=== PATIENT | male | born 1975 | race Caucasian/White ===

== ENCOUNTER 2016-08-25 11:49 | Outpatient (CLI) | payer MEDICAID ==
[~2016-08-25] VITALS: Ht 182.9 cm; Wt 108.9 kg
[~2016-08-25 11:49] MED LIST: ALBU17AE23 IH; BUTA1TAB46 PO; DOXY100C2 PO; HYDR-3583 PO; HYDR-3730 PO; IBUP800T26 PO; NAPR-243 PO; NF-ESOM40C PO; OMEP40CA36 PO; ORPH100T PO; PNT40TEC PO; PRD20T PO; SCR1T1 PO; TRM50T PO; [UNRECOGNIZED DRUG - OTHER] INH
[2016-08-25] MEDS ORDERED: BUPIVACAINE 0.25% 30 ML (SENSORCAINE) VIAL ONE (11:53)
[2016-08-25] MEDS ORDERED: LIDOCAINE 1% INJ 20 ML (XYLOCAINE) VIAL ONE (11:53)
[2016-08-25] MEDS ORDERED: TRIAMCINOLONE ACET (KENALOG-40) 40 MG/ML 1 ML VIAL ONE (11:53)
[2016-08-25 12:41] VITALS: BP 125/95
[2016-08-25 13:10] VITALS: BP 136/94
--- NOTE | 2016-08-25 14:01 | Pain Medicine-Procedure ---
Procedure Pre-Op/Post-Op Diagnosis Diagnosis: spondylosis without myelopathy, lumbar Indications for Operation Low back pain Attending Surgeon Charo Procedure Date of Service: Aug 25, 2016 PROCEDURE: Bilateral lumbar medial branch block at L3,L4, L5 and sacral ala under fluoroscopic guidance. PROCEDURE DETAILS: After obtaining an informed consent from the patient, the patient's chart was reviewed. The patient was brought to the procedure room and placed in a prone position. The back was prepped with antiseptic solution, and under fluoroscopic guidance the sacral ala was identified bilaterally. 0.5 cc of 1% Lidocaine to anesthetize the skin. Two 22 gauge 3.5 inch spinal needles were inserted under fluoroscopic guidance until it got in touch with the bone at the sacral ala bilaterally. Then under right oblique fluoroscopy, the junction of the superior articular process and transverse process on the right at L3, L4, and L5 was identified. 0.5 cc of 1% Lidocaine was used to anesthetize the skin. A 22 gauge 3.5 inch spinal needle was inserted through the skin under fluoroscopic guidance until it came in touch with the bone at the junction between the superior articular process and transverse process at each level. The exact steps were repeated for the left side. After needle aspiration,80 mg of kenalog total was injected in equal alliquots followed by 0.5 cc of 0.5% bupivacaine at each. The patient tolerated the procedure well. The needles were flushed and removed, and a Band-Aide was applied. Complications None ELVIS CRAFT MD Aug 25, 2016 2:01 pm
== END 2016-08-25 13:11 | disposition home or self-care (01) ==
LOC: CARD 11:49
PROVIDERS: ATTEND Pain Medicine Pain Medicine
DX: M47.816 Spondylosis without myelopathy or radiculopathy, lumbar region (principal)
CPT/HCPCS: 64493; 64494; 64495

== ENCOUNTER 2016-10-20 10:29 | Outpatient (CLI) | payer MEDICAID ==
[~2016-10-20] VITALS: Ht 180.3 cm; Wt 104.3 kg
[2016-10-20] MEDS ORDERED: LIDOCAINE 1% INJ 20 ML (XYLOCAINE) VIAL ONE (10:38)
[2016-10-20] MEDS ORDERED: TRIAMCINOLONE ACET (KENALOG-40) 40 MG/ML 1 ML VIAL ONE (10:38)
[2016-10-20] MEDS ORDERED: BUPIVACAINE 0.5% 30 ML (SENSORCAINE) VIAL ONE (10:38)
--- OUTSIDE RECORDS SUMMARY | 2016-10-20 10:38 | XMS REPORT | Continuity of Care Document ---
Author Author [facility] Organization [facility] Address Unknown Phone Unavailable Care Team Providers Care Professor Of Business Name Role Phone MASOOD CARABALLO MD PCP Insurance Providers Payer Name Policy Number Subscriber Name Relationship [facility]ly [facility] [id number] Jono Gil 18 Self / Same As Patient Advance Directives Directive Response Recorded Date/Time Advance Directives No 08/25/16 12:34pm Health Care Power of Vp Marketing No 08/25/16 12:34pm Organ Donor No 08/25/16 12:34pm Resuscitation Status Full Code 08/25/16 12:34pm Problems Active Problems Medical Problem Onset Date Status Abdominal wall strain Unknown Acute Abdominal wall strain Unknown Acute Anxiety Unknown Acute Anxiety Unknown Acute Atypical chest pain Unknown Acute Back pain Unknown Acute Headache Unknown Acute Heat exhaustion Unknown Acute Lumbar radiculopathy Unknown Acute Medications Current Home Medications Medication Dose Units Route Directions Days/Qty Instructions Start Date Hydrocodone/Acetaminophen 1 Each 1-2 Each Oral Every 6 Hours 35 LAST PAIN MEDICATION, ONE TABLET, GIVEN AT 3:35 PM ON 06/21/15. 06/21/15 Prednisone 20 Mg 20 Mg Oral As Directed 18 Take 3 daily for 3 days, then 2 daily for 3 days, then 1 daily for 3 days 07/12/16 Past Home Medications Medication Directions Ordered Status Esomeprazole Magnesium 40 Mg Capsule.dr, 1 Cap Oral Daily 03/27/12 Discontinued Albuterol 17 Gm Aerosol, 1 Gm Inhalation As Needed 03/27/12 Discontinued [Qzar] , Mcg Inhalation Twice A Day 03/27/12 Discontinued Acetaminophen/Hydrocodone Bitart 1 Tab Tab, 1 - 2 Ea Oral Q 4 - 6 Hr Prn 01/08 Discontinued Naproxen 500 Mg Tablet, 1 Each Oral Three Times A Day as needed for Pain 02/16 Discontinued Orphenadrine Citrate 100 Mg Tablet.sa, 100 Mg Oral Twice A Day 02/09/14 Discontinued Tramadol Hcl 50 Mg Tab, 50 Mg Oral Q4-6HR as needed for Pain 02/09/14 Discontinued Omeprazole 40 Mg Capsule.dr, 40 Mg Oral Twice A Day 05/08/14 Discontinued Pantoprazole Sodium 40 Mg Tablet.dr, 1 Tab Oral Daily 05/08/14 Discontinued Sucralfate 1 Gm Tab, 1 Gm Oral Four Times Daily 05/08/14 Discontinued Doxycycline Hyclate (Vibramycin) 100 Mg Capsule, 100 Mg Oral Twice A Day 09/20 Discontinued Ibuprofen (Motrin) 800 Mg Tablet, 800 Mg Oral Every 8 Hours as needed for Pain 02/04/15 Discontinued Acetaminophen/Butalbital/Caffeine 1 Each Tablet, 1-2 Each Oral Every 4HRS as needed for Headache 02/16/15 Discontinued Doxycycline Hyclate (Vibramycin) 100 Mg Capsule, 1 Each Oral Twice A Day Discontinued Hydrocodone/Acetaminophen 1 Each Tablet, 1-2 Each Oral Every 6 Hours Discontinued Social History Social History Problem Response Recorded Date/Time Alcohol Use Occasionally Uses 06/21/2015 11:04am Recreational Drug Use Y THC 06/21/2015 11:04am Recent Foreign Travel No 08/25/2016 12:34pm Recent Infectious Disease Exposure No 08/25/2016 12:34pm Do you dip or chew tobacco? No 06/21/2015 12:09pm Recent Hopitalizations No 07/12/2016 1:02pm Hospital Discharge Instructions No hospital discharge instructions. Plan of Care Discharge Date 08/25/16 1:11pm Instructions/Education Provided DR. CRAFT-POST EPIDURAL INST Prescriptions See Medication Section Functional Status No functional status results. Allergies, Adverse Reactions, Alerts Allergen Type Severity Reaction Status Last Updated Shellfish Allergy Unknown Active 03/28/12 Immunizations No immunization records. Vital Signs Acute Vital Signs Vital Response Date/Time Pulse Rate (adult) 80 bpm (60 - 90) 08/25/2016 12:41pm Respiratory Rate 17 bpm (12 - 24) 08/25/2016 12:41pm O2 Sat by Pulse Oximetry 99 % (88 - 100) 08/25/2016 12:41pm Blood Pressure 136/94 mm Hg 08/25/2016 1:10pm Blood Pressure Mean 108 mm Hg 08/25/2016 1:10pm Pain Numeric Pain Scale 4 08/25/2016 1:10pm Height (Feet) 6 feet 08/25/2016 12:41pm Height (Inches) 0.00 inches 08/25/2016 12:41pm Height (Calculated Centimeters) 182.480715 cm 08/25/2016 12:41pm Weight (Pounds) 240 pounds 08/25/2016 12:41pm Weight (Ounces) 0.0 oz 08/25/2016 12:41pm Weight (Calculated Grams) 707405.17 gm 08/25/2016 12:41pm Weight (Calculated Kilograms) 108.006930 kilograms 08/25/2016 12:41pm Calculated BMI 32.6 08/25/2016 12:41pm Results No known relevant diagnostic tests, laboratory data and/or discharge summary. Procedures No known history of procedures. Encounters Encounter Location Arrival/Admit Date Discharge/Depart Date Attending Provider Departed Clinic [facility] 08/25/16 11:49am 08/25/16 1: 11pm LEVIS CRAFT MD
[2016-10-20 10:49] VITALS: BP 130/104
[2016-10-20 11:36] VITALS: BP 138/97
--- NOTE | 2016-10-20 11:52 | Pain Medicine-Procedure ---
Procedure Pre-Op/Post-Op Diagnosis Diagnosis: spondylosis without myelopathy, lumbar Indications for Operation Low back pain Attending Surgeon Charo Procedure Date of Service: Oct 20, 2016 PROCEDURE: Bilateral lumbar medial branch block at L3,L4, L5 and sacral ala under fluoroscopic guidance. PROCEDURE DETAILS: After obtaining an informed consent from the patient, the patient's chart was reviewed. The patient was brought to the procedure room and placed in a prone position. The back was prepped with antiseptic solution, and under fluoroscopic guidance the sacral ala was identified bilaterally. 0.5 cc of 1% Lidocaine to anesthetize the skin. Two 22 gauge 3.5 inch spinal needles were inserted under fluoroscopic guidance until it got in touch with the bone at the sacral ala bilaterally. Then under right oblique fluoroscopy, the junction of the superior articular process and transverse process on the right at L3, L4, and L5 was identified. 0.5 cc of 1% Lidocaine was used to anesthetize the skin. A 22 gauge 3.5 inch spinal needle was inserted through the skin under fluoroscopic guidance until it came in touch with the bone at the junction between the superior articular process and transverse process at each level. The exact steps were repeated for the left side. After needle aspiration,80 mg of kenalog total was injected in equal alliquots followed by 0.5 cc of 0.5% bupivacaine at each. The patient tolerated the procedure well. The needles were flushed and removed, and a Band-Aide was applied. Complications None ELVIS CRAFT MD Oct 20, 2016 11:52 am
== END 2016-10-20 11:40 ==
LOC: CARD 10:29
PROVIDERS: ATTEND Pain Medicine Pain Medicine
DX: M47.816 Spondylosis without myelopathy or radiculopathy, lumbar region (principal)
CPT/HCPCS: 64493; 64494; 64495

== ENCOUNTER 2016-11-24 09:11 | Outpatient (CLI) | payer MEDICAID ==
[~2016-11-24] VITALS: Ht 182.9 cm; Wt 104.3 kg
[2016-11-24] MEDS ORDERED: LIDOCAINE 2% 20 ML (XYLOCAINE) VIAL ONE (09:18)
[2016-11-24 09:27] VITALS: BP 130/89
[2016-11-24 10:05] VITALS: BP 138/104
--- NOTE | 2016-11-24 15:00 | Pain Medicine-Procedure ---
Procedure Pre-Op/Post-Op Diagnosis Diagnosis: spondylosis without myelopathy, lumbar Indications for Operation Low back pain Attending Surgeon Charo Procedure Date of Service: Nov 24, 2016 PROCEDURE: Radiofrequency Ablation (RFA) of right L3, L4, L5 and sacral ala (S1 ) Medial Branches NOTE: After obtaining written informed consent patient was taken to the procedure room. Pre-procedure blood pressure and pulse were stable and recorded in patients clinic chart. Patient was placed in a prone position and right lumbar area was prepped with chloraprep and draped in the usual sterile fashion. The skin over the sacral ala on the right was injected with 2% Lidocaine for local anesthesia. A 20-gauge RFA 100 mm needle with 10 mm active was inserted and advanced until it was touching the sacral ala in the area of the medial branch from S1. Next, in the oblique view, the right L3,L4 and L5 levels were identified. The skin over L3, L4 and L5 was then injected with 1% Lidocaine for local anesthesia. Next a 20-gauge RFA 100 mm needle with 10 mm active tip was inserted and advanced until it was touching the L3, L4 and L5 levels in the distrubution of the medial branches at each level making sure to not enter the neuroforamina. Following the placement of the needles sensory stimulation at 50 Hz and motor stimulation at 2 Hz was carried out. After confirming reproduction of the pain/sensation in the area of symptoms and the patient denying any motor movement, 0.5 mL's of 2% preservative free Lidocaine was injected at each level after negative aspiration. The RFA was then carried out in lesion mode. The settings were 80 C, and 90 seconds for lesion mode at each level. During the procedure no pain was reported in the extremities by the patient. After the procedure the needles were removed. Skin was cleaned and a sterile dressing was applied. Following the procedure the patient's vital signs were stable. The patient was discharged. RFA DATA: In chart. Complications None ELVIS CRAFT MD Nov 24, 2016 3:00 pm
== END 2016-11-24 10:22 ==
LOC: CARD 09:11
PROVIDERS: ATTEND Pain Medicine Pain Medicine
DX: M47.816 Spondylosis without myelopathy or radiculopathy, lumbar region (principal); Z79.899 Other long term (current) drug therapy
CPT/HCPCS: 64635; 64636

== ENCOUNTER 2016-12-01 08:59 | Outpatient (CLI) | payer MEDICAID ==
[~2016-12-01] VITALS: Ht 182.9 cm; Wt 104.3 kg
[2016-12-01 09:13] VITALS: BP 140/100
[2016-12-01] MEDS ORDERED: LIDOCAINE 2% 20 ML (XYLOCAINE) VIAL ONE (09:13)
[2016-12-01 10:09] VITALS: BP 137/98
--- NOTE | 2016-12-01 12:37 | Pain Medicine-Procedure ---
Procedure Pre-Op/Post-Op Diagnosis Diagnosis: spondylosis without myelopathy, lumbar Indications for Operation Low back pain Attending Surgeon Charo Procedure Date of Service: Dec 01, 2016 PROCEDURE: Radiofrequency Ablation (RFA) of left L3, L4, L5 and sacral ala (S1 ) Medial Branches NOTE: After obtaining written informed consent patient was taken to the procedure room. Pre-procedure blood pressure and pulse were stable and recorded in patients clinic chart. Patient was placed in a prone position and left lumbar area was prepped with chloraprep and draped in the usual sterile fashion. The skin over the sacral ala on the left was injected with 2% Lidocaine for local anesthesia. A 20-gauge RFA 100 mm needle with 10 mm active was inserted and advanced until it was touching the sacral ala in the area of the medial branch from S1. Next, in the oblique view, the left L3,L4 and L5 levels were identified. The skin over L3, L4 and L5 was then injected with 1% Lidocaine for local anesthesia. Next a 20-gauge RFA 100 mm needle with 10 mm active tip was inserted and advanced until it was touching the L3, L4 and L5 levels in the distrubution of the medial branches at each level making sure to not enter the neuroforamina. Following the placement of the needles sensory stimulation at 50 Hz and motor stimulation at 2 Hz was carried out. After confirming reproduction of the pain/sensation in the area of symptoms and the patient denying any motor movement, 0.5 mL's of 2% preservative free Lidocaine was injected at each level after negative aspiration. The RFA was then carried out in lesion mode. The settings were 80 C, and 90 seconds for lesion mode at each level. During the procedure no pain was reported in the extremities by the patient. After the procedure the needles were removed. Skin was cleaned and a sterile dressing was applied. Following the procedure the patient's vital signs were stable. The patient was discharged. RFA DATA: In chart Complications None ELVIS CRAFT MD Dec 01, 2016 12:37 pm
== END 2016-12-01 10:10 | disposition home or self-care (01) ==
LOC: CARD 08:59
PROVIDERS: ATTEND Pain Medicine Pain Medicine
DX: M47.816 Spondylosis without myelopathy or radiculopathy, lumbar region (principal); Z79.899 Other long term (current) drug therapy
CPT/HCPCS: 64635; 64636

== ENCOUNTER → 2016-12-09 | Outpatient (CLI) | payer MEDICAID ==
--- NOTE | 2016-12-09 11:11 | Diagnostic Imaging Report ---
PROCEDURE: MR imaging cervical spine without contrast. TECHNIQUE: Multiplanar, multisequence MR imaging of the cervical spine was performed without contrast. INDICATION: Neck pain. Bilateral elbow and shoulder pain. There is normal height and alignment of the cervical vertebral bodies. Disc spaces are well-maintained. There is mild bulging of the discs at C3-4 and C6-7 with no focal disc herniation or bony stenosis at these or any other levels. No nerve root impingement is seen. There is no mass or acute bony abnormality. There is no abnormality of the cervical cord seen. IMPRESSION: There are minimal degenerative changes present with no disc herniation or bony stenosis seen. The overall appearance is similar to a prior MRI from 07/12/16. Dictated by: Dictated on workstation # [id number]
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
== END ==
LOC: RAD 09:31
PROVIDERS: ATTEND Nurse Practitioner Family
DX: M50.30 Other cervical disc degeneration, unspecified cervical region (principal); M54.5 Low back pain
CPT/HCPCS: 72141; 72148

== ENCOUNTER 2017-11-24 23:57 | Observation (INO) | payer MEDICAID, OTHER ==
[~2017-11-24] VITALS: Ht 182.9 cm; Wt 109.3 kg
[2017-11-25] VITALS (15 sets, daily range): BP systolic 116–163; BP diastolic 76–109
[2017-11-25] MEDS ORDERED: FLUO20CA25 PO (00:10)
--- OUTSIDE RECORDS SUMMARY | 2017-11-25 00:30 | XMS REPORT ---
Author Author IRVING FARRAR [facility] Address [address] [place] [address] Care Team Providers Care Asbestos Removal Supervisor Name Role Phone IRVING FARRAR Unavailable PROBLEMS Type Condition ICD9-CM Code COC31-UO Code Onset Dates Condition Status SNOMED Code Problem Asthma, unspecified, unspecified status 493.90 Active 63110739 Problem Inguinal hernia without mention of obstruction or gangrene, unilateral or unspecified, (not specified as recurrent) 550.90 Active 806355050 Problem Allergic rhinitis, cause unspecified 477.9 Active 99618606 Problem Restless legs syndrome [RLS] 333.94 Active 13296046 Problem DDD (degenerative disc disease), cervical M50.30 Active 76067265 Problem DDD (degenerative disc disease), 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 Active 58721261 Problem Diverticulitis of colon (without mention of hemorrhage) 562.11 Active 533583012 Problem Esophageal reflux 530.81 Active 280331156 Problem DDD (degenerative disc disease), lumbar M51.36 Active 89563022 Problem Reactive depression F32.9 Active 81925855 ALLERGIES Unknown Allergies SOCIAL HISTORY No smoking Hx information available PLAN OF CARE VITAL SIGNS MEDICATIONS Medication Instructions Dosage Frequency Start Date End Date Duration Status ProAir HFA 90 mcg/actuation Inhalation 4 times a day inhale 2 puffs 6h Aug, Active RESULTS No Results PROCEDURES No Known procedures IMMUNIZATIONS No Known Immunizations
--- OUTSIDE RECORDS SUMMARY | 2017-11-25 00:30 | XMS REPORT ---
Author Author IRVING FARRAR [facility] Address [address] [place] [address] Care Team Providers Care Crusher And Blender Operator Name Role Phone IRVING FARRAR Unavailable PROBLEMS Type Condition ICD9-CM Code [id number] Code Onset Dates Condition Status SNOMED Code Problem Inguinal hernia without mention of obstruction or gangrene, unilateral or unspecified, (not specified as recurrent) 550.90 Active 968642932 Problem Asthma, unspecified, unspecified status 493.90 Active 64306819 Problem Esophageal reflux 530.81 Active 660842213 Problem Diverticulitis of colon (without mention of hemorrhage) 562.11 Active 311106372 Problem DDD (degenerative disc disease), cervical M50.30 Active 83735655 Problem DDD (degenerative disc disease), lumbar M51.36 Active 78378289 Problem Restless legs syndrome [RLS] 333.94 Active 24566612 Problem Allergic rhinitis, cause unspecified 477.9 Active 56941858 Problem Reactive depression F32.9 Active 06947340 Problem DDD (degenerative disc disease), 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 Active 95212475 ALLERGIES Substance Reaction Event Type Date Status Wellbutrin XL headache Drug Allergy Aug, Active Prozac incd anger Drug Allergy Aug, Active Iodine anaphylaxis Drug Allergy Aug, Active Gabapentin nausea Drug Allergy Aug, Active Fioricet hallucinations Drug Allergy Aug, Active SOCIAL HISTORY No smoking Hx information available PLAN OF CARE Activity Details Follow Up 4 Weeks Reason:depression VITAL SIGNS Height 70 in 2016-08-23 Weight 243.8 lbs 2016-08-23 Temperature 98 degrees Fahrenheit 2016-08-23 Heart Rate 80 bpm 2016-08-23 Respiratory Rate 18 2016-08-23 BMI 34.98 kg/m2 2016-08-23 Blood pressure systolic 142 mmHg 2016-08-23 Blood pressure diastolic 82 mmHg 2016-08-23 MEDICATIONS Medication Instructions Dosage Frequency Start Date End Date Duration Status Valium 5 mg Orally Twice a day as needed must last 1 m 1 tablet as needed Jul, Active Omeprazole 20 MG Orally 2 times a day take 1 capsule by Oral route before a meal 2 times per day 12h 04 Apr, 2014 Active Hydrocodone-Acetaminophen 5-325 MG Orally 3 times a day must lst 1 m 1 tablet as needed Jul, Active ProAir HFA 90 mcg/actuation Inhalation 4 times a day inhale 2 puffs 6h Aug, Active Sertraline HCl 25 MG Orally Once a day 1 tablet x 2 wk then 2 tab qd 24h Aug, Active RESULTS No Results PROCEDURES Procedure Date Ordered Related Diagnosis Body Site Office Visit, Est Pt., Level 3 Aug 23, 2016 IMMUNIZATIONS No Known Immunizations
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
--- OUTSIDE RECORDS SUMMARY | 2017-11-25 00:30 | XMS REPORT ---
Author Author IRVING FARRAR [facility] e[employer] Address Unknown Phone Unavailable Care Team Providers Care Cut Off Machine Unloader Name Role Phone IRVING FARRAR CP Unavailable Allergies, Adverse Reactions, Alerts Substance Reaction Event Type Wellbutrin XL headache Drug Allergy Prozac incd anger Drug Allergy Iodine anaphylaxis Drug Allergy Gabapentin nausea Drug Allergy Fioricet hallucinations Drug Allergy Problems Problem Type Condition Code Onset Dates Condition Status Problem Acute maxillary sinusitis 461.0 Active Assessment Diarrhea, unspecified R19.7 Active Problem Abdominal pain, unspecified site 789.00 Active Problem Restless legs syndrome [RLS] 333.94 Active Problem Unspecified episodic mood disorder 296.90 Active Problem Inguinal hernia without mention of obstruction or gangrene, unilateral or unspecified, (not specified as recurrent) 550.90 Active Problem Hernia of unspecified site of abdominal cavity without mention of obstruction or gangrene 553.9 Active Problem Diverticulitis of colon (without mention of hemorrhage) 562.11 Active Problem Esophageal reflux 530.81 Active Problem Asthma, unspecified, unspecified status 493.90 Active Problem Abdominal pain, right lower quadrant 789.03 Active Problem Unspecified neuralgia, neuritis, and radiculitis 729.2 Active Problem Dysuria 788.1 Active Problem Unspecified fasciitis 729.4 Active Problem Diarrhea 787.91 Active Problem Pain in joint, lower leg 719.46 Active Problem Thoracic or lumbosacral neuritis or radiculitis, unspecified 724.4 Active Problem Acute bronchitis 466.0 Active Problem Acute sinusitis, unspecified 461.9 Active Problem Lumbago 724.2 Active Problem Allergic rhinitis, cause unspecified 477.9 Active Problem Pneumonia, organism unspecified 486 Active Problem Incisional hernia without mention of obstruction or gangrene 553.21 Active Problem Pain in soft tissues of limb 729.5 Active Problem Pain in joint, ankle and foot 719.47 Active Medications Medication Code System Code Instructions Start Date End Date Status Dosage Sucralfate [facility] [address]-96 1 GM Orally 4 times a day Jun 10, 2015 1 tablet on an empty stomach Omeprazole [facility] [address]-55 20 MG Orally 2 times a day Apr 09, 2014 take 1 capsule by Oral route before a meal 2 times per day Procedures Procedure Coding System Code Date Office Visit, Est Pt., Level 3 CPT-4 54827 Jun 10, 2015 Vital Signs Date/Time: Jun 10, 2015 Temperature 97.8 F Weight 238 lbs Height 70 in BMI 34.15 Index Blood Pressure Diastolic 70 mmHg Blood Pressure Systolic 120 mmHg Cardiac Monitoring Heart Rate 78 bpm Results No Known Results Summary Purpose eClinicalWorks Submission
--- OUTSIDE RECORDS SUMMARY | 2017-11-25 00:30 | XMS REPORT ---
Author Author IRVING FARRAR Organization [employer] Address Unknown Phone Unavailable Care Team Providers Care Energy Conservation Engineer Name Role Phone IRVING FARRAR CP Unavailable Allergies No Known Allergies Problems Problem Type Condition Code Onset Dates Condition Status Problem Unspecified episodic mood disorder 296.90 Active Problem Inguinal hernia without mention of obstruction or gangrene, unilateral or unspecified, (not specified as recurrent) 550.90 Active Problem Hernia of unspecified site of abdominal cavity without mention of obstruction or gangrene 553.9 Active Problem Diverticulitis of colon (without mention of hemorrhage) 562.11 Active Problem Asthma, unspecified, unspecified status 493.90 Active Problem Esophageal reflux 530.81 Active Problem Abdominal pain, right lower quadrant 789.03 Active Problem Dysuria 788.1 Active Problem Unspecified neuralgia, neuritis, and radiculitis 729.2 Active Problem Unspecified fasciitis 729.4 Active Problem [...] soft tissues of limb 729.5 Active Problem Acute maxillary sinusitis 461.0 Active Problem Restless legs syndrome [RLS] 333.94 Active Problem Pain in joint, ankle and foot 719.47 Active Problem Abdominal pain, unspecified site 789.00 Active Medications Medication Code System Code Instructions Start Date End Date Status Dosage ProAir HFA [facility] [place] [id number] 90 mcg/actuation Inhalation 4 times a day Aug 27, 2014 inhale 2 puffs Results No Known Results Summary Purpose [employer] Submission
--- OUTSIDE RECORDS SUMMARY | 2017-11-25 00:31 | XMS REPORT ---
Author Author IRVING FARRAR Organization [employer] Address Unknown Phone Unavailable Care Team Providers Care Impregnator Name Role Phone IRVING FARRAR CP Unavailable [...] Date End Date Status Dosage ProAir HFA [facility] [place] [id number] 90 mcg/actuation Inhalation 4 times a day Aug 27, 2014 inhale 2 puffs Results No Known Results Summary Purpose [employer] Submission
--- OUTSIDE RECORDS SUMMARY | 2017-11-25 00:31 | XMS REPORT ---
Author Author IRVING FARRAR [facility] Address [address] [place] [address] Care Team Providers Care Emissions Inspector Name Role Phone IRVING FARRAR Unavailable PROBLEMS Type Condition ICD9-CM Code [id number] Code Onset Dates Condition Status SNOMED Code Problem Inguinal hernia without mention of obstruction or gangrene, unilateral or unspecified, (not specified as recurrent) 550.90 Active 964279752 Problem Asthma, unspecified, unspecified status 493.90 Active 56615212 Problem Esophageal reflux 530.81 Active 489836113 Problem Diverticulitis of colon (without mention of hemorrhage) 562.11 Active 023938141 Problem DDD (degenerative disc disease), cervical M50.30 Active 53099854 Problem DDD (degenerative disc disease), lumbar M51.36 Active 77465275 Problem Restless legs syndrome [RLS] 333.94 Active 48716540 Problem Allergic rhinitis, cause unspecified 477.9 Active 79508281 Problem Reactive depression F32.9 Active 67931810 Problem DDD (degenerative disc disease), 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 Active 38056846 ALLERGIES Substance Reaction Event Type Date Status Wellbutrin XL headache Drug Allergy Jul, Active Prozac incd anger Drug Allergy Jul, Active Iodine anaphylaxis Drug Allergy Jul, Active Gabapentin nausea Drug Allergy Jul, Active Fioricet hallucinations Drug Allergy Jul, Active SOCIAL HISTORY No smoking Hx information available PLAN OF CARE Activity Details Follow Up 4 Weeks Reason:back pain VITAL SIGNS Height 70 in 2016-07-24 Weight 246.4 lbs 2016-07-24 Temperature 98.3 degrees Fahrenheit 2016-07-24 Heart Rate 86 bpm 2016-07-24 Respiratory Rate 18 2016-07-24 BMI 35.35 kg/m2 2016-07-24 Blood pressure systolic 136 mmHg 2016-07-24 Blood pressure diastolic 78 mmHg 2016-07-24 MEDICATIONS Medication Instructions Dosage Frequency Start Date End Date Duration Status Omeprazole 20 MG Orally 2 times a day take 1 capsule by Oral route before a meal 2 times per day 12h 04 Apr, 2014 Active Fluoxetine 20 mg Orally Once a day 1 capsule in the morning 24h Jul, Active Valium 5 mg Orally Twice a day as needed must last 1 m 1 tablet as needed Jul, Active Hydrocodone-Acetaminophen 5-325 MG Orally 3 times a day must lst 1 m 1 tablet as needed Jul, Active RESULTS No Results PROCEDURES Procedure Date Ordered Related Diagnosis Body Site Office Visit, Est Pt., Level 3 Jul 24, 2016 IMMUNIZATIONS No Known Immunizations
--- OUTSIDE RECORDS SUMMARY | 2017-11-25 00:31 | XMS REPORT ---
Author Author MG FERNANDEZ Organization [employer] Address Unknown Phone Unavailable Care Team Providers Care Teacher Visually Impaired Name Role Phone MG FERNANDEZ CP Unavailable Allergies No Known Allergies Problems Problem Type Condition Code Onset Dates Condition Status Problem Acute maxillary sinusitis 461.0 Active Assessment Encounter for immunization Z23 Active Problem Abdominal pain, unspecified site 789.00 [...] joint, ankle and foot 719.47 Active Medications No Known Medications Procedures Procedure Coding System Code Date SINGLE IMMUNIZATION ADMIN CPT-4 29655 Jun 30, 2016 FLUARIX QUAD P-FREE 3 AND UP .50 2015 CPT-4 57501 Jun 30, 2016 Results No Known Results Immunizations Vaccine Administration Date FLUARIX QUAD P-FREE 3 AND UP .50 2015Jun 30, 2016 Summary Purpose [employer] Submission
--- OUTSIDE RECORDS SUMMARY | 2017-11-25 00:32 | XMS REPORT | Continuity of Care Document ---
Author Author [facility] Address Unknown Phone Unavailable Allergies Active Description Code Type Severity Reaction Onset Reported/Identified Relationship to Patient Clinical Status Yes Iodine Drug Allergy N/A N/A 09/27/2011 Yes Iodine Drug Allergy 09/27/2011 Yes Shellfish [id number] Drug Allergy Unknown N/A 03/28/2012 Yes Wellbutrin SR 150 mg tablet extended release Drug Allergy N/A N/A 2012 Yes gabapentin 300 mg capsule Drug Allergy N/A N/A 04/22/2013 Yes Prozac Drug Allergy N/A N/A 09/30/2013 Yes iodine [id number] Drug Allergy Severe ANAPHYLAXIS 02/09/2014 Medications There is no data. Problems Date Dx Coded Attending Type Code Diagnosis Diagnosed By 09/27/2011 477.9 RHINITIS 09/27/2011 493.90 ASTHMA UNSPECIFIED 09/27/2011 724.2 BACK PAIN, LOWER 09/27/2011 477.9 RHINITIS 09/27/2011 493.90 ASTHMA UNSPECIFIED 09/27/2011 724.2 BACK PAIN, LOWER 09/27/2011 477.9 RHINITIS 09/27/2011 493.90 ASTHMA UNSPECIFIED 09/27/2011 724.2 BACK PAIN, LOWER 09/27/2011 477.9 RHINITIS 09/27/2011 493.90 ASTHMA UNSPECIFIED 09/27/2011 724.2 BACK PAIN, LOWER 09/27/2011 477.9 RHINITIS 09/27/2011 493.90 ASTHMA UNSPECIFIED 09/27/2011 724.2 BACK PAIN, LOWER 09/27/2011 SHIRA SALINAS DO 477.9 RHINITIS 09/27/2011 SHIRA SALINAS DO 493.90 ASTHMA UNSPECIFIED 09/27/2011 SHIRA SALINAS DO 724.2 BACK PAIN, LOWER 09/27/2011 SHIRA SALINAS DO 477.9 RHINITIS 09/27/2011 SHIRA SALINAS DO 493.90 ASTHMA UNSPECIFIED 09/27/2011 SALINAS DO, SHIRA K 724.2 BACK PAIN, LOWER 09/27/2011 SALINAS DO, SHIRA K 477.9 RHINITIS 09/27/2011 SALINAS DO, SHIRA K 493.90 ASTHMA UNSPECIFIED 09/27/2011 SALINAS DO, SHIRA K 724.2 BACK PAIN, LOWER 09/27/2011 SALINAS DO, SHIRA K 477.9 RHINITIS 09/27/2011 SALINAS DO, SHIRA K 493.90 ASTHMA UNSPECIFIED 09/27/2011 SALINAS DO, SHIRA K 724.2 BACK PAIN, LOWER 09/27/2011 FARRAR BUSINESS OPERATIONS COORDINATORIRVING Bates 477.9 RHINITIS 09/27/2011 FARRAR BUSINESS OPERATIONS COORDINATOR, IRVING R 493.90 ASTHMA UNSPECIFIED 09/27/2011 FARRAR IRVING BILL R 724.2 BACK PAIN, LOWER 09/27/2011 FARRAR IRVING BILL 477.9 RHINITIS 09/27/2011 FARRAR BUSINESS OPERATIONS COORDINATOR, IRVING R 493.90 ASTHMA UNSPECIFIED 09/27/2011 IRVING FARRAR APRN R 724.2 BACK PAIN, LOWER 09/27/2011 SALINAS DO, SHIRA K 477.9 RHINITIS 09/27/2011 SALINAS DO, SHIRA K 493.90 ASTHMA UNSPECIFIED 09/27/2011 SALINAS DO, SHIRA K 724.2 BACK PAIN, LOWER 09/27/2011 GIORGI BUSINESS OPERATIONS COORDINATOR, KAMINI R 477.9 RHINITIS 09/27/2011 GIORGI BUSINESS OPERATIONS COORDINATOR KAMINI R 493.90 ASTHMA UNSPECIFIED 09/27/2011 GIORGI BUSINESS OPERATIONS COORDINATOR KAMINI R 724.2 BACK PAIN, LOWER 09/27/2011 GIORGI BUSINESS OPERATIONS COORDINATOR KAMINI R 477.9 RHINITIS 09/27/2011 RAND BUSINESS OPERATIONS COORDINATOR, KAMINI R 493.90 ASTHMA UNSPECIFIED 09/27/2011 RAND BUSINESS OPERATIONS COORDINATOR, KAMINI R 724.2 BACK PAIN, LOWER 09/27/2011 SALINAS DO, SHIRA K 477.9 RHINITIS 09/27/2011 SALINAS DO, SHIRA K 493.90 ASTHMA UNSPECIFIED 09/27/2011 SALINAS DO, SHIRA K 724.2 BACK PAIN, LOWER 09/27/2011 SALINAS DO, SHIRA K 477.9 RHINITIS 09/27/2011 SALINAS DO, SHIRA K 493.90 ASTHMA UNSPECIFIED 09/27/2011 SALINAS DO, SHIRA K 724.2 BACK PAIN, LOWER 02/26/2012 789.03 ABDOMINAL PAIN RIGHT LOWER QUADRANT 02/26/2012 789.03 ABDOMINAL PAIN RIGHT LOWER QUADRANT 02/26/2012 789.03 ABDOMINAL PAIN RIGHT LOWER QUADRANT 02/26/2012 789.03 ABDOMINAL PAIN RIGHT LOWER QUADRANT 02/26/2012 789.03 ABDOMINAL PAIN RIGHT LOWER QUADRANT 02/26/2012 SALINAS DOSHIRA K 789.03 ABDOMINAL PAIN RIGHT LOWER QUADRANT 02/26/2012 SALINAS DOLORENAA K 789.03 ABDOMINAL PAIN RIGHT LOWER QUADRANT 02/26/2012 SALINAS DO, SHIRA K 789.03 ABDOMINAL PAIN RIGHT LOWER QUADRANT 02/26/2012 SALINAS LORENA HERNANDEZA K 789.03 ABDOMINAL PAIN RIGHT LOWER QUADRANT 02/26/2012 IRVING FARRAR APRN 789.03 ABDOMINAL PAIN RIGHT LOWER QUADRANT 02/26/2012 IRVING FARRAR APRN 789.03 ABDOMINAL PAIN RIGHT LOWER QUADRANT 02/26/2012 SALINAS DOLORENAA K 789.03 ABDOMINAL PAIN RIGHT LOWER QUADRANT 02/26/2012 KAMINI RAND APRN R 789.03 ABDOMINAL PAIN RIGHT LOWER QUADRANT 02/26/2012 KAMINI RAND APRN R 789.03 ABDOMINAL PAIN RIGHT LOWER QUADRANT 02/26/2012 SALINAS LORENA HERNANDEZA K 789.03 ABDOMINAL PAIN RIGHT LOWER QUADRANT 02/26/2012 SALINAS LORNEA HERNANDEZA K 789.03 ABDOMINAL PAIN RIGHT LOWER QUADRANT 03/08/2012 530.81 ESOPHAGEAL REFLUX 03/08/2012 562.11 DIVERTICULITIS OF COLON (WITHOUT HEMORRHAGE) 03/08/2012 530.81 ESOPHAGEAL REFLUX 03/08/2012 562.11 DIVERTICULITIS OF COLON (WITHOUT HEMORRHAGE) 03/08/2012 530.81 ESOPHAGEAL REFLUX 03/08/2012 562.11 DIVERTICULITIS OF COLON (WITHOUT HEMORRHAGE) 03/08/2012 530.81 ESOPHAGEAL REFLUX 03/08/2012 562.11 DIVERTICULITIS OF COLON (WITHOUT HEMORRHAGE) 03/08/2012 530.81 ESOPHAGEAL REFLUX 03/08/2012 562.11 DIVERTICULITIS OF COLON (WITHOUT HEMORRHAGE) 03/08/2012 SHIRA SALINAS DO K 530.81 ESOPHAGEAL REFLUX 03/08/2012 SHIRA SALINAS DO K 562.11 DIVERTICULITIS OF COLON (WITHOUT HEMORRHAGE) 03/08/2012 SALINAS DO, SHIRA K 530.81 ESOPHAGEAL REFLUX 03/08/2012 BRAD HERNANDEZ SHIRA K 562.11 DIVERTICULITIS OF COLON (WITHOUT HEMORRHAGE) 03/08/2012 SALINAS DO SHIRA K 530.81 ESOPHAGEAL REFLUX 03/08/2012 SALINAS DO SHIRA K 562.11 DIVERTICULITIS OF COLON (WITHOUT HEMORRHAGE) 03/08/2012 SALINAS DO SHIRA K 530.81 ESOPHAGEAL REFLUX 03/08/2012 SALINAS DO SHIRA K 562.11 DIVERTICULITIS OF COLON (WITHOUT HEMORRHAGE) 03/08/2012 IRVING FARRAR APRN R 530.81 ESOPHAGEAL REFLUX 03/08/2012 FARRAR BUSINESS OPERATIONS COORDINATORIRVING Bates R 562.11 DIVERTICULITIS OF COLON (WITHOUT HEMORRHAGE) 03/08/2012 IRVING FARRAR APRN R 530.81 ESOPHAGEAL REFLUX 03/08/2012 FARRAR IRVING BILL R 562.11 DIVERTICULITIS OF COLON (WITHOUT HEMORRHAGE) 03/08/2012 LORENA SALINAS DOA K 530.81 ESOPHAGEAL REFLUX 03/08/2012 LORENA SALINAS DOA K 562.11 DIVERTICULITIS OF COLON (WITHOUT HEMORRHAGE) 03/08/2012 GIORGI BUSINESS OPERATIONS COORDINATOR KAMINI R 530.81 ESOPHAGEAL REFLUX 03/08/2012 GIORGI BUSINESS OPERATIONS COORDINATOR KAMINI R 562.11 DIVERTICULITIS OF COLON (WITHOUT HEMORRHAGE) 03/08/2012 GIORGI BUSINESS OPERATIONS COORDINATOR KAMINI R 530.81 ESOPHAGEAL REFLUX 03/08/2012 GIORGI BUSINESS OPERATIONS COORDINATOR, KAMINI R 562.11 DIVERTICULITIS OF COLON (WITHOUT HEMORRHAGE) 03/08/2012 BRAD HERNANDEZ SHIRA K 530.81 ESOPHAGEAL REFLUX 03/08/2012 BRAD HERNANDEZ SHIRA K 562.11 DIVERTICULITIS OF COLON (WITHOUT HEMORRHAGE) 03/08/2012 SALINAS DO SHIRA K 530.81 ESOPHAGEAL REFLUX 03/08/2012 SALINAS DO SHIRA K 562.11 DIVERTICULITIS OF COLON (WITHOUT HEMORRHAGE) 03/28/2012 Ot 211.3 BENIGN NEOPLASM LG BOWEL 03/28/2012 Ot 787.99 OTHER GI SYSTEM SYMPTOMS 04/12/2012 553.9 HERNIA UNSPECIFIED SITE 04/12/2012 553.9 HERNIA UNSPECIFIED SITE 04/12/2012 553.9 HERNIA UNSPECIFIED SITE 04/12/2012 553.9 HERNIA UNSPECIFIED SITE 04/12/2012 553.9 HERNIA UNSPECIFIED SITE 04/12/2012 SALINAS DO, SHIRA K 553.9 HERNIA UNSPECIFIED SITE 04/12/2012 SALINAS DO, SHIRA K 553.9 HERNIA UNSPECIFIED SITE 04/12/2012 SALINAS DO, SHIRA K 553.9 HERNIA UNSPECIFIED SITE 04/12/2012 SALINAS DO, SHIRA K 553.9 HERNIA UNSPECIFIED SITE 04/12/2012 IRVING FARRAR APRN 553.9 HERNIA UNSPECIFIED SITE 04/12/2012 FARRARIRVING RILEY APRN 553.9 HERNIA UNSPECIFIED SITE 04/12/2012 SALINAS DO, SHIRA K 553.9 HERNIA UNSPECIFIED SITE 04/12/2012 KAMINI RAND APRN 553.9 HERNIA UNSPECIFIED SITE 04/12/2012 KAMINI RAND APRN 553.9 HERNIA UNSPECIFIED SITE 04/12/2012 SALINAS DO, SHIRA K 553.9 HERNIA UNSPECIFIED SITE 04/12/2012 SALINAS DO, SHIRA K 553.9 HERNIA UNSPECIFIED SITE 04/15/2012 789.00 ABDOMINAL PAIN UNSPECIFIED SITE 04/15/2012 789.00 ABDOMINAL PAIN UNSPECIFIED SITE 04/15/2012 789.00 ABDOMINAL PAIN UNSPECIFIED SITE 04/15/2012 789.00 ABDOMINAL PAIN UNSPECIFIED SITE 04/15/2012 789.00 ABDOMINAL PAIN UNSPECIFIED SITE 04/15/2012 SALINAS DO, SHIRA K 789.00 ABDOMINAL PAIN UNSPECIFIED SITE 04/15/2012 SALINAS DO, SHIRA K 789.00 ABDOMINAL PAIN UNSPECIFIED SITE 04/15/2012 SALINAS DO, SHIRA K 789.00 ABDOMINAL PAIN UNSPECIFIED SITE 04/15/2012 SALINAS DO, SHIRA K 789.00 ABDOMINAL PAIN UNSPECIFIED SITE 04/15/2012 IRVING FARRAR APRN 789.00 ABDOMINAL PAIN UNSPECIFIED SITE 04/15/2012 IRVING FARRAR APRN 789.00 ABDOMINAL PAIN UNSPECIFIED SITE 04/15/2012 SALINAS DO, SHIRA K 789.00 ABDOMINAL PAIN UNSPECIFIED SITE 04/15/2012 KAMINI RAND APRN 789.00 ABDOMINAL PAIN UNSPECIFIED SITE 04/15/2012 KAMINI RAND APRN 789.00 ABDOMINAL PAIN UNSPECIFIED SITE 04/15/2012 SALINAS DO, SHIRA K 789.00 ABDOMINAL PAIN UNSPECIFIED SITE 04/15/2012 SALINAS DO, SHIRA K 789.00 ABDOMINAL PAIN UNSPECIFIED SITE 05/02/2012 Ot 550.92 BILAT INGUINAL HERNIA 05/02/2012 Ot 575.11 CHRONIC CHOLECYSTITIS 06/17/2012 553.21 INCISIONAL HERNIA POSTOPERATIVE 06/17/2012 553.21 INCISIONAL HERNIA POSTOPERATIVE 06/17/2012 553.21 INCISIONAL HERNIA POSTOPERATIVE 06/17/2012 553.21 INCISIONAL HERNIA POSTOPERATIVE 06/17/2012 553.21 INCISIONAL HERNIA POSTOPERATIVE 06/17/2012 SALINAS LORENA HERNANDEZA K 553.21 INCISIONAL HERNIA POSTOPERATIVE 06/17/2012 BRAD HERNANDEZ SHIRA K 553.21 INCISIONAL HERNIA POSTOPERATIVE 06/17/2012 SALINAS DO SHIRA K 553.21 INCISIONAL HERNIA POSTOPERATIVE 06/17/2012 SALINAS DO SHIRA K 553.21 INCISIONAL HERNIA POSTOPERATIVE 06/17/2012 IRVING FARRAR APRN 553.21 INCISIONAL HERNIA POSTOPERATIVE 06/17/2012 IRVING FARRAR APRN 553.21 INCISIONAL HERNIA POSTOPERATIVE 06/17/2012 LORENA SALINAS DOA K 553.21 INCISIONAL HERNIA POSTOPERATIVE 06/17/2012 KAMINI RAND APRN 553.21 INCISIONAL HERNIA POSTOPERATIVE 06/17/2012 KAMINI RAND APRN 553.21 INCISIONAL HERNIA POSTOPERATIVE 06/17/2012 LORENA SALINAS DOA K 553.21 INCISIONAL HERNIA POSTOPERATIVE 06/17/2012 LORENA SALINAS DOA K 553.21 INCISIONAL HERNIA POSTOPERATIVE 08/12/2012 550.90 HERNIA INGUINAL 08/12/2012 550.90 HERNIA INGUINAL 08/12/2012 550.90 HERNIA INGUINAL 08/12/2012 550.90 HERNIA INGUINAL 08/12/2012 BRAD HERNANDEZ SHIRA K 550.90 HERNIA INGUINAL 08/12/2012 SALINAS DO SHIRA K 550.90 HERNIA INGUINAL 08/12/2012 SALINAS DO SHIRA K 550.90 HERNIA INGUINAL 08/12/2012 SALINAS DO SHIRA K 550.90 HERNIA INGUINAL 08/12/2012 IRVING FARRAR APRN 550.90 HERNIA INGUINAL 08/12/2012 IRVING FARRAR APRN 550.90 HERNIA INGUINAL 08/12/2012 SHIRA SALINAS DO K 550.90 HERNIA INGUINAL 08/12/2012 KAMINI RAND APRN 550.90 HERNIA INGUINAL 08/12/2012 RAND BUSINESS OPERATIONS COORDINATOR, KAMINI R 550.90 HERNIA INGUINAL 08/12/2012 SALINAS DO, SHIRA K 550.90 HERNIA INGUINAL 08/12/2012 SALINAS DO, SHIRA K 550.90 HERNIA INGUINAL 10/22/2012 461.9 SINUSITIS ACUTE 10/22/2012 466.0 ACUTE BRONCHITIS 10/22/2012 461.9 SINUSITIS ACUTE 10/22/2012 466.0 ACUTE BRONCHITIS 10/22/2012 461.9 SINUSITIS ACUTE 10/22/2012 466.0 ACUTE BRONCHITIS 10/22/2012 SALINAS DO, SHIRA K 461.9 SINUSITIS ACUTE 10/22/2012 SALINAS DO, SHIRA K 466.0 ACUTE BRONCHITIS 10/22/2012 SALINAS DO, SHIRA K 461.9 SINUSITIS ACUTE 10/22/2012 SALINAS DO, SHIRA K 466.0 ACUTE BRONCHITIS 10/22/2012 SALINAS DO, SHIRA K 461.9 SINUSITIS ACUTE 10/22/2012 SALINAS DO, SHIRA K 466.0 ACUTE BRONCHITIS 10/22/2012 SALINAS DO, SHIRA K 461.9 SINUSITIS ACUTE 10/22/2012 SALINAS DO, SHIRA K 466.0 ACUTE BRONCHITIS 10/22/2012 FARRAR BUSINESS OPERATIONS COORDINATOR, IRVING R 461.9 SINUSITIS ACUTE 10/22/2012 FARRAR BUSINESS OPERATIONS COORDINATOR, IRVING R 466.0 ACUTE BRONCHITIS 10/22/2012 FARRAR BUSINESS OPERATIONS COORDINATOR, IRVING R 461.9 SINUSITIS ACUTE 10/22/2012 FARRAR BUSINESS OPERATIONS COORDINATOR, IRVING R 466.0 ACUTE BRONCHITIS 10/22/2012 SALINAS DO, SHIRA K 461.9 SINUSITIS ACUTE 10/22/2012 SALINAS DO, SHIRA K 466.0 ACUTE BRONCHITIS 10/22/2012 GIORGI NUNESNDAVIDKAMINI R 461.9 SINUSITIS ACUTE 10/22/2012 GIORGI BUSINESS OPERATIONS COORDINATOR, KAMINI R 466.0 ACUTE BRONCHITIS 10/22/2012 GIORGI BUSINESS OPERATIONS COORDINATOR, KAMINI R 461.9 SINUSITIS ACUTE 10/22/2012 GIORGI BUSINESS OPERATIONS COORDINATOR, KAMINI R 466.0 ACUTE BRONCHITIS 10/22/2012 SALINAS DO, SHIRA K 461.9 SINUSITIS ACUTE 10/22/2012 SALINAS DO, SHIRA K 466.0 ACUTE BRONCHITIS 10/22/2012 SALINAS DO, SHIRA K 461.9 SINUSITIS ACUTE 10/22/2012 SALINAS DO, SHIRA K 466.0 ACUTE BRONCHITIS 12/12/2012 296.90 MOOD DISORDER 12/12/2012 296.90 MOOD DISORDER 12/12/2012 SALINAS DO, SHIRA K 296.90 MOOD DISORDER 12/12/2012 SALINAS DO, SHIRA K 296.90 MOOD DISORDER 12/12/2012 SALINAS DO, SHIRA K 296.90 MOOD DISORDER 12/12/2012 SALINAS DO, SHIRA K 296.90 MOOD DISORDER 12/12/2012 FARRAR BUSINESS OPERATIONS COORDINATORIRVING R 296.90 MOOD DISORDER 12/12/2012 FARRAR BUSINESS OPERATIONS COORDINATOR, IRVING R 296.90 MOOD DISORDER 12/12/2012 SALINAS DO, SHIRA K 296.90 MOOD DISORDER 12/12/2012 RAND BUSINESS OPERATIONS COORDINATOR, KAMINI R 296.90 MOOD DISORDER 12/12/2012 RAND BUSINESS OPERATIONS COORDINATOR, KAMINI R 296.90 MOOD DISORDER 12/12/2012 SALINAS DO, SHIRA K 296.90 MOOD DISORDER 12/12/2012 SALINAS DO, SHIRA K 296.90 MOOD DISORDER 03/12/2013 724.4 BACK PAIN WITH RADIATION 03/12/2013 729.4 PLANTAR FASCIITIS 03/12/2013 787.91 DIARRHEA 03/12/2013 SALINAS DO, SHIRA K 724.4 BACK PAIN WITH RADIATION 03/12/2013 SALINAS DO, SHIRA K 729.4 PLANTAR FASCIITIS 03/12/2013 SALINAS DO, SHIRA K 787.91 DIARRHEA 03/12/2013 SALINAS DO, SHIRA K 724.4 BACK PAIN WITH RADIATION 03/12/2013 SALINAS DO, SHIRA K 729.4 PLANTAR FASCIITIS 03/12/2013 SALINAS DO, SHIRA K 787.91 DIARRHEA 03/12/2013 SALINAS DO, SHIRA K 724.4 BACK PAIN WITH RADIATION 03/12/2013 SALINAS DO, SHIRA K 729.4 PLANTAR FASCIITIS 03/12/2013 SALINAS DO, SHIRA K 787.91 DIARRHEA 03/12/2013 SALINAS DO, SHIRA K 724.4 BACK PAIN WITH RADIATION 03/12/2013 SALINAS DO, SHIRA K 729.4 PLANTAR FASCIITIS 03/12/2013 SALINAS DO, SHIRA K 787.91 DIARRHEA 03/12/2013 FARRAR BUSINESS OPERATIONS COORDINATORIRVING R 724.4 BACK PAIN WITH RADIATION 03/12/2013 IRVING FARRAR APRN 729.4 PLANTAR FASCIITIS 03/12/2013 FARRAR BUSINESS OPERATIONS COORDINATOR, IRVING R 787.91 DIARRHEA 03/12/2013 FARRAR BUSINESS OPERATIONS COORDINATORIRVING R 724.4 BACK PAIN WITH RADIATION 03/12/2013 FARRAR BUSINESS OPERATIONS COORDINATORIRVING R 729.4 PLANTAR FASCIITIS 03/12/2013 FARRAR BUSINESS OPERATIONS COORDINATOR, IRVING R 787.91 DIARRHEA 03/12/2013 SALINAS DO, SHIRA K 724.4 BACK PAIN WITH RADIATION 03/12/2013 SALINAS DO, SHIRA K 729.4 PLANTAR FASCIITIS 03/12/2013 SALINAS DO, SHIRA K 787.91 DIARRHEA 03/12/2013 RAND BUSINESS OPERATIONS COORDINATOR KAMINI R 724.4 BACK PAIN WITH RADIATION 03/12/2013 RAND BUSINESS OPERATIONS COORDINATOR, KAMINI R 729.4 PLANTAR FASCIITIS 03/12/2013 RAND BUSINESS OPERATIONS COORDINATOR, KAMINI R 787.91 DIARRHEA 03/12/2013 RAND BUSINESS OPERATIONS COORDINATOR, KAMINI R 724.4 BACK PAIN WITH RADIATION 03/12/2013 RAND BUSINESS OPERATIONS COORDINATORDAVIDKAMINI R 729.4 PLANTAR FASCIITIS 03/12/2013 RAND BUSINESS OPERATIONS COORDINATOR KAMINI R 787.91 DIARRHEA 03/12/2013 SALINAS DO, SHIRA K 724.4 BACK PAIN WITH RADIATION 03/12/2013 SALINAS DO, SHIRA K 729.4 PLANTAR FASCIITIS 03/12/2013 SALINAS DO, SHIRA K 787.91 DIARRHEA 03/12/2013 SALINAS DO, SHIRA K 724.4 BACK PAIN WITH RADIATION 03/12/2013 SALINAS DO, SHIRA K 729.4 PLANTAR FASCIITIS 03/12/2013 SALINAS DO, SHIRA K 787.91 DIARRHEA 04/22/2013 SALINAS DO, SHIRA K 719.47 PAIN- FOOT 04/22/2013 SALINAS DO, SHIRA K 729.5 PAIN- ARM 04/22/2013 SALINAS DO, SHIRA K 719.47 PAIN- FOOT 04/22/2013 SALINAS DO, SHIRA K 729.5 PAIN- ARM 04/22/2013 SALINAS DO, SHIRA K 719.47 PAIN- FOOT 04/22/2013 SALINAS DO, SHIRA K 729.5 PAIN- ARM 04/22/2013 SALINAS DO, SHIRA K 719.47 PAIN- FOOT 04/22/2013 SALINAS DO, SHIRA K 729.5 PAIN- ARM 04/22/2013 IRVING FARRAR APRN R 719.47 PAIN- FOOT 04/22/2013 FARRARIRVIGN RILEY APRN R 729.5 PAIN- ARM 04/22/2013 FARRAR IRVING BILL R 719.47 PAIN- FOOT 04/22/2013 FARRAR BUSINESS OPERATIONS COORDINATORIRVING Bates R 729.5 PAIN- ARM 04/22/2013 SALINAS DO, SHIRA K 719.47 PAIN- FOOT 04/22/2013 SALINAS DO, SHIRA K 729.5 PAIN- ARM 04/22/2013 KAMINI RAND APRN R 719.47 PAIN- FOOT 04/22/2013 KAMINI RAND APRN R 729.5 PAIN- ARM 04/22/2013 KAMINI RAND APRN R 719.47 PAIN- FOOT 04/22/2013 KAMINI RAND APRN R 729.5 PAIN- ARM 04/22/2013 SALINAS DO, SHIRA K 719.47 PAIN- FOOT 04/22/2013 SALINAS DO, SHIRA K 729.5 PAIN- ARM 04/22/2013 SALINAS DO, SHIRA K 719.47 PAIN- FOOT 04/22/2013 SALINAS DO, SHIRA K 729.5 PAIN- ARM 06/06/2013 SALINAS DO, SHIRA K 729.2 NEURITIS 06/06/2013 SALINAS DO, SHIRA K 729.2 NEURITIS 06/06/2013 FARRARIRVING RILEY APRN R 729.2 NEURITIS 06/06/2013 FARRAR IRVING BILL R 729.2 NEURITIS 06/06/2013 SALINAS DO, SHIRA K 729.2 NEURITIS 06/06/2013 BULL RAND APRNIA R 729.2 NEURITIS 06/06/2013 BULL RAND APRNIA R 729.2 NEURITIS 06/06/2013 SALINAS DO, SHIRA K 729.2 NEURITIS 06/06/2013 SALINAS DO, SHIRA K 729.2 NEURITIS 07/21/2013 SALINAS DO, SHIRA K 486 PNEUMONIA UNSPECIFIED 07/21/2013 IRVING FARRAR APRN R 486 PNEUMONIA UNSPECIFIED 07/21/2013 IRVING FARRAR APRN 486 PNEUMONIA UNSPECIFIED 07/21/2013 SALINAS DO, SHIRA K 486 PNEUMONIA UNSPECIFIED 07/21/2013 KAMINI RAND APRN R 486 PNEUMONIA UNSPECIFIED 07/21/2013 KAMINI RAND APRN R 486 PNEUMONIA UNSPECIFIED 07/21/2013 BRAD HERNANDEZ, SHIRA K 486 PNEUMONIA UNSPECIFIED 07/21/2013 BRAD HERNANDEZ SHIRA K 486 PNEUMONIA UNSPECIFIED 09/30/2013 IRVING FARRAR APRN 333.94 RESTLESS LEGS SYNDROME (RLS) 09/30/2013 IRVING FARRAR APRN 333.94 RESTLESS LEGS SYNDROME (RLS) 09/30/2013 SHIRA SALINAS DO K 333.94 RESTLESS LEGS SYNDROME (RLS) 09/30/2013 KAMINI RAND APRN R 333.94 RESTLESS LEGS SYNDROME (RLS) 09/30/2013 KAMINI RAND APRN R 333.94 RESTLESS LEGS SYNDROME (RLS) 09/30/2013 LORENA SALIANS DOA K 333.94 RESTLESS LEGS SYNDROME (RLS) 09/30/2013 LORENA SALINAS DOA K 333.94 RESTLESS LEGS SYNDROME (RLS) 02/09/2014 BRITANY UMANZOR DO Ot 848.8 SPRAIN NEC 02/09/2014 BRITANY UMANZOR DO Ot E928.9 ACCIDENT NOS 02/26/2014 LORENA SALINAS DOA K 788.1 DYSURIA 02/26/2014 BULL RAND APRNIA R 788.1 DYSURIA 02/26/2014 BULL RAND APRNIA R 788.1 DYSURIA 02/26/2014 LORENA SALINAS DOA K 788.1 DYSURIA 02/26/2014 SALINAS DO SHIRA K 788.1 DYSURIA 04/09/2014 KAMINI RAND APRN R 719.46 PAIN IN JOINT INVOLVING LOWER LEG 04/09/2014 KAMINI RAND APRN R 719.46 PAIN IN JOINT INVOLVING LOWER LEG 04/09/2014 LORENA SALINAS DOA K 719.46 PAIN IN JOINT INVOLVING LOWER LEG 04/09/2014 LORENA SALINAS DOA K 719.46 PAIN IN JOINT INVOLVING LOWER LEG 05/08/2014 ROMEL FRASER MD Ot 455.0 INT HEMORRHOID W/O COMPL 05/08/2014 ROMEL FRASER MD Ot 530.11 REFLUX ESOPHAGITIS 05/08/2014 ROMEL FRASER MD Ot 535.50 UNSP GASTRITIS GASTRODUODENITIS W/O ME 05/08/2014 ROMEL FRASER MD Ot 553.3 DIAPHRAGMATIC HERNIA 05/08/2014 ROMEL FRASER MD Ot V12.72 PERSONAL HISTORY OF COLONIC POLYPS 07/17/2014 SHIRA SALINAS DO 461.0 ACUTE MAXILLARY SINUSITIS 08/04/2014 Ot 789.01 02/04/2015 Ot 789.03 02/04/2015 Ot 789.03 02/04/2015 Ot V72.84 02/04/2015 Ot 571.8 02/04/2015 Ot 789.01 02/04/2015 Ot 789.01 02/04/2015 Ot 550.92 02/04/2015 Ot 575.8 02/04/2015 Ot V72.63 02/04/2015 Ot V74.8 02/04/2015 ROMEL FRASER MD Ot V72.84 02/08/2015 JACE TERRY, LEONIDES Willis Ot 082.40 UNSPEC EHRLICHIOSIS 02/08/2015 JACE TERRY, LEONIDES Willis Ot 287.5 THROMBOCYTOPENIA NOS 02/08/2015 JACE TERRY, LEONIDES Willis Ot 305.1 TOBACCO USE DISORDER 02/08/2015 JACE TERRY, LEONIDES Willis Ot 530.81 ESOPHAGEAL REFLUX 02/16/2015 BRITANY UMANZOR DO Ot 300.00 ANXIETY STATE NOS 02/16/2015 BRITANY UMANZOR DO Ot 784.0 HEADACHE 02/16/2015 BRITANY UMANZOR DO Ot 992.5 HEAT EXHAUSTION NOS 02/16/2015 BRITANY UMANZOR DO Ot E000.8 OTHER EXTERNAL CAUSE STATUS 02/16/2015 BRITANY UMANZOR DO Ot E900.0 EXCESSIVE HEAT: WEATHER 02/16/2015 BRITANY UMANZOR DO Ot V01.79 CONTACT OR EXPOSURE TO OTHER VIRAL DISEA 06/21/2015 ROMEL FRASER MD Ot K60.3 ANAL FISTULA 07/12/2016 Ot 789.03 ABDOMINAL PAIN, RIGHT LOWER QUADRANT 07/12/2016 Ot 789.03 ABDOMINAL PAIN, RIGHT LOWER QUADRANT 07/12/2016 Ot V72.84 EXAM PRE- OPERATIVE NOS 07/12/2016 Ot 571.8 CHRONIC LIVER DIS NEC 07/12/2016 Ot 789.01 ABDOMINAL PAIN, RIGHT UPPER QUADRANT 07/12/2016 Ot 789.01 ABDOMINAL PAIN, RIGHT UPPER QUADRANT 07/12/2016 Ot 550.92 BILAT INGUINAL HERNIA 07/12/2016 Ot 575.8 DIS OF GALLBLADDER NEC 07/12/2016 Ot V72.63 PRE- PROCEDURAL LABORATORY EXAMINATION 07/12/2016 Ot V74.8 SCREEN- BACTERIAL DIS NEC 07/12/2016 ROMEL FRASER MD, Ot V72.84 EXAM PRE-OPERATIVE NOS 07/12/2016 ROMEL FRASER MD Ot K60.3 ANAL FISTULA 07/12/2016 ROMEL FRASER MD Ot Z01.818 ENCOUNTER FOR OTHER PREPROCEDURAL EXAMIN 07/12/2016 SHAUN TERRY, NIYAH T Ot M54.16 RADICULOPATHY, LUMBAR REGION 07/12/2016 NIYAH DUNN MD Ot M54.5 LOW BACK PAIN 07/12/2016 SHAUN TERRY, NIYAH T Ot R07.89 OTHER CHEST PAIN 07/12/2016 NIYAH DUNN MD T Ot Z79.899 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 07/12/2016 NIYAH DUNN MD T Ot Z91.14 PATIENT'S OTHER NONCOMPLIANCE WITH MEDIC 07/13/2016 NIYAH DUNN MD T Ot M54.16 RADICULOPATHY, LUMBAR REGION 07/13/2016 NIYAH DUNN MD T Ot M54.5 LOW BACK PAIN 07/13/2016 SHAUN TERRY, NIYAH T Ot R07.89 OTHER CHEST PAIN 07/13/2016 NIYAH DUNN MD T Ot Z79.899 OTHER USP (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 07/13/2016 SHAUN TERRY, NIYAH T Ot Z91.14 PATIENT'S OTHER NONCOMPLIANCE WITH MEDIC 08/25/2016 Ot 789.03 ABDOMINAL PAIN, RIGHT LOWER QUADRANT 08/25/2016 Ot 789.03 ABDOMINAL PAIN, RIGHT LOWER QUADRANT 08/25/2016 Ot V72.84 EXAM PRE- OPERATIVE NOS 08/25/2016 Ot 571.8 CHRONIC LIVER DIS NEC 08/25/2016 Ot 789.01 ABDOMINAL PAIN, RIGHT UPPER QUADRANT 08/25/2016 Ot 789.01 ABDOMINAL PAIN, RIGHT UPPER QUADRANT 08/25/2016 Ot 550.92 BILAT INGUINAL HERNIA 08/25/2016 Ot 575.8 DIS OF GALLBLADDER NEC 08/25/2016 Ot V72.63 PRE- PROCEDURAL LABORATORY EXAMINATION 08/25/2016 Ot V74.8 SCREEN- BACTERIAL DIS NEC 08/25/2016 ROMEL FRASER MD, Ot V72.84 EXAM PRE-OPERATIVE NOS 08/25/2016 ROMEL FRASER MD Ot K60.3 ANAL FISTULA 08/25/2016 ROMEL FRASER MD, Ot Z01.818 ENCOUNTER FOR OTHER PREPROCEDURAL EXAMIN 08/25/2016 ELVIS CRAFT MD, Ot M47.816 SPONDYLOSIS W/O MYELOPATHY OR RADICULOPA 09/12/2016 ELVIS CRAFT MD, Ot M47.816 SPONDYLOSIS W/O MYELOPATHY OR RADICULOPA 10/20/2016 Ot 789.03 ABDOMINAL PAIN, RIGHT LOWER QUADRANT 10/20/2016 Ot 789.03 ABDOMINAL PAIN, RIGHT LOWER QUADRANT 10/20/2016 Ot V72.84 EXAM PRE- OPERATIVE NOS 10/20/2016 Ot 571.8 CHRONIC LIVER DIS NEC 10/20/2016 Ot 789.01 ABDOMINAL PAIN, RIGHT UPPER QUADRANT 10/20/2016 Ot 789.01 ABDOMINAL PAIN, RIGHT UPPER QUADRANT 10/20/2016 Ot 550.92 BILAT INGUINAL HERNIA 10/20/2016 Ot 575.8 DIS OF GALLBLADDER NEC 10/20/2016 Ot V72.63 PRE- PROCEDURAL LABORATORY EXAMINATION 10/20/2016 Ot V74.8 SCREEN- BACTERIAL DIS NEC 10/20/2016 ROMEL FRASER MD Ot V72.84 EXAM PRE-OPERATIVE NOS 10/20/2016 ROMEL FRASER MD, Ot K60.3 ANAL FISTULA 10/20/2016 ROMEL FRASER MD, Ot Z01.818 ENCOUNTER FOR OTHER PREPROCEDURAL EXAMIN 10/20/2016 ELVIS CRAFT MD Ot M47.816 SPONDYLOSIS W/O MYELOPATHY OR RADICULOPA 10/25/2016 ELVIS CRAFT MD Ot M47.816 SPONDYLOSIS W/O MYELOPATHY OR RADICULOPA 11/24/2016 ELVIS CRAFT MD Ot M47.816 SPONDYLOSIS W/O MYELOPATHY OR RADICULOPA 11/24/2016 ELVIS CRAFT MD Ot Z79.899 OTHER USP (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 12/01/2016 ELVIS CRAFT MD, Ot M47.816 SPONDYLOSIS W/O MYELOPATHY OR RADICULOPA 12/01/2016 ELVIS CRAFT MD Ot Z79.899 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 LEAD JAVA DEVELOPER 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 12/07/2016 ELVIS CRAFT MD Ot M47.816 SPONDYLOSIS W/O MYELOPATHY OR RADICULOPA 12/07/2016 ELVIS CRAFT MD Ot Z79.899 OTHER LEAD JAVA DEVELOPER 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 12/11/2016 FARRAR, IRVING R CFNP Ot M50.30 OTHER CERVICAL DISC DEGENERATION, UNSP C 12/11/2016 FARRAR, IRVING R CFNP Ot M54.5 LOW BACK PAIN 12/12/2016 FARRAR, IRVING R CFNP Ot M50.30 OTHER CERVICAL DISC DEGENERATION, UNSP C 12/12/2016 FARRAR, IRVING R CFNP Ot M54.5 LOW BACK PAIN 12/26/2016 FARRAR, IRVING R CFNP Ot M50.30 OTHER CERVICAL DISC DEGENERATION, UNSP C 12/26/2016 FARRAR, IRVING R CFNP Ot M54.5 LOW BACK PAIN Procedures Code Description Performed By Performed On [facility]ila 06/17/2012 [id number] H PYLORI (IN-HOUSE) 06/17/2012 11892 UA LONG DIP 06/17/2012 30971 MRI SPINE (THORACIC) W/O CONTRAST 03/12/2013 88157 MRI SPINE (LUMBAR) W/O CONTRAST 03/12/2013 46088 XRAY LUMBAR SPINE 2 OR 3 VIEWS 04/22/2013 22289 XRAY SI JOINTS LESS THAN 3 VIEWS 04/22/2013 25394 XRAY FEET, TERENCE 04/22/2013 Physical Physical Therapy 04/30/2013 Podiatry Anneliese Lombardo 04/30/2013 Orthopedi Trever Greene 06/10/2013 93752 THERAPUTIC INJ SQ/IM 07/21/2013 J0696 ROCEPHIN INJ 1 g 07/21/2013 [id number] SOLUMEDROL INJ 07/21/2013 00042 XRAY CHEST 2 VIEW 07/22/2013 [id number] UA LONG DIP 02/26/2014 12544 XRAY KNEE LEFT 3 VIEWS 04/09/2014 Results Test Result Range Complete blood count (CBC) with automated white blood cell (WBC) differential - 07/12/16 15:07 Blood leukocytes automated count (number/volume) 12.2 10*3/uL 4.3-11.0 Blood erythrocytes automated count (number/volume) 5.18 10*6/uL 4.35-5.85 Venous blood hemoglobin measurement (mass/volume) 14.8 g/dL 13.3-17.7 Blood hematocrit (volume fraction) 44 % 40-54 Automated erythrocyte mean corpuscular volume 85 [foz_us] 80-99 Automated erythrocyte mean corpuscular hemoglobin (mass per erythrocyte) 29 pg 25-34 Automated erythrocyte mean corpuscular hemoglobin concentration measurement ( mass/volume) 34 g/dL 32-36 Automated erythrocyte distribution width ratio 13.0 % 10.0-14.5 Automated blood platelet count (count/volume) 261 10*3/uL 130-400 Automated blood platelet mean volume measurement 9.4 [foz_us] 7.4-10.4 Automated blood neutrophils/100 leukocytes 62 % 42-75 Automated blood lymphocytes/100 leukocytes 27 % 12-44 Blood monocytes/100 leukocytes 8 % 0-12 Automated blood eosinophils/100 leukocytes 2 % 0-10 Automated blood basophils/100 leukocytes 1 % 0-10 Blood neutrophils automated count (number/volume) 7.6 10*3 1.8-7.8 Blood lymphocytes automated count (number/volume) 3.3 10*3 1.0-4.0 Blood monocytes automated count (number/volume) 1.0 10*3 0.0-1.0 Automated eosinophil count 0.3 10*3/uL 0.0-0.3 Automated blood basophil count (count/volume) 0.1 10*3/uL 0.0-0.1 Whole blood basic metabolic panel - 07/12/16 15:07 Serum or plasma sodium measurement (moles/volume) 137 mmol/L 135-145 Serum or plasma potassium measurement (moles/volume) 4.5 mmol/L 3.6-5.0 Serum or plasma chloride measurement (moles/volume) 107 mmol/L 98-107 Carbon dioxide 21 mmol/L 21-32 Serum or plasma anion gap determination (moles/volume) 9 mmol/L 5-14 Serum or plasma urea nitrogen measurement (mass/volume) 24 mg/dL 7-18 Serum or plasma creatinine measurement (mass/volume) 0.86 mg/dL 0.60-1.30 Serum or plasma urea nitrogen/creatinine mass ratio 28 NRG Serum or plasma creatinine measurement with calculation of estimated glomerular filtration rate > NRG Serum or plasma glucose measurement (mass/volume) 119 mg/dL 70-105 Serum or plasma calcium measurement (mass/volume) 9.2 mg/dL 8.5-10.1 Fibrin D-dimer FEU measurement in platelet poor plasma (mass/volume) - 15:07 Fibrin D-dimer FEU measurement in platelet poor plasma (mass/volume) < ug/mL 0.00-0.49 Serum or plasma troponin i.cardiac measurement (mass/volume) - 07/12/16 15:07 Serum or plasma troponin i.cardiac measurement (mass/volume) < ng/ mL <0.30 Encounters ACCT No. Visit Date/Time Discharge Status Pt. Type Provider Facility Loc./Unit Complaint [id number] 07/17/2014 11:16:00 07/17/2014 23:59:59 [facility] Outpatient SHIRA SALINAS DO [id number] 04/23/2014 09:50:00 04/23/2014 23:59:59 [facility] Outpatient SHIRA SALINAS DO [id number] 04/09/2014 12:55:00 04/09/2014 23:59:59 [facility] Outpatient KAMINI RAND APRN [id number] 04/09/2014 12:55:00 04/09/2014 23:59:59 [facility] Outpatient KAMINI RAND APRN [id number] 02/26/2014 11:14:00 02/26/2014 23:59:59 [facility] Outpatient SHIRA SALINAS DO [id number] 02/12/2014 14:43:00 02/12/2014 23:59:59 [facility] Outpatient IRVING FARRAR APRN [id number] 09/30/2013 09:38:00 09/30/2013 23:59:59 [facility] Outpatient IRVING FARRAR APRN [id number] 07/21/2013 08:27:00 07/21/2013 23:59:59 [facility] Outpatient SHIRA SALINAS DO [id number] 06/06/2013 09:17:00 06/06/2013 23:59:59 [facility] Outpatient SHIRA SALINAS DO [id number] 04/30/2013 09:54:00 04/30/2013 23:59:59 [facility] Outpatient SHIRA SALINAS DO [id number] 04/22/2013 09:23:00 04/22/2013 23:59:59 [facility] Outpatient SHIRA SALINAS DO [id number] 10/22/2012 10:33:00 10/22/2012 23:59:59 [facility] Outpatient [id number] 08/12/2012 13:35:00 08/12/2012 23:59:59 [facility] Outpatient [id number] 06/17/2012 12:48:00 06/17/2012 23:59:59 [facility] Outpatient [id number] 03/12/2013 13:38:00 Document Registration [id number] 12/12/2012 13:42:00 Document Registration [id number] 02/16/2015 18:52:24 ACT Document Registration [id number] 12/09/2016 09:31:00 12/09/2016 23:59:59 [facility] Outpatient IRVING FARRAR [facility] RAD DDD M50.30 [id number] 12/06/2016 11:54:00 12/06/2016 23:59:59 CLS Preadmit IRVING FARRAR [facility] RAD M50.30 [id number] 12/01/2016 08:59:00 12/01/2016 10:10:00 DIS Outpatient ELVIS CRAFT MD [facility] CARD SPONDYLOSIS [id number] 11/24/2016 09:11:00 11/24/2016 10:22:00 DIS Outpatient ELVIS CRAFT MD [facility] CARD SPONDYLOSIS [id number] 10/20/2016 10:29:00 10/20/2016 11:40:00 DIS Outpatient ELVIS CRAFT MD [facility] CARD SPONDYLOSIS [id number] 08/25/2016 11:49:00 08/25/2016 13:11:00 DIS Outpatient ELVIS CRAFT MD [facility] CARD SPONDYLOSIS [id number] 07/12/2016 12:52:00 07/12/2016 17:57:00 DIS Emergency NIYAH DUNN MD [facility] ER BACK/LEG PAIN [id number] 07/05/2016 14:11:00 07/05/2016 23:59:59 [facility] Outpatient CHICA APARICIO [facility] QUICK [id number] 06/21/2015 11:02:00 06/21/2015 16:25:00 DIS Outpatient ROMEL FRASER MD [facility] SDC FISTULA [id number] 06/17/2015 15:30:00 06/17/2015 23:59:59 [facility] Outpatient ROMEL FRASER MD [facility] PREOP FISTULA [id number] 02/16/2015 18:51:00 02/16/2015 20:52:00 DIS Emergency BRITANY UMANZOR DO [facility] ER HEADACHE,LETHARGY,BLURRED VISION [id number] 02/05/2015 11:00:00 02/08/2015 11:20:00 DIS Inpatient LEONIDES MCCORMICK MD [facility] 4TH FEVER [id number] 05/08/2014 07:43:00 05/08/2014 12:10:00 DIS Outpatient ROMEL FRASER MD [facility] SDC POSITIVE BLOOD IN STOOLS ; ABD PAIN [id number] 05/07/2014 07:21:00 05/07/2014 23:59:59 [facility]LS Outpatient ROMEL FRASER MD [facility] PREOP POSITIVE BLOOD IN STOOLS; ABD PAIN [id number] 02/09/2014 20:28:00 02/09/2014 22:42:00 DIS Emergency BRITANY UMANZOR DO [facility] ER HERNIA [id number] 02/04/2015 12:38:00 Document Registration [id number] 02/04/2015 12:38:00 Document Registration [id number] 05/02/2012 05:39:00 Document Registration [id number] 04/29/2012 11:38:00 Document Registration [id number] 04/11/2012 07:46:00 Document Registration [id number] 04/05/2012 07:09:00 Document Registration [id number] 03/28/2012 12:41:00 Document Registration [id number] 03/27/2012 07:18:00 Document Registration [id number] 03/04/2012 09:16:00 Document Registration
[2017-11-25] MEDS ORDERED: ASPIRIN 325 MG (5 GR) TABLET PO ONE (00:45)
[2017-11-25] MEDS ORDERED: NITROGLYCERIN 0.4 MG SL TABS BTL 25'S SL PRN ×2 (00:45→06:00)
[2017-11-25 01:08] LABS: AMPHETAMINE SCREEN, URINE NEGATIVE (NEGATIVE); BARBITURATE SCREEN URINE NEGATIVE (NEGATIVE); BENZODIAZEPINES SCREEN URINE NEGATIVE (NEGATIVE); CANNABINOID SCREEN, URINE POSITIVE (NEGATIVE); COCAINE SCREEN URINE NEGATIVE (NEGATIVE); METHADONE STAT NEGATIVE (NEGATIVE); METHAMPHETAMINE SCREEN URINE S NEGATIVE (NEGATIVE); OPIATE SCREEN URINE NEGATIVE (NEGATIVE); OXYCODONE STAT NEGATIVE (NEGATIVE); PROPOXYPHENE STAT NEGATIVE (NEGATIVE); TRICYCLIC ANTIDEPRESSANTS SCRE NEGATIVE (NEGATIVE)
[2017-11-25 01:38] LABS: BASOPHILS % (AUTO) 0 % (0-10); EOSINOPHILS # (AUTO) 0.2 10^3/uL (0.0-0.3); EOSINOPHILS % (AUTO) 2 % (0-10); HEMATOCRIT 41 % (40-54); HEMOGLOBIN 14.1 G/DL (13.3-17.7); LYMPHOCYTES % (AUTO) 30 % (12-44); MEAN CORPUSCULAR HEMOGLOBIN 29 PG (25-34); MEAN CORPUSCULAR HGB CONC 34 G/DL (32-36); MEAN CORPUSCULAR VOLUME 85 FL (80-99); MEAN PLATELET VOLUME 9.2 FL (7.4-10.4); MONOCYTES # (AUTO) 0.8 X 10^3 (0.0-1.0); MONOCYTES % (AUTO) 8 % (0-12); NEUTROPHILS # (AUTO) 5.9 X 10^3 (1.8-7.8); NEUTROPHILS % (AUTO) 59 % (42-75); PLATELET COUNT 249 10^3/uL (130-400); RED BLOOD COUNT 4.82 10^6/uL (4.35-5.85); RED CELL DISTRIBUTION WIDTH 13.5 % (10.0-14.5); WHITE BLOOD COUNT 9.9 10^3/uL (4.3-11.0)
[2017-11-25 01:49] LABS: PROTHROMBIN TIME PATIENT 13.6 SEC (12.2-14.7)
[2017-11-25 01:59] LABS: ALANINE AMINOTRANSFERASE 28 U/L (0-55); ALBUMIN 4.1 GM/DL (3.2-4.5); ALKALINE PHOSPHATASE 44 U/L (40-136); BILIRUBIN,TOTAL 0.4 MG/DL (0.1-1.0); BUN/CREATININE RATIO 21; CALCIUM 9.1 MG/DL (8.5-10.1); CARBON DIOXIDE 21 MMOL/L (21-32); CHLORIDE 106 MMOL/L (98-107); CREATININE SERUM 0.87 MG/DL (0.60-1.30); GFR ESTIMATED > 60; GLUCOSE 98 MG/DL (70-105); MAGNESIUM 2.5 MG/DL (1.8-2.4); POTASSIUM 4.1 MMOL/L (3.6-5.0); SODIUM 138 MMOL/L (135-145); TOTAL PROTEIN 6.2 GM/DL (6.4-8.2)
[2017-11-25 02:07] LABS: MYOGLOBIN SERUM 41.9 NG/ML (10.0-92.0)
[2017-11-25] MEDS ORDERED: KETOROLAC 30 MG/ML VIAL IVP ONE (02:15)
[2017-11-25 02:19] LABS: TSH (THYROID ANALYZER) 2.31 UIU/ML (0.35-4.94)
--- NOTE | 2017-11-25 04:33 | ED Chest Pain ---
General Chief Complaint: Chest Pain Stated Complaint: CHEST PRESSURE Nursing Triage Note: pt presents to er with complaint of chest pressure that goes straight to back. also complaining of headache. reports everything tingles Nursing Sepsis Screen: No Definite Risk Source: patient Exam Limitations: no limitations History of Present Illness Date Seen by Provider: Nov 25, 2017 Time Seen by Provider: 00:30 Initial Comments This patient presents to the emergency room with multiple complaints including chest pain described as a pressure that started tonight. He also may have had syncopal episodes. He describes waking up in the yard yesterday staring up at the tabitha and also waking up on the floor of his living room this evening. He does not know how he got to the floor in either of those situations and has no recollection of events surrounding that time. He also reports having disturbing thoughts such as thinking of jumping out of his truck. He denies suicidal ideation. He has had hallucinations as well. He reports having a devil on one shoulder and an Dawson on the other shoulder speaking to him. He can audibly hear their voices but recognizes they are hallucinations. He also reports hearing his children talk to him from across town. That hallucination is real enough that it prompted him to walk across town. He has been having headaches recently and his headache has intensified tonight. He has had some associated nausea. He also reports having paresthesias of his extremities and some facial numbness intermittently. A couple of weeks ago he checked himself into the [facility] unit at [facility]. He stayed for 5 days and was started on fluoxetine. His stay was relatively uneventful. He admits to long- term use of THC but denies any other drug or alcohol use. Allergies and Home Medications Allergies Coded Allergies: Shellfish (Unverified Allergy, Unknown, 03/28/12) Home Medications Hydrocodone/Acetaminophen 1 Each Tablet, 1-2 EACH PO Q6H LAST PAIN MEDICATION, ONE TABLET, GIVEN AT 3:35 PM ON 06/21/15. Prescribed by: VARGAS MART on 06/21/15 [id number] Prednisone 20 Mg Tab, 20 MG PO UD Take 3 daily for 3 days, then 2 daily for 3 days, then 1 daily for 3 days Prescribed by: NIYAH LORD on 07/12/16 7061 Patient Home Medication List Home Medication List Reviewed: Yes Review of Systems Constitutional: no symptoms reported EENTM: No Symptoms Reported Respiratory: No Symptoms Reported Cardiovascular: See HPI Gastrointestinal: No Symptoms Reported Genitourinary: No Symptoms Reported Musculoskeletal: no symptoms reported Skin: no symptoms reported Psychiatric/Neurological: See HPI Endocrine: No Symptoms Reported Hematologic/Lymphatic: No Symptoms Reported Past [id number]-Xudwbi Hx Patient Social History Alcohol Use: Denies Use Recreational Drug Use: Yes Drug of Choice: marijuana Smoking Status: Current Someday Smoker Recent Foreign Travel: No Contact w/Someone Who Travel: No Recent Infectious Disease Expo: No Recent Hopitalizations: No Immunizations Up To Date PED Vaccines UTD: No Date of Pneumonia Vaccine: Aug 06, 2007 Date of Influenza Vaccine: May 05, 2015 Seasonal Allergies Seasonal Allergies: No Past Medical History Surgeries: Yes (HERNIA X 2 , R HAND, RT KNEE, EGD/COLONOSCOPY, fistula repair) Abdominal, Gallbladder, Orthopedic Respiratory: Yes (SEASONAL ASTHMA) Asthma Cardiac: No Neurological: No Reproductive Disorders: No Gastrointestinal: Yes (recent diarrhea after onset of back pain) Gastroesophageal Reflux, Irritable Bowel Musculoskeletal: Yes Arthritis, Chronic Back Pain, Fractures Endocrine: No Cancer: No Psychosocial: Yes Integumentary: No Blood Disorders: No Physical Exam Vital Signs Vital Signs - First Documented 11/25/17 00:02 Temp 97.0 Pulse 82 Resp 20 B/P (MAP) 166/112 (130) Pulse Ox 97 O2 Delivery Room Air Capillary Refill : Less Than 3 Seconds General Appearance: No Apparent Distress HEENT: PERRL/EOMI, Normal ENT Inspection Neck: Normal Inspection Respiratory: Lungs Clear, Normal Breath Sounds, No Accessory Muscle Use, No Respiratory Distress Cardiovascular: Regular Rate, Rhythm, No Edema, No Murmur Gastrointestinal: Normal Bowel Sounds, Non Tender, Soft Extremity: Normal Inspection, No Pedal Edema Neurologic/Psychiatric: Alert, Oriented x3, No Motor/Sensory Deficits, Normal 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 Patient reports hallucinations) Skin: Normal Color, Warm/Dry Progress/Results/Core Measures Lab Results Laboratory Tests Test 11/25/17 00:10 11/25/17 01:29 Range/Units Urine Opiates Screen NEGATIVE NEGATIVE Urine Oxycodone Screen NEGATIVE NEGATIVE Urine Methadone Screen NEGATIVE NEGATIVE Urine Propoxyphene Screen NEGATIVE NEGATIVE Urine Barbiturates Screen NEGATIVE NEGATIVE Ur Tricyclic Antidepressants Screen NEGATIVE NEGATIVE Urine Phencyclidine Screen NEGATIVE NEGATIVE Urine Amphetamines Screen NEGATIVE NEGATIVE Urine Methamphetamines Screen NEGATIVE NEGATIVE Urine Benzodiazepines Screen NEGATIVE NEGATIVE Urine Cocaine Screen NEGATIVE NEGATIVE Urine Cannabinoids Screen POSITIVE H NEGATIVE White Blood Count 9.9 4.3-11.0 10^3/uL Red Blood Count 4.82 4.35-5.85 10^6/uL Hemoglobin 14.1 13.3-17.7 G/DL Hematocrit 41 40-54 % Mean Corpuscular Volume 85 80-99 FL Mean Corpuscular Hemoglobin 29 25-34 PG Mean Corpuscular Hemoglobin Concent 34 32-36 G/DL Red Cell Distribution Width 13.5 10.0-14.5 % Platelet Count 249 130-400 10^3/uL Mean Platelet Volume 9.2 7.4-10.4 FL Neutrophils (%) (Auto) 59 42-75 % Lymphocytes (%) (Auto) 30 12-44 % Monocytes (%) (Auto) 8 0-12 % Eosinophils (%) (Auto) 2 0-10 % Basophils (%) (Auto) 0 0-10 % Neutrophils # (Auto) 5.9 1.8-7.8 X 10^3 Lymphocytes # (Auto) 3.0 1.0-4.0 X 10^3 Monocytes # (Auto) 0.8 0.0-1.0 X 10^3 Eosinophils # (Auto) 0.2 0.0-0.3 10^3/uL Basophils # (Auto) 0.0 0.0-0.1 10^3/uL Prothrombin Time 13.6 12.2-14.7 SEC INR Comment 1.0 0.8-1.4 Activated Partial Thromboplast Time 27 24-35 SEC Sodium Level 138 135-145 MMOL/L Potassium Level 4.1 3.6-5.0 MMOL/L Chloride Level 106 98-107 MMOL/L Carbon Dioxide Level 21 21-32 MMOL/L Anion Gap 11 5-14 MMOL/L Blood Urea Nitrogen 18 7-18 MG/DL Creatinine 0.87 0.60-1.30 MG/DL Estimat Glomerular Filtration Rate > 60 BUN/Creatinine Ratio 21 Glucose Level 98 70-105 MG/DL Calcium Level 9.1 8.5-10.1 MG/DL Magnesium Level 2.5 H 1.8-2.4 MG/DL Total Bilirubin 0.4 0.1-1.0 MG/DL Aspartate Amino Transf (AST/SGOT) 18 5-34 U/L Alanine Aminotransferase (ALT/SGPT) 28 0-55 U/L Alkaline Phosphatase 44 40-136 U/L Myoglobin 41.9 10.0-92.0 NG/ML Troponin I < 0.30 <0.30 NG/ML Total Protein 6.2 L 6.4-8.2 GM/DL Albumin 4.1 3.2-4.5 GM/DL TSH [place] Testing 2.31 0.35-4.94 UIU/ML Serum Alcohol < 10 <10 MG/DL My Orders Orders - NIYAH DUNN MD Cbc With Automated Diff (11/25/17 00:41) Magnesium (11/25/17 00:41) Chest 1 View, Ap/Pa Only (11/25/17 00:41) Ekg Tracing (11/25/17 00:41) Cardiac Profile 1 (11/25/17 00:41) Comprehensive Metabolic Panel (11/25/17 00:41) Myoglobin Serum (11/25/17 00:41) Protime With Inr (11/25/17 00:41) Partial Thromboplastin Time (11/25/17 00:41) O2 (11/25/17 00:41) Monitor-Rhythm Ecg Trace Only (11/25/17 00:41) Lipid Panel (11/26/17 06:00) Aspirin Tablet (Aspirin Tablet) (11/25/17 00:45) Nitroglycerin 0.4 Mg Btl 25's (Nitrostat (11/25/17 00:45) Saline Lock/Iv-Start (11/25/17 00:41) Alcohol (11/25/17 00:41) Drug Screen Stat (Urine) (11/25/17 00:41) Thyroid Analyzer (11/25/17 00:41) Ketorolac Injection (Toradol Injection) (11/25/17 02:15) Ct Head Wo (11/25/17 02:34) Medications Given in ED Current Medications Medications Dose Ordered Sig/Mayr Route Start Time Stop Time Status Last Admin Dose Admin Aspirin 325 mg ONCE ONCE PO 11/25/17 00:45 11/25/17 00:46 DC 11/25/17 01:23 325 MG Ketorolac Tromethamine 15 mg ONCE ONCE IVP 11/25/17 02:15 11/25/17 02:16 DC 11/25/17 02:21 15 MG Nitroglycerin 0.4 mg UD PRN SL 11/25/17 00:45 11/25/17 01:23 0.4 MG Vital Signs/I&O 11/25/17 00:02 Temp 97.0 Pulse 82 Resp 20 B/P (MAP) 166/112 (130) Pulse Ox 97 O2 Delivery Room Air Blood Pressure Mean: 130 Progress Note : Progress Note Workup was relatively unremarkable. Patient had a CT scan performed at [facility] but it was repeated today because his headache has intensified so much. Toradol was given for headache but did not satisfactorily relieve his pain. Fentanyl was added. Nitroglycerin did help his chest pain. Initial ECG Impression Date: Nov 25, 2017 Initial ECG Impression Time: 01:06 Initial ECG Rate: 65 Initial ECG Rhythm: Normal Sinus Initial ECG Intervals: Normal Initial ECG Impression: Normal Comment Normal sinus rhythm with no ST elevation or depression. No abnormal intervals or axis deviation. Diagonstic Imaging: CT Plain Films/CT/US/NM/MRI: head Comments CT head viewed by me and [facility] report reviewed. No acute abnormalities appreciated. Diagonstic Imaging: Xray Plain Films/CT/US/NM/MRI: chest Comments Chest x-ray viewed by me. Report not available. No acute abnormalities appreciated. Departure Communication (Admissions) Time/Spoke to Admitting Phy: 02:23 Dr. Durham Time/Spoke to Consulting Phy: 04:25 Dr. Carranza Impression Primary Impression: Chest pain Qualified Codes: R07.9 - Chest pain, unspecified Additional Impressions: Syncope Qualified Codes: R55 - Syncope and collapse Headache Qualified Codes: R51 - Headache Hallucination Disposition: ADMITTED INPATIENT Condition: Improved Admissions Decision to Admit Reason: Admit from ER (General) Decision to Admit/Date: Nov 25, 2017 Time/Decision to Admit Time: 02:23 Departure-Patient Inst. Referrals: SHIRA SALINAS DO (PCP) Primary Care Physician IRVING FARRAR (Family) Primary Care Physician NIYAH DUNN MD Nov 25, 2017 04:33
[2017-11-25] MEDS ORDERED: fentaNYL INJECTION 100 MCG/2 ML AMP IVP ONE (04:45)
--- OUTSIDE RECORDS SUMMARY | 2017-11-25 04:45 | XMS REPORT | Continuity of Care Document ---
Author Author [facility] of [facility] Address Unknown Phone Unavailable Allergies Active Description Code Type Severity Reaction Onset Reported/Identified Relationship to Patient Clinical Status Yes Iodine Drug Allergy N/A N/A 09/27/2011 Yes Iodine Drug Allergy 09/27/2011 Yes Shellfish [id number] Drug Allergy Unknown N/A 03/28/2012 Yes Wellbutrin SR 150 mg tablet extended release Drug Allergy N/A N/A 2012 Yes gabapentin 300 mg capsule Drug Allergy N/A N/A 04/22/2013 Yes Prozac Drug Allergy N/A N/A 09/30/2013 Yes iodine [id number] Drug Allergy Severe ANAPHYLAXIS 02/09/2014 Medications There [...] K 724.2 BACK PAIN, LOWER 09/27/2011 FARRAR REAL ESTATE ECONOMISTIRVING Bates 477.9 RHINITIS 09/27/2011 FARRAR REAL ESTATE ECONOMIST, IRVING R 493.90 ASTHMA UNSPECIFIED 09/27/2011 FARRAR IRVING BILL R 724.2 BACK PAIN, LOWER 09/27/2011 FARRAR IRVING BILL 477.9 RHINITIS 09/27/2011 FARRAR REAL ESTATE ECONOMIST, IRVING R 493.90 ASTHMA UNSPECIFIED 09/27/2011 IRVING FARRAR APRN R 724.2 BACK PAIN, LOWER 09/27/2011 SALINAS DO, SHIRA K 477.9 RHINITIS 09/27/2011 SALINAS DO, SHIRA K 493.90 ASTHMA UNSPECIFIED 09/27/2011 SALINAS DO, SHIRA K 724.2 BACK PAIN, LOWER 09/27/2011 GIORGI REAL ESTATE ECONOMIST, KAMINI R 477.9 RHINITIS 09/27/2011 GIORGI REAL ESTATE ECONOMIST KAMINI R 493.90 ASTHMA UNSPECIFIED 09/27/2011 GIORGI REAL ESTATE ECONOMIST KAMINI R 724.2 BACK PAIN, LOWER 09/27/2011 GIORGI REAL ESTATE ECONOMIST KAMINI R 477.9 RHINITIS 09/27/2011 RAND REAL ESTATE ECONOMIST, KAMINI R 493.90 ASTHMA UNSPECIFIED 09/27/2011 RAND REAL ESTATE ECONOMIST, KAMINI R 724.2 BACK PAIN, LOWER 09/27/2011 [...] APRN R 530.81 ESOPHAGEAL REFLUX 03/08/2012 FARRAR REAL ESTATE ECONOMISTIRVING Bates R 562.11 DIVERTICULITIS OF COLON (WITHOUT HEMORRHAGE) 03/08/2012 IRVING FARRAR APRN R 530.81 ESOPHAGEAL REFLUX 03/08/2012 FARRAR IRVING BILL R 562.11 DIVERTICULITIS OF COLON (WITHOUT HEMORRHAGE) 03/08/2012 LORENA SALINAS DOA K 530.81 ESOPHAGEAL REFLUX 03/08/2012 LORENA SALINAS DOA K 562.11 DIVERTICULITIS OF COLON (WITHOUT HEMORRHAGE) 03/08/2012 GIORGI REAL ESTATE ECONOMIST KAMINI R 530.81 ESOPHAGEAL REFLUX 03/08/2012 GIORGI REAL ESTATE ECONOMIST KAMINI R 562.11 DIVERTICULITIS OF COLON (WITHOUT HEMORRHAGE) 03/08/2012 GIORGI REAL ESTATE ECONOMIST KAMINI R 530.81 ESOPHAGEAL REFLUX 03/08/2012 GIORGI REAL ESTATE ECONOMIST, KAMINI R 562.11 DIVERTICULITIS OF COLON (WITHOUT [...] RAND APRN 550.90 HERNIA INGUINAL 08/12/2012 RAND REAL ESTATE ECONOMIST, KAMINI R 550.90 HERNIA INGUINAL 08/12/2012 SALINAS [...] SHIRA K 466.0 ACUTE BRONCHITIS 10/22/2012 FARRAR REAL ESTATE ECONOMIST, IRVING R 461.9 SINUSITIS ACUTE 10/22/2012 FARRAR REAL ESTATE ECONOMIST, IRVING R 466.0 ACUTE BRONCHITIS 10/22/2012 FARRAR REAL ESTATE ECONOMIST, IRVING R 461.9 SINUSITIS ACUTE 10/22/2012 FARRAR REAL ESTATE ECONOMIST, IRVING R 466.0 ACUTE BRONCHITIS 10/22/2012 SALINAS DO, SHIRA K 461.9 SINUSITIS ACUTE 10/22/2012 SALINAS DO, SHIRA K 466.0 ACUTE BRONCHITIS 10/22/2012 GIORGI NUNESNDAVIDKAMINI R 461.9 SINUSITIS ACUTE 10/22/2012 GIORGI REAL ESTATE ECONOMIST, KAMINI R 466.0 ACUTE BRONCHITIS 10/22/2012 GIORGI REAL ESTATE ECONOMIST, KAMINI R 461.9 SINUSITIS ACUTE 10/22/2012 GIORGI REAL ESTATE ECONOMIST, KAMINI R 466.0 ACUTE BRONCHITIS 10/22/2012 SALINAS [...] SHIRA K 296.90 MOOD DISORDER 12/12/2012 FARRAR REAL ESTATE ECONOMISTIRVING R 296.90 MOOD DISORDER 12/12/2012 FARRAR REAL ESTATE ECONOMIST, IRVING R 296.90 MOOD DISORDER 12/12/2012 SALINAS DO, SHIRA K 296.90 MOOD DISORDER 12/12/2012 RAND REAL ESTATE ECONOMIST, KAMINI R 296.90 MOOD DISORDER 12/12/2012 RAND REAL ESTATE ECONOMIST, KAMINI R 296.90 MOOD DISORDER 12/12/2012 SALINAS [...] DO, SHIRA K 787.91 DIARRHEA 03/12/2013 FARRAR REAL ESTATE ECONOMISTIRVING R 724.4 BACK PAIN WITH RADIATION 03/12/2013 IRVING FARRAR APRN 729.4 PLANTAR FASCIITIS 03/12/2013 FARRAR REAL ESTATE ECONOMIST, IRVING R 787.91 DIARRHEA 03/12/2013 FARRAR REAL ESTATE ECONOMISTIRVING R 724.4 BACK PAIN WITH RADIATION 03/12/2013 FARRAR REAL ESTATE ECONOMISTIRVING R 729.4 PLANTAR FASCIITIS 03/12/2013 FARRAR REAL ESTATE ECONOMIST, IRVING R 787.91 DIARRHEA 03/12/2013 SALINAS DO, SHIRA K 724.4 BACK PAIN WITH RADIATION 03/12/2013 SALINAS DO, SHIRA K 729.4 PLANTAR FASCIITIS 03/12/2013 SALINAS DO, SHIRA K 787.91 DIARRHEA 03/12/2013 RAND REAL ESTATE ECONOMIST KAMINI R 724.4 BACK PAIN WITH RADIATION 03/12/2013 RAND REAL ESTATE ECONOMIST, KAMINI R 729.4 PLANTAR FASCIITIS 03/12/2013 RAND REAL ESTATE ECONOMIST, KAMINI R 787.91 DIARRHEA 03/12/2013 RAND REAL ESTATE ECONOMIST, KAMINI R 724.4 BACK PAIN WITH RADIATION 03/12/2013 RAND REAL ESTATE ECONOMISTDAVIDKAMINI R 729.4 PLANTAR FASCIITIS 03/12/2013 RAND REAL ESTATE ECONOMIST KAMINI R 787.91 DIARRHEA 03/12/2013 SALINAS DO, [...] FARRAR APRN R 719.47 PAIN- FOOT 04/22/2013 FARRARIRVING RILEY APRN R 729.5 PAIN- ARM 04/22/2013 FARRAR IRVING BILL R 719.47 PAIN- FOOT 04/22/2013 FARRAR REAL ESTATE ECONOMISTIRVING Bates R 729.5 PAIN- ARM 04/22/2013 SALINAS [...] RAND APRNIA R 729.2 NEURITIS 06/06/2013 BULL RNAD APRNIA R 729.2 NEURITIS 06/06/2013 SALINAS DO, [...] M54.5 LOW BACK PAIN 07/12/2016 SHAUN TERRY, NIAYH T Ot R07.89 OTHER CHEST PAIN 07/12/2016 NIYAH DUNN MD T Ot Z79.899 OTHER MANAGEMENT ANALYST (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 07/12/2016 NIYAH DUNN MD T Ot Z91.14 PATIENT'S OTHER NONCOMPLIANCE WITH MEDIC 07/13/2016 NIYAH DUNN MD T Ot M54.16 RADICULOPATHY, LUMBAR REGION 07/13/2016 NIYAH DUNN MD T Ot M54.5 LOW BACK PAIN 07/13/2016 SHAUN TERRY, NIYAH T Ot R07.89 OTHER CHEST PAIN 07/13/2016 NIYAH DUNN MD T Ot Z79.899 OTHER RETIREMENT (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 07/13/2016 SHAUN TERRY, NIYAH [...] SPONDYLOSIS W/O MYELOPATHY OR RADICULOPA 10/25/2016 ELVIS CRFAT MD Ot M47.816 SPONDYLOSIS W/O MYELOPATHY OR RADICULOPA 11/24/2016 ELVIS CRAFT MD Ot M47.816 SPONDYLOSIS W/O MYELOPATHY OR RADICULOPA 11/24/2016 ELVIS CRAFT MD Ot Z79.899 OTHER RETIREMENT (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 12/01/2016 ELVIS CRAFT MD, Ot M47.816 SPONDYLOSIS W/O MYELOPATHY OR RADICULOPA 12/01/2016 ELVIS CRAFT MD Ot Z79.899 OTHER MANAGEMENT ANALYST (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 12/07/2016 ELVIS CRAFT MD Ot M47.816 SPONDYLOSIS W/O MYELOPATHY OR RADICULOPA 12/07/2016 ELVIS CRAFT MD Ot Z79.899 OTHER MANAGEMENT ANALYST (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 12/11/2016 FARRAR, IRVING R [...] Procedures Code Description Performed By Performed On [facility] 06/17/2012 17859 H PYLORI (IN-HOUSE) 06/17/2012 05157 UA LONG DIP 06/17/2012 71085 MRI SPINE (THORACIC) W/O CONTRAST 03/12/2013 90625 MRI SPINE (LUMBAR) W/O CONTRAST 03/12/2013 92516 XRAY LUMBAR SPINE 2 OR 3 VIEWS 04/22/2013 96044 XRAY SI JOINTS LESS THAN 3 VIEWS 04/22/2013 45444 XRAY FEET, TERENCE 04/22/2013 Physical Physical Therapy 04/30/2013 Podiatry Anneliese Lombardo 04/30/2013 Orthopedi Trever Greene 06/10/2013 04770 THERAPUTIC INJ SQ/IM 07/21/2013 J0696 ROCEPHIN INJ 1 g 07/21/2013 J2930 SOLUMEDROL INJ 07/21/2013 39281 XRAY CHEST 2 VIEW 07/22/2013 04210 UA LONG DIP 02/26/2014 45415 XRAY KNEE LEFT 3 VIEWS 04/09/2014 Results [...] i.cardiac measurement (mass/volume) < ng/ mL <0.30 Urine drug screening test - 11/25/17 00:10 Urine phencyclidine detection by screening method NEGATIVE NEGATIVE Urine benzodiazepines detection by screening method NEGATIVE NEGATIVE Urine cocaine detection NEGATIVE NEGATIVE Urine amphetamines detection by screening method NEGATIVE NEGATIVE Urine methamphetamine detection by screening method NEGATIVE NEGATIVE Urine cannabinoids detection by screening method POSITIVE NEGATIVE Urine opiates detection by screening method NEGATIVE NEGATIVE Urine barbiturates detection NEGATIVE NEGATIVE Screening urine tricyclic antidepressants detection NEGATIVE NEGATIVE Urine methadone detection by screening method NEGATIVE NEGATIVE Urine oxycodone detection NEGATIVE NEGATIVE Urine propoxyphene detection NEGATIVE NEGATIVE Complete blood count (CBC) with automated white blood cell (WBC) differential - 11/25/17 01:29 Blood leukocytes automated count (number/volume) 9.9 10*3/uL 4.3-11.0 Blood erythrocytes automated count (number/volume) 4.82 10*6/uL 4.35-5.85 Venous blood hemoglobin measurement (mass/volume) 14.1 g/dL 13.3-17.7 Blood hematocrit (volume fraction) 41 % 40-54 Automated erythrocyte mean corpuscular volume 85 [foz_us] 80-99 Automated erythrocyte mean corpuscular hemoglobin (mass per erythrocyte) 29 pg 25-34 Automated erythrocyte mean corpuscular hemoglobin concentration measurement ( mass/volume) 34 g/dL 32-36 Automated erythrocyte distribution width ratio 13.5 % 10.0-14.5 Automated blood platelet count (count/volume) 249 10*3/uL 130-400 Automated blood platelet mean volume measurement 9.2 [foz_us] 7.4-10.4 Automated blood neutrophils/100 leukocytes 59 % 42-75 Automated blood lymphocytes/100 leukocytes 30 % 12-44 Blood monocytes/100 leukocytes 8 % 0-12 Automated blood eosinophils/100 leukocytes 2 % 0-10 Automated blood basophils/100 leukocytes 0 % 0-10 Blood neutrophils automated count (number/volume) 5.9 10*3 1.8-7.8 Blood lymphocytes automated count (number/volume) 3.0 10*3 1.0-4.0 Blood monocytes automated count (number/volume) 0.8 10*3 0.0-1.0 Automated eosinophil count 0.2 10*3/uL 0.0-0.3 Automated blood basophil count (count/volume) 0.0 10*3/uL 0.0-0.1 PT panel in platelet poor plasma by coagulation assay - 11/25/17 01:29 Prothrombin time (PT) in platelet poor plasma by coagulation assay 13.6 s 12.2-14.7 INR in platelet poor plasma or blood by coagulation assay 1.0 0.8-1.4 Activated partial thromboplastin time (aPTT) in platelet poor plasma bycoagulation assay - 11/25/17 01:29 Activated partial thromboplastin time (aPTT) in platelet poor plasma bycoagulation assay 27 s 24-35 Comprehensive metabolic panel - 11/25/17 01:29 Serum or plasma sodium measurement (moles/volume) 138 mmol/L 135-145 Serum or plasma potassium measurement (moles/volume) 4.1 mmol/L 3.6-5.0 Serum or plasma chloride measurement (moles/volume) 106 mmol/L 98-107 Carbon dioxide 21 mmol/L 21-32 Serum or plasma anion gap determination (moles/volume) 11 mmol/L 5-14 Serum or plasma urea nitrogen measurement (mass/volume) 18 mg/dL 7-18 Serum or plasma creatinine measurement (mass/volume) 0.87 mg/dL 0.60-1.30 Serum or plasma urea nitrogen/creatinine mass ratio 21 NRG Serum or plasma creatinine measurement with calculation of estimated glomerular filtration rate > NRG Serum or plasma glucose measurement (mass/volume) 98 mg/dL 70-105 Serum or plasma calcium measurement (mass/volume) 9.1 mg/dL 8.5-10.1 Serum or plasma total bilirubin measurement (mass/volume) 0.4 mg/dL 0.1-1.0 Serum or plasma alkaline phosphatase measurement (enzymatic activity/volume) 44 U/L 40-136 Serum or plasma aspartate aminotransferase measurement (enzymatic activity/ volume) 18 U/L 5-34 Serum or plasma alanine aminotransferase measurement (enzymatic activity/volume ) 28 U/L 0-55 Serum or plasma protein measurement (mass/volume) 6.2 g/dL 6.4-8.2 Serum or plasma albumin measurement (mass/volume) 4.1 g/dL 3.2-4.5 Magnesium - 11/25/17 01:29 Magnesium 2.5 mg/dL 1.8-2.4 Serum or plasma thyrotropin measurement by detection limit <=0.05 miu/l (units/ volume) - 11/25/17 01:29 Serum or plasma thyrotropin measurement by detection limit <=0.05 miu/l (units/ volume) 2.31 u[iU]/mL 0.35-4.94 Serum or plasma troponin i.cardiac measurement (mass/volume) - 11/25/17 01:29 Serum or plasma troponin i.cardiac measurement (mass/volume) < ng/ mL <0.30 Myoglobin, serum - 11/25/17 01:29 Myoglobin, serum 41.9 ng/mL 10.0-92.0 Serum or plasma ethanol measurement (mass/volume) - 11/25/17 01:29 Serum or plasma ethanol measurement (mass/volume) < mg/dL <10 Encounters ACCT No. Visit Date/Time Discharge Status Pt. Type Provider Facility Loc./Unit Complaint [id number] 07/17/2014 11:16:00 07/17/2014 23:59:59 [facility] Outpatient SHIRA SALINAS DO [id number] 04/23/2014 09:50:00 04/23/2014 23:59:59 [facility] Outpatient SHIRA SALINAS DO [id number] 04/09/2014 12:55:00 04/09/2014 23:59:59 [facility] Outpatient KAMINI RAND APRN [id number] 04/09/2014 12:55:00 04/09/2014 23:59:59 [facility] Outpatient KAMINI RAND APRN [id number] 02/26/2014 11:14:00 02/26/2014 23:59:59 [facility] Outpatient SHIRA SALINAS DO [id number] 02/12/2014 14:43:00 02/12/2014 23:59:59 [facility] Outpatient IRVING FARRAR APRN [id number] 09/30/2013 09:38:00 09/30/2013 23:59:59 CLS Outpatient FARRARIRVING RILEY APRN [id number] 07/21/2013 08:27:00 07/21/2013 23:59:59 CLS Outpatient SHIRA SALINAS DO [id number] 06/06/2013 09:17:00 06/06/2013 23:59:59 CLS Outpatient SHIRA SALINAS DO [id number] 04/30/2013 09:54:00 04/30/2013 23:59:59 CLS Outpatient SHIRA SALINAS DO [id number] 04/22/2013 09:23:00 04/22/2013 23:59:59 CLS Outpatient SHIRA SALINAS DO [id number] 10/22/2012 10:33:00 10/22/2012 23:59:59 CLS Outpatient [id number] 08/12/2012 13:35:00 08/12/2012 23:59:59 CLS Outpatient [id number] 06/17/2012 12:48:00 06/17/2012 23:59:59 CLS Outpatient [id number] 03/12/2013 13:38:00 Document Registration [id number] 12/12/2012 13:42:00 Document Registration [id number] 02/16/2015 18:52:24 ACT Document Registration [id number] 12/09/2016 09:31:00 12/09/2016 23:59:59 CLS Outpatient IRVING FARRAR [facility] RAD DDD M50.30 [id number] 12/06/2016 11:54:00 12/06/2016 23:59:59 CLS Preadmit IRVING FARRAR [facility] RAD M50.30 [id number] 12/01/2016 08:59:00 12/01/2016 10:10:00 DIS Outpatient ELVIS CRAFT MD [facility] CARD SPONDYLOSIS [id number] 11/24/2016 09:11:00 11/24/2016 10:22:00 DIS Outpatient ELVIS CRAFT MD [facility] CARD SPONDYLOSIS [id number] 10/20/2016 10:29:00 10/20/2016 11:40:00 DIS Outpatient ELVIS CRAFT MD [facility] CARD SPONDYLOSIS [id number] 08/25/2016 11:49:00 08/25/2016 13:11:00 DIS Outpatient ELVIS CRAFT MD [facility] CARD SPONDYLOSIS [id number] 07/12/2016 12:52:00 07/12/2016 17:57:00 DIS Emergency NIYAH DUNN MD [facility] ER BACK/LEG PAIN [id number] 07/05/2016 14:11:00 07/05/2016 23:59:59 CLS Outpatient CIHCA APARICIO LIME SUPERVISOR [facility] QUICK [id number] 06/21/2015 11:02:00 06/21/2015 16:25:00 DIS Outpatient ROMEL FRASER MD [facility] SDC FISTULA [id number] 06/17/2015 15:30:00 06/17/2015 23:59:59 CLS Outpatient ROMEL FRASER MD [facility] PREOP FISTULA [id number] 02/16/2015 18:51:00 02/16/2015 20:52:00 DIS Emergency BRITANY UMANZOR DO [facility] ER HEADACHE,LETHARGY,BLURRED VISION [id number] 02/05/2015 11:00:00 02/08/2015 11:20:00 DIS Inpatient LEONIDES MCCORMICK MD [facility] 4TH FEVER [id number] 05/08/2014 07:43:00 05/08/2014 12:10:00 DIS Outpatient ROMEL FRASER MD [facility] SDC POSITIVE BLOOD IN STOOLS ; ABD PAIN [id number] 05/07/2014 07:21:00 05/07/2014 23:59:59 CLS Outpatient ROMEL FRASER MD [facility] PREOP POSITIVE BLOOD IN STOOLS; ABD PAIN [id number] 02/09/2014 20:28:00 02/09/2014 22:42:00 DIS Emergency BRITANY UMANZOR DO [facility] ER HERNIA [id number] 11/25/2017 01:08:00 Document Registration [id number] 02/04/2015 12:38:00 Document Registration [id number] 02/04/2015 12:38:00 Document Registration [id number] 05/02/2012 05:39:00 Document Registration [id number] 04/29/2012 11:38:00 Document Registration [id number] 04/11/2012 07:46:00 Document Registration [id number] 04/05/2012 07:09:00 Document Registration [id number] 03/28/2012 12:41:00 Document Registration [id number] 03/27/2012 07:18:00 Document Registration [id number] 03/04/2012 09:16:00 Document Registration
[2017-11-25] MEDS ORDERED: morphine INJ 4 MG/ML 1 ML (VIAL/SYRINGE) IV PRN (06:00)
--- NOTE | 2017-11-25 07:13 | Diagnostic Imaging Report ---
EXAM: CHEST 1 VIEW, AP/PA ONLY INDICATION: Chest pain. COMPARISON: Chest radiograph 07/12/2016. FINDINGS: Normal heart size and pulmonary vascularity. No focal pulmonary opacity, pleural effusion or pneumothorax. No acute osseous findings. IMPRESSION: No acute cardiopulmonary findings. Dictated by: Dictated on workstation # [id number]
--- NOTE | 2017-11-25 07:42 | Diagnostic Imaging Report ---
PROCEDURE: CT head without contrast. TECHNIQUE: Multiple contiguous axial images were obtained through the brain without the use of intravenous contrast. INDICATION: Headache. COMPARISON: CT head without contrast 02/16/2015. FINDINGS: No intracranial hemorrhage, mass effect, hydrocephalus or extra-axial fluid collection. No CT evidence of acute infarction. Osseous structures are intact. The paranasal sinuses and mastoids are clear. IMPRESSION: No acute intracranial CT findings. Dictated by: Dictated on workstation # [id number]
[2017-11-25] MEDS: ASPIRIN E.C. 325 MG (ECOTRIN) TABLET PO SCH (09:11)
[2017-11-25] MEDS: IBUPROFEN 600 MG (MOTRIN) TAB PO PRN ×2 (14:34→20:35)
--- NOTE | 2017-11-25 14:37 | History & Physicial (CHS) ---
HPI History of Present Illness: 42 yo male presented to ER with a few concerns. First he has had two episodes of loss of consciousness in the last week. On Sunday he woke up in his yard with his dog licking his face. He was not observed by anyone and he does not remember what happened prior to passing out or having any symptoms of chest pain , palpitations, dizziness etc just before passing out. Yesterday he was at a friend's house and went home, thinks he remembers getting undressed and getting into bed, but then woke up in the hallway on the floor, again with no observers. His and daughters have moved out some time ago due to his mental health concerns. He has been intermittently hearing voices and having visual hallucinations for about a year. He reports thoughts popping into his head which he does feel is audible that say things like he should jump out of the car while he is driving although he has no suicidal ideation. He wants to get help for this and was admitted to the inpatient psychiatry unit at [facility] not long ago where he reports one of the physicians is a good friend and states he was started on fluoxetine and another medication which he did not get because it was too expensive. He does not recall the name of the medication. He did get Seroquel while inpatient and that made him too zombie like, he does not want to try that again. He reports diagnosis of PTSD and bipolar disorder. He does smoke marijuana nearly daily and is adamant it is from a respectable source that would not be contaminated with any other substances. He has a history of methamphetamine use and reports the last use was several months ago and denies injection drug use. Last night, he came to the ER with chest pressure coming up from his abdomen and through back as well as a severe headache. He does note he had a CT of his head at [facility] that was normal. He also does say he has had dizziness over the last few months, feels like he is floating on water and off balance. He also has a history of back pain and reports that was resolved after treatments with Anesthesia Pain. Clinic chart review notes he called them to request they review an MRI that he stated was done at [facility] where he stated he was close friends with the Neurosurgeon, but when clinic called for records, they reported he had been seen but did not have an MRI. Date seen by provider: Nov 25, 2017 Time Seen by Provider: 10:42 Attending Physician Masood Durham MD PCP Brenna Weinstein DO Consult Date of Admission Nov 25, 2017 at 4:29 am Home Medications Home Medications Reviewed patient Home Medication Reconciliation performed by pharmacy medication reconciliations electrostatic powder coating technician and/or nursing. Patients Allergies have been reviewed. Allergies Coded Allergies: Shellfish (Unverified Allergy, Unknown, 03/28/12) [id number] Hx Patient Social History Alcohol Use: Denies Use Recreational Drug Use: Yes Drug of Choice: marijuana Smoking Status: Current Someday Smoker Type Used: Cigarettes Recent Foreign Travel: No Contact w/other who traveled: No Recent Hopitalizations: Yes ([facility] [place]) Recent Infectious Disease Expo: No Physical Abuse Screen: No Sexual Abuse: No Immunizations Up To Date Date of Pneumonia Vaccine: Aug 06, 2007 Date of Influenza Vaccine: May 05, 2015 Past Medical History Past medical history 1. Chronic back pain 2. Gastroesophageal reflux disease 3. Hiatal hernia 4. Internal hemorrhoids 5. Asthma 6. History of gastritis Past surgical history 1. Laparoscopic cholecystectomy 2. Sigmoid polypectomy 3. Tonsillectomy 4. Bilateral inguinal hernia repair 5. EGD and colonoscopies 6. Right knee surgery 7. Right hand surgery Family Medical History Family History: Patient reports no known family medical history. Review of Systems (CHC) Constitutional: other (difficult to obtain- patient frequently changing subject and difficult to keep on topic) Reviewed Test Results Reviewed Test Results Lab Laboratory Tests Test 11/25/17 00:10 11/25/17 01:29 11/25/17 06:51 Range/Units Urine Opiates Screen NEGATIVE NEGATIVE Urine Oxycodone Screen NEGATIVE NEGATIVE Urine Methadone Screen NEGATIVE NEGATIVE Urine Propoxyphene Screen NEGATIVE NEGATIVE Urine Barbiturates Screen NEGATIVE NEGATIVE Ur Tricyclic Antidepressants Screen NEGATIVE NEGATIVE Urine Phencyclidine Screen NEGATIVE NEGATIVE Urine Amphetamines Screen NEGATIVE NEGATIVE Urine Methamphetamines Screen NEGATIVE NEGATIVE Urine Benzodiazepines Screen NEGATIVE NEGATIVE Urine Cocaine Screen NEGATIVE NEGATIVE Urine Cannabinoids Screen POSITIVE H NEGATIVE White Blood Count 9.9 4.3-11.0 10^3/uL Red Blood Count 4.82 4.35-5.85 10^6/uL Hemoglobin 14.1 13.3-17.7 G/DL Hematocrit 41 40-54 % Mean Corpuscular Volume 85 80-99 FL Mean Corpuscular Hemoglobin 29 25-34 PG Mean Corpuscular Hemoglobin Concent 34 32-36 G/DL Red Cell Distribution Width 13.5 10.0-14.5 % Platelet Count 249 130-400 10^3/uL Mean Platelet Volume 9.2 7.4-10.4 FL Neutrophils (%) (Auto) 59 42-75 % Lymphocytes (%) (Auto) 30 12-44 % Monocytes (%) (Auto) 8 0-12 % Eosinophils (%) (Auto) 2 0-10 % Basophils (%) (Auto) 0 0-10 % Neutrophils # (Auto) 5.9 1.8-7.8 X 10^3 Lymphocytes # (Auto) 3.0 1.0-4.0 X 10^3 Monocytes # (Auto) 0.8 0.0-1.0 X 10^3 Eosinophils # (Auto) 0.2 0.0-0.3 10^3/uL Basophils # (Auto) 0.0 0.0-0.1 10^3/uL Prothrombin Time 13.6 12.2-14.7 SEC INR Comment 1.0 0.8-1.4 Activated Partial Thromboplast Time 27 24-35 SEC Sodium Level 138 135-145 MMOL/L Potassium Level 4.1 3.6-5.0 MMOL/L Chloride Level 106 98-107 MMOL/L Carbon Dioxide Level 21 21-32 MMOL/L Anion Gap 11 5-14 MMOL/L Blood Urea Nitrogen 18 7-18 MG/DL Creatinine 0.87 0.60-1.30 MG/DL Estimat Glomerular Filtration Rate > 60 BUN/Creatinine Ratio 21 Glucose Level 98 70-105 MG/DL Calcium Level 9.1 8.5-10.1 MG/DL Magnesium Level 2.5 H 1.8-2.4 MG/DL Total Bilirubin 0.4 0.1-1.0 MG/DL Aspartate Amino Transf (AST/SGOT) 18 5-34 U/L Alanine Aminotransferase (ALT/SGPT) 28 0-55 U/L Alkaline Phosphatase 44 40-136 U/L Myoglobin 41.9 10.0-92.0 NG/ML Troponin I < 0.30 < 0.09 <0.30 NG/ML Total Protein 6.2 L 6.4-8.2 GM/DL Albumin 4.1 3.2-4.5 GM/DL TSH [place] Testing 2.31 0.35-4.94 UIU/ML Serum Alcohol < 10 <10 MG/DL Radiology 11/[address] without acute abnormalities Physical Exam-([facility]C) Physical Exam Vital Signs VS - Last 72 Hours, by Label 11/25/17 11/25/17 11/25/17 11/25/17 00:02 04:53 04:55 05:16 Temp 97.0 98.2 Pulse 82 69 73 Resp 20 15 24 B/P (MAP) 166/112 (130) 142/87 138/99 (112) Pulse Ox 97 100 96 98 O2 Delivery Room Air Room Air Room Air 11/25/17 11/25/17 11/25/17 11/25/17 05:20 05:30 05:45 06:00 Pulse 63 67 65 70 Resp 19 21 21 B/P (MAP) 147/101 (116) 131/104 (113) 126/78 (94) Pulse Ox 98 97 98 O2 Delivery Room Air Room Air Room Air 11/25/17 11/25/17 11/25/17 11/25/17 06:15 06:30 06:45 07:00 Pulse 60 79 61 82 Resp 17 22 19 B/P (MAP) 116/85 (95) 127/92 (104) 131/79 (96) Pulse Ox 95 96 95 O2 Delivery Room Air Room Air Room Air 11/25/17 11/25/17 11/25/17 11/25/17 07:00 08:00 09:00 09:12 Pulse 82 69 62 Resp 18 16 17 B/P (MAP) 139/90 (106) 144/109 (121) 163/105 (124) Pulse Ox 96 96 97 97 O2 Delivery Room Air Room Air Room Air Room Air 11/25/17 11/25/17 11/25/17 11/25/17 09:22 09:41 10:00 11:13 Pulse 66 Resp 20 B/P (MAP) 133/92 (106) 133/94 (107) Pulse Ox 97 96 O2 Delivery Room Air Room Air Room Air 11/25/17 11/25/17 12:11 13:00 Temp 96.9 Pulse 86 Capillary Refill : Less Than 3 Seconds General Appearance: WD/WN, no apparent distress HEENT: PERRL/EOMI Respiratory: lungs clear, normal breath sounds Cardiovascular: regular rate, rhythm, no murmur Gastrointestinal: normal bowel sounds, non tender, soft Extremities: no pedal edema Neurologic/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: 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 treatment technician II-XII nml as tested (reports slight decrease sensation right face and decreased hearing right compared to left, otherwise normal), normal mood/affect Skin: normal color, warm/dry Assessment/Plan Assessment/Plan Admission Status: Observation (1) Chest pain Status: Acute Assessment & Plan: EKG and troponin unremarkable, Cardiology consulted, appreciate recommendations (2) Headache Status: Acute Assessment & Plan: CT unremarkable, given hallucinations and balance difficulty , will obtain MRI tomorrow am to rule out subtle lesion/white matter disease (3) Syncope Status: Acute Assessment & Plan: Unclear etiology, monitor on telemetry, appreciate Cardiology recommendations. (4) Hallucination Status: Acute Assessment & Plan: Suspect may be depression or PTSD with psychosis, continue fluoxetine, will try to find out other medication that was recommended, consider other anti-psychotic if unable to determine. Will need outpatient Psychiatry and counseling set up, he is wanting to do so. (5) DVT prophylaxis Status: Acute Assessment & Plan: Enoxaparin Clinical Quality Measures AMI/AHF: ASA po Prior to arrival: No DVT/VTE Risk/Contraindication: Risk Factor Score Per Nursin RFS Level Per Nursing on Admit: 2=Moderate MASOOD DURHAM MD Nov 25, 2017 2:37 pm
--- NOTE | 2017-11-25 15:02 | Consultation-Cardiology ---
HPI-Cardiology Cardiology Consultation: Date of Consultation 11/25/17 Date of Admission Attending Physician Tatyana Durham MD Admitting Physician Brenna Weinstein DO Consulting Physician Jefferson CARRANZA MD HPI: Time Seen by Provider: 14:00 Chief Complaint: Chest pain and syncope This is a 42-year-old gentleman who presents with chest pain and syncope. Patient has not been to medicine physician's for a while therefore chronic medical history is unclear, however, he denies diabetes, hypertension, hyperlipidemia. He does have history of active smoking and has family history of premature CAD. He presents with chest pain which started in his abdomen and in his chest. He described it as pressure. He also complained of headache. He had previously had a CT of his head which was normal. He denies having any shortness of breath or palpitations. He also complains of 2 episodes of loss of consciousness in the last one week. During both episodes he woke up on the floor and does not remember how he got there. Also both the events were not witnessed. Also to note that the patient does have mental health issues. There is history of auditory and visual hallucinations. He was recently in a psychiatry Hospital in [place] and was started on an SSRI and recently discharged. Review of Systems-Cardiology Review of Systems Constitutional: No As described under HPI, No no symptoms reported, No chills, No fever, No lightheadedness, No malaise, No tiredness, No weight loss, No weight gain, No other Eyes: No As described under HPI, No no symptoms reported, No blindness, No blurred vision, No contact lenses, No drainage, No decreased acuity, No foreign body sensation, No glasses, No inflammation, No pain, No photophobia, No previous injury, No shadows, No tunnel vision, No other, No vision change Ears/Nose/Throat: No As described under HPI, No no symptoms reported, No chronic hearing loss, No epistaxis, No ear discharge, No ear pain, No loose teeth, No mouth pain, No mouth swelling, No nasal drainage, No nose pain, No recent hearing loss, No throat pain, No throat swelling, No ulcerations, No other Respiratory: No no symptoms reported, No As described under HPI, No cough, No orthopnea, No shortness of breath, No SOB with excertion, No SOB at rest, No stridor, No wheezing, No other Cardiovascular: chest pain, syncope Gastrointestinal: No no symptoms reported, No As described under HPI, No abdomen distended, No abdominal pain, No blood streaked bowels, No constipation , No diarrhea, No difficulty swallowing, No nausea, No poor appetite, No poor fluid intake, No rectal bleeding, No vomiting, No other, No nausea/vomiting/ diarrhea, No stool coloration changes Genitourinary: No no symptoms reported, No As described under HPI, No burning, No dysuria, No discharge, No frequency, No flank pain, No hematuria, No incontinence, No pain, No urgency, No other, No urine frequency changes, No urine coloration changes Musculoskeletal: No no symptoms reported, No As describe under HPI, No back pain, No gout, No joint pain, No joint swelling, No muscle pain, No muscle stiffness, No neck pain, No other Skin: No no symptoms reported, No As described under HPI, No change in color, No change in hair/nails, No dryness, No lesions, No lumps, No rash, No other, No skin related problems, No ulcerations, No rash on exposed areas, No ulcerations on exposed areas Psychiatric/Neurological: As described under HPI, emotional problems, headache , syncope Hematologic: No no symptoms reported, No As described under HPI, No anemia, No blood clots, No easy bleeding, No easy bruising, No swollen glands, No other, No bleeding abnormalities [id number] Hx Patient Social History Alcohol Use: Denies Use Recreational Drug Use: Yes Drug of Choice: marijuana Smoking Status: Current Someday Smoker Type Used: Cigarettes Recent Foreign Travel: No Recent Infectious Disease Expo: No Hospitalization with Isolation: Denies Physical Abuse Screen: No Sexual Abuse: No Immunizations Up To Date Date of Pneumonia Vaccine: Aug 06, 2007 Date of Influenza Vaccine: May 05, 2015 Past Medical History PMH As described under Assessment. Family Medical History Family History: Patient reports no known family medical history. Allergies and Home Medications Allergies Coded Allergies: Shellfish (Unverified Allergy, Unknown, 03/28/12) Home Medications Fluoxetine HCl 20 Mg Capsule, 20 MG PO DAILY, (Reported) Patient Home Medication List Home Medication List Reviewed: Yes Physical Exam-Cardiology Physical Exam Vital Signs/I&O 11/25/17 11/25/17 11/25/17 11/25/17 04:53 04:55 05:16 05:20 Temp 98.2 Pulse 69 73 63 Resp 15 24 B/P (MAP) 142/87 138/99 (112) Pulse Ox 100 96 98 O2 Delivery Room Air Room Air 11/25/17 11/25/17 11/25/17 11/25/17 05:30 05:45 06:00 06:15 Pulse 67 65 70 60 Resp 19 21 21 17 B/P (MAP) 147/101 (116) 131/104 (113) 126/78 (94) 116/85 (95) Pulse Ox 98 97 98 95 O2 Delivery Room Air Room Air Room Air Room Air 11/25/17 11/25/17 11/25/17 11/25/17 06:30 06:45 07:00 07:00 Pulse 79 61 82 82 Resp 18 B/P (MAP) 127/92 (104) 131/79 (96) 139/90 (106) Pulse Ox 96 95 96 O2 Delivery Room Air Room Air Room Air 11/25/17 11/25/17 11/25/17 11/25/17 08:00 09:00 09:12 09:22 Pulse 69 62 Resp 16 17 B/P (MAP) 144/109 (121) 163/105 (124) Pulse Ox 96 97 97 97 O2 Delivery Room Air Room Air Room Air Room Air 11/25/17 11/25/17 11/25/17 11/25/17 09:41 10:00 11:13 12:11 Temp 96.9 Pulse 66 Resp 20 B/P (MAP) 133/92 (106) 133/94 (107) Pulse Ox 96 O2 Delivery Room Air Room Air 11/25/17 13:00 Pulse 86 Capillary Refill : Less Than 3 Seconds Constitutional: appears stated age, AAO x 3; No apparent distress; well- developed, well-nourished HEENT: PERRL; No normal ENT inspection, No TMs normal, No pharynx normal, No scleral icterus (R), No scleral icterus (L), No pale conjunctivae (R), No pale conjunctivae (L), No photophobia, No TM abnormal (R), No TM abnormal (L), No pharyngeal erythema, No tonsillar exudate, No other, No discharge, No EOMI; hearing is well preserved; No hard of hearing; oral hygience is good; No ulceration, No xanthelasmas are seen Neck: No non-tender, No full range of motion, No supple, No normal inspection, No carotid bruit, No limited range of motion, No lymphadenopathy (R), No lymphadenopathy (L), No tender lateral, No tender midline, No thyromegaly, No other; carotid pulses are 2 + bilaterally; No with good upstrokes Respiratory: No accessory muscle use, No respiratory distress, No chest tender , No chest expansion is symmetric; chest is bilaterally symmetric; No lungs clear to percussion; lungs clear to auscultation; No crackles, No rhonchi, No rales, No stridor, No wheezing, No pleural rub, No other Cardiovascular: regular rate-rhythm; No irregularly irregular, No extra beats, No parasternal heave is noted, No JVD, No edema, No bradycardia, No tachycardia , No point of maximal impulse, No cardiac thrills are palpable; S1 and S2; No gallop/S3, No gallop/S4, No diastolic murmur, No systolic murmur, No friction rub, No click, No other Gastrointestinal: No tender, No soft, No round, No distended, No pulsatile mass , No organomegaly, No guarding, No rebound, No tenderness, No hernia, No mass, No audible bowel sounds, No abnormal bowel sounds, No abdominal bruits, No spleenomegaly, No other Rectal: deferred Extremities: No normal range of motion, No non-tender, No normal inspection, No pedal edema, No calf tenderness, No normal capillary refill, No pelvis stable , No calf tenderness, No inflammation, No pedal edema, No slow capillary refill , No swelling, No other, No abrasion, No clubbing, No cyanosis, No ecchymosis, No laceration, No no lower extremity edema bilateral, No significant edema, No tenderness, No wound Neurologic/Psychiatric: no motor/sensory deficits, alert, normal mood/affect, oriented x 3, power is 5/5 both on sides Skin: No normal color, No warm/dry, No cyanosis, No cool, No diaphoresis, No damp, No ecchymosis, No jaundice, No mottled, No pallor, No rash, No tattoos/ piercings, No ulcerations, No rash on exposed areas, No ulcerations on exposed areas, No other Data Review Labs Laboratory Tests 11/25/17 00:10: Urine Opiates Screen NEGATIVE, Urine Oxycodone Screen NEGATIVE, Urine Methadone Screen NEGATIVE, Urine Propoxyphene Screen NEGATIVE, Urine Barbiturates Screen NEGATIVE, Ur Tricyclic Antidepressants Screen NEGATIVE, Urine Phencyclidine Screen NEGATIVE, Urine Amphetamines Screen NEGATIVE, Urine Methamphetamines Screen NEGATIVE, Urine Benzodiazepines Screen NEGATIVE, Urine Cocaine Screen NEGATIVE, Urine Cannabinoids Screen POSITIVEH 11/25/17 01:29: White Blood Count 9.9, Red Blood Count 4.82, Hemoglobin 14.1, Hematocrit 41, Mean Corpuscular Volume 85, Mean Corpuscular Hemoglobin 29, Mean Corpuscular Hemoglobin Concent 34, Red Cell Distribution Width 13.5, Platelet Count 249, Mean Platelet Volume 9.2, Neutrophils (%) (Auto) 59, Lymphocytes (%) (Auto) 30, Monocytes (%) (Auto) 8, Eosinophils (%) (Auto) 2, Basophils (%) (Auto) 0, Neutrophils # (Auto) 5.9, Lymphocytes # (Auto) 3.0, Monocytes # (Auto) 0.8, Eosinophils # (Auto) 0.2, Basophils # (Auto) 0.0, Prothrombin Time 13.6, INR Comment 1.0, Activated Partial Thromboplast Time 27, Sodium Level 138, Potassium Level 4.1, Chloride Level 106, Carbon Dioxide Level 21, Anion Gap 11, Blood Urea Nitrogen 18, Creatinine 0.87, Estimat Glomerular Filtration Rate > 60 , BUN/Creatinine Ratio 21, Glucose Level 98, Calcium Level 9.1, Magnesium Level 2.5H, Total Bilirubin 0.4, Aspartate Amino Transf (AST/SGOT) 18, Alanine Aminotransferase (ALT/SGPT) 28, Alkaline Phosphatase 44, Myoglobin 41.9, Troponin I < 0.30, Total Protein 6.2L, Albumin 4.1, TSH [place] Testing 2.31, Serum Alcohol < 10 11/25/17 06:51: Troponin I < 0.09 ECG Impression ECG Initial ECG Rhythm: Normal Sinus Initial ECG Impression: Normal A/P-Cardiology Assessment/Admission Diagnosis Chest pain, Syncope, Psych issues, Drug abuse, Active smoking Plan Chest pain, acute coronary syndrome ruled out with serial negative troponin. EKG is negative. Pharmacological nuclear stress test tomorrow. Echocardiogram tomorrow. Syncope, normal telemetry till now. EKG is normal with normal intervals. Will require an event monitor on discharge. Echocardiogram tomorrow. Psych issues, auditory and visual hallucinations. On fluoxetine. Will require long-term psychiatric care. Drug abuse, marijuana use. Active smoking, smoking cessation recommended. Thank you for your consultation. Please call me if you have any questions. Fransico Carranza MD, FACP, FACC, FSCAI, FHRS, CCDS Interventional Cardiology Cardiac Electrophysiology Vascular Medicine and Endovascular Interventions Clinical Quality Measures AMI/AHF: ASA po Prior to arrival: No DVT/VTE Risk/Contraindication: Risk Factor Score Per Nursin RFS Level Per Nursing on Admit: 2=Moderate Jefferson CARRANZA MD Nov 25, 2017 3:02 pm
[2017-11-25] MEDS: ENOXAPARIN 40 MG/0.4 ML (LOVENOX) SYR SC SCH (15:24)
[2017-11-26 03:56] VITALS: BP 129/80
[2017-11-26 04:26] LABS: CHOLESTEROL 235 MG/DL (< 200); HDL CHOLESTEROL 39 MG/DL (40-60); TRIGLYCERIDES 143 MG/DL (<150); VLDL CHOLESTEROL 29 MG/DL (5-40)
[2017-11-26] MEDS ORDERED: GADOBUTROL 10 MMOL/10 ML (GADAVIST) VIAL IV ONE (07:45)
[2017-11-26 08:00] VITALS: BP 128/74
[2017-11-26] MEDS ORDERED: FLUoxetine HCL 20 MG (PROzac) CAP PO SCH (09:00)
[2017-11-26] MEDS: ASPIRIN E.C. 325 MG (ECOTRIN) TABLET PO SCH (09:11)
--- NOTE | 2017-11-26 09:32 | Diagnostic Imaging Report ---
PROCEDURE: MR imaging of the brain with and without contrast. TECHNIQUE: Multiplanar, multisequence MR imaging of the brain was performed with and without contrast. INDICATION: Headaches and hallucinations. No prior MRI brain study is available for comparison. Ventricles and sulci are within normal limits. No sulcal effacement is seen. No acute intra-axial or extra-axial hemorrhage is identified. There is no diffusion restriction identified. There are normal expected flow-voids within the carotid siphons are seen. Corpus callosum is unremarkable. The sella and parasellar structures are unremarkable. No abnormal enhancement following contrast administration is seen. IMPRESSION: Unremarkable pre-and post intravenous contrast MRI of the brain. Dictated by: Dictated on workstation # [id number]
[2017-11-26] MEDS ORDERED: CATHETER FLUSH 10 ML SYR IV PRN (11:00)
--- NOTE | 2017-11-26 11:38 | Cardiology Progress Note ---
Cardiology SOAP Progress Note Subjective: No further chest pain. Objective: I&O/Vital Signs 11/25/17 11/26/17 11/26/17 11/26/17 23:58 00:00 01:00 03:56 Temp 97.6 96.9 Pulse 66 68 61 Resp 18 18 B/P (MAP) 131/83 (99) 129/80 (96) Pulse Ox 96 96 98 O2 Delivery Room Air Room Air Room Air 11/26/17 11/26/17 11/26/17 11/26/17 03:58 07:00 08:00 08:00 Temp 97.8 Pulse 72 68 Resp 18 B/P (MAP) 128/74 (92) Pulse Ox 98 96 96 O2 Delivery Room Air Room Air Room Air 11/26/17 08:01 Pulse Ox 97 O2 Delivery Room Air 11/26/17 00:00 Intake Total 1440 ml Balance 1440 ml Weight (Pounds): 241 Weight (Ounces): 6.0 Weight (Calculated Kilograms): 109.715132 Constitutional: appears stated age, AAO x 3; No apparent distress; well- developed, well-nourished Respiratory: No accessory muscle use, No respiratory distress, No chest tender , No chest expansion is symmetric; chest is bilaterally symmetric; No lungs clear to percussion; lungs clear to auscultation; No crackles, No rhonchi, No rales, No stridor, No wheezing, No pleural rub, No other Cardiovascular: regular rate-rhythm; No irregularly irregular, No extra beats, No parasternal heave is noted, No JVD, No edema, No bradycardia, No tachycardia , No point of maximal impulse, No cardiac thrills are palpable; S1 and S2; No gallop/S3, No gallop/S4, No diastolic murmur, No systolic murmur, No friction rub, No click, No other Gastrointestional: No tender, No soft, No round, No distended, No pulsatile mass, No organomegaly, No guarding, No rebound, No tenderness, No hernia, No mass, No audible bowel sounds, No abnormal bowel sounds, No abdominal bruits, No spleenomegaly, No other Extremities: No normal range of motion, No non-tender, No normal inspection, No pedal edema, No calf tenderness, No normal capillary refill, No pelvis stable , No calf tenderness, No inflammation, No pedal edema, No slow capillary refill , No swelling, No other, No abrasion, No clubbing, No cyanosis, No ecchymosis, No laceration, No no lower extremity edema bilateral, No significant edema, No tenderness, No wound Neurologic/Psychiatric: no motor/sensory deficits, alert, normal mood/affect, oriented x 3, power is 5/5 both on sides Skin: No normal color, No warm/dry, No cyanosis, No cool, No diaphoresis, No damp, No ecchymosis, No jaundice, No mottled, No pallor, No rash, No tattoos/ piercings, No ulcerations, No rash on exposed areas, No ulcerations on exposed areas, No other Results/Procedures: Labs Laboratory Tests 11/26/17 03:25: Triglycerides Level 143, Cholesterol Level 235H, LDL Cholesterol Direct 173H, VLDL Cholesterol 29, HDL Cholesterol 39L A/P: Assessment/Dx: Chest pain, Syncope, Psych issues, Drug abuse, Active smoking Plan: Chest pain, acute coronary syndrome ruled out with serial negative troponin. EKG is negative. Pharmacological nuclear stress test today. Echocardiogram pending. Syncope, normal telemetry till now. EKG is normal with normal intervals. Will require an event monitor on discharge. Echocardiogram pending. Psych issues, auditory and visual hallucinations. On fluoxetine. Will require long-term psychiatric care. Drug abuse, marijuana use. Active smoking, smoking cessation recommended. Thank you for your consultation. Please call me if you have any questions. Fransico Carranza MD, FACP, FACC, FSCAI, FHRS, CCDS Interventional Cardiology Cardiac Electrophysiology Vascular Medicine and Endovascular Interventions Clinical Quality Measures AMI/AHF: ASA po Prior to arrival: Jefferson Buitrago MD Nov 26, 2017 11:38 am
[2017-11-26] MEDS ORDERED: REGADENOSON 0.4 MG/5 ML SYR (LEXISCAN) IV ONE ×2 (11:57→12:15)
[2017-11-26 12:04] VITALS: BP 141/89
[2017-11-26 12:09] VITALS: BP 128/88
--- NOTE | 2017-11-26 14:55 | Cardiology Stress Test Report ---
Stress Test Report Type of NM Stress Test: Test Type: LEXISCAN 0.4MG/5ML Date of Procedure/Referring: Date of Procedure: Nov 26, 2017 PCP Tatyana Durham MD Admitting Physician Brenna Weinstein DO Indications: Chest pain Baseline Blood Pressure: Blood Pressure Systolic: 128 Blood Pressure Diastolic: 88 Baseline EKG: Baseline EKG: sinus rhythm Summary: This is a 42 year old gentleman who was brought to the stress lab after informed consent was taken. Lexiscan stress test was performed according to the protocol. 0.4 mg of IV Lexiscan was given. Low-grade exercise was performed. Baseline EKG showed sinus rhythm. Patient did not have any chest pain, EKG changes or arrhythmias during the stress test. 10.51 mCi of Myoview were given for rest imaging and 32.0 mCi of Myoview was given for stress imaging. Transient ischemic dilatation score is 1.0. EF 69 percent with no wall motion abnormalities. Normal perfusion during rest and stress. SSS 0, SRS 0, SDS 0. Conclusion: Pharmacological stress test was negative for ischemia. Normal LV function with no wall motion abnormalities. Normal myocardial perfusion during rest and stress. Jefferson JACKSON MD Nov 26, 2017 2:55 pm
--- NOTE | 2017-11-26 14:58 | Discharge Summary ---
Diagnosis/Chief Complaint Date of Admission Nov 25, 2017 at 04:29 Date of Discharge 11/26/17 Admission Diagnosis Admission Diagnosis (1) Chest pain Status: Acute Assessment & Plan: EKG and troponin unremarkable, Cardiology consulted, appreciate recommendations (2) Headache Status: Acute Assessment & Plan: CT unremarkable, given hallucinations and balance difficulty , will obtain MRI tomorrow am to rule out subtle lesion/white matter disease (3) Syncope Status: Acute Assessment & Plan: Unclear etiology, monitor on telemetry, appreciate Cardiology recommendations. (4) Hallucination Status: Acute Assessment & Plan: Suspect may be depression or PTSD with psychosis, continue fluoxetine, will try to find out other medication that was recommended, consider other anti-psychotic if unable to determine. Will need outpatient Psychiatry and counseling set up, he is wanting to do so. (5) DVT prophylaxis Status: Acute Assessment & Plan: Enoxaparin Discharge Diagnosis (1) Chest pain Status: Acute Assessment & Plan: EKG and troponin unremarkable, Cardiology consulted, appreciate recommendations; 11/26 - chest pain resolved, EKG normal, troponin negative, normal echo, stress test negative (2) Headache Status: Acute Assessment & Plan: CT unremarkable, given hallucinations and balance difficulty , will obtain MRI tomorrow am to rule out subtle lesion/white matter disease; - headache resolved, MRI WNL (3) Syncope Status: Acute Assessment & Plan: Unclear etiology, monitor on telemetry, appreciate Cardiology recommendations. 11/26 no clear cause, suspect possibly psychogenic in nature (4) Hallucination Status: Acute Assessment & Plan: Suspect may be depression or PTSD with psychosis, continue fluoxetine, will try to find out other medication that was recommended, consider other anti-psychotic if unable to determine. Will need outpatient Psychiatry and counseling set up, he is wanting to do so. 11/26 - pt reports this all started after an issue with his daughter and he does think that he has PTSD. He is very agreeable to outpatient treatment and to continuing medical therapy with his PCP, Jefferson SIMONS at the [facility] Chief Complaint/HPI Chief Complaint/HPI 42 yo male presented to ER with a few concerns. First he has had two episodes of loss of consciousness in the last week. On Sunday he woke up in his yard with his dog licking his face. He was not observed by anyone and he does not remember what happened prior to passing out or having any symptoms of chest pain , palpitations, dizziness etc just before passing out. Yesterday he was at a friend's house and went home, thinks he remembers getting undressed and getting into bed, but then woke up in the hallway on the floor, again with no observers. His and daughters have moved out some time ago due to his mental health concerns. He has been intermittently hearing voices and having visual hallucinations for about a year. He reports thoughts popping into his head which he does feel is audible that say things like he should jump out of the car while he is driving although he has no suicidal ideation. He wants to get help for this and was admitted to the inpatient psychiatry unit at [facility] not long ago where he reports one of the physicians is a good friend and states he was started on fluoxetine and another medication which he did not get because it was too expensive. He does not recall the name of the medication. He did get Seroquel while inpatient and that made him too zombie like, he does not want to try that again. He reports diagnosis of PTSD and bipolar disorder. He does smoke marijuana nearly daily and is adamant it is from a respectable source that would not be contaminated with any other substances. He has a history of methamphetamine use and reports the last use was several months ago and denies injection drug use. Last night, he came to the ER with chest pressure coming up from his abdomen and through back as well as a severe headache. He does note he had a CT of his head at [facility] that was normal. He also does say he has had dizziness over the last few months, feels like he is floating on water and off balance. He also has a history of back pain and reports that was resolved after treatments with Anesthesia Pain. Clinic chart review notes he called them to request they review an MRI that he stated was done at [facility] where he stated he was close friends with the Neurosurgeon, but when clinic called for records, they reported he had been seen but did not have an MRI. Discharge Summary-OBS Procedures None. Consultations Cardiology Discharge Physical Examination Allergies: Coded Allergies: Shellfish (Unverified Allergy, Unknown, 03/28/12) Vitals & I&Os Intake and Output 11/26/17 00:00 Intake Total 1440 ml Balance 1440 ml Vital Sign - Last 12Hours Date Time Temp Pulse Resp B/P (MAP) Pulse Ox O2 Delivery O2 Flow Rate FiO2 11/26/17 12:09 84 128/88 (101) 98 11/26/17 12:00 Room Air 11/26/17 08:00 97.8 18 General Appearance: Alert, Oriented X3, Cooperative, No Acute Distress HEENT: Atraumatic, PERRLA, EOMI, Mucous Memb Moist/[place] Respiratory: Clear to Auscultation, Normal Air Movement Cardiovascular: Regular Rate, Normal S1, Normal S2, No Murmurs Abdominal: Normal Bowel Sounds, Soft, No Tenderness Extremities: No Clubbing, No Cyanosis, No Edema Skin: No Rashes, No Breakdown, No Significant Lesion Neuro: Normal Gait, Normal Speech, Normal Tone, Sensation Intact, Cranial Nerves 3-12 NL Psych/Mental Status: Mental Status NL, Mood NL Hospital Course Pt presented with physical symptoms and had negative workup. Pt just recently released from inpatient psych; he is very open to the idea that his physical symptoms are psychological in nature. We will have him follow up with PCP and Behavioral Health at discharge. Labs Laboratory Tests 11/26/17 03:25: Triglycerides Level 143, Cholesterol Level 235H, LDL Cholesterol Direct 173H, VLDL Cholesterol 29, HDL Cholesterol 39L Radiology Reviewed 11/[address] without acute abnormalities 11/26 MRI without abnormalities, echo without abnormalities, stress test without abnormalities Discharge Condition at discharge Stable Instructions to patient/family Please see electronic discharge instructions given to patient. Discharge Medications Reviewed and agree with Discharge Medication list on patient's Discharge Instruction sheet Clinical Quality Measures AMI/AHF: ASA po Prior to arrival: No DVT/VTE Risk/Contraindication: Risk Factor Score Per Nursin RFS Level Per Nursing on Admit: 2=Moderate Copy Copies To 1: [facility]/ZELALEM SAHU DO Nov 26, 2017 14:58
[2017-11-26] MEDS ORDERED: ATOR40TA70 PO (15:08)
[2017-11-26] MEDS: ENOXAPARIN 40 MG/0.4 ML (LOVENOX) SYR SC SCH (15:11)
--- NOTE | 2017-11-26 15:12 | Discharge Instructions ---
Discharge [facility] Discharge Medications New, Converted or Re-Newed RX: Transmitted to Pharmacy New Medications: Atorvastatin Calcium (Atorvastatin Calcium) 40 Mg Tablet 40 MG PO HS for 30 Days, #30 TAB 0 Refills Continued Medications: Fluoxetine HCl (Fluoxetine HCl) 20 Mg Capsule 20 MG PO DAILY, CAP Patient Instructions Patient Instructions -keep follow up appointment as scheduled -take medication as directed Goal/Follow Up Appt: Jefferson SIMONS 12/03/17 at 2:20 PM Behavioral Health - Dr. Gabriel 12/17/17 at 2:00 PM Return to The Hospital For: chest pain or pressure unrelieved by rest, shortness of breath unrelieved by rest and out of normal for patient, fever >101 unrelieved by tylenol after 1 hour, nausea or vomiting that lasts longer than 12 hours and makes you unable to keep down clear liquids or medications, thoughts of harming self or others, or any other emergent complaints or concerns Activity & Diet Discharge Diet: Cardiac Diet Activity as Tolerated: Yes Copy Copies To 1: [facility]/ZELALEM SAHU DO Nov 26, 2017 15:12
== END 2017-11-26 15:35 | disposition home or self-care (01) ==
LOC: EDUNIT# 23:57 → ER 23:59 → ICU 11-25 04:29
PROVIDERS: ADMIT Family Medicine; ATTEND Family Medicine
DX: R07.9 Chest pain, unspecified (principal); R51 Headache; R55 Syncope and collapse; F12.10 Cannabis abuse, uncomplicated; F17.210 Nicotine dependence, cigarettes, uncomplicated
CPT/HCPCS: 36415; 70450; 70553; 71045; 78452; 80053; 80061; 80306; 80320; 83735; 83874; 84443; 84484; 85025; 85610; 85730; 93005; 93017; 93041; 93306; 96374; 96375

== ENCOUNTER 2017-12-21 08:30 | Outpatient (RCR) | payer SELFPAY ==
[~2017-12-21 08:30] MED LIST changes: +ATOR40TA70 PO; +FLUO20CA25 PO
== END 2018-02-25 | disposition home or self-care (01) ==
LOC: CARD 08:30
PROVIDERS: ATTEND Internal Medicine Interventional Cardiology
DX: R07.9 Chest pain, unspecified (principal)
CPT/HCPCS: 93270

== ENCOUNTER 2018-01-11 23:12 | Emergency (ER) | payer SELFPAY ==
[~2018-01-11] VITALS: Ht 180.3 cm; Wt 109.5 kg
[2018-01-11 23:50] LABS: BASOPHILS % (AUTO) 0 % (0-10); EOSINOPHILS # (AUTO) 0.2 10^3/uL (0.0-0.3); EOSINOPHILS % (AUTO) 2 % (0-10); HEMATOCRIT 41 % (40-54); HEMOGLOBIN 14.2 G/DL (13.3-17.7); LYMPHOCYTES % (AUTO) 32 % (12-44); MEAN CORPUSCULAR HEMOGLOBIN 31 PG (25-34); MEAN CORPUSCULAR HGB CONC 35 G/DL (32-36); MEAN CORPUSCULAR VOLUME 89 FL (80-99); MEAN PLATELET VOLUME 9.4 FL (7.4-10.4); MONOCYTES # (AUTO) 0.9 X 10^3 (0.0-1.0); MONOCYTES % (AUTO) 10 % (0-12); NEUTROPHILS # (AUTO) 5.2 X 10^3 (1.8-7.8); NEUTROPHILS % (AUTO) 56 % (42-75); PLATELET COUNT 261 10^3/uL (130-400); RED BLOOD COUNT 4.63 10^6/uL (4.35-5.85); RED CELL DISTRIBUTION WIDTH 13.4 % (10.0-14.5); WHITE BLOOD COUNT 9.4 10^3/uL (4.3-11.0)
[2018-01-12 00:04] LABS: INR 1.1 (0.8-1.4); PROTHROMBIN TIME PATIENT 14.2 SEC (12.2-14.7)
[2018-01-12 00:30] LABS: ALANINE AMINOTRANSFERASE 25 U/L (0-55); ALBUMIN 4.2 GM/DL (3.2-4.5); ALKALINE PHOSPHATASE 49 U/L (40-136); AMYLASE 26 U/L (25-125); BILIRUBIN,TOTAL 0.4 MG/DL (0.1-1.0); BUN/CREATININE RATIO 20; CALCIUM 9.3 MG/DL (8.5-10.1); CARBON DIOXIDE 20 MMOL/L (21-32); CHLORIDE 107 MMOL/L (98-107); CREATINE KINASE 243 U/L (30-200); CREATININE SERUM 1.18 MG/DL (0.60-1.30); GFR ESTIMATED > 60; GLUCOSE 100 MG/DL (70-105); LIPASE 5 U/L (8-78); MAGNESIUM 2.3 MG/DL (1.8-2.4); SODIUM 139 MMOL/L (135-145); TOTAL PROTEIN 6.5 GM/DL (6.4-8.2)
[2018-01-12] MEDS ORDERED: ACETAMINOPHEN 500 MG TAB (TYLENOL) PO ONE (00:30)
[2018-01-12] MEDS ORDERED: LACTATED RINGERS 1,000 ML IV ONE ×2 (00:32→00:50)
[2018-01-12] MEDS ORDERED: ACETAMINOPHEN 500 MG TAB (TYLENOL) ONE (00:50)
[2018-01-12 00:52] LABS: CREATINE KINASE MB 2.2 NG/ML (<6.6); TSH (THYROID ANALYZER) 1.43 UIU/ML (0.35-4.94)
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
[2018-01-12 01:58] LABS: BILIRUBIN,URINE NEGATIVE (NEGATIVE); CLARITY,URINE CLEAR; COLOR,URINE YELLOW; GLUCOSE, URINE (UA) NEGATIVE (NEGATIVE); KETONES,URINE NEGATIVE (NEGATIVE); LEUKOCYTE ESTERASE ,URINE NEGATIVE (NEGATIVE); NITRITE,URINE NEGATIVE (NEGATIVE); PH,URINE 5 (5-9); PROTEIN,URINE NEGATIVE (NEGATIVE); UROBILINOGEN,URINE NORMAL (NORMAL)
[2018-01-12 02:00] LABS: BACTERIA,URINE TRACE /HPF; HYALINE CASTS, URINE 0-2 /LPF; SQUAMOUS EPITHELIAL CELL,UR RARE /HPF
[2018-01-12 02:01] LABS: AMPHETAMINE SCREEN, URINE POSITIVE (NEGATIVE); BARBITURATE SCREEN URINE NEGATIVE (NEGATIVE); BENZODIAZEPINES SCREEN URINE NEGATIVE (NEGATIVE); CANNABINOID SCREEN, URINE POSITIVE (NEGATIVE); COCAINE SCREEN URINE NEGATIVE (NEGATIVE); METHADONE STAT NEGATIVE (NEGATIVE); METHAMPHETAMINE SCREEN URINE S POSITIVE (NEGATIVE); OPIATE SCREEN URINE NEGATIVE (NEGATIVE); OXYCODONE STAT NEGATIVE (NEGATIVE); PROPOXYPHENE STAT NEGATIVE (NEGATIVE); TRICYCLIC ANTIDEPRESSANTS SCRE NEGATIVE (NEGATIVE)
[2018-01-12 02:20] VITALS: BP 108/69
--- NOTE | 2018-01-12 06:57 | Diagnostic Imaging Report ---
EXAM: CHEST 1 VIEW, AP/PA ONLY INDICATION: Chest pain. COMPARISON: Chest radiograph 11/25/2017. FINDINGS: Normal heart size and pulmonary vascularity. No focal pulmonary opacity, pleural effusion or pneumothorax. Osseous structures are unremarkable. IMPRESSION: Negative chest. Dictated by: Dictated on workstation # [id number]
== END 2018-01-12 02:20 | disposition home or self-care (01) ==
LOC: EDUNIT# 23:12 → ER 23:15
DX: F41.9 Anxiety disorder, unspecified (principal); R07.9 Chest pain, unspecified; J45.909 Unspecified asthma, uncomplicated; K21.9 Gastro-esophageal reflux disease without esophagitis; F31.9 Bipolar disorder, unspecified; G47.9 Sleep disorder, unspecified; F12.90 Cannabis use, unspecified, uncomplicated; F17.210 Nicotine dependence, cigarettes, uncomplicated; Z87.81 Personal history of (healed) traumatic fracture
CPT/HCPCS: 36415; 71045; 80053; 80306; 80320; 81000; 82150; 82550; 82553; 83690; 83735; 83880; 84443; 84484; 85025; 85610; 85730; 93005; 93041; 96360

== ENCOUNTER 2018-01-31 23:00 | Emergency (ER) | payer SELFPAY ==
[~2018-01-31] VITALS: Ht 180.3 cm; Wt 109.5 kg
--- NOTE | 2018-01-31 23:45 | ED Lower Extremity ---
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 He is not having some pain in the bottom of his foot when he pushes just anterior to the calcaneal heel. He 's having minimal swelling no bruising and has not taken anything for the pain yet. Does not want anything for the pain. Only hurts when he walks on it. No fevers chills nausea vomiting. No prior surgeries to his foot. He thinks when he was a high school or he might of fracture bone in his foot but he never got it checked out. Patient states he could use a work note. Allergies and Home Medications Allergies Coded Allergies: Shellfish (Unverified Allergy, Unknown, 03/28/12) Home Medications Atorvastatin Calcium 40 Mg Tablet, 40 MG PO HS Prescribed by: ZELALEM BLAS on 11/26/17 1508 Fluoxetine HCl 20 Mg Capsule, 20 MG PO DAILY, (Reported) Patient Home Medication List Home Medication List Reviewed: Yes Constitutional: No chills, No diaphoresis EENTM: No ear discharge, No hearing loss, No ear pain Respiratory: No cough, No short of breath Cardiovascular: No Hx of Intervention, No palpitations Gastrointestinal: No abdominal pain, No constipation, No diarrhea Genitourinary: No discharge, No dysuria Musculoskeletal: see HPI; No back pain; other (right foot pain) Past Seskrdh-Rqpubg-Rciexi Hx Patient Social History Alcohol Use: Occasionally Uses Number of Drinks Today: AA Alcohol Beverage of Choice: Beer Recreational Drug Use: Yes Drug of Choice: marijuana Smoking Status: Current Everyday Smoker Type Used: Cigarettes Recent Foreign Travel: No Contact w/Someone Who Travel: No Recent Infectious Disease Expo: No Recent Hopitalizations: No Immunizations Up To Date Tetanus Booster (TDap): Unknown PED Vaccines UTD: No Date of Pneumonia Vaccine: Aug 06, 2007 Date of Influenza Vaccine: May 05, 2015 Seasonal Allergies Seasonal Allergies: No Past Medical History Surgeries: Yes Abdominal, Gallbladder, Orthopedic Respiratory: Yes (SEASONAL ASTHMA) Asthma Cardiac: No Neurological: No Reproductive Disorders: No Genitourinary: No Gastrointestinal: Yes Gastroesophageal Reflux, Irritable Bowel Musculoskeletal: Yes Arthritis, Chronic Back Pain, Fractures Endocrine: No HEENT: No Cancer: No Psychosocial: Yes (ANTISOCIAL) Sleep Difficulties, Anxiety, PTSD, Bipolar, Personality Disorder, Schizophrenia , Depression Integumentary: No Blood Disorders: No Family Medical History Patient reports no known family medical history. Physical Exam Vital Signs Vital Signs - First Documented 01/31/18 23:00 Temp 98.3 Pulse 74 Resp 18 B/P (MAP) 141/98 (112) Pulse Ox 97 O2 Delivery Room Air Capillary Refill : Less Than 3 Seconds General Appearance: WD/WN, no apparent distress HEENT: PERRL/EOMI, normal ENT inspection Neck: non-tender, normal inspection Cardiovascular: normal peripheral pulses, regular rate, rhythm Respiratory: no respiratory distress, no accessory muscle use Ankles: bilateral ankle non-tender, bilateral ankle normal inspection, bilateral ankle normal range of motion, bilateral ankle no evidence of injury Feet: left foot non-tender; bilateral foot normal inspection, bilateral foot normal range of motion; left foot no evidence of injury; right foot pain ( plantar fascia point tenderness anterior to the calcaneus on the volar side of the right foot), right foot soft tissue tenderness Neurologic/Tendon: normal sensation, normal motor functions, normal tendon functions, responds to pain, no evidence tendon injury Neurologic/Psychiatric: alert, normal mood/affect, oriented x 3 Skin: normal color, warm/dry Progress/Results/Core Measures Results/Orders My Orders Orders - EAMON ABRAMS Foot, Right, 3 View (01/31/18 23:20) Vital Signs/I&O 01/31/18 23:00 Temp 98.3 Pulse 74 Resp 18 B/P (MAP) 141/98 (112) Pulse Ox 97 O2 Delivery Room Air Blood Pressure Mean: 112 Diagnostic Imaging Diagonstic Imaging: Xray Plain Films/CT/US/NM/MRI: other (right foot) Comments No fracture seen in 3 views Reviewed: Reviewed by Me Departure Impression Primary Impression: Right foot pain Disposition: 01 HOME, SELF-CARE Condition: Stable Departure-Patient Inst. Decision time for Depature: 23:43 Referrals: SHIRA SALINAS DO (PCP) Primary Care Physician IRVING FARRAR (Family) Primary Care Physician Patient Instructions: Plantar Fasciitis Exercises Add. Discharge Instructions: Use Tylenol 1000 mg every 8 hours in addition to ibuprofen 800 mg every 8 hours. Perform the plantar fasciitis exercises in the handout. If you're still having pain after 2 weeks then you should follow-up with either a perforator operator or your primary care doctor for further evaluation and possible referral to physical therapy. All discharge instructions reviewed with patient and/or family. Voiced understanding. Work/School Note: Work Release Form Date Seen in the Emergency Department: Jan 31, 2018 Return to Work: Feb 01, 2018 Restrictions: No Restrictions Copy Copies To 1: SHIRA SALINAS TITUS J Jan 31, 2018 23:45
[2018-01-31 23:48] VITALS: BP 141/98
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
== END 2018-01-31 23:47 | disposition home or self-care (01) ==
LOC: EDUNIT# 23:00 → ER 23:02
DX: M79.671 Pain in right foot (principal); J45.909 Unspecified asthma, uncomplicated; K21.9 Gastro-esophageal reflux disease without esophagitis; G47.9 Sleep disorder, unspecified; F41.9 Anxiety disorder, unspecified; F31.9 Bipolar disorder, unspecified; F20.9 Schizophrenia, unspecified; F43.10 Post-traumatic stress disorder, unspecified; F12.90 Cannabis use, unspecified, uncomplicated; F17.210 Nicotine dependence, cigarettes, uncomplicated; Z87.81 Personal history of (healed) traumatic fracture; Z98.890 Other specified postprocedural states
CPT/HCPCS: 73630

== ENCOUNTER 2019-03-06 13:21 | Emergency (ER) | payer SELFPAY ==
[~2019-03-06] VITALS: Ht 182.9 cm; Wt 113.4 kg
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
--- OUTSIDE RECORDS SUMMARY | 2019-03-06 13:27 | XMS REPORT ---
Author Author Migration, Doctor Organization [facility] Address Unknown Phone Unavailable Care Team Providers Care Digital Sales Executive Name Role Phone Migration, Doctor Unavailable Unavailable PROBLEMS Type Condition ICD9-CM Code TCN29-ZP Code Onset Dates Condition Status SNOMED Code Problem Inguinal hernia without mention of obstruction or gangrene, unilateral or unspecified, (not specified as recurrent) 550.90 Active 654202223 Problem Diverticulitis of colon (without mention of hemorrhage) 562.11 Active 156621119 Problem Asthma, unspecified, unspecified status 493.90 Active 13103848 Problem Esophageal reflux 530.81 Active 003903000 Problem Restless legs syndrome [RLS] 333.94 Active 72033115 Problem Allergic rhinitis, cause unspecified 477.9 Active 93638752 Problem DDD (degenerative disc disease), lumbar M51.36 Active 52189506 Problem DDD (degenerative disc disease), cervical M50.30 Active 24644154 Problem Bipolar 2 disorder F31.81 Active 51433674 Problem Cannabis use disorder, moderate, dependence F12.20 Active 31505953 Problem Reactive depression F32.9 Active 57786408 Problem Psychosis, unspecified psychosis type F29 Active 13494671 Problem DDD (degenerative disc disease), 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 Active 83523309 Problem Bipolar 1 disorder F31.9 Active 948763117 Problem Schizophrenia, unspecified type F20.9 Active 65066922 Problem Schizoaffective disorder, unspecified condition F25.9 Active 27705107 Problem Methamphetamine use disorder, 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 Active 652596808 ALLERGIES No Information ENCOUNTERS Encounter Location Date Diagnosis [facility] [address] [facility] [id number] [place] [address] Oct, [facility] [address] [id number] [id number] Sep, [facility] [address] [facility] [id number][place] [id number] Aug, [facility] [id number] [place] [id number] Aug, Psychosis, unspecified psychosis type F29 ; Methamphetamine use disorder, 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 and Cannabis use disorder, moderate, dependence F12.20 [facility] [id number] [place] [address] Aug, [facility] [id number] [place] [phone] Jul, [facility] [id number] [place] [address] Jul, [facility] [id number] [place] [address] Jul, Psychosis, unspecified psychosis type F29 [facility] [id number] [place] [address] Jul, [facility] [id number] [place] [phone] Jun, [facility] [id number] [place] [id number] Jun, [facility] [id number] [place] [phone] Jun, [facility] [id number] [place] [address] Jun, Psychosis, unspecified psychosis type F29 ; Methamphetamine use disorder, 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 and Cannabis use disorder, moderate, dependence F12.20 [facility] [id number] [place] [address] May, Encounter for immunization Z23 [facility] [id number] [place] [address] May, [facility] [id number] [place] [address] May, [facility] [id number] [place] [phone] Feb, [facility] [address], [place] [address] Jan, [facility] [id number] [place] [address] Jan, Psychosis, unspecified psychosis type F29 [facility] [id number] [place] [phone] Jan, Psychosis, unspecified psychosis type F29 ; Methamphetamine use disorder, 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 and Cannabis use disorder, moderate, dependence F12.20 [facility] [id number] [place] [phone] Jan, Schizoaffective disorder, unspecified condition F25.[id number] [place] [address] [id number] December, [facility] [id number] [place] [phone] December, Psychosis, unspecified psychosis type F29 ; Methamphetamine use disorder, 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 and Cannabis use disorder, moderate, dependence F12.20 [id number] [place] [id number] December, Schizoaffective disorder, unspecified condition F25.9 [facility] [id number] [place] [address] [id number] December, [facility] [id number] [place] [address] [id number] Nov, Bipolar 2 disorder F31.81 and Schizophrenia, unspecified type F20.9 [facility] [id number] [place] [address] Nov, [facility] [id number] [place] [address] [id number] December, [facility] [id number] [place] [address] [id number] December, DDD (degenerative disc disease), lumbar M51.36 and Reactive depression F32.9 [facility] [id number] [place] [address] [id number] December, DDD (degenerative disc disease), cervical M50.30 and DDD (degenerative disc disease), lumbar M51.36 [facility] [id number] [place] [address] [id number] Nov, [facility] [id number] [place] [address] [id number] Nov, DDD (degenerative disc disease), lumbar M51.36 [facility] [id number] [place] [address] [id number] Nov, DDD (degenerative disc disease), lumbar M51.36 [facility] [id number] [place] [address] [id number] Oct, DDD (degenerative disc disease), lumbar M51.36 ; Reactive depression F32.9 and DDD (degenerative disc disease), cervical M50.30 [facility] [id number] [place] [address] [id number] Aug, DDD (degenerative disc disease), lumbar M51.36 and Reactive depression F32.9 [facility] [id number] [place] [address] [id number] Jul, [id number] [place] [address] [id number] Jul, DDD (degenerative disc disease), cervical M50.30 ; DDD (degenerative disc disease), 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 ; DDD (degenerative disc disease), lumbar M51.36 and Reactive depression F32.9 [id number] [place] [address] [id number] Jun, Encounter for immunization Z23 [facility] [id number] [place] [address] [id number] Mar, [facility] [id number] [place] [address] [id number] Oct, [facility] [id number] [place] [address] [id number] Sep, [facility] [id number] [place] [address] [id number] 23 Feb, 2016 Physical exam Z00.00 and Allergic rhinitis J30.9 [facility] [id number][place] [id number] Jul, [facility] [id number] [place] [address] [id number] Jun, Diarrhea, unspecified R19.7 [facility] [id number] [place] [address] [id number] Feb, [facility] [id number] [place] [address] [id number] Feb, Frequent headaches 784.0 and 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 [facility] [id number] [place] [address] [id number] Feb, Positive serology for Erlichiosis 082.40 [facility] [id number] [place] [address] [id number] Feb, Positive serology for Erlichiosis 082.40 [facility] [id number] [place] [address] [id number] Feb, [facility] [id number] [place] [phone] Nov, [facility] [id number] [place] [phone] Nov, [facility] [id number] [place] [phone] Aug, [facility] [id number] [place] [address] [id number] Aug, [facility] [id number] [place] [address] [id number] Jul, [facility] [id number] [place] [phone] Jul, [facility] [id number] [place] [address] Apr, [facility] [id number] [place] [address] [id number] Apr, [facility] [id number] [place] [phone] Apr, [facility] [place] [facility] [address] [facility] [id number] [place] [address] Apr, [facility] [place] [facility] [address] [facility] [id number] [place] [address] Apr, [facility] [address] [id number] [place] [id number] Feb, [facility] [address] [facility] [id number] [place] [id number] Feb, [facility] [place] [facility] [address] [facility] [id number] [place] [address] Feb, [facility] [place] [facility] [address] [facility] [id number] [place] [address] Feb, [facility] [address] [facility] [id number] [place] [id number] Feb, [facility] [place] [facility] [address] [facility] [id number], [place] [address] Feb, [facility] [address] [facility] [id number] [place] [id number] Oct, [facility] [place] [facility] [address] [facility] [id number] [place] [address] Oct, [facility] [address] [facility] [id number] [place] [id number] Oct, [facility] [place] [facility] [address] [facility] [id number], [place] [address] Oct, [facility] [address] [facility] [id number][place] [id number] Sep, [facility] [place] [facility] [address] [facility] [id number] [place] [address] Sep, [facility] [address] [facility] [id number] [place] [id number] Sep, [facility] [place] [facility] [address] [facility] [id number] [place] [address] Sep, [facility] [place] [facility] [address] [facility] [id number], [place] [address] Jul, [facility] [address] [id number], [place] [id number] Jul, [facility] [address] [facility] [id number], [place] [id number] Jul, [facility] [place] [facility] [address] [facility] [id number], [place] [address] Jul, [facility] [place] [facility] [address] [facility] [id number], [place] [address] Jun, [facility] [place] [facility] [address] [facility] [id number], [place] [address] Jun, [facility] [address] [facility] [id number], [place] [id number] Jun, [facility] [place] [facility] [address]65[address], [place] [address] Jun, [facility] [place] [facility] [address] [facility] [id number], [place] [address] Jun, [facility] [place] [facility] [address] [facility] [id number], [place] [address] Jun, [facility] [place] [facility] [address] [facility] [id number], [place] [address] Jun, [facility] [address] [facility] [id number], [place] [id number] May, [facility] [place] [facility] [address] [facility] [id number], [place] [address] May, [facility] [place] [facility] [address] [facility] [id number], [place] [address] May, [facility] [place] [facility] [address] [facility] [id number], [place] [address] May, [facility] [address] [id number], [place] [id number] Apr, [facility] [address] [facility] [id number], [place] [id number] Apr, [facility] [address] [id number] [place] [id number] Apr, [facility] [address] [facility] [id number], [place] [address] Apr, [facility] [place] [facility] [address] [facility] [id number], [place] [address] Mar, [facility] [address] [id number] [place] [id number] Mar, [facility] [address] [id number] [place] [id number] Mar, [facility] [address] [id number] [place] [id number] Mar, [facility] [address] [id number] [place] [id number] Mar, [facility] [address]65[address], [place] [address] Jan, [facility] [address] [facility] [id number], [place] [id number] December, [facility] [address] [facility] [id number], [place] [address] Oct, [facility] [place] [facility] [address] [facility] [id number], [place] [address] Aug, [facility] [address] [facility] [id number], [place] [id number] Jun, [facility] [place] [facility] [address] [facility] [id number], [place] [address] Jun, [facility] [address] [facility] [id number], [place] [id number] May, [facility] [place] [facility] [address] [facility] [id number], [place] [address] May, [facility] [address] [facility] [id number], [place] [id number] May, [facility] [place] [facility] [address]65[address], [place] [address] Apr, [facility] [address] [facility] [id number], [place] [id number] Apr, [facility] [address] [facility] [id number], [place] [id number] Mar, [facility] [address] [id number], [place] [id number] Mar, [facility] [address] [facility] [id number], [place] [id number] Mar, [facility] [address] [facility] [id number] [place] [id number] Feb, [facility] [address] [id number], [place] [address] Feb, [facility] [address] [id number], [place] [id number] Feb, [facility] [address] [id number], [place] [id number] Feb, [facility] [address] [id number], [place] [id number] Oct, [facility] [address] [facility] [id number], [place] [id number] Sep, IMMUNIZATIONS No Known Immunizations SOCIAL HISTORY Never Assessed REASON FOR VISIT E[place] [place] CARE VITAL SIGNS MEDICATIONS Unknown [...] repair x 2--inguinal 2013 Hospitalization History Via [facility] x 4 days due to Tick fever 02/2015 Hospitalization History chest pain, headache, syncope, hallucination-[facility] 11/25/17 Hospitalization History [facility], depression, ptsd 11/2017 Hospitalization History via [facility] for chest pain 11/2017
--- OUTSIDE RECORDS SUMMARY | 2019-03-06 13:27 | XMS REPORT ---
Author Author Migration, Doctor Organization [facility] Address Unknown Phone Unavailable Care Team Providers Care Wastewater Manager Name Role Phone Migration, Doctor Unavailable Unavailable PROBLEMS Type Condition ICD9-CM Code QUJ46-GI Code Onset Dates Condition Status SNOMED Code Problem Inguinal hernia without mention of obstruction or gangrene, unilateral or unspecified, (not specified as recurrent) 550.90 Active 280471643 Problem Diverticulitis of colon (without mention of hemorrhage) 562.11 Active 883304477 Problem Asthma, unspecified, unspecified status 493.90 Active 28401228 Problem Esophageal reflux 530.81 Active 088410111 Problem Restless legs syndrome [RLS] 333.94 Active 39678555 Problem Allergic rhinitis, cause unspecified 477.9 Active 17401176 Problem DDD (degenerative disc disease), lumbar M51.36 Active 85450543 Problem DDD (degenerative disc disease), cervical M50.30 Active 46488183 Problem Bipolar 2 disorder F31.81 Active 77279622 Problem Cannabis use disorder, moderate, dependence F12.20 Active 47413772 Problem Reactive depression F32.9 Active 34008679 Problem Psychosis, unspecified psychosis type F29 Active 42288113 Problem DDD (degenerative disc disease), 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 Active 26076620 Problem Bipolar 1 disorder F31.9 Active 402918315 Problem Schizophrenia, unspecified type F20.9 Active 31614376 Problem Schizoaffective disorder, unspecified condition F25.9 Active 95101490 Problem Methamphetamine use disorder, 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 Active 231543288 ALLERGIES Substance Reaction Event Type Date Status Iodine Unknown Drug Allergy Nov, Active Gabapentin 300 Mg Capsule Unknown Non Drug Allergy Nov, Active Wellbutrin Sr 150 Mg Tablet Extended Release Unknown Non Drug Allergy Nov, Active Prozac incd anger Drug Allergy Nov, Active ENCOUNTERS Encounter Location Date Diagnosis [facility] [address] [facility] [id number] [place] [address] Jan, [facility] [address], [place] [address] Oct, [facility] [address] [id number] [id number] Sep, [facility] [id number] [id number] Aug, [facility] [id number] [place] [address] Aug, Psychosis, unspecified psychosis type F29 ; Methamphetamine use disorder, 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 and Cannabis use disorder, moderate, dependence F12.20 [facility] [id number] [place] [address] Aug, [facility] [id number] [place] [address] Jul, [facility] [id number] [place] [address] Jul, [facility] [id number] [place] [address] Jul, Psychosis, unspecified psychosis type F29 [facility] [id number] [place] [address] Jul, [facility] [id number] [place] [address] Jun, [facility] [id number] [place] [address] Jun, [facility] [id number] [place] [address] Jun, [facility] [id number] [place] [address] Jun, Psychosis, unspecified psychosis type F29 ; Methamphetamine use disorder, 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 and Cannabis use disorder, moderate, dependence F12.20 [facility] [id number] [place] [address] May, Encounter for immunization Z23 [facility] [id number] [place] [address] May, [facility] [address] [id number] May, [facility] [id number] [place] [address] Feb, [place] [address] [address] Jan, [facility] [id number] [place] [address] Jan, Psychosis, unspecified psychosis type F29 [facility] [id number] [place] [address] Jan, Psychosis, unspecified psychosis type F29 ; Methamphetamine use disorder, 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 and Cannabis use disorder, moderate, dependence F12.20 [facility] [id number] [place] [address] Jan, Schizoaffective disorder, unspecified condition F25.9 [id number] [place] [address] [id number] December, [facility] [id number] [place] [address] December, Psychosis, unspecified psychosis type F29 ; Methamphetamine use disorder, 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 and Cannabis use disorder, moderate, dependence F12.20 [facility] [id number] [place] [address] December, Schizoaffective disorder, unspecified condition F25.[id number] [place] [address] [id number] December, [facility] [id number] [place] [address] [id number] Nov, Bipolar 2 disorder F31.81 and Schizophrenia, unspecified type F20.9 [place] [facility] [address] [address] Nov, [facility] [id number] [place] [address] [id number] December, [facility] [address] [id number] December, DDD (degenerative disc disease), lumbar M51.36 and Reactive depression F32.9 [facility] [id number] [place] [address] [id number] December, DDD (degenerative disc disease), cervical M50.30 and DDD (degenerative disc disease), lumbar M51.36 [facility] [id number] [place] [address] [id number] Nov, [facility] [address] [id number] Nov, DDD (degenerative disc disease), lumbar M51.36 [facility] [id number] [place] [address] [id number] Nov, DDD (degenerative disc disease), lumbar M51.36 [facility] [id number] [place] [address] [id number] Oct, DDD (degenerative disc disease), lumbar M51.36 ; Reactive depression F32.9 and DDD (degenerative disc disease), cervical M50.30 [facility] [id number] [place] [address] [id number] Aug, DDD (degenerative disc disease), lumbar M51.36 and Reactive depression F32.9 [facility] [id number] [place] [address] [id number] Jul, [facility] [id number] [place] [address] [id number] Jul, DDD (degenerative disc disease), cervical M50.30 ; DDD (degenerative disc disease), 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 ; DDD (degenerative disc disease), lumbar M51.36 and Reactive depression F32.9 [facility] [id number] [place] [address] [id number] Jun, Encounter for immunization Z23 [facility] [id number] [place] [address] [id number] Mar, [facility] [address] [id number] [id number] Oct, [facility] [id number] [place] [address] [id number] Sep, [facility] [id number] [place] [address] [id number] Sep, Physical exam Z00.00 and Allergic rhinitis J30.9 [facility] [id number] [place] [address] [id number] Jul, [facility] [id number] [place] [address] [id number] Jun, Diarrhea, unspecified R19.7 [facility] [id number] [place] [address] [id number] Feb, [facility] [id number] [place] [address] [id number] Feb, Frequent headaches 784.0 and 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 [facility] [id number] [place] [address] [id number] Feb, Positive serology for Erlichiosis 082.40 [facility] [id number] [place] [address] [id number] Feb, Positive serology for Erlichiosis 082.40 [facility] [id number] [place] [address] [id number] Feb, [facility] [id number] [place] [address] Nov, [facility] [id number] [place] [address] Nov, [facility] [id number] [place] [address] Aug, [facility] [id number] [place] [address] [id number] Aug, [facility] [id number] [place] [address] [id number] Jul, [facility] [id number] [place] [address] Jul, [facility] [place] [facility] [address] [id number] [place] [address] Apr, [facility] [address] [id number] [place] [id number] Apr, [facility] [place] [facility] [address] [facility] [id number] [place] [address] Apr, [facility] [place] [facility] [address] [facility] [id number] [place] [address] Apr, [facility] [place] [facility] [address] [facility] [id number] [place] [address] Apr, [facility] [address] [id number] [place] [id number] Feb, [facility] [address] [id number] [place] [id number] Feb, [facility] [place] [facility] [address] [facility] [id number], [place] [address] Feb, [facility] [place] [facility] [address] [facility] [id number], [place] [address] Feb, [facility] [address] [facility] [id number] [place] [id number] Feb, [facility] [place] [facility] [address] [facility] [id number], [place] [address] Feb, [facility] [address] [facility] [id number] [place] [id number] Oct, [facility] [place] [facility] [address] [id number], [place] [address] Oct, [facility] [address] [id number] [place] [id number] Oct, [facility] [place] [facility] [address] [facility] [id number], [place] [address] Oct, [facility] [address] [id number] [place] [id number] Sep, [facility] [place] [facility] [address] [facility] [id number], [place] [address] Sep, [facility] [address] [facility] [id number] [place] [id number] Sep, [facility] [place] [facility] [address] [id number], [place] [address] Sep, [facility] [place] [facility] [address] [facility] [id number], [place] [address] Jul, [facility] [address] [facility] [id number], [place] [id number] Jul, [facility] [address] [facility] [id number] [place] [id number] Jul, [facility] [place] [facility] [address] [id number], [place] [address] Jul, [facility] [place] [facility] [address], [place] [address] Jun, [facility] [place] [facility] [id number], [place] [address] Jun, [facility] [address] [id number] [id number] Jun, [facility] [place] [facility] [address], [place] [address] Jun, [facility] [place] [facility] [address], [place] [address] Jun, [facility] [place] [facility] [id number], [place] [address] Jun, [facility] [place] [facility] [address] [facility] [id number], [place] [address] Jun, [facility] [address] [facility] [id number], [place] [id number] May, [facility] [place] [facility] [address] [facility] [id number], [place] [address] May, [facility] [place] [facility] [address], [place] [address] May, [facility] [place] [facility] [address] [facility] [id number], [place] [address] May, [facility] [address] [id number] [place] [id number] Apr, [facility] [address] [id number] [place] [id number] Apr, [facility] [address] [id number] [place] [id number] Apr, [facility] [place] [facility] [address] [facility] [id number], [place] [address] Apr, [facility] [place] [facility] [address] [facility] [id number], [place] [address] Mar, [facility] [address] [id number] [place] [id number] Mar, [facility] [address] [id number] [place] [id number] Mar, [facility] [address] [id number] [place] [id number] Mar, [facility] [address] [id number] [place] [id number] Mar, [facility] [place] [facility] [address] [facility] [id number], [place] [address] Jan, [facility] [address] [id number], [place] [id number] December, [facility] [place] [facility] [address] [facility] [id number], [place] [address] Oct, [facility] [place] [facility] [address] [facility] [id number], [place] [address] Aug, [facility] [address] [id number], [place] [id number] Jun, [facility] [place] [facility] [address] [facility] [id number], [place] [address] Jun, [facility] [address] [facility] [id number], [place] [id number] May, [facility] [address], [place] [address] May, [facility] [id number] [place] [address] [id number] May, [facility] [id number] [place] [address] Apr, [facility] [id number] [place] [address] [id number] Apr, [facility] [id number] [place] [address] [id number] Mar, [facility] [id number] [place] [address] [id number] Mar, [facility] [id number] [place] [address] [id number] Mar, [facility] [id number] [place] [address] [id number] Feb, [facility] [id number] [place] [address] Feb, [facility] [id number] [place] [address] [id number] Feb, [facility] [id number] [place] [address] [id number] Feb, [facility] [id number] [place] [address] [id number] Oct, [facility] [id number] [place] [address] [id number] Sep, IMMUNIZATIONS No Known Immunizations SOCIAL HISTORY Never Assessed [place]ASON [place] [place] VITAL SIGNS MEDICATIONS Medication Instructions Dosage Frequency Start Date End Date Duration Status ProAir HFA 90 mcg/actuation inhale 2 puffs by Inhalation route as needed every 4-6 hours PRN cough/wheezing/SOB Aug, Active Voltaren 1 % 1 Application by Transdermal route 3 daily PRN Apply 4 gm to affected area QID Apr, Active Omeprazole 20 mg take 1 capsule by Oral route before a meal 2 times per day Apr, Active Flagyl 500 mg 1 tablet by Oral route 2 times per day for 7 days 30 Ivan, 2012 Active Cipro 500 mg 1 tablet by Oral route every 12 hours for 10 day(s) Feb, Active Augmentin 875-125 mg 1 tablet by Oral route 2 times per day for 7 day(s) Feb, Active Zithromax Z-Bogdan 250 mg 2 tablet by Oral route 1 time per day for 1 days then take 1 tab daily on days 2-5 Jul, Active MethylPREDNISolone 4 mg by Oral route every day for 6 days as directed per dose pack Jul, Active PredniSONE 20 mg 2 tablet by Oral route 1 time per day for 5 day(s) Oct, Active Ibuprofen 800 mg take 1 tablet (800 mg) by oral route 3 times per day with food Apr, Active RESULTS No Results PROCEDURES No Known [...] repair x 2--inguinal 2012 Hospitalization History [facility] x 4 days due to Tick fever 02/2015 Hospitalization History chest pain, headache, syncope, hallucination-[facility] 11/25/17 Hospitalization [facility], depression, ptsd 11/2017 Hospitalization History via [facility] for chest pain 11/2017
--- OUTSIDE RECORDS SUMMARY | 2019-03-06 13:28 | XMS REPORT ---
Author Author Migration, Doctor Organization [facility] Address Unknown Phone Unavailable Care Team Providers [employer] Architect Name Role Phone Migration, Doctor Unavailable Unavailable PROBLEMS Type Condition ICD9-CM Code QPD90-OA Code Onset Dates Condition Status SNOMED Code Problem Inguinal hernia without mention of obstruction or gangrene, unilateral or unspecified, (not specified as recurrent) 550.90 Active 790299099 Problem Diverticulitis of colon (without mention of hemorrhage) 562.11 Active 120905286 Problem Asthma, unspecified, unspecified status 493.90 Active 58958540 Problem Esophageal reflux 530.81 Active 129191687 Problem Restless legs syndrome [RLS] 333.94 Active 78936109 Problem Allergic rhinitis, cause unspecified 477.9 Active 46593940 Problem DDD (degenerative disc disease), lumbar M51.36 Active 64374746 Problem DDD (degenerative disc disease), cervical M50.30 Active 07105194 Problem Bipolar 2 disorder F31.81 Active 18595657 Problem Cannabis use disorder, moderate, dependence F12.20 Active 46112587 Problem Reactive depression F32.9 Active 29262906 Problem Psychosis, unspecified psychosis type F29 Active 38300806 Problem DDD (degenerative disc disease), 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 Active 98166174 Problem Bipolar 1 disorder F31.9 Active 229032035 Problem Schizophrenia, unspecified type F20.9 Active 69794978 Problem Schizoaffective disorder, unspecified condition F25.9 Active 04950076 Problem Methamphetamine use disorder, 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 and Cannabis use disorder, moderate, dependence F12.20 [facility] [id number] [place] [address] Aug, [facility] [id number] [place] [address] Jul, [facility] [id number] [place] [address] Jul, [facility] [id number] [place] [address] Jul, Psychosis, unspecified psychosis type F29 [facility] [id number] [place] [address] Jul, [facility] [id number] [place] [address] Jun, [facility] [id number] [place] [address] Jun, [facility] [id number] [place] [address] Jun, [facility] [id number] [place] [address] Jun, Psychosis, unspecified psychosis type F29 ; Methamphetamine use disorder, 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 and Cannabis use disorder, moderate, dependence F12.20 [facility] [id number] [place] [address] May, Encounter for immunization Z23 [facility] [id number] [place] [address] May, [facility] [id number] [place] [address] May, [facility] [id number] [place] [address] Feb, [facility] [address] [address] Jan, [facility] [id number] [place] [address] Jan, Psychosis, unspecified psychosis type F29 [facility] [id number] [place] [address] Jan, Psychosis, unspecified psychosis type F29 ; Methamphetamine use disorder, 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 and Cannabis use disorder, moderate, dependence F12.20 [facility] [id number] [place] [address] Jan, Schizoaffective disorder, unspecified condition F25.9 [id number] [place] [address] [id number] December, [facility] [id number] [place] [address] December, Psychosis, unspecified psychosis type F29 ; Methamphetamine use disorder, 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 and Cannabis use disorder, moderate, dependence F12.20 [place] [id number] [place] [address] December, Schizoaffective disorder, unspecified condition F25.9 [facility] [id number] [place] [address] [id number] December, [facility] [id number] [place] [address] [id number] Nov, Bipolar 2 disorder F31.81 and Schizophrenia, unspecified type F20.9 [facility] [id number] [place] [address] Nov, [facility] [id number] [place] [address] [id number] December, [facility] [id number] [place] [address] [id number] December, DDD (degenerative disc disease), lumbar M51.36 and Reactive depression F32.9 [facility] [id number] [place] [address] [id number] December, DDD (degenerative disc disease), cervical M50.30 and DDD (degenerative disc disease), lumbar M51.36 [facility] [id number] [place] [address] [id number] Nov, [facility] [id number] [place] [address] [id number] Nov, DDD (degenerative disc disease), lumbar M51.36 [facility] [id number] [place] [address] [id number] Nov, DDD (degenerative disc disease), lumbar M51.36 [facility] [id number] [place] [address] [id number] Oct, DDD (degenerative disc disease), lumbar M51.36 ; Reactive depression F32.9 and DDD (degenerative disc disease), cervical M50.30 [facility] [id number] [place] [address] [id number] Aug, DDD (degenerative disc disease), lumbar M51.36 and Reactive depression F32.9 [facility] [id number] [place] [address] [id number] Jul, [place] [id number] [place] [address] [id number] Jul, DDD (degenerative disc disease), cervical M50.30 ; DDD (degenerative disc disease), 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 ; DDD (degenerative disc disease), lumbar M51.36 and Reactive depression F32.9 [place] [id number] [place] [address] [id number] Jun, Encounter for immunization Z23 [facility] [id number] [place] [address] [id number] Mar, [facility] [id number] [place] [address] [id number] Oct, [facility] [id number] [place] [address] [id number] Sep, [facility] [id number] [place] [address] [id number] 23 Feb, 2016 Physical exam Z00.00 and Allergic rhinitis J30.9 [facility] [id number] [id number] Jul, [facility] [id number] [place] [address] [id number] Jun, Diarrhea, unspecified R19.7 [facility] [id number] [place] [address] [id number] Feb, [facility] [id number] [place] [address] [id number] Feb, Frequent headaches 784.0 and 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 [facility] [id number] [place] [address] [id number] Feb, Positive serology for Erlichiosis 082.40 [facility] [id number] [place] [address] [id number] Feb, Positive serology for Erlichiosis 082.40 [facility] [id number] [place] [address] [id number] Feb, [facility] [id number] [place] [address] Nov, [facility] [id number] [place] [address] Nov, [facility] [id number] [place] [address] Aug, [facility] [id number] [place] [address] [id number] Aug, [facility] [id number] [place] [address] [id number] Jul, [facility] [id number] [place] [address] Jul, [facility] [id number] [place] [address] Apr, [facility] [id number] [place] [address] [id number] Apr, [facility] [id number] [place] [address] Apr, [facility] [place] [facility] [address] [facility] [id number] [place] [address] Apr, [facility] [place] [facility] [address] [facility] [id number] [place] [address] Apr, [facility] [address] [id number] [place] [phone] Feb, [facility] [address] [facility] [id number] [place] [id number] Feb, [facility] [place] [facility] [address] [facility] [id number] [place] [address] Feb, [facility] [place] [facility] [address] [facility] [id number] [place] [address] Feb, [facility] [address] [facility] [id number] [place] [id number] Feb, [facility] [place] [facility] [address] [facility] [id number], [place] [address] Feb, [facility] [address] [facility] [id number] [place] [id number] Oct, [facility] [place] [facility] [address] [facility] [id number] [place] [address] Oct, [facility] [address] [facility] [id number] [place] [id number] Oct, [facility] [place] [facility] [address] [facility] [id number], [place] [address] Oct, [facility] [address] [facility] [id number][place] [id number] Sep, [facility] [place] [facility] [address] [facility] [id number] [place] [address] Sep, [facility] [address] [facility] [id number] [place] [id number] Sep, [facility] [place] [facility] [address] [facility] [id number] [place] [address] Sep, [facility] [place] [facility] [address] [facility] [id number], [place] [address] Jul, [facility] [address] [id number][place] [id number] Jul, [facility] [address] [facility] [id number][place] [id number] Jul, [facility] [place] [facility] [address] [facility] [id number], [place] [address] Jul, [facility] [place] [facility] [address] [facility] [id number], [place] [address] Jun, [facility] [place] [facility] [address] [facility] [id number], [place] [address] Jun, [facility] [address] [facility] [id number], [place] [id number] Jun, [facility] [place] [facility] [address]65[address], [place] [address] Jun, [facility] [place] [facility] [address] [facility] [id number], [place] [address] Jun, [facility] [place] [facility] [address] [facility] [id number], [place] [address] Jun, [facility] [place] [facility] [address] [facility] [id number], [place] [address] Jun, [facility] [address] [facility] [id number][place] [id number] May, [facility] [place] [facility] [address] [facility] [id number], [place] [address] May, [facility] [place] [facility] [address] [facility] [id number], [place] [address] May, [facility] [place] [facility] [address] [facility] [id number], [place] [address] May, [facility] [address] [id number][place] [id number] Apr, [facility] [address] [facility] [id number], [place] [id number] Apr, [facility] [address] [id number] [place] [id number] Apr, [facility] [address] [facility] [id number], [place] [address] Apr, [facility] [place] [facility] [address] [facility] [id number], [place] [address] Mar, [facility] [address] [id number] [place] [id number] Mar, [facility] [address] [id number] [place] [id number] Mar, [facility] [address] [id number] [place] [id number] Mar, [facility] [address] [id number] [place] [id number] Mar, [facility] [address]65[address], [place] [address] Jan, [facility] [address] [facility] [id number], [place] [id number] December, [facility] [address] [facility] [id number], [place] [address] Oct, [facility] [place] [facility] [address] [facility] [id number], [place] [address] Aug, [facility] [address] [facility] [id number][place] [id number] Jun, [facility] [place] [facility] [address] [facility] [id number], [place] [address] Jun, [facility] [address] [facility] [id number][place] [id number] May, [facility] [place] [facility] [address] [facility] [id number], [place] [address] May, [facility] [address] [facility] [id number], [place] [id number] May, [facility] [place] [facility] [address]65[address], [place] [address] Apr, [facility] [address] [facility] [id number][place] [id number] Apr, [facility] [address] [facility] [id number][place] [id number] Mar, [facility] [address] [id number] [id number] Mar, [facility] [address] [facility] [id number], [place] [id number] Mar, [facility] [address] [facility] [id number] [place] [id number] Feb, [facility] [address] [id number], [place] [address] Feb, [facility] [address] [id number], [place] [id number] Feb, [facility] [address] [id number], [place] [id number] Feb, [facility] [address] [id number], [place] [id number] Oct, [facility] [address] [facility] [id number], [place] [id number] Sep, IMMUNIZATIONS No Known Immunizations SOCIAL HISTORY Never Assessed REASON FOR VISIT EMR-[facility] PLAN OF CARE VITAL SIGNS MEDICATIONS Unknown [...] repair x 2--inguinal 2013 Hospitalization History Via [facility] x 4 days due to Tick fever 02/2015 Hospitalization History chest pain, headache, syncope, hallucination-[facility] 11/25/17 Hospitalization History [facility] was suicid[facility], depression, ptsd 11/2017 Hospitalization History via [facility] for chest pain 11/2017
--- OUTSIDE RECORDS SUMMARY | 2019-03-06 13:28 | XMS REPORT ---
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 Name Role Phone Migration, Doctor Unavailable Unavailable PROBLEMS Type Condition ICD9-CM Code HDN48-RG Code Onset Dates Condition Status SNOMED Code Problem Inguinal hernia without mention of obstruction or gangrene, unilateral or unspecified, (not specified as recurrent) 550.90 Active 394448825 Problem Diverticulitis of colon (without mention of hemorrhage) 562.11 Active 047728889 Problem Asthma, unspecified, unspecified status 493.90 Active 86928285 Problem Esophageal reflux 530.81 Active 590886613 Problem Restless legs syndrome [RLS] 333.94 Active 95854349 Problem Allergic rhinitis, cause unspecified 477.9 Active 09533269 Problem DDD (degenerative disc disease), lumbar M51.36 Active 57799970 Problem DDD (degenerative disc disease), cervical M50.30 Active 14148988 Problem Bipolar 2 disorder F31.81 Active 90400399 Problem Cannabis use disorder, moderate, dependence F12.20 Active 16263884 Problem Reactive depression F32.9 Active 48526460 Problem Psychosis, unspecified psychosis type F29 Active 62445095 Problem DDD (degenerative disc disease), 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 Active 60922429 Problem Bipolar 1 disorder F31.9 Active 121273827 Problem Schizophrenia, unspecified type F20.9 Active 03444628 Problem Schizoaffective disorder, unspecified condition F25.9 Active 72122649 Problem Methamphetamine use disorder, 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 [address] [id number] [id number] Sep, 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 and Cannabis use disorder, moderate, dependence F12.20 [facility] [id number] [place] [address] Aug, [facility] [id number] [place] [address] Jul, [facility] [id number] [place] [address] Jul, [facility] [id number] [place] [address] Jul, Psychosis, unspecified psychosis type F29 [facility] [id number] [place] [address] Jul, [facility] [id number] [place] [address] Jun, [facility] [id number] [place] [address] Jun, [facility] [id number] [place] [address] Jun, [facility] [id number] [place] [address] Jun, Psychosis, unspecified psychosis type F29 ; Methamphetamine use disorder, 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 and Cannabis use disorder, moderate, dependence F12.20 [facility] [id number] [place] [address] May, Encounter for immunization Z23 [facility] [id number] [place] [address] May, [facility] [id number] [place] [address] May, [facility] [id number] [place] [address] Feb, [facility] [id number] [address] Jan, [facility] [id number] [place] [address] Jan, Psychosis, unspecified psychosis type F29 [facility] [id number] [place] [address] Jan, Psychosis, unspecified psychosis type F29 ; Methamphetamine use disorder, 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 and Cannabis use disorder, moderate, dependence F12.20 [facility] [id number] [place] [address] Jan, Schizoaffective disorder, unspecified condition F25.[id number] [place] [address] [id number] December, [facility] [id number] [place] [address] December, Psychosis, unspecified psychosis type F29 ; Methamphetamine use disorder, 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 [id number] [place] [address] [id number] December, [facility] [id number] [place] [address] [id number] Nov, Bipolar 2 disorder F31.81 and Schizophrenia, unspecified type F20.9 [facility] [id number] [place] [address] Nov, [facility] [id number] [place] [address] [id number] December, [facility] [id number] [place] [address] [id number] December, DDD (degenerative disc disease), lumbar M51.36 and Reactive depression F32.9 [facility] [id number] [place] [address] [id number] December, DDD (degenerative disc disease), cervical M50.30 and DDD (degenerative disc disease), lumbar M51.36 [facility] [id number] [place] [address] [id number] Nov, [facility] [id number] [place] [address] [id number] Nov, DDD (degenerative disc disease), lumbar M51.36 [facility] [id number] [place] [address] [id number] Nov, DDD (degenerative disc disease), lumbar M51.36 [facility] [id number] [place] [address] [id number] Oct, DDD (degenerative disc disease), lumbar M51.36 ; Reactive depression F32.9 and DDD (degenerative disc disease), cervical M50.30 [facility] [id number] [place] [address] [id number] Aug, DDD (degenerative disc disease), lumbar M51.36 and Reactive depression F32.9 [facility] [id number] [place] [address] [id number] Jul, [id number] [place] [address] [id number] Jul, DDD (degenerative disc disease), cervical M50.30 ; DDD (degenerative disc disease), 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 ; DDD (degenerative disc disease), lumbar M51.36 and Reactive depression F32.9 [id number] [place] [address] [id number] Jun, Encounter for immunization Z23 [facility] [id number] [place] [address] [id number] Mar, [facility] [id number] [place] [address] [id number] Oct, [facility] [id number] [place] [address] [id number] Sep, [facility] [id number] [place] [address] [id number] 23 Feb, 2016 Physical exam Z00.00 and Allergic rhinitis J30.9 [facility] [id number] [id number] Jul, [facility] [id number] [place] [address] [id number] Jun, Diarrhea, unspecified R19.7 [facility] [id number] [place] [address] [id number] Feb, [facility] [id number] [place] [address] [id number] Feb, Frequent headaches 784.0 and 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 [facility] [id number] [place] [address] [id number] Feb, Positive serology for Erlichiosis 082.40 [facility] [id number] [place] [address] [phone] Feb, Positive serology for Erlichiosis 082.40 [facility] [id number] [place] [address] [id number] Feb, [facility] [id number] [place] [address] Nov, [facility] [id number] [place] [address] Nov, [facility] [id number] [place] [address] Aug, [facility] [id number] [place] [address] [id number] Aug, [facility] [id number] [place] [address] [id number] Jul, [facility] [id number] [place] [address] Jul, [facility] [id number] [place] [address] Apr, [facility] [id number] [place] [address] [id number] Apr, [facility] [id number] [place] [address] Apr, [facility] [place] [facility] [address] [facility] [id number] [place] [address] Apr, [facility] [place] [facility] [address] [facility] [id number] [place] [address] Apr, [facility] [address] [id number] [place] [id number] Feb, [facility] [address] [facility] [id number] [place] [id number] Feb, [facility] [place] [facility] [address] [facility] [id number] [place] [address] Feb, [facility] [place] [facility] [address] [facility] [id number] [place] [address] Feb, [facility] [address] [facility] [id number] [place] [id number] Feb, [facility] [place] [facility] [address] [facility] [id number][place] [address] Feb, [facility] [address] [facility] [id number] [place] [id number] Oct, [facility] [place] [facility] [address] [facility] [id number] [place] [address] Oct, [facility] [address] [facility] [id number] [place] [id number] Oct, [facility] [place] [facility] [address] [facility] [id number], [place] [address] Oct, [facility] [address] [facility] [id number][place] [id number] Sep, [facility] [place] [facility] [address] [facility] [id number] [place] [address] Sep, [facility] [address] [facility] [id number] [place] [id number] Sep, [facility] [place] [facility] [address] [facility] [id number] [place] [address] Sep, [facility] [place] [facility] [address] [facility] [id number], [place] [address] Jul, [facility] [address] [id number][place] [id number] Jul, [facility] [address] [facility] [id number][place] [id number] Jul, [facility] [place] [facility] [address] [facility] [id number], [place] [address] Jul, [facility] [place] [facility] [address] [facility] [id number], [place] [address] Jun, [facility] [place] [facility] [address] [facility] [id number][place] [address] Jun, [facility] [address] [facility] [id number][place] [id number] Jun, [facility] [place] [facility] [id number] [address] Jun, [facility] [place] [facility] [address] [facility] [id number] [address] Jun, [facility] [place] [facility] [address] [facility] [id number][place] [address] Jun, [facility] [place] [facility] [address] [facility] [id number][place] [address] Jun, [facility] [address] [facility] [id number], [place] [id number] May, [facility] [place] [facility] [address] [facility] [id number], [place] [address] May, [facility] [place] [facility] [address] [facility] [id number], [place] [address] May, [facility] [place] [facility] [address] [facility] [id number][place] [address] May, [facility] [address] [id number][place] [id number] Apr, [facility] [address] [facility] [id number][place] [id number] Apr, [facility] [address] [id number] [place] [id number] Apr, [facility] [address] [facility] [id number], [place] [address] Apr, [facility] [place] [facility] [address] [facility] [id number][place] [address] Mar, [facility] [address] [id number] [place] [id number] Mar, [facility] [address] [id number] [place] [id number] Mar, [facility] [address] [id number] [place] [id number] Mar, [facility] [address] [id number] [place] [id number] Mar, [facility] [address]00565[address] [address] Jan, [facility] [address] [facility] [id number][place] [id number] December, [facility] [address] [facility] [id number][place] [address] Oct, [facility] [place] [facility] [address] [facility] [id number], [place] [address] Aug, [facility] [address] [facility] [id number][place] [id number] Jun, [facility] [place] [facility] [address] [facility] [id number], [place] [address] Jun, [facility] [address] [facility] [id number][place] [id number] May, [facility] [place] [facility] [address] [facility] [id number][place] [address] May, [facility] [address] [facility] [id number][place] [id number] May, [facility] [place] [facility] [address], [place] [address] Apr, [facility] [address] [facility] [id number][place] [id number] Apr, [facility] [address] [facility] [id number], [place] [id number] Mar, [facility] [address] [id number] [id number] Mar, [facility] [address] [facility] [id number][place] [id number] Mar, [facility] [address] [facility] [id number] [place] [id number] Feb, [facility] [address] [id number], [place] [address] Feb, [facility] [address] [id number], [place] [id number] Feb, [facility] [address] [id number], [place] [id number] Feb, [facility] [address] [id number], [place] [id number] Oct, [facility] [address] [facility] [id number], [place] [id number] Sep, IMMUNIZATIONS No Known Immunizations SOCIAL HISTORY Never Assessed REASON FOR [place] [place] VITAL SIGNS MEDICATIONS Unknown [...] repair x 2--inguinal 2013 Hospitalization History [facility] x 4 days due to Tick fever 02/2015 Hospitalization History chest pain, headache, syncope, hallucination-[facility] 11/25/17 Hospitalization [facility], depression, ptsd 11/2017 Hospitalization History via [facility] for chest pain 11/2017
--- OUTSIDE RECORDS SUMMARY | 2019-03-06 13:28 | XMS REPORT ---
Author Author Migration, Doctor Organization [facility] Address Unknown Phone Unavailable Care Team Providers Care Allergy Nurse Name Role Phone Migration, Doctor Unavailable Unavailable PROBLEMS Type Condition ICD9-CM Code [id number] Code Onset Dates Condition Status SNOMED Code Problem Inguinal hernia without mention of obstruction or gangrene, unilateral or unspecified, (not specified as recurrent) 550.90 Active 481670943 Problem Diverticulitis of colon (without mention of hemorrhage) 562.11 Active 773188611 Problem Asthma, unspecified, unspecified status 493.90 Active 56934722 Problem Esophageal reflux 530.81 Active 518339356 Problem Restless legs syndrome [RLS] 333.94 Active 83138544 Problem Allergic rhinitis, cause unspecified 477.9 Active 22154842 Problem DDD (degenerative disc disease), lumbar M51.36 Active 67952020 Problem DDD (degenerative disc disease), cervical M50.30 Active 89469726 Problem Bipolar 2 disorder F31.81 Active 26049971 Problem Cannabis use disorder, moderate, dependence F12.20 Active 07461047 Problem Reactive depression F32.9 Active 52449915 Problem Psychosis, unspecified psychosis type F29 Active 44275339 Problem DDD (degenerative disc disease), 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 Active 71824800 Problem Bipolar 1 disorder F31.9 Active 310805754 Problem Schizophrenia, unspecified type F20.9 Active 68078096 Problem Schizoaffective disorder, unspecified condition F25.9 Active 82944825 Problem Methamphetamine use disorder, 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 and Cannabis use disorder, moderate, dependence F12.20 [facility] [id number] [place] [address] Aug, [facility] [id number] [place] [address] Jul, [facility] [id number] [place] [address] Jul, [facility] [id number] [place] [address] Jul, Psychosis, unspecified psychosis type F29 [facility] [id number] [place] [address] Jul, [facility] [id number] [place] [address] Jun, [facility] [id number] [place] [address] Jun, [facility] [id number] [place] [address] Jun, [facility] [id number] [place] [address] Jun, Psychosis, unspecified psychosis type F29 ; Methamphetamine use disorder, 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 and Cannabis use disorder, moderate, dependence F12.20 [facility] [id number] [place] [address] May, Encounter for immunization Z23 [facility] [id number] [place] [address] May, [facility] [id number] [place] [address] May, [facility] [id number] [place] [address] Feb, [facility] [address], [place] [address] Jan, [facility] [id number] [place] [address] Jan, Psychosis, unspecified psychosis type F29 [facility] [id number] [place] [address] Jan, Psychosis, unspecified psychosis type F29 ; Methamphetamine use disorder, 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 and Cannabis use disorder, moderate, dependence F12.20 [facility] [id number] [place] [address] Jan, Schizoaffective disorder, unspecified condition F25.[id number] [place] [address] [id number] December, [facility] [id number] [place] [address] December, Psychosis, unspecified psychosis type F29 ; Methamphetamine use disorder, 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 and Cannabis use disorder, moderate, dependence F12.20 [address] [place] [id number] [place] [address] December, Schizoaffective disorder, unspecified condition F25.9 [facility] [id number] [place] [address] [id number] December, [facility] [id number] [place] [address] [id number] Nov, Bipolar 2 disorder F31.81 and Schizophrenia, unspecified type F20.9 [facility] [id number] [place] [address] Nov, [facility] [id number] [place] [address] [id number] December, [facility] [id number] [place] [address] [id number] December, DDD (degenerative disc disease), lumbar M51.36 and Reactive depression F32.9 [facility] [id number] [place] [address] [id number] December, DDD (degenerative disc disease), cervical M50.30 and DDD (degenerative disc disease), lumbar M51.36 [facility] [id number] [place] [address] [id number] Nov, [facility] [id number] [place] [address] [id number] Nov, DDD (degenerative disc disease), lumbar M51.36 [facility] [id number] [place] [address] [id number] Nov, DDD (degenerative disc disease), lumbar M51.36 [facility] [id number] [place] [address] [id number] Oct, DDD (degenerative disc disease), lumbar M51.36 ; Reactive depression F32.9 and DDD (degenerative disc disease), cervical M50.30 [facility] [id number] [place] [address] [id number] Aug, DDD (degenerative disc disease), lumbar M51.36 and Reactive depression F32.9 [facility] [id number] [place] [address] [id number] Jul, [address] [id number] [place] [address] [id number] Jul, DDD (degenerative disc disease), cervical M50.30 ; DDD (degenerative disc disease), 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 ; DDD (degenerative disc disease), lumbar M51.36 and Reactive depression F32.9 [address] [id number] [place] [address] [id number] Jun, Encounter for immunization Z23 [facility] [id number] [place] [address] [id number] Mar, [facility] [id number] [place] [address] [id number] Oct, [facility] [id number] [place] [address] [id number] Sep, [facility] [id number] [place] [address] [id number] 23 Feb, 2016 Physical exam Z00.00 and Allergic rhinitis J30.9 [facility] [id number] [id number] Jul, [facility] [id number] [place] [address] [id number] Jun, Diarrhea, unspecified R19.7 [facility] [id number] [place] [address] [id number] Feb, [facility] [id number] [place] [address] [id number] Feb, Frequent headaches 784.0 and 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 [facility] [id number] [place] [address] [id number] Feb, Positive serology for Erlichiosis 082.40 [facility] [id number] [place] [address] [id number] Feb, Positive serology for Erlichiosis 082.40 [facility] [id number] [place] [address] [id number] Feb, [facility] [id number] [place] [address] Nov, [facility] [id number] [place] [address] Nov, [facility] [id number] [place] [address] Aug, [facility] [id number] [place] [address] [id number] Aug, [facility] [id number] [place] [address] [id number] Jul, [facility] [id number] [place] [address] Jul, [facility] [id number] [place] [address] Apr, [facility] [id number] [place] [address] [id number] Apr, [facility] [id number] [place] [address] Apr, [facility] [place] [facility] [address] [facility] [id number] [place] [address] Apr, [facility] [place] [facility] [address] [facility] [id number] [place] [address] Apr, [facility] [address] [id number] [place] [id number] Feb, [facility] [address] [facility] [id number] [place] [id number] Feb, [facility] [place] [facility] [address] [facility] [id number] [place] [address] Feb, [facility] [place] [facility] [address] [facility] [id number] [place] [address] Feb, [facility] [address] [facility] [id number] [place] [id number] Feb, [facility] [place] [facility] [address] [facility] [id number], [place] [address] Feb, [facility] [address] [facility] [id number] [place] [id number] Oct, [facility] [place] [facility] [address] [facility] [id number] [place] [address] Oct, [facility] [address] [facility] [id number] [place] [id number] Oct, [facility] [place] [facility] [address] [facility] [id number], [place] [address] Oct, [facility] [address] [facility] [id number][place] [id number] Sep, [facility] [place] [facility] [address] [facility] [id number] [place] [address] Sep, [facility] [address] [facility] [id number] [place] [id number] Sep, [facility] [place] [facility] [address] [facility] [id number] [place] [address] Sep, [facility] [place] [facility] [address] [facility] [id number], [place] [address] Jul, [facility] [address] [id number][place] [id number] Jul, [facility] [address] [facility] [id number][place] [id number] Jul, [facility] [place] [facility] [address] [facility] [id number], [place] [address] Jul, [facility] [place] [facility] [address] [facility] [id number], [place] [address] Jun, [facility] [place] [facility] [address] [facility] [id number], [place] [address] Jun, [facility] [address] [facility] [id number][place] [id number] Jun, [facility] [place] [facility] [address]00565100[place], [place] [address] Jun, [facility] [place] [facility] [address] [facility] [id number], [place] [address] Jun, [facility] [place] [facility] [address] [facility] [id number], [place] [address] Jun, [facility] [place] [facility] [address] [facility] [id number], [place] [address] Jun, [facility] [address] [facility] [id number][place] [id number] May, [facility] [place] [facility] [address] [facility] [id number], [place] [address] May, [facility] [place] [facility] [address] [facility] [id number], [place] [address] May, [facility] [place] [facility] [address] [facility] [id number], [place] [address] May, [facility] [address] [id number][place] [id number] Apr, [facility] [address] [facility] [id number][place] [id number] Apr, [facility] [address] [id number] [place] [id number] Apr, [facility] [address] [facility] [id number], [place] [address] Apr, [facility] [place] [facility] [address] [facility] [id number], [place] [address] Mar, [facility] [address] [id number] [place] [id number] Mar, [facility] [address] [id number] [place] [id number] Mar, [facility] [address] [id number] [place] [id number] Mar, [facility] [address] [id number] [place] [id number] Mar, [facility] [address]00565100[place], [place] [address] Jan, [facility] [address] [facility] [id number][place] [id number] December, [facility] [address] [facility] [id number], [place] [address] Oct, [facility] [place] [facility] [address] [facility] [id number], [place] [address] Aug, [facility] [address] [facility] [id number], [place] [id number] Jun, [facility] [place] [facility] [address] [facility] [id number], [place] [address] Jun, [facility] [address] [facility] [id number][place] [id number] May, [facility] [place] [facility] [address] [facility] [id number], [place] [address] May, [facility] [address] [facility] [id number], [place] [id number] May, [facility] [place] [facility] [address]00565100[place], [place] [address] Apr, [facility] [address] [facility] [id number], [place] [id number] Apr, [facility] [address] [facility] [id number], [place] [id number] Mar, [facility] [address] [id number] [id number] Mar, [facility] [address] [facility] [id number], [place] [id number] Mar, [facility] [address] [facility] [id number] [place] [id number] Feb, [facility] [address] [id number], [place] [address] Feb, [facility] [address] [id number], [place] [address] Feb, [facility] [address] [id number], [place] [id number] Feb, [facility] [address] [id number], [place] [id number] Oct, [facility] [address] [facility] [id number], [place] [id number] Sep, IMMUNIZATIONS No Known Immunizations SOCIAL HISTORY Never Assessed REASON FOR VISIT EMR-[facility] PLAN OF CARE VITAL SIGNS MEDICATIONS Unknown [...] repair x 2--inguinal 2013 Hospitalization History Via [facility] x 4 days due to Tick fever 02/2015 Hospitalization History chest pain, headache, syncope, hallucination-[facility] 11/25/17 [facility]ization [facility], depression, ptsd 11/2017 Hospitalization History via [facility] for chest pain 11/2017
--- OUTSIDE RECORDS SUMMARY | 2019-03-06 13:29 | XMS REPORT ---
Author Author Migration, Doctor Organization [facility] Address Unknown Phone Unavailable Care Team Providers Care Geologist [employer] Name Role Phone Migration, Doctor Unavailable Unavailable PROBLEMS Type Condition ICD9-CM Code SCD85-XW Code Onset Dates Condition Status SNOMED Code Problem Inguinal hernia without mention of obstruction or gangrene, unilateral or unspecified, (not specified as recurrent) 550.90 Active 284676860 Problem Diverticulitis of colon (without mention of hemorrhage) 562.11 Active 672022471 Problem Asthma, unspecified, unspecified status 493.90 Active 46391194 Problem Esophageal reflux 530.81 Active 301740895 Problem Restless legs syndrome [RLS] 333.94 Active 73805772 Problem Allergic rhinitis, cause unspecified 477.9 Active 24035204 Problem DDD (degenerative disc disease), lumbar M51.36 Active 96246957 Problem DDD (degenerative disc disease), cervical M50.30 Active 78875679 Problem Bipolar 2 disorder F31.81 Active 08829822 Problem Cannabis use disorder, moderate, dependence F12.20 Active 25979770 Problem Reactive depression F32.9 Active 84874784 Problem Psychosis, unspecified psychosis type F29 Active 49295795 Problem DDD (degenerative disc disease), 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 Active 07200529 Problem Bipolar 1 disorder F31.9 Active 937591312 Problem Schizophrenia, unspecified type F20.9 Active 10365833 Problem Schizoaffective disorder, unspecified condition F25.9 Active 38594680 Problem Methamphetamine use disorder, 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 Active 166415306 ALLERGIES No Information ENCOUNTERS Encounter Location Date Diagnosis [facility] [address] [facility] [id number] [place] [address] Oct, [facility] [address] [id number] [phone] Sep, [facility] [address] [facility] [id number][place] [id number] Aug, [facility] [id number] [place] [address] Aug, Psychosis, unspecified psychosis type F29 ; Methamphetamine use disorder, 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 and Cannabis use disorder, moderate, dependence F12.20 [facility] [id number] [place] [address] Aug, [facility] [id number] [place] [address] Jul, [facility] [id number] [place] [address] Jul, [facility] [id number] [place] [address] Jul, Psychosis, unspecified psychosis type F29 [facility] [id number] [place] [address] Jul, [facility] [id number] [place] [address] Jun, [facility] [id number] [place] [address] Jun, [facility] [id number] [place] [address] Jun, [facility] [id number] [place] [address] Jun, Psychosis, unspecified psychosis type F29 ; Methamphetamine use disorder, 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 and Cannabis use disorder, moderate, dependence F12.20 [facility] [id number] [place] [address] May, Encounter for immunization Z23 [facility] [id number] [place] [address] May, [facility] [id number] [place] [address] May, [facility] [id number] [place] [address] Feb, [facility] [address], [place] [address] Jan, [facility] [id number] [place] [address] Jan, Psychosis, unspecified psychosis type F29 [facility] [id number] [place] [address] Jan, Psychosis, unspecified psychosis type F29 ; Methamphetamine use disorder, 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 and Cannabis use disorder, moderate, dependence F12.20 [facility] [id number] [place] [address] Jan, Schizoaffective disorder, unspecified condition F25.[id number] [place] [address] [id number] December, [facility] [id number] [place] [address] December, Psychosis, unspecified psychosis type F29 ; Methamphetamine use disorder, 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 and Cannabis use disorder, moderate, dependence F12.20 [id number] [place] [address] December, Schizoaffective disorder, unspecified condition F25.9 [facility] [id number] [place] [address] [id number] December, [facility] [id number] [place] [address] [id number] Nov, Bipolar 2 disorder F31.81 and Schizophrenia, unspecified type F20.9 [facility] [address] [place] [address] Nov, [facility] [id number] [place] [address] [id number] December, [facility] [id number] [place] [address] [id number] December, DDD (degenerative disc disease), lumbar M51.36 and Reactive depression F32.9 [facility] [id number] [place] [address] [id number] December, DDD (degenerative disc disease), cervical M50.30 and DDD (degenerative disc disease), lumbar M51.36 [facility] [id number] [place] [address] [id number] Nov, [facility] [id number] [place] [address] [id number] Nov, DDD (degenerative disc disease), lumbar M51.36 [facility] [id number] [place] [address] [id number] Nov, DDD (degenerative disc disease), lumbar M51.36 [facility] [id number] [place] [address] [id number] Oct, DDD (degenerative disc disease), lumbar M51.36 ; Reactive depression F32.9 and DDD (degenerative disc disease), cervical M50.30 [facility] [id number] [place] [address] [id number] Aug, DDD (degenerative disc disease), lumbar M51.36 and Reactive depression F32.9 [facility] [id number] [place] [address] [id number] Jul, [id number] [place] [address] [id number] Jul, DDD (degenerative disc disease), cervical M50.30 ; DDD (degenerative disc disease), 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 ; DDD (degenerative disc disease), lumbar M51.36 and Reactive depression F32.9 [id number] [place] [address] [id number] Jun, Encounter for immunization Z23 [facility] [id number] [place] [address] [id number] Mar, [facility] [id number] [place] [address] [id number] Oct, [facility] [id number] [place] [address] [id number] Sep, [facility] [id number] [place] [address] [id number] 23 Feb, 2016 Physical exam Z00.00 and Allergic rhinitis J30.9 [facility] [place] [id number][place] [id number] Jul, [facility] [id number] [place] [address] [id number] Jun, Diarrhea, unspecified R19.7 [facility] [place] [id number] [place] [address] [id number] Feb, [facility] [id number] [place] [address] [id number] Feb, Frequent headaches 784.0 and 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 [facility] [place] [id number] [place] [address] [id number] Feb, Positive serology for Erlichiosis 082.40 [facility] [id number] [place] [address] [id number] Feb, Positive serology for Erlichiosis 082.40 [facility] [id number] [place] [address] [id number] Feb, [facility] [id number] [place] [address] Nov, [facility] [id number] [place] [address] Nov, [facility] [id number] [place] [address] Aug, [facility] [id number] [place] [address] [id number] Aug, [facility] [id number] [place] [address] [id number] Jul, [facility] [id number] [place] [address] Jul, [facility] [id number] [place] [address] Apr, [facility] [id number] [place] [address] [id number] Apr, [facility] [id number] [place] [address] Apr, [facility] [place] [facility] [address] [facility] [id number] [place] [address] Apr, [facility] [place] [facility] [address] [facility] [id number] [place] [address] Apr, [facility] [address] [id number] [place] [id number] Feb, [facility] [address] [facility] [id number] [place] [phone] Feb, [facility] [place] [facility] [address] [facility] [id number] [place] [address] Feb, [facility] [place] [facility] [address] [facility] [id number] [place] [address] Feb, [facility] [address] [facility] [id number] [place] [id number] Feb, [facility] [place] [facility] [address] [facility] [id number], [place] [address] Feb, [facility] [address] [facility] [id number] [place] [phone] Oct, [facility] [place] [facility] [address] [facility] [id number] [place] [address] Oct, [facility] [address] [facility] [id number] [place] [id number] Oct, [facility] [place] [facility] [address] [facility] [id number], [place] [address] Oct, [facility] [address] [facility] [id number], [place] [id number] Sep, [facility] [place] [facility] [address] [facility] [id number] [place] [address] Sep, [facility] [address] [facility] [id number] [place] [id number] Sep, [facility] [place] [facility] [address] [facility] [id number] [place] [address] Sep, [facility] [place] [facility] [address] [facility] [id number], [place] [address] Jul, [facility] [address] [id number], [place] [id number] Jul, [facility] [address] [facility] [id number], [place] [id number] Jul, [facility] [place] [facility] [address] [facility] [id number], [place] [address] Jul, [facility] [place] [facility] [address] [facility] [id number], [place] [address] Jun, [facility] [place] [facility] [address] [facility] [id number], [place] [address] Jun, [facility] [address] [facility] [id number], [place] [id number] Jun, [facility] [place] [facility] [address], [place] [address] Jun, [facility] [place] [facility] [address] [facility] [id number], [place] [address] Jun, [facility] [place] [facility] [address] [facility] [id number], [place] [address] Jun, [facility] [place] [facility] [address] [facility] [id number], [place] [address] Jun, [facility] [address] [facility] [id number], [place] [id number] May, [facility] [place] [facility] [address] [facility] [id number], [place] [address] May, [facility] [place] [facility] [address] [facility] [id number], [place] [address] May, [facility] [place] [facility] [address] [facility] [id number], [place] [address] May, [facility] [address] [id number], [place] [id number] Apr, [facility] [address] [facility] [id number], [place] [id number] Apr, [facility] [address] [id number] [place] [id number] Apr, [facility] [address] [facility] [id number], [place] [address] Apr, [facility] [place] [facility] [address] [facility] [id number], [place] [address] Mar, [facility] [address] [id number] [place] [id number] Mar, [facility] [address] [id number] [place] [id number] Mar, [facility] [address] [id number] [place] [id number] Mar, [facility] [address] [id number] [place] [id number] Mar, [facility] [address], [place] [address] Jan, [facility] [address] [facility] [id number], [place] [id number] December, [facility] [address] [facility] [id number], [place] [address] Oct, [facility] [place] [facility] [address] [facility] [id number], [place] [address] Aug, [facility] [address] [facility] [id number], [place] [id number] Jun, [facility] [place] [facility] [address] [facility] [id number], [place] [address] Jun, [facility] [address] [facility] [id number], [place] [id number] May, [facility] [place] [facility] [address] [facility] [id number], [place] [address] May, [facility] [address] [facility] [id number], [place] [id number] May, [facility] [place] [facility] [address], [place] [address] Apr, [facility] [address] [facility] [id number], [place] [id number] Apr, [facility] [address] [facility] [id number], [place] [id number] Mar, [facility] [address] [id number], [place] [id number] Mar, [facility] [address] [facility] [id number], [place] [id number] Mar, [facility] [address] [facility] [id number] [place] [phone] Feb, [facility] [address] [id number], [place] [address] Feb, [facility] [address] [id number], [place] [id number] Feb, [facility] [address] [id number], [place] [id number] Feb, [facility] [address] [id number], [place] [id number] Oct, [facility] [address] [facility] [id number], [place] [phone] Sep, IMMUNIZATIONS No Known Immunizations SOCIAL HISTORY Never Assessed REASON FOR VISIT EMR-[facility] PLAN OF CARE VITAL SIGNS MEDICATIONS Unknown [...] repair x 2--inguinal 2013 Hospitalization History Via [facility] x 4 days due to Tick fever 02/2015 Hospitalization History chest pain, headache, syncope, hallucination-[facility] 11/25/17 Hospitalization History [facility], depression, ptsd 11/2017 Hospitalization History via [facility] for chest pain 11/2017
--- OUTSIDE RECORDS SUMMARY | 2019-03-06 13:29 | XMS REPORT ---
Author Author Migration, Doctor Organization [facility] Address Unknown Phone Unavailable Care Team Providers Care Personnel Specialist Name Role Phone Migration, Doctor Unavailable Unavailable PROBLEMS Type Condition ICD9-CM Code WQG74-CM Code Onset Dates Condition Status SNOMED Code Problem Inguinal hernia without mention of obstruction or gangrene, unilateral or unspecified, (not specified as recurrent) 550.90 Active 037646994 Problem Diverticulitis of colon (without mention of hemorrhage) 562.11 Active 488205759 Problem Asthma, unspecified, unspecified status 493.90 Active 88144309 Problem Esophageal reflux 530.81 Active 209848015 Problem Restless legs syndrome [RLS] 333.94 Active 03068141 Problem Allergic rhinitis, cause unspecified 477.9 Active 98698308 Problem DDD (degenerative disc disease), lumbar M51.36 Active 02765499 Problem DDD (degenerative disc disease), cervical M50.30 Active 13323705 Problem Bipolar 2 disorder F31.81 Active 29410463 Problem Cannabis use disorder, moderate, dependence F12.20 Active 02696698 Problem Reactive depression F32.9 Active 66713462 Problem Psychosis, unspecified psychosis type F29 Active 80582544 Problem DDD (degenerative disc disease), 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 Active 90952467 Problem Bipolar 1 disorder F31.9 Active 611404670 Problem Schizophrenia, unspecified type F20.9 Active 07419546 Problem Schizoaffective disorder, unspecified condition F25.9 Active 50904719 Problem Methamphetamine use disorder, 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 Active 308780582 ALLERGIES No Information ENCOUNTERS Encounter Location Date Diagnosis [facility] [address] [facility] [id number] [place] [address] Oct, [facility] [address] [id number] [id number] Sep, [facility] [address] [facility] [place] [id number] [id number] Aug, [facility] [id number] [place] [address] Aug, Psychosis, unspecified psychosis type F29 ; Methamphetamine use disorder, 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 and Cannabis use disorder, moderate, dependence F12.20 [facility] [id number] [place] [address] Aug, [facility] [id number] [place] [address] Jul, [facility] [id number] [place] [address] Jul, [facility] [id number] [place] [address] Jul, Psychosis, unspecified psychosis type F29 [facility] [id number] [place] [address] Jul, [facility] [id number] [place] [address] Jun, [facility] [id number] [place] [address] Jun, [facility] [id number] [place] [address] Jun, [facility] [id number] [place] [address] Jun, Psychosis, unspecified psychosis type F29 ; Methamphetamine use disorder, 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 and Cannabis use disorder, moderate, dependence F12.20 [facility] [id number] [place] [address] May, Encounter for immunization Z23 [facility] [id number] [place] [address] May, [facility] [id number] [place] [address] May, [facility] [id number] [place] [address] Feb, [facility] [address], [place] [address] Jan, [facility] [id number] [place] [address] Jan, Psychosis, unspecified psychosis type F29 [facility] [id number] [place] [address] Jan, Psychosis, unspecified psychosis type F29 ; Methamphetamine use disorder, 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 and Cannabis use disorder, moderate, dependence F12.20 [facility] [id number] [place] [address] Jan, Schizoaffective disorder, unspecified condition F25.[id number] [place] [address] [id number] December, [facility] [id number] [place] [address] December, Psychosis, unspecified psychosis type F29 ; Methamphetamine use disorder, 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 and Cannabis use disorder, moderate, dependence F12.20 [place] [id number] [place] [phone] December, Schizoaffective disorder, unspecified condition F25.9 [facility] [id number] [place] [address] [phone] December, [facility] [id number] [place] [address] [id number] Nov, Bipolar 2 disorder F31.81 and Schizophrenia, unspecified type F20.9 [facility] [id number] [place] [address] Nov, [facility] [id number] [place] [address] [id number] December, [facility] [id number] [place] [address] [id number] December, DDD (degenerative disc disease), lumbar M51.36 and Reactive depression F32.9 [facility] [id number] [place] [address] [id number] December, DDD (degenerative disc disease), cervical M50.30 and DDD (degenerative disc disease), lumbar M51.36 [facility] [id number] [place] [address] [id number] Nov, [facility] [id number] [place] [address] [id number] Nov, DDD (degenerative disc disease), lumbar M51.36 [facility] [id number] [place] [address] [id number] Nov, DDD (degenerative disc disease), lumbar M51.36 [facility] [id number] [place] [address] [id number] Oct, DDD (degenerative disc disease), lumbar M51.36 ; Reactive depression F32.9 and DDD (degenerative disc disease), cervical M50.30 [facility] [id number] [place] [address] [id number] Aug, DDD (degenerative disc disease), lumbar M51.36 and Reactive depression F32.9 [facility] [id number] [place] [address] [id number] Jul, [place] [id number] [place] [address] [id number] Jul, DDD (degenerative disc disease), cervical M50.30 ; DDD (degenerative disc disease), 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 ; DDD (degenerative disc disease), lumbar M51.36 and Reactive depression F32.9 [place] [id number] [place] [address] [id number] Jun, Encounter for immunization Z23 [facility] [id number] [place] [address] [id number] Mar, [facility] [id number] [place] [address] [id number] Oct, [facility] [id number] [place] [address] [id number] Sep, [facility] [id number] [place] [address] [id number] 23 Feb, 2016 Physical exam Z00.00 and Allergic rhinitis J30.9 [facility] [id number] [phone] Jul, [facility] [id number] [place] [address] [id number] Jun, Diarrhea, unspecified R19.7 [facility] [id number] [place] [address] [id number] Feb, [facility] [id number] [place] [address] [id number] Feb, Frequent headaches 784.0 and 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 [facility] [id number] [place] [address] [id number] Feb, Positive serology for Erlichiosis 082.40 [facility] [id number] [place] [address] [phone] Feb, Positive serology for Erlichiosis 082.40 [facility] [id number] [place] [address] [id number] Feb, [facility] [id number] [place] [phone] Nov, [facility] [id number] [place] [phone] Nov, [facility] [id number] [place] [phone] Aug, [facility] [id number] [place] [address] [id number] Aug, [facility] [id number] [place] [address] [id number] Jul, [facility] [id number] [place] [phone] Jul, [facility] [id number] [place] [phone] Apr, [facility] [id number] [place] [address] [id number] Apr, [facility] [id number] [place] [phone] Apr, [facility] [place] [facility] [address] [facility] [id number] [place] [address] Apr, [facility] [place] [facility] [address] [facility] [id number] [place] [address] Apr, [facility] [address] [id number] [place] [id number] Feb, [facility] [address] [facility] [id number] [place] [id number] Feb, [facility] [place] [facility] [address] [facility] [id number] [place] [address] Feb, [facility] [place] [facility] [address] [facility] [id number] [place] [address] Feb, [facility] [address] [facility] [id number] [place] [id number] Feb, [facility] [place] [facility] [address] [facility] [id number], [place] [address] Feb, [facility] [address] [facility] [id number] [place] [id number] Oct, [facility] [place] [facility] [address] [facility] [id number] [place] [address] Oct, [facility] [address] [facility] [id number] [place] [phone] Oct, [facility] [place] [facility] [address] [facility] [id number], [place] [address] Oct, [facility] [address] [facility] [id number], [place] [id number] Sep, [facility] [place] [facility] [address] [facility] [id number] [place] [address] Sep, [facility] [address] [facility] [id number] [place] [id number] Sep, [facility] [place] [facility] [address] [facility] [id number] [place] [address] Sep, [facility] [place] [facility] [address] [facility] [id number], [place] [address] Jul, [facility] [address] [id number][place] [id number] Jul, [facility] [address] [facility] [id number][place] [phone] Jul, [facility] [place] [facility] [address] [facility] [id number], [place] [address] Jul, [facility] [place] [facility] [address] [facility] [id number], [place] [address] Jun, [facility] [place] [facility] [address] [facility] [id number], [place] [address] Jun, [facility] [address] [facility] [id number], [place] [id number] Jun, [facility] [place] [facility] [address]00565100[place], [place] [address] Jun, [facility] [place] [facility] [address] [facility] [id number], [place] [address] Jun, [facility] [place] [facility] [address] [facility] [id number], [place] [address] Jun, [facility] [place] [facility] [address] [facility] [id number], [place] [address] Jun, [facility] [address] [facility] [id number], [place] [id number] May, [facility] [place] [facility] [address] [facility] [id number], [place] [address] May, [facility] [place] [facility] [address] [facility] [id number], [place] [address] May, [facility] [place] [facility] [address] [facility] [id number], [place] [address] May, [facility] [address] [id number], [place] [id number] Apr, [facility] [address] [facility] [id number][place] [id number] Apr, [facility] [address] [id number] [place] [id number] Apr, [facility] [address] [facility] [id number], [place] [address] Apr, [facility] [place] [facility] [address] [facility] [id number], [place] [address] Mar, [facility] [address] [id number] [place] [id number] Mar, [facility] [address] [id number] [place] [id number] Mar, [facility] [address] [id number] [place] [id number] Mar, [facility] [address] [id number] [place] [id number] Mar, [facility] [address]65100[place], [place] [address] Jan, [facility] [address] [facility] [id number], [place] [id number] December, [facility] [address] [facility] [id number], [place] [address] Oct, [facility] [place] [facility] [address] [facility] [id number], [place] [address] Aug, [facility] [address] [facility] [id number], [place] [phone] Jun, [facility] [place] [facility] [address] [facility] [id number], [place] [address] Jun, [facility] [address] [facility] [id number], [place] [id number] May, [facility] [place] [facility] [address] [facility] [id number], [place] [address] May, [facility] [address] [facility] [id number], [place] [id number] May, [facility] [place] [facility] [address]65100[place], [place] [address] Apr, [facility] [address] [facility] [id number], [place] [id number] Apr, [facility] [address] [facility] [id number], [place] [id number] Mar, [facility] [address] [id number], [place] [address] Mar, [facility] [address] [facility] [id number], [place] [id number] Mar, [facility] [address] [facility] [id number] [place] [id number] Feb, [facility] [address] [id number], [place] [address] Feb, [facility] [address] [id number], [place] [id number] Feb, [facility] [address] [id number], [place] [address]345589 Feb, [facility] [address] [id number], [place] [phone] Oct, [facility] [address] [facility] [id number][place] [id number] Sep, IMMUNIZATIONS No Known Immunizations SOCIAL HISTORY Never Assessed REASON FOR VISIT EMR-[facility] PLAN OF CARE VITAL [...] 02/2015 Hospitalization History chest pain, headache, syncope, hallucination-[facility] 11/25/17 Hospitalization History [facility], depression, ptsd 11/2017 Hospitalization History via [facility] for chest pain 11/2017
--- OUTSIDE RECORDS SUMMARY | 2019-03-06 13:29 | XMS REPORT ---
Author Author Migration, Doctor Organization [facility] Address Unknown Phone Unavailable Care Team Providers Care Color Technician Name Role Phone Migration, Doctor Unavailable Unavailable PROBLEMS Type Condition ICD9-CM Code NEE92-LK Code Onset Dates Condition Status SNOMED Code Problem Inguinal hernia without mention of obstruction or gangrene, unilateral or unspecified, (not specified as recurrent) 550.90 Active 822588632 Problem Diverticulitis of colon (without mention of hemorrhage) 562.11 Active 736729221 Problem Asthma, unspecified, unspecified status 493.90 Active 97320284 Problem Esophageal reflux 530.81 Active 130159191 Problem Restless legs syndrome [RLS] 333.94 Active 77660114 Problem Allergic rhinitis, cause unspecified 477.9 Active 02125947 Problem DDD (degenerative disc disease), lumbar M51.36 Active 37002286 Problem DDD (degenerative disc disease), cervical M50.30 Active 63738394 Problem Bipolar 2 disorder F31.81 Active 34256661 Problem Cannabis use disorder, moderate, dependence F12.20 Active 37791557 Problem Reactive depression F32.9 Active 97563427 Problem Psychosis, unspecified psychosis type F29 Active 73860961 Problem DDD (degenerative disc disease), 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 Active 51043065 Problem Bipolar 1 disorder F31.9 Active 259493903 Problem Schizophrenia, unspecified type F20.9 Active 53488698 Problem Schizoaffective disorder, unspecified condition F25.9 Active 41889820 Problem Methamphetamine use disorder, 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 Active 620391821 ALLERGIES No Information ENCOUNTERS Encounter Location Date Diagnosis [facility] [address] [facility] [id number] [place] [address] Oct, [facility] [address] [id number] [id number] Sep, [facility] [address] [facility] [id number] [id number] Aug, [facility] [id number] [place] [address] Aug, Psychosis, unspecified psychosis type F29 ; Methamphetamine use disorder, 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 and Cannabis use disorder, moderate, dependence F12.20 [facility] [id number] [place] [address] Aug, [facility] [id number] [place] [address] Jul, [facility] [id number] [place] [address] Jul, [facility] [id number] [place] [id number] Jul, Psychosis, unspecified psychosis type F29 [facility] [id number] [place] [address] Jul, [facility] [id number] [place] [address] Jun, [facility] [id number] [place] [address] Jun, [facility] [id number] [place] [id number] Jun, [facility] [id number] [place] [address] Jun, Psychosis, unspecified psychosis type F29 ; Methamphetamine use disorder, 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 and Cannabis use disorder, moderate, dependence F12.20 [facility] [id number] [place] [address] May, Encounter for immunization Z23 [facility] [id number] [place] [phone] May, [facility] [id number] [place] [address] May, [facility] [id number] [place] [phone] Feb, [facility] [address] [address] Jan, [facility] [id number] [place] [address] Jan, Psychosis, unspecified psychosis type F29 [facility] [id number] [place] [address] Jan, Psychosis, unspecified psychosis type F29 ; Methamphetamine use disorder, 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 and Cannabis use disorder, moderate, dependence F12.20 [facility] [id number] [place] [address] Jan, Schizoaffective disorder, unspecified condition F25.[id number] [place] [address] [id number] December, [facility] [id number] [place] [address] December, Psychosis, unspecified psychosis type F29 ; Methamphetamine use disorder, 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 and Cannabis use disorder, moderate, dependence F12.20 [id number] [place] [address] December, Schizoaffective disorder, unspecified condition F25.9 [facility] [id number] [place] [address] [id number] December, [facility] [id number] [place] [address] [id number] Nov, Bipolar 2 disorder F31.81 and Schizophrenia, unspecified type F20.9 [facility] [id number] [place] [address] Nov, [facility] [id number] [place] [address] [id number] December, [facility] [id number] [place] [address] [id number] December, DDD (degenerative disc disease), lumbar M51.36 and Reactive depression F32.9 [facility] [id number] [place] [address] [id number] December, DDD (degenerative disc disease), cervical M50.30 and DDD (degenerative disc disease), lumbar M51.36 [facility] [id number] [place] [address] [id number] Nov, [facility] [id number] [place] [address] [id number] Nov, DDD (degenerative disc disease), lumbar M51.36 [facility] [id number] [place] [address] [id number] Nov, DDD (degenerative disc disease), lumbar M51.36 [facility] [id number] [place] [address] [id number] Oct, DDD (degenerative disc disease), lumbar M51.36 ; Reactive depression F32.9 and DDD (degenerative disc disease), cervical M50.30 [facility] [id number] [place] [address] [id number] Aug, DDD (degenerative disc disease), lumbar M51.36 and Reactive depression F32.9 [facility] [id number] [place] [address] [id number] Jul, [id number] [place] [address] [id number] Jul, DDD (degenerative disc disease), cervical M50.30 ; DDD (degenerative disc disease), 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 ; DDD (degenerative disc disease), lumbar M51.36 and Reactive depression F32.9 [id number] [place] [address] [id number] Jun, Encounter for immunization Z23 [facility] [id number] [place] [address] [id number] Mar, [facility] [id number] [place] [address] [id number] Oct, [facility] [id number] [place] [address] [phone] Sep, [facility] [id number] [place] [address] [id number] 23 Feb, 2016 Physical exam Z00.00 and Allergic rhinitis J30.9 [facility] [id number] [id number] Jul, [facility] [id number] [place] [address] [id number] Jun, Diarrhea, unspecified R19.7 [facility] [id number] [place] [address] [id number] Feb, [facility] [id number] [place] [address] [id number] Feb, Frequent headaches 784.0 and 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 [facility] [id number] [place] [address] [phone] Feb, Positive serology for Erlichiosis 082.40 [facility] [id number] [place] [address] [id number] Feb, Positive serology for Erlichiosis 082.40 [facility] [id number] [place] [address] [id number] Feb, [facility] [id number] [place] [phone] Nov, [facility] [id number] [place] [address] Nov, [facility] [id number] [place] [address] Aug, [facility] [id number] [place] [address] [id number] Aug, [facility] [id number] [place] [address] [id number] Jul, [facility] [id number] [place] [address] Jul, [facility] [id number] [place] [phone] Apr, [facility] [id number] [place] [address] [id number] Apr, [facility] [id number] [place] [phone] Apr, [facility] [place] [facility] [address] [facility] [id number] [place] [address] Apr, [facility] [place] [facility] [address] [facility] [id number] [place] [address] Apr, [facility] [address] [id number] [place] [phone] Feb, [facility] [address] [facility] [id number] [place] [id number] Feb, [facility] [place] [facility] [address] [facility] [id number] [place] [address] Feb, [facility] [place] [facility] [address] [facility] [id number] [place] [address] Feb, [facility] [address] [facility] [id number] [place] [id number] Feb, [facility] [place] [facility] [address] [facility] [id number] [address] Feb, [facility] [address] [facility] [id number] [place] [phone] Oct, [facility] [place] [facility] [address] [facility] [id number] [place] [address] Oct, [facility] [address] [facility] [id number] [place] [id number] Oct, [facility] [place] [facility] [address] [facility] [id number] [address] Oct, [facility] [address] [facility] [id number][place] [id number] Sep, [facility] [place] [facility] [address] [facility] [id number] [place] [address] Sep, [facility] [address] [facility] [id number] [place] [id number] Sep, [facility] [place] [facility] [address] [facility] [id number] [place] [address] Sep, [facility] [place] [facility] [address] [facility] [id number] [address] Jul, [facility] [address] [id number][place] [id number] Jul, [facility] [address] [facility] [id number][place] [id number] Jul, [facility] [place] [facility] [address] [facility] [id number] [place] [address] Jul, [facility] [place] [facility] [address] [facility] [id number] [place] [address] Jun, [facility] [place] [facility] [address] [facility] [id number] [address] Jun, [facility] [address] [facility] [id number][place] [id number] Jun, [facility] [place] [facility] [address]00565100[place] [address] Jun, [facility] [place] [facility] [address] [facility] [id number] [place] [address] Jun, [facility] [place] [facility] [address] [facility] [id number] [address] Jun, [facility] [place] [facility] [address] [facility] [id number] [address] Jun, [facility] [address] [facility] [id number][place] [id number] May, [facility] [place] [facility] [address] [facility] [id number] [place] [address] May, [facility] [place] [facility] [address] [facility] [id number] [place] [address] May, [facility] [place] [facility] [address] [facility] [id number] [place] [address] May, [facility] [address] [id number], [place] [id number] Apr, [facility] [address] [facility] [id number][place] [id number] Apr, [facility] [address] [id number] [place] [id number] Apr, [facility] [address] [facility] [id number] [place] [address] Apr, [facility] [place] [facility] [address] [facility] [id number] [address] Mar, [facility] [address] [id number] [place] [id number] Mar, [facility] [address] [id number] [place] [id number] Mar, [facility] [address] [id number] [place] [id number] Mar, [facility] [address] [id number] [place] [id number] Mar, [facility] [address]00565100[place] [address] Jan, [facility] [address] [facility] [id number], [place] [id number] December, [facility] [address] [facility] [id number] [place] [address] Oct, [facility] [place] [facility] [address] [facility] [id number] [place] [address] Aug, [facility] [address] [facility] [id number], [place] [id number] Jun, [facility] [place] [facility] [address] [facility] [id number] [place] [address] Jun, [facility] [address] [facility] [id number], [place] [id number] May, [facility] [place] [facility] [address] [facility] [id number] [place] [address] May, [facility] [address] [facility] [id number], [place] [id number] May, [facility] [place] [facility] [address] [address] Apr, [facility] [address] [facility] [id number], [place] [id number] Apr, [facility] [address] [facility] [id number], [place] [id number] Mar, [facility] [address] [id number], [place] [id number] Mar, [facility] [address] [facility] [id number], [place] [id number] Mar, [facility] [address] [facility] [id number] [place] [id number] Feb, [facility] [address] [id number] [address] Feb, [facility] [address] [id number], [place] [id number] Feb, [facility] [address] [id number], [place] [id number] Feb, [facility] [address] [id number][place] [id number] Oct, [facility] [address] [facility] [id number], [place] [id number] Sep, IMMUNIZATIONS No Known Immunizations SOCIAL HISTORY Never Assessed REASON FOR VISIT EMR-[facility] PLAN OF CARE VITAL SIGNS MEDICATIONS Unknown [...] repair x 2--inguinal 2013 Hospitalization History Via [facility] x 4 days due to Tick fever 02/2015 Hospitalization History chest pain, headache, syncope, hallucination-[facility] 11/25/17 Hospitalization [facility], depression, ptsd 11/2017 Hospitalization History via [facility] [place] for chest pain 11/2017
--- OUTSIDE RECORDS SUMMARY | 2019-03-06 13:29 | XMS REPORT ---
Author Author Migration, Doctor Organization [facility] Address Unknown Phone Unavailable Care Team Providers Care Deburrer Strip Name Role Phone Migration, Doctor Unavailable Unavailable PROBLEMS Type Condition ICD9-CM Code XIL15-HX Code Onset Dates Condition Status SNOMED Code Problem Inguinal hernia without mention of obstruction or gangrene, unilateral or unspecified, (not specified as recurrent) 550.90 Active 104652820 Problem Diverticulitis of colon (without mention of hemorrhage) 562.11 Active 731275512 Problem Asthma, unspecified, unspecified status 493.90 Active 95702074 Problem Esophageal reflux 530.81 Active 220625069 Problem Restless legs syndrome [RLS] 333.94 Active 36921368 Problem Allergic rhinitis, cause unspecified 477.9 Active 56860607 Problem DDD (degenerative disc disease), lumbar M51.36 Active 31109202 Problem DDD (degenerative disc disease), cervical M50.30 Active 25795062 Problem Bipolar 2 disorder F31.81 Active 02404280 Problem Cannabis use disorder, moderate, dependence F12.20 Active 83813405 Problem Reactive depression F32.9 Active 11186993 Problem Psychosis, unspecified psychosis type F29 Active 47856873 Problem DDD (degenerative disc disease), 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 Active 87672476 Problem Bipolar 1 disorder F31.9 Active 685775021 Problem Schizophrenia, unspecified type F20.9 Active 90458513 Problem Schizoaffective disorder, unspecified condition F25.9 Active 72665719 Problem Methamphetamine use disorder, 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 Active 653385851 ALLERGIES No Information ENCOUNTERS Encounter Location Date Diagnosis [facility] [address] [facility] [id number] [place] [address] Oct, [facility] [address] [id number] [id number] Sep, [facility] [address] [facility] [id number] [id number] Aug, [facility] [id number] [place] [address] Aug, Psychosis, unspecified psychosis type F29 ; Methamphetamine use disorder, 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 and Cannabis use disorder, moderate, dependence F12.20 [facility] [id number] [place] [address] Aug, [facility] [id number] [place] [address] Jul, [facility] [id number] [place] [address] Jul, [facility] [id number] [place] [address] Jul, Psychosis, unspecified psychosis type F29 [facility] [id number] [place] [address] Jul, [facility] [id number] [place] [address] Jun, [facility] [id number] [place] [address] Jun, [facility] [id number] [place] [address] Jun, [facility] [id number] [place] [address] Jun, Psychosis, unspecified psychosis type F29 ; Methamphetamine use disorder, 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 and Cannabis use disorder, moderate, dependence F12.20 [facility] [id number] [place] [address] May, Encounter for immunization Z23 [facility] [id number] [place] [address] May, [facility] [id number] [place] [address] May, [facility] [id number] [place] [address] Feb, [facility] [address] [address] Jan, [facility] [id number] [place] [address] Jan, Psychosis, unspecified psychosis type F29 [facility] [id number] [place] [address] Jan, Psychosis, unspecified psychosis type F29 ; Methamphetamine use disorder, 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 and Cannabis use disorder, moderate, dependence F12.20 [facility] [id number] [place] [address] Jan, Schizoaffective disorder, unspecified condition F25.[id number] [place] [address] [id number] December, [facility] [id number] [place] [address] December, Psychosis, unspecified psychosis type F29 ; Methamphetamine use disorder, 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 and Cannabis use disorder, moderate, dependence F12.20 [place] [place] [id number] [place] [address] December, Schizoaffective disorder, unspecified condition F25.9 [facility] [id number] [place] [address] [id number] December, [facility] [id number] [place] [address] [id number] Nov, Bipolar 2 disorder F31.81 and Schizophrenia, unspecified type F20.9 [facility] [id number] [place] [address] Nov, [facility] [id number] [place] [address] [id number] December, [facility] [id number] [place] [address] [id number] December, DDD (degenerative disc disease), lumbar M51.36 and Reactive depression F32.9 [facility] [id number] [place] [address] [id number] December, DDD (degenerative disc disease), cervical M50.30 and DDD (degenerative disc disease), lumbar M51.36 [facility] [id number] [place] [address] [id number] Nov, [facility] [id number] [place] [address] [id number] Nov, DDD (degenerative disc disease), lumbar M51.36 [facility] [id number] [place] [address] [id number] Nov, DDD (degenerative disc disease), lumbar M51.36 [facility] [id number] [place] [address] [id number] Oct, DDD (degenerative disc disease), lumbar M51.36 ; Reactive depression F32.9 and DDD (degenerative disc disease), cervical M50.30 [facility] [id number] [place] [address] [id number] Aug, DDD (degenerative disc disease), lumbar M51.36 and Reactive depression F32.9 [facility] [id number] [place] [address] [id number] Jul, [place] [place] [id number] [place] [address] [id number] Jul, DDD (degenerative disc disease), cervical M50.30 ; DDD (degenerative disc disease), 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 ; DDD (degenerative disc disease), lumbar M51.36 and Reactive depression F32.9 [address] [place] [id number] [place] [address] [id number] Jun, Encounter for immunization Z23 [facility] [id number] [place] [address] [id number] Mar, [facility] [id number] [place] [address] [id number] Oct, [facility] [id number] [place] [address] [id number] Sep, [facility] [id number] [place] [address] [id number] 23 Feb, 2016 Physical exam Z00.[address] All[address]30.[address] [facility] [id number] [id number] Jul, [facility] [id number] [place] [address] [id number] Jun, Diarrhea, unspecified R19.7 [facility] [id number] [place] [address] [id number] Feb, [facility] [id number] [place] [address] [id number] Feb, Frequent headaches 784.0 and 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 [facility] [id number] [place] [address] [id number] Feb, Positive serology for Erlichiosis 082.40 [facility] [id number] [place] [address] [id number] Feb, Positive serology for Erlichiosis 082.40 [facility] [id number] [place] [address] [id number] Feb, [facility] [id number] [place] [address] Nov, [facility] [id number] [place] [address] Nov, [facility] [id number] [place] [address] Aug, [facility] [id number] [place] [address] [id number] Aug, [facility] [id number] [place] [address] [id number] Jul, [facility] [id number] [place] [address] Jul, [facility] [id number] [place] [address] Apr, [facility] [id number] [place] [address] [id number] Apr, [facility] [id number] [place] [address] Apr, [facility] [place] [facility] [address] [facility] [id number] [place] [address] Apr, [facility] [place] [facility] [address] [facility] [id number] [place] [address] Apr, [facility] [address] [id number] [place] [id number] Feb, [facility] [address] [facility] [id number] [place] [id number] Feb, [facility] [place] [facility] [address] [facility] [id number] [place] [address] Feb, [facility] [place] [facility] [address] [facility] [id number] [place] [address] Feb, [facility] [address] [facility] [id number] [place] [id number] Feb, [facility] [place] [facility] [address] [facility] [id number] [address] Feb, [facility] [address] [facility] [id number] [place] [id number] Oct, [facility] [place] [facility] [address] [facility] [id number] [place] [address] Oct, [facility] [address] [facility] [id number] [place] [id number] Oct, [facility] [place] [facility] [address] [facility] [id number], [place] [address] Oct, [facility] [address] [facility] [id number][place] [id number] Sep, [facility] [place] [facility] [address] [facility] [id number] [place] [address] Sep, [facility] [address] [facility] [id number] [place] [id number] Sep, [facility] [place] [facility] [address] [facility] [id number] [place] [address] Sep, [facility] [place] [facility] [address] [facility] [id number] [address] Jul, [facility] [address] [id number][place] [id number] Jul, [facility] [address] [facility] [id number][place] [id number] Jul, [facility] [place] [facility] [address] [facility] [id number], [place] [address] Jul, [facility] [place] [facility] [address] [facility] [id number], [place] [address] Jun, [facility] [place] [facility] [address] [facility] [id number] [address] Jun, [facility] [address] [facility] [id number], [place] [id number] Jun, [facility] [place] [facility] [address] [address] Jun, [facility] [place] [facility] [address] [facility] [id number], [place] [address] Jun, [facility] [place] [facility] [address] [facility] [id number], [place] [address] Jun, [facility] [place] [facility] [address] [facility] [id number], [place] [address] Jun, [facility] [address] [facility] [id number][place] [id number] May, [facility] [place] [facility] [address] [facility] [id number], [place] [address] May, [facility] [place] [facility] [address] [facility] [id number], [place] [address] May, [facility] [place] [facility] [address] [facility] [id number], [place] [address] May, [facility] [address] [id number], [place] [id number] Apr, [facility] [address] [facility] [id number][place] [id number] Apr, [facility] [address] [id number] [place] [id number] Apr, [facility] [address] [facility] [id number], [place] [address] Apr, [facility] [place] [facility] [address] [facility] [id number], [place] [address] Mar, [facility] [address] [id number] [place] [id number] Mar, [facility] [address] [id number] [place] [id number] Mar, [facility] [address] [id number] [place] [id number] Mar, [facility] [address] [id number] [place] [id number] Mar, [facility] [address]65[address] [address] Jan, [facility] [address] [facility] [id number], [place] [id number] December, [facility] [address] [facility] [id number], [place] [address] Oct, [facility] [place] [facility] [address] [facility] [id number] [address] Aug, [facility] [address] [facility] [id number][place] [id number] Jun, [facility] [place] [facility] [address] [facility] [id number], [place] [address] Jun, [facility] [address] [facility] [id number], [place] [id number] May, [facility] [place] [facility] [address] [facility] [id number], [place] [address] May, [facility] [address] [facility] [id number], [place] [id number] May, [facility] [place] [facility] [address]100[place] [address] Apr, [facility] [address] [facility] [id number], [place] [id number] Apr, [facility] [address] [facility] [id number], [place] [id number] Mar, [facility] [address] [id number], [place] [id number] Mar, [facility] [address] [facility] [id number], [place] [id number] Mar, [facility] [address] [facility] [id number] [place] [id number] Feb, [facility] [address] [id number] [address] Feb, [facility] [address] [id number], [place] [id number] Feb, [facility] [address] [id number], [place] [id number] Feb, [facility] [address] [id number], [place] [id number] Oct, [facility] [address] [facility] [id number], [place] [id number] Sep, IMMUNIZATIONS No Known Immunizations SOCIAL HISTORY Never Assessed REASON FOR VISIT EMR-[facility] PLAN OF CARE VITAL SIGNS MEDICATIONS Unknown [...] repair x 2--inguinal 2013 Hospitalization History Via [facility] x 4 days due to Tick fever 02/2015 Hospitalization History chest pain, headache, syncope, hallucination-[facility] 11/25/17 Hospitalization History [facility], depression, ptsd 11/2017 Hospitalization History via [facility] for chest pain 11/2017
[2019-03-06] MEDS ORDERED: ASPIRIN 81 MG CHEW (CHILDREN'S ASA) PO ONE (13:30)
[2019-03-06] MEDS ORDERED: ALPRAZolam 0.25 MG (XANAX) TAB PO ONE (13:30)
--- OUTSIDE RECORDS SUMMARY | 2019-03-06 13:30 | XMS REPORT ---
Author Author MAIRTO SAMUELS Organization [facility] Address [address] [place] [address] Care Team Providers Care Talent Manager Name Role Phone MARITO SAMUELS Unavailable PROBLEMS Type Condition ICD9-CM Code HLY50-XU Code Onset Dates Condition Status SNOMED Code Problem DDD (degenerative disc disease), lumbar M51.36 Active 20580441 Problem Bipolar 2 disorder F31.81 Active 00405667 Problem DDD (degenerative disc disease), cervical M50.30 Active 62744256 Problem Psychosis, unspecified psychosis type F29 Active 04063539 Problem Cannabis use disorder, moderate, dependence F12.20 Active 37359024 Problem Schizophrenia, unspecified type F20.9 Active 17114675 Problem Bipolar 1 disorder F31.9 Active 657740185 Problem Methamphetamine use disorder, 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 Active 741461580 Problem Schizoaffective disorder, unspecified condition F25.9 Active 49217908 Problem Diverticulitis of colon (without mention of hemorrhage) 562.11 Active 015106171 Problem Inguinal hernia without mention of obstruction or gangrene, unilateral or unspecified, (not specified as recurrent) 550.90 Active 652408578 Problem Allergic rhinitis, cause unspecified 477.9 Active 14022945 Problem Restless legs syndrome [RLS] 333.94 Active 10806374 Problem Esophageal reflux 530.81 Active 381219799 Problem DDD (degenerative disc disease), 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 Active 56496303 Problem Asthma, unspecified, unspecified status 493.90 Active 99906453 Problem Reactive depression F32.9 Active 45570204 ALLERGIES No Information ENCOUNTERS Encounter Location Date Diagnosis [facility] [address] [facility] [id number], [place] [address] Jul, [facility] [address] [facility] [place] [id number], [place] [address] Jul, Psychosis, unspecified psychosis type F29 [facility] [address] [address] Jul, [facility] [id number] [place] [address] Jun, [facility] [id number] [place] [address] Jun, [facility] [id number] [place] [address] Jun, [facility] [id number] [place] [address] Jun, Psychosis, unspecified psychosis type F29 ; Methamphetamine use disorder, 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 and Cannabis use disorder, moderate, dependence F12.20 [facility] [id number] [place] [address] May, Encounter for immunization Z23 [facility] [id number] [place] [address] May, [facility] [id number] [place] [address] May, [facility] [id number] [place] [address] Feb, [facility] [id number] [place] [address] Jan, [facility] [id number] [place] [address] Jan, Psychosis, unspecified psychosis type F29 [facility] [address] [place] [address] Jan, Psychosis, unspecified psychosis type F29 ; Methamphetamine use disorder, 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 and Cannabis use disorder, moderate, dependence F12.20 [facility] [address] [address] Jan, Schizoaffective disorder, unspecified condition F25.9 [facility] [id number] [place] [id number] December, [facility] [address] [address] December, Psychosis, unspecified psychosis type F29 ; Methamphetamine use disorder, 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 and Cannabis use disorder, moderate, dependence F12.20 [facility] [address] [address] December, Schizoaffective disorder, unspecified condition F25.9 [facility] [id number] [place] [address] [id number] December, [facility] [address] [id number] Nov, Bipolar 2 disorder F31.81 and Schizophrenia, unspecified type F20.9 [facility] [id number] [place] [address] Nov, [facility] [id number] [place] [address] [id number] December, [facility] [id number] [place] [address] [id number] December, DDD (degenerative disc disease), lumbar M51.36 and Reactive depression F32.9 [facility] [id number] [place] [address] [id number] December, DDD (degenerative disc disease), cervical M50.30 and DDD (degenerative disc disease), lumbar M51.36 [facility] [id number] [place] [address] [id number] Nov, [facility] [id number] [place] [address] [id number] Nov, DDD (degenerative disc disease), lumbar M51.36 [facility] [id number] [place] [address] [id number] Nov, DDD (degenerative disc disease), lumbar M51.36 [facility] [id number] [place] [id number] Oct, DDD (degenerative disc disease), lumbar M51.36 ; Reactive depression F32.9 and DDD (degenerative disc disease), cervical M50.30 [id number] [place] [address] [id number] Aug, DDD (degenerative disc disease), lumbar M51.36 and Reactive depression F32.9 [id number] [place] [address] [id number] Jul, [address] [id number] Jul, DDD (degenerative disc disease), cervical M50.30 ; DDD (degenerative disc disease), 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 ; DDD (degenerative disc disease), lumbar M51.36 and Reactive depression F32.9 [id number] [place] [address] [id number] Jun, Encounter for immunization Z23 [id number] [place] [id number] Mar, [address] [id number] Oct, [id number] [place] [address] [id number] Sep, [address] [id number] Sep, Physical exam Z00.00 and Allergic rhinitis J30.[address] [place] [id number] Jul, [address] [id number] Jun, Diarrhea, unspecified R19.7 [id number] [place] [id number] Feb, [address] [id number] Feb, Frequent headaches 784.0 and 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 [id number] [place] [address] [id number] Feb, Positive serology for Erlichiosis 082.40 [address] [id number] [id number] Feb, Positive serology for Erlichiosis 082.40 [facility] [address] [facility] [id number] [place] [id number] Feb, [facility] [address] [id number], [place] [address] Nov, [facility] [address], [place] [address] Nov, [facility] [address] [id number], [place] [address] Aug, [facility] [address] [facility] [id number] [place] [id number] Aug, [facility] [address] [id number] [place] [id number] Jul, [facility] [address], [place] [address] Jul, [facility] [address], [place] [address] Apr, [facility] [address] [facility] [id number] [place] [id number] Apr, [facility] [address], [place] [address] Apr, [facility] [address], [place] [address] Apr, [facility] [address], [place] [address] Apr, [facility] [address] [facility] [id number] [place] [id number] Feb, [facility] [address] [facility] [id number] [place] [id number] Feb, [facility] [address], [place] [address] Feb, [facility] [address], [place] [address] Feb, [facility] [address] [id number] [place] [id number] Feb, [facility] [address] [id number], [place] [address] Feb, [facility] [address] [id number] [place] [id number] Oct, [facility] [address] [facility] [place] [facility] [id number], [place] [address] Oct, [facility] [address] [id number] [place] [id number] Oct, [facility] [address] [facility] [place] [id number], [place] [address] Oct, [facility] [address] [id number] [place] [id number] Sep, [facility] [address] [id number], [place] [address] Sep, [facility] [address] [id number] [place] [id number] Sep, [facility] [address], [place] [address] Sep, [facility] [address] [facility] [place] [id number], [place] [address] Jul, [facility] [address] [id number] [place] [id number] Jul, [facility] [address] [id number] [place] [id number] Jul, [facility] [address] [facility] [place] [id number], [place] [address] Jul, [facility] [address] [facility] [place] [id number], [place] [address] Jun, [facility] [address] [facility] [place] [id number], [place] [address] Jun, [facility] [address] [id number] [place] [id number] Jun, [facility] [address] [facility] [place] [id number], [place] [address] Jun, [facility] [address] [facility] [place] [id number], [place] [address] Jun, [facility] [address] [facility] [place] [id number], [place] [address] Jun, [facility] [address] [facility] [place] [id number][place] [address] Jun, [facility] [address] [id number] [place] [id number] May, [facility] [address] [facility] [place] [id number], [place] [address] May, [facility] [address], [place] [address] May, [facility] [address] [facility] [place] [id number], [place] [address] May, [facility] [address] [id number] [place] [id number] Apr, [facility] [address] [id number] [place] [id number] Apr, [facility] [address] [id number] [place] [id number] Apr, [facility] [address] [facility] [place] [id number], [place] [address] Apr, [facility] [address] [facility] [place] [id number], [place] [address] Mar, [facility] [address] [id number] [place] [id number] Mar, [facility] [address] [id number] [place] [id number] Mar, [facility] [address] [id number] [place] [id number] Mar, [facility] [address] [id number] [place] [id number] Mar, [facility] [address] [facility] [place] [id number], [place] [address] Jan, [facility] [address] [id number] [place] [id number] December, [facility] [address] [facility] [place] [id number], [place] [address] Oct, [facility] [address] [facility] [place] [id number], [place] [address] Aug, [facility] [address] [id number] [place] [id number] Jun, [facility] [address] [id number], [place] [address] Jun, [facility] [address] [id number] [place] [id number] May, [facility] [address] [facility] [place] [id number], [place] [address] May, [facility] [address] [id number] [place] [id number] May, [facility] [address], [place] [address] Apr, [facility] [address] [id number] [place] [id number] Apr, [facility] [address] [id number] [place] [id number] Mar, [facility] [address] [id number] [place] [id number] Mar, [facility] [address] [id number] [place] [id number] Mar, [facility] [address] [id number] [place] [id number] Feb, [facility] [address] [facility] [place] [id number], [place] [address] Feb, [facility] [address] [id number] [place] [id number] Feb, [facility] [address] [facility] [id number] [place] [id number] Feb, [facility] [address] [facility] [id number] [place] [id number] Oct, [facility] [address] [facility] [id number] [place] [id number] Sep, IMMUNIZATIONS No Known Immunizations SOCIAL HISTORY Never Assessed REASON FOR VISIT [facility] PLAN OF CARE VITAL SIGNS MEDICATIONS Unknown [...] repair x 2--inguinal 2012 Hospitalization History [facility] x 4 days due to Tick fever 02/2015 Hospitalization History chest pain, headache, syncope, hallucination-[facility] 11/25/17 Hospitalization [facility], depression, ptsd 11/2017 Hospitalization History via [facility] for chest pain 11/2017
--- OUTSIDE RECORDS SUMMARY | 2019-03-06 13:30 | XMS REPORT ---
Author Author SHIRA SALINAS [facility] [address] Address [address] [place] [address] Care Team Providers Care Engineer Rf Deployment Name Role Phone SHIRA SALINAS Unavailable PROBLEMS Type Condition ICD9-CM Code XBP48-WC Code Onset Dates Condition Status SNOMED Code Problem DDD (degenerative disc disease), lumbar M51.36 Active 75566080 Problem Bipolar 2 disorder F31.81 Active 08091869 Problem DDD (degenerative disc disease), cervical M50.30 Active 35947324 Problem Psychosis, unspecified psychosis type F29 Active 94362675 Problem Cannabis use disorder, moderate, dependence F12.20 Active 15178887 Problem Schizophrenia, unspecified type F20.9 Active 17980792 Problem Bipolar 1 disorder F31.9 Active 147705681 Problem Methamphetamine use disorder, 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 Active 965046566 Problem Schizoaffective disorder, unspecified condition F25.9 Active 45755568 Problem Diverticulitis of colon (without mention of hemorrhage) 562.11 Active 819079361 Problem Inguinal hernia without mention of obstruction or gangrene, unilateral or unspecified, (not specified as recurrent) 550.90 Active 934816981 Problem Allergic rhinitis, cause unspecified 477.9 Active 13389817 Problem Restless legs syndrome [RLS] 333.94 Active 60044708 Problem Esophageal reflux 530.81 Active 693081693 Problem DDD (degenerative disc disease), 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 Active 52903398 Problem Asthma, unspecified, unspecified status 493.90 Active 35983240 Problem Reactive depression F32.9 Active 99810175 ALLERGIES No Information ENCOUNTERS Encounter Location Date Diagnosis [facility] [address] [facility] [id number] [place] [address] Jul, [facility] [address] [facility] [id number] [place] [address] Jul, Psychosis, unspecified psychosis type F29 [facility] [id number] [place] [address] Jul, [facility] [id number] [place] [address] Jun, [facility] [id number] [place] [address] Jun, [facility] [address] [address] Jun, [facility] [id number] [place] [address] Jun, Psychosis, unspecified psychosis type F29 ; Methamphetamine use disorder, 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 and Cannabis use disorder, moderate, dependence F12.20 [facility] [id number] [place] [address] May, Encounter for immunization Z23 [facility] [id number] [place] [address] May, [facility] [id number] [place] [address] May, [facility] [id number] [place] [address] Feb, [facility] [id number] [place] [address] Jan, [facility] [id number] [place] [address] Jan, Psychosis, unspecified psychosis type F29 [facility] [address] [place] [address] Jan, Psychosis, unspecified psychosis type F29 ; Methamphetamine use disorder, 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 and Cannabis use disorder, moderate, dependence F12.20 [facility] [address] [place] [address] Jan, Schizoaffective disorder, unspecified condition F25.[address] [place] [id number] [place] [phone] December, [facility] [address] [address] December, Psychosis, unspecified psychosis type F29 ; Methamphetamine use disorder, 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 and Cannabis use disorder, moderate, dependence F12.20 [facility] [address] [address] December, Schizoaffective disorder, unspecified condition F25.9 [facility] [id number] [place] [id number] December, [address] [id number] Nov, Bipolar 2 disorder F31.81 and Schizophrenia, unspecified type F20.9 [address] [id number] [place] [address] Nov, [facility] [id number] [place] [address] [id number] December, [facility] [id number] [place] [address] [id number] December, DDD (degenerative disc disease), lumbar M51.36 and Reactive depression F32.9 [facility] [id number] [place] [address] [id number] December, DDD (degenerative disc disease), cervical M50.30 and DDD (degenerative disc disease), lumbar M51.36 [facility] [id number] [place] [address] [id number] Nov, [facility] [id number] [place] [address] [id number] Nov, DDD (degenerative disc disease), lumbar M51.36 [facility] [id number] [place] [address] [id number] Nov, DDD (degenerative disc disease), lumbar M51.36 [facility] [id number] [place] [address] [id number] Oct, DDD (degenerative disc disease), lumbar M51.36 ; Reactive depression F32.9 and DDD (degenerative disc disease), cervical M50.30 [id number] [place] [id number] Aug, DDD (degenerative disc disease), lumbar M51.36 and Reactive depression F32.9 [address] [id number] [place] [address] [id number] Jul, [address] [id number] Jul, DDD (degenerative disc disease), cervical M50.30 ; DDD (degenerative disc disease), 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 ; DDD (degenerative disc disease), lumbar M51.36 and Reactive depression F32.[address] [id number] Jun, Encounter for immunization Z23 [address] [id number] Mar, [address] [id number] Oct, [address] [id number] Sep, [address] [id number] Sep, Physical exam Z00.00 and Allergic rhinitis J30.[address] [id number] Jul, [address] [id number] Jun, Diarrhea, unspecified R19.7 [address] [id number] [place] [id number] Feb, [address] [id number] Feb, Frequent headaches 784.0 and 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 [address] [id number] [place] [address] [id number] Feb, Positive serology for Erlichiosis 082.40 [address] [id number] Feb, Positive serology for Erlichiosis 082.40 [facility] [address] [facility] [id number][place] [id number] Feb, [facility] [place] [facility] [id number] [address] Nov, [facility] [place] [facility] [address] [address] Nov, [facility] [place] [facility] [address] [id number] [address] Aug, [facility] [address] [id number] [id number] Aug, [facility] [address] [id number] [id number] Jul, [facility] [place] [facility] [address] [address] Jul, [facility] [place] [facility] [address] [address] Apr, [facility] [address] [id number] [id number] Apr, [facility] [place] [facility] [address] [address] Apr, [facility] [place] [facility] [address] [address] Apr, [facility] [place] [facility] [address] [address] Apr, [facility] [address] [facility] [id number][place] [id number] Feb, [facility] [address] [facility] [id number][place] [id number] Feb, [facility] [place] [facility] [address] [address] Feb, [facility] [place] [facility] [address] [address] Feb, [facility] [address] [id number] [place] [id number] Feb, [facility] [place] [facility] [address] [id number] [place] [address] Feb, [facility] [address] [id number] [place] [id number] Oct, [facility] [place] [facility] [address] [facility] [id number] [place] [address] Oct, [facility] [address] [id number] [place] [id number] Oct, [facility] [place] [facility] [address] [facility] [id number] [place] [address] Oct, [facility] [address] [id number] [place] [id number] Sep, [facility] [place] [facility] [address] [address] Sep, [facility] [address] [id number] [place] [id number] Sep, [facility] [place] [facility] [address] [address] Sep, [facility] [place] [facility] [address] [facility] [id number] [place] [address] Jul, [facility] [address] [id number] [place] [id number] Jul, [facility] [address] [id number][place] [id number] Jul, [facility] [place] [facility] [address] [facility] [id number] [place] [address] Jul, [facility] [place] [facility] [address] [facility] [id number] [place] [address] Jun, [facility] [place] [facility] [address] [facility] [id number] [place] [address] Jun, [facility] [address] [id number][place] [id number] Jun, [facility] [address] [facility] [id number] [place] [address] Jun, [facility] [place] [facility] [address] [id number] [address] Jun, [facility] [address] [address] Jun, [facility] [place] [facility] [address] [facility] [id number] [place] [address] Jun, [facility] [address] [facility] [id number][place] [id number] May, [facility] [place] [facility] [address] [address] May, [facility] [address] [address] May, [facility] [place] [facility] [address] [address] May, [facility] [address] [id number][place] [id number] Apr, [facility] [address] [id number][place] [id number] Apr, [facility] [address] [id number][place] [address] Apr, [facility] [place] [facility] [address] [address] Apr, [facility] [place] [facility] [address] [facility] [id number] [place] [address] Mar, [facility] [address] [id number], [place] [id number] Mar, [facility] [address] [id number][place] [id number] Mar, [facility] [address] [id number][place] [id number] Mar, [facility] [address] [id number] [place] [id number] Mar, [facility] [address] [id number] [place] [address] Jan, [facility] [address] [id number][place] [id number] December, [facility] [place] [facility] [address] [facility] [id number] [place] [address] Oct, [facility] [place] [facility] [address] [facility] [id number] [place] [address] Aug, [facility] [address] [id number] [place] [id number] Jun, [facility] [place] [facility] [address] [facility] [id number] [place] [address] Jun, [facility] [address] [id number][place] [id number] May, [facility] [address] [facility] [id number] [place] [address] May, [facility] [address] [id number], [place] [id number] May, [facility] [address] [facility] [id number] [place] [address] Apr, [facility] [address] [id number], [place] [id number] Apr, [facility] [address] [id number][place] [id number] Mar, [facility] [address] [id number], [place] [id number] Mar, [facility] [address] [id number] [place] [id number] Mar, [facility] [address] [id number], [place] [id number] Feb, [facility] [place] [facility] [address] [facility] [id number] [place] [address] Feb, [facility] [address] [id number] [place] [id number] Feb, [facility] [address] [facility] [id number] [place] [id number] Feb, [facility] [address] [facility] [id number] [place] [id number] Oct, [facility] [address] [facility] [id number] [place] [id number] Sep, IMMUNIZATIONS No Known Immunizations SOCIAL HISTORY Never Assessed REASON FOR VISIT Transport PLAN OF CARE VITAL SIGNS MEDICATIONS Unknown [...] repair x 2--inguinal 2012 Hospitalization History [facility] x 4 days due to Tick fever 02/2015 Hospitalization History chest pain, headache, syncope, hallucination-[facility] 11/25/17 [facility]ization [facility], depression, ptsd 11/2017 Hospitalization History via [facility] for chest pain 11/2017
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
--- OUTSIDE RECORDS SUMMARY | 2019-03-06 13:30 | XMS REPORT ---
Author Author MARITO DAILY Organization [facility] Address [address] [place] [address] Care Team Providers Care Personal Coach Name Role Phone MARITO DAILY Unavailable PROBLEMS Type Condition ICD9-CM Code ZYH05-WU Code Onset Dates Condition Status SNOMED Code Problem DDD (degenerative disc disease), lumbar M51.36 Active 99209612 Problem Bipolar 2 disorder F31.81 Active 06321596 Problem DDD (degenerative disc disease), cervical M50.30 Active 64170930 Problem Psychosis, unspecified psychosis type F29 Active 98077869 Problem Cannabis use disorder, moderate, dependence F12.20 Active 29351899 Problem Schizophrenia, unspecified type F20.9 Active 90597133 Problem Bipolar 1 disorder F31.9 Active 503838232 Problem Methamphetamine use disorder, 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 Active 854102712 Problem Schizoaffective disorder, unspecified condition F25.9 Active 51233887 Problem Diverticulitis of colon (without mention of hemorrhage) 562.11 Active 044883197 Problem Inguinal hernia without mention of obstruction or gangrene, unilateral or unspecified, (not specified as recurrent) 550.90 Active 034005439 Problem Allergic rhinitis, cause unspecified 477.9 Active 04974870 Problem Restless legs syndrome [RLS] 333.94 Active 96333215 Problem Esophageal reflux 530.81 Active 799203718 Problem DDD (degenerative disc disease), 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 Active 86291633 Problem Asthma, unspecified, unspecified status 493.90 Active 47615061 Problem Reactive depression F32.9 Active 17935510 ALLERGIES No Information ENCOUNTERS Encounter Location Date Diagnosis [facility] [address] [facility] [id number] [address] Jul, [facility] [address] [facility] [id number] [address] Jul, [facility] [address] [id number] [address] Jul, Psychosis, unspecified psychosis type F29 [facility] [id number] [place] [id number] Jul, [facility] [id number] [place] [address] Jun, [facility] [id number] [place] [address] Jun, [facility] [id number] [place] [phone] Jun, [facility] [id number] [place] [address] Jun, Psychosis, unspecified psychosis type F29 ; Methamphetamine use disorder, 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 and Cannabis use disorder, moderate, dependence F12.20 [place] [id number] [place] [address] May, Encounter for immunization Z23 [facility] [id number] [place] [phone] May, [facility] [id number] [place] [address] May, [facility] [id number] [place] [address] Feb, [facility] [id number] [place] [address] Jan, [facility] [id number] [place] [address] Jan, Psychosis, unspecified psychosis type F29 [facility] [id number] [place] [address] Jan, Psychosis, unspecified psychosis type F29 ; Methamphetamine use disorder, 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 and Cannabis use disorder, moderate, dependence F12.20 [facility] [address] [address] Jan, Schizoaffective disorder, unspecified condition F25.9 [facility] [id number] [place] [phone] December, [place] [id number] [place] [phone] December, Psychosis, unspecified psychosis type F29 ; Methamphetamine use disorder, 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 and Cannabis use disorder, moderate, dependence F12.20 [place] [id number] [place] [address] December, Schizoaffective disorder, unspecified condition F25.9 [facility] [id number] [place] [address] [phone] December, [facility] [id number] [place] [address] [phone] Nov, Bipolar 2 disorder F31.81 and Schizophrenia, unspecified type F20.9 [place] [address] [address] Nov, [facility] [id number] [place] [address] [phone] December, [facility] [address] [id number] December, DDD (degenerative disc disease), lumbar M51.36 and Reactive depression F32.9 [facility] [id number] [place] [address] [phone] December, DDD (degenerative disc disease), cervical M50.30 and DDD (degenerative disc disease), lumbar M51.36 [facility] [id number] [place] [address] [id number] Nov, [facility] [address] [id number] Nov, DDD (degenerative disc disease), lumbar M51.36 [facility] [id number] [place] [address] [id number] Nov, DDD (degenerative disc disease), lumbar M51.36 [facility] [id number] [place] [address] [id number] Oct, DDD (degenerative disc disease), lumbar M51.36 ; Reactive depression F32.9 and DDD (degenerative disc disease), cervical M50.30 [facility] [id number] [place] [address] [id number] Aug, DDD (degenerative disc disease), lumbar M51.36 and Reactive depression F32.9 [facility] [id number] [place] [address] [id number] Jul, [facility] [id number] [place] [address] [id number] Jul, DDD (degenerative disc disease), cervical M50.30 ; DDD (degenerative disc disease), 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 ; DDD (degenerative disc disease), lumbar M51.36 and Reactive depression F32.9 [facility] [id number] [place] [address] [phone] Jun, Encounter for immunization Z23 [facility] [id number] [place] [address] [id number] Mar, [facility] [id number] [place] [address] [phone] Oct, [place] [id number] [place] [address] [phone] Sep, [place] [address] [id number] Sep, Physical exam Z00.00 and Allergic rhinitis J30.9 [facility] [id number] [place] [address] [id number] Jul, [facility] [id number] [place] [address] [phone] Jun, Diarrhea, unspecified R19.7 [facility] [id number] [place] [address] [id number] Feb, [facility] [id number] [place] [address] [phone] Feb, Frequent headaches 784.0 and 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 [facility] [address] [place] [id number] Feb, Positive serology for Erlichiosis 082.40 [facility] [place] [address] [facility] [id number] [id number] Feb, Positive serology for Erlichiosis 082.40 [facility] [place] [address] [facility] [id number][place] [id number] Feb, [facility] [place] [facility] [address] [address] Nov, [facility] [place] [facility] [address] [address] Nov, [facility] [place] [facility] [id number] [place] [phone] Aug, [facility] [place] [id number][place] [id number] Aug, [facility] [place] [id number][place] [id number] Jul, [facility] [place] [facility] [address] [address] Jul, [facility] [place] [facility] [address] [address] Apr, [facility] [place] [id number][place] [id number] Apr, [facility] [place] [facility] [address] [address] Apr, [facility] [place] [facility] [address] [address] Apr, [facility] [place] [facility] [id number] [address] Apr, [facility] [place] [address] [id number] [id number] Feb, [facility] [place] [address] [id number][place] [id number] Feb, [facility] [place] [facility] [address] [address] Feb, [facility] [address] [facility] [id number] [place] [address] Feb, [facility] [place] [address] [facility] [id number] [place] [id number] Feb, [facility] [place] [facility] [address] [id number] [address] Feb, [facility] [place] [address] [facility] [id number] [place] [id number] Oct, [facility] [place] [facility] [address] [facility] [id number] [address] Oct, [facility] [place] [address] [facility] [id number] [place] [id number] Oct, [facility] [place] [facility] [address] [id number] [address] Oct, [facility] [place] [address] [id number][place] [id number] Sep, [facility] [place] [facility] [address] [id number] [address] Sep, [facility] [place] [address] [id number] [place] [id number] Sep, [facility] [place] [facility] [address] [address] Sep, [facility] [place] [facility] [address] [address] Jul, [facility] [place] [address] [facility] [id number][place] [id number] Jul, [facility] [place] [address] [facility] [id number][place] [id number] Jul, [facility] [place] [facility] [address] [facility] [id number] [place] [address] Jul, [facility] [place] [facility] [address] [id number] [address] Jun, [facility] [place] [facility] [address] [facility] [id number] [place] [address] 15 Jun, 2013 [facility] [place] [address] [id number][place] [id number] Jun, [facility] [place] [facility] [address] [facility] [id number] [place] [address] Jun, [facility] [place] [facility] [address] [facility] [id number] [place] [address] Jun, [facility] [place] [facility] [address] [facility] [id number] [address] Jun, [facility] [place] [facility] [address] [facility] [id number] [place] [address] Jun, [facility] [place] [address] [facility] [id number][place] [id number] May, [facility] [address] [address] May, [facility] [facility] [address] [facility] [id number] [place] [address] May, [facility] [place] [facility] [address] [facility] [id number] [place] [address] May, [facility] [place] [address] [facility] [id number][place] [id number] Apr, [facility] [place] [address] [id number][place] [id number] Apr, [facility] [place] [address] [facility] [id number][place] [id number] Apr, [facility] [place] [facility] [address] [facility] [id number] [place] [address] Apr, [facility] [place] [facility] [address] [facility] [id number] [place] [address] Mar, [facility] [place] [address] [id number][place] [id number] Mar, [facility] [place] [address] [facility] [id number][place] [id number] Mar, [facility] [place] [address] [id number] [place] [id number] Mar, [facility] [place] [address] [id number] [place] [id number] Mar, [facility] [place] [facility] [address] [facility] [id number] [place] [address] Jan, [facility] [place] [address] [id number], [place] [id number] December, [facility] [place] [facility] [address] [facility] [id number] [place] [address] Oct, [facility] [place] [facility] [address] [facility] [id number] [place] [address] Aug, [facility] [place] [address] [facility] [id number][place] [id number] Jun, [facility] [address]100[place] [address] Jun, [facility] [place] [address] [facility] [id number], [place] [id number] May, [facility] [place] [facility] [address] [address] May, [facility] [place] [address] [facility] [id number][place] [id number] May, [facility] [address] [address] Apr, [facility] [place] [address] [id number][place] [id number] Apr, [facility] [place] [address] [id number] [place] [id number] Mar, [facility] [place] [address] [id number] [place] [id number] Mar, [facility] [place] [address] [id number], [place] [id number] Mar, [facility] [place] [address] [id number], [place] [id number] Feb, [facility] [place] [facility] [address] [facility] [id number] [place] [address] Feb, [facility] [address] [facility] [id number], [place] [id number] Feb, [facility] [address] [id number] [id number] Feb, [facility] [address] [facility] [id number][place] [id number] Oct, [facility] [address] [id number][place] [id number] Sep, IMMUNIZATIONS No Known Immunizations SOCIAL HISTORY Never Assessed REASON FOR VISIT pt PLAN OF CARE VITAL SIGNS MEDICATIONS Unknown [...] repair x 2--inguinal 2012 Hospitalization History [facility] x 4 days due to Tick fever 02/2015 Hospitalization History chest pain, headache, syncope, hallucination-[facility] 11/25/17 Hospitalization [facility], depression, ptsd 11/2017 Hospitalization History [facility] for chest pain 11/2017
--- OUTSIDE RECORDS SUMMARY | 2019-03-06 13:31 | XMS REPORT ---
Author Author ARVIND MARITO Organization [facility] Address [address] [place] [address] Care Team Providers Care Study Hall Supervisor Name Role Phone ARVIND MARITO Unavailable PROBLEMS Type Condition ICD9-CM Code [id number] Code Onset Dates Condition Status SNOMED Code Problem DDD (degenerative disc disease), 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 Active 55563977 Problem Bipolar 1 disorder F31.9 Active 355676867 Problem Reactive depression F32.9 Active 15535122 Problem Psychosis, unspecified psychosis type F29 Active 10542874 Problem Cannabis use disorder, moderate, dependence F12.20 Active 83424164 Problem Schizophrenia, unspecified type F20.9 Active 37270936 Problem Bipolar 2 disorder F31.81 Active 98010975 Problem Methamphetamine use disorder, 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 Active 709982549 Problem Schizoaffective disorder, unspecified condition F25.9 Active 86829534 Problem Diverticulitis of colon (without mention of hemorrhage) 562.11 Active 151345469 Problem Inguinal hernia without mention of obstruction or gangrene, unilateral or unspecified, (not specified as recurrent) 550.90 Active 050653354 Problem Allergic rhinitis, cause unspecified 477.9 Active 82535998 Problem Restless legs syndrome [RLS] 333.94 Active 45118950 Problem Esophageal reflux 530.81 Active 713283254 Problem DDD (degenerative disc disease), lumbar M51.36 Active 32058973 Problem Asthma, unspecified, unspecified status 493.90 Active 78921947 Problem DDD (degenerative disc disease), cervical M50.30 Active 65300000 ALLERGIES No Information ENCOUNTERS Encounter Location Date Diagnosis [facility] [address] [id number] [id number] Jul, [facility] [address] [facility] [id number], [place] [address] Jun, [facility] [address] [address] Jun, [facility] [id number] [place] [address] Jun, [facility] [id number] [place] [address] Jun, Psychosis, unspecified psychosis type F29 ; Methamphetamine use disorder, 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 and Cannabis use disorder, moderate, dependence F12.20 [facility] [address], [place] [address] May, Encounter for immunization Z23 [facility] [id number] [place] [address] May, [facility] [id number] [place] [address] May, [facility] [id number] [place] [address] Feb, [facility] [id number] [place] [address] Jan, [facility] [id number] [place] [address] Jan, Psychosis, unspecified psychosis type F29 [facility] [id number] [place] [address] Jan, Psychosis, unspecified psychosis type F29 ; Methamphetamine use disorder, 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 and Cannabis use disorder, moderate, dependence F12.20 [facility] [address] [address] Jan, Schizoaffective disorder, unspecified condition F25.9 [facility] [id number] [id number] December, [facility] [address], [place] [address] December, Psychosis, unspecified psychosis type F29 ; Methamphetamine use disorder, 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 and Cannabis use disorder, moderate, dependence F12.20 [facility] [address], [place] [address] December, Schizoaffective disorder, unspecified condition F25.9 [facility] [id number] [place] [id number] December, [facility] [id number] [place] [id number] Nov, Bipolar 2 disorder F31.81 and Schizophrenia, unspecified type F20.9 [facility] [id number] [place] [address] Nov, [facility] [id number] [place] [id number] December, [facility] [id number] [place] [id number] December, DDD (degenerative disc disease), lumbar M51.36 and Reactive depression F32.9 [facility] [id number] [place] [id number] December, DDD (degenerative disc disease), cervical M50.30 and DDD (degenerative disc disease), lumbar M51.36 [facility] [id number] [place] [id number] Nov, [facility] [id number] [place] [address] [id number] Nov, DDD (degenerative disc disease), lumbar M51.36 [facility] [id number] [place] [address] [id number] Nov, DDD (degenerative disc disease), lumbar M51.36 [facility] [id number] [place] [address] [id number] Oct, DDD (degenerative disc disease), lumbar M51.36 ; Reactive depression F32.9 and DDD (degenerative disc disease), cervical M50.30 [facility] [id number] [place] [id number] Aug, DDD (degenerative disc disease), lumbar M51.36 and Reactive depression F32.9 [facility] [id number] [place] [id number] Jul, [id number] [place] [address] [id number] Jul, DDD (degenerative disc disease), cervical M50.30 ; DDD (degenerative disc disease), 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 ; DDD (degenerative disc disease), lumbar M51.36 and Reactive depression F32.9 [facility] [id number] [place] [address] [id number] Jun, Encounter for immunization Z23 [facility] [id number] [place] [address] [id number] Mar, [address] [id number] Oct, [facility] [id number] [place] [address] [id number] Sep, [id number] [place] [address] [id number] Sep, Physical exam Z00.00 and Allergic rhinitis J30.9 [facility] [address] [place] [address] [id number] Jul, [id number] [place] [address] [id number] Jun, Diarrhea, unspecified R19.[address] [place] [address] [id number] Feb, [id number] [place] [address] [id number] Feb, Frequent headaches 784.0 and 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 [facility] [address] [place] [address] [id number] Feb, Positive serology for Erlichiosis 082.40 [address] [id number] [place] [address] [id number] Feb, Positive serology for Erlichiosis 082.40 [facility] [id number] [place] [address] [id number] Feb, [facility] [id number] [place] [address] Nov, [facility] [place] [facility] [address] [facility] [id number], [place] [address] Nov, [facility] [place] [facility] [address] [facility] [id number], [place] [address] Aug, [facility] [address] [id number] [place] [id number] Aug, [facility] [address] [id number][place] [id number] Jul, [facility] [place] [facility] [address] [facility] [id number] [place] [address] Jul, [facility] [place] [facility] [address] [facility] [id number], [place] [address] Apr, [facility] [address] [id number][place] [id number] Apr, [facility] [place] [facility] [address] [facility] [id number], [place] [address] Apr, [facility] [place] [facility] [address] [facility] [id number], [place] [address] Apr, [facility] [place] [facility] [address] [facility] [id number], [place] [address] Apr, [facility] [address] [id number][place] [id number] Feb, [facility] [address] [id number][place] [id number] Feb, [facility] [place] [facility] [address] [facility] [id number], [place] [address] Feb, [facility] [place] [facility] [address] [facility] [id number], [place] [address] Feb, [facility] [address] [id number] [place] [id number] Feb, [facility] [place] [facility] [address] [facility] [id number], [place] [address] Feb, [facility] [address] [id number] [place] [id number] Oct, [facility] [place] [facility] [address] [id number], [place] [address] Oct, [facility] [address] [id number] [place] [id number] Oct, [facility] [place] [facility] [address] [facility] [id number], [place] [address] Oct, [facility] [address] [id number] [place] [id number] Sep, [facility] [place] [facility] [address] [facility] [id number], [place] [address] Sep, [facility] [address] [id number] [place] [id number] Sep, [facility] [place] [facility] [address] [id number], [place] [address] Sep, [facility] [place] [facility] [address] [facility] [id number], [place] [address] Jul, [facility] [address] [id number] [place] [id number] Jul, [facility] [address] [id number][place] [id number] Jul, [facility] [place] [facility] [address] [id number], [place] [address] Jul, [facility] [place] [facility] [address] [facility] [id number], [place] [address] Jun, [facility] [place] [facility] [address] [facility] [id number], [place] [address] 15 Jun, 2013 [facility] [address] [id number], [place] [id number] Jun, [facility] [place] [facility] [address] [facility] [id number], [place] [address] 13 Jun, 2013 [facility] [place] [facility] [address] [facility] [id number], [place] [address] Jun, [facility] [place] [facility] [address] [facility] [id number] [place] [address] Jun, [facility] [address] [facility] [id number] [place] [address] Jun, [facility] [address] [id number][place] [id number] May, [facility] [place] [facility] [address] [facility] [id number] [place] [address] May, [facility] [place] [facility] [address] [facility] [id number] [place] [address] May, [facility] [place] [facility] [address] [facility] [id number], [place] [address] May, [facility] [id number], [place] [id number] Apr, [facility] [id number] [place] [address] [id number] Apr, [facility] [address] [id number], [place] [id number] Apr, [facility] [place] [facility] [address], [place] [address] Apr, [facility] [place] [facility] [address] [facility] [id number], [place] [address] Mar, [facility] [address] [id number], [place] [id number] Mar, [facility] [address] [id number], [place] [id number] Mar, [facility] [address] [id number] [place] [id number] Mar, [facility] [address] [id number][place] [id number] Mar, [facility] [place] [facility] [address] [facility] [id number], [place] [address] Jan, [facility] [address] [id number], [place] [id number] December, [facility] [address] [facility] [id number], [place] [address] Oct, [facility] [address] [facility] [id number], [place] [address] Aug, [facility] [address] [id number], [place] [id number] Jun, [facility] [address] [facility] [id number], [place] [address] Jun, [facility] [address] [id number], [place] [id number] May, [facility] [address] [facility] [id number], [place] [address] May, [facility] [address] [id number], [place] [id number] May, [facility] [address], [place] [address] Apr, [facility] [address] [id number], [place] [id number] Apr, [facility] [address] [id number], [place] [id number] Mar, [facility] [address] [id number], [place] [id number] Mar, [facility] [address] [id number], [place] [id number] Mar, [facility] [address] [id number], [place] [id number] Feb, [facility] [place] [facility] [address] [id number], [place] [address] Feb, [facility] [address] [id number] [place] [id number] Feb, [facility] [address] [id number] [place] [id number] Feb, [facility] [address] [id number], [place] [id number] Oct, [facility] [address] [id number] [place] [id number] Sep, IMMUNIZATIONS No Known Immunizations SOCIAL HISTORY Never Assessed REASON FOR VISIT Routine nurse call PLAN OF CARE VITAL SIGNS MEDICATIONS Unknown [...] 2012 Surgical History hernia repair x 2--inguinal 2013 Hospitalization History Via [facility] x 4 days due to Tick fever 02/2015 Hospitalization History chest pain, headache, syncope, hallucination-[facility] 11/25/17 Hospitalization History [facility], depression, ptsd 11/2017 Hospitalization History via [facility] for chest pain 11/2017
--- OUTSIDE RECORDS SUMMARY | 2019-03-06 13:31 | XMS REPORT ---
Author Author MARITO SAMUELS Organization [facility] Address [address] [place] [address] Care Team Providers Care Public Affairs Officer Name Role Phone ARVIND MARITO Unavailable PROBLEMS Type Condition ICD9-CM Code PEG81-HC Code Onset Dates Condition Status SNOMED Code Problem DDD (degenerative disc disease), lumbar M51.36 Active 57033979 Problem Bipolar 2 disorder F31.81 Active 05618513 Problem DDD (degenerative disc disease), cervical M50.30 Active 83148697 Problem Psychosis, unspecified psychosis type F29 Active 80362339 Problem Cannabis use disorder, moderate, dependence F12.20 Active 60541566 Problem Schizophrenia, unspecified type F20.9 Active 18270918 Problem Bipolar 1 disorder F31.9 Active 870588733 Problem Methamphetamine use disorder, 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 Active 639408971 Problem Schizoaffective disorder, unspecified condition F25.9 Active 86486888 Problem Diverticulitis of colon (without mention of hemorrhage) 562.11 Active 556471028 Problem Inguinal hernia without mention of obstruction or gangrene, unilateral or unspecified, (not specified as recurrent) 550.90 Active 910056979 Problem Allergic rhinitis, cause unspecified 477.9 Active 65942103 Problem Restless legs syndrome [RLS] 333.94 Active 69521333 Problem Esophageal reflux 530.81 Active 098307317 Problem DDD (degenerative disc disease), 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 Active 62639638 Problem Asthma, unspecified, unspecified status 493.90 Active 36085510 Problem Reactive depression F32.9 Active 00758319 ALLERGIES No Information ENCOUNTERS Encounter Location Date Diagnosis [facility] [address] [facility] [id number] [place] [id number] Jul, [facility] [address] [facility] [id number], [place] [address] Jul, [facility] [address] [address] Jun, [facility] [id number] [place] [id number] Jun, [facility] [id number] [place] [id number] Jun, [facility] [id number] [place] [phone] Jun, Psychosis, unspecified psychosis type F29 ; Methamphetamine use disorder, 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 and Cannabis use disorder, moderate, dependence F12.20 [facility] [id number] [place] [phone] May, Encounter for immunization Z23 [facility] [id number] [place] [id number] May, [facility] [id number] [place] [phone] May, [facility] [id number] [place] [phone] Feb, [facility] [id number] [place] [phone] Jan, [facility] [id number] [place] [phone] Jan, Psychosis, unspecified psychosis type F29 [facility] [id number] [place] [phone] Jan, Psychosis, unspecified psychosis type F29 ; Methamphetamine use disorder, 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 and Cannabis use disorder, moderate, dependence F12.20 [facility] [id number] [place] [address] Jan, Schizoaffective disorder, unspecified condition F25.9 [facility] [id number] [place] [id number] December, [facility] [id number] [place] [phone] December, Psychosis, unspecified psychosis type F29 ; Methamphetamine use disorder, 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 and Cannabis use disorder, moderate, dependence F12.20 [facility] [id number] [place] [phone] December, Schizoaffective disorder, unspecified condition F25.9 [place] [id number] [place] [id number] December, [address] [id number] Nov, Bipolar 2 disorder F31.81 and Schizophrenia, unspecified type F20.9 [place] [id number] [place] [address] Nov, [place] [id number] [place] [address] [id number] December, [address] [id number] December, DDD (degenerative disc disease), lumbar M51.36 and Reactive depression F32.9 [place] [id number] [place] [address] [id number] December, DDD (degenerative disc disease), cervical M50.30 and DDD (degenerative disc disease), lumbar M51.36 [place] [id number] [place] [address] [id number] Nov, [address] [id number] Nov, DDD (degenerative disc disease), lumbar M51.36 [place] [id number] [place] [id number] Nov, DDD (degenerative disc disease), lumbar M51.36 [place] [id number] [place] [address] [id number] Oct, DDD (degenerative disc disease), lumbar M51.36 ; Reactive depression F32.9 and DDD (degenerative disc disease), cervical M50.30 [facility] [id number] [place] [address] [id number] Aug, DDD (degenerative disc disease), lumbar M51.36 and Reactive depression F32.9 [place] [id number] [place] [id number] Jul, [address] [id number] Jul, DDD (degenerative disc disease), cervical M50.30 ; DDD (degenerative disc disease), 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 ; DDD (degenerative disc disease), lumbar M51.36 and Reactive depression F32.9 [place] [id number] [place] [address] [id number] Jun, Encounter for immunization Z23 [address] [id number] Mar, [address] [id number] Oct, [address] [id number] Sep, [address] [id number] Sep, Physical exam Z00.00 and Allergic rhinitis J30.[address] [id number] Jul, [address] [id number] Jun, Diarrhea, unspecified R19.7 [place] [id number] [place] [address] [id number] Feb, [address] [id number] Feb, Frequent headaches 784.0 and 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 [id number] Feb, Positive serology for Erlichiosis 082.40 [place] [id number] [place] [address] [id number] Feb, Positive serology for Erlichiosis 082.40 [place] [id number] [place] [address] [id number] Feb, [facility] [place] [facility] [address] [facility] [id number] [place] [address] Nov, [facility] [place] [facility] [address] [facility] [id number], [place] [address] Nov, [facility] [place] [facility] [address] [facility] [id number] [place] [address] Aug, [facility] [address] [id number] [place] [id number] Aug, [facility] [address] [facility] [id number] [place] [id number] Jul, [facility] [place] [facility] [address] [facility] [id number] [place] [address] Jul, [facility] [place] [facility] [address] [facility] [id number] [place] [address] Apr, [facility] [address] [facility] [id number] [place] [id number] Apr, [facility] [place] [facility] [address] [facility] [id number] [place] [address] Apr, [facility] [place] [facility] [address] [facility] [id number], [place] [address] Apr, [facility] [place] [facility] [address] [facility] [id number], [place] [address] Apr, [facility] [address] [id number] [place] [id number] Feb, [facility] [address] [id number] [place] [id number] Feb, [facility] [place] [facility] [address] [facility] [id number], [place] [address] Feb, [facility] [place] [facility] [address] [facility] [id number], [place] [address] Feb, [facility] [address] [id number] [place] [id number] Feb, [facility] [place] [facility] [address] [facility] [id number], [place] [address] Feb, [facility] [address] [facility] [id number] [place] [id number] Oct, [facility] [place] [facility] [address] [facility] [id number], [place] [address] Oct, [facility] [address] [facility] [id number] [place] [id number] Oct, [facility] [place] [facility] [address] [facility] [id number], [place] [address] Oct, [facility] [address] [facility] [id number] [place] [id number] Sep, [facility] [place] [facility] [address] [facility] [id number], [place] [address] Sep, [facility] [address] [facility] [id number] [place] [id number] Sep, [facility] [place] [facility] [address] [facility] [id number], [place] [address] Sep, [facility] [place] [facility] [address] [facility] [id number], [place] [address] Jul, [facility] [address] [facility] [id number] [place] [id number] Jul, [facility] [address] [facility] [id number] [place] [id number] Jul, [facility] [place] [facility] [address] [facility] [id number], [place] [address] Jul, [facility] [place] [facility] [address] [facility] [id number], [place] [address] Jun, [facility] [place] [facility] [address] [facility] [id number], [place] [address] 15 Jun, 2013 [facility] [address] [facility] [id number] [place] [id number] Jun, [facility] [place] [facility] [address] [facility] [id number], [place] [address] Jun, [facility] [place] [facility] [address] [facility] [id number] [place] [address] Jun, [facility] [place] [facility] [address] [facility] [id number] [place] [address] Jun, [facility] [place] [facility] [address] [facility] [id number] [place] [address] Jun, [facility] [address] [facility] [id number] [place] [id number] May, [facility] [place] [facility] [address] [facility] [id number] [place] [address] May, [facility] [place] [facility] [address] [facility] [id number] [place] [address] May, [facility] [place] [facility] [address] [facility] [id number] [place] [address] May, [facility] [address] [id number] [place] [id number] Apr, [facility] [address] [id number] [place] [id number] Apr, [facility] [address] [id number] [place] [id number] Apr, [facility] [address] [facility] [id number], [place] [address] Apr, [facility] [place] [facility] [address] [facility] [id number], [place] [address] Mar, [facility] [address] [id number] [place] [id number] Mar, [facility] [address] [id number] [place] [id number] Mar, [facility] [address] [id number] [place] [id number] Mar, [facility] [address] [facility] [id number] [place] [id number] Mar, [facility] [place] [facility] [address] [facility] [id number] [place] [address] Jan, [facility] [address] [id number] [place] [id number] December, [facility] [address] [facility] [id number] [place] [address] Oct, [facility] [place] [facility] [address] [facility] [id number], [place] [address] Aug, [facility] [address] [id number] [place] [address] [id number] Jun, [facility] [address] [facility] [id number] [place] [address] Jun, [facility] [address] [id number] [place] [id number] May, [facility] [address] [address] May, [facility] [address] [id number] [place] [id number] May, [facility] [address], [place] [address] Apr, [facility] [address] [id number] [place] [id number] Apr, [facility] [id number] [place] [address] [id number] Mar, [facility] [address] [id number] [place] [id number] Mar, [facility] [address] [id number] [place] [id number] Mar, [facility] [address] [id number] [place] [id number] Feb, [facility] [place] [facility] [address] [facility] [id number], [place] [address] Feb, [facility] [address] [id number] [place] [id number] Feb, [facility] [address] [id number] [place] [id number] Feb, [facility] [address] [facility] [id number] [place] [id number] Oct, [facility] [address] [facility] [id number] [place] [id number] Sep, IMMUNIZATIONS No Known Immunizations SOCIAL HISTORY Never Assessed REASON FOR VISIT referral PLAN OF CARE VITAL SIGNS MEDICATIONS Unknown [...] repair x 2--inguinal 2013 Hospitalization History [facility] x 4 days due to Tick fever 02/2015 Hospitalization History chest pain, headache, syncope, hallucination[facility] 11/25/17 [facility], depression, ptsd 11/2017 Hospitalization History via [facility] for chest pain 11/2017
--- OUTSIDE RECORDS SUMMARY | 2019-03-06 13:31 | XMS REPORT ---
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 Preschool Substitute Teacher Name Role Phone ANATOLYSHEREE MARITO Unavailable PROBLEMS Type Condition ICD9-CM Code RHG21-ZS Code Onset Dates Condition Status SNOMED Code Problem DDD (degenerative disc disease), lumbar M51.36 Active 94847980 Problem Bipolar 2 disorder F31.81 Active 96522081 Problem DDD (degenerative disc disease), cervical M50.30 Active 54425255 Problem Psychosis, unspecified psychosis type F29 Active 25747453 Problem Cannabis use disorder, moderate, dependence F12.20 Active 74306361 Problem Schizophrenia, unspecified type F20.9 Active 10154351 Problem Bipolar 1 disorder F31.9 Active 285150743 Problem Methamphetamine use disorder, 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 Active 113779990 Problem Schizoaffective disorder, unspecified condition F25.9 Active 27408768 Problem Diverticulitis of colon (without mention of hemorrhage) 562.11 Active 791102052 Problem Inguinal hernia without mention of obstruction or gangrene, unilateral or unspecified, (not specified as recurrent) 550.90 Active 569851535 Problem Allergic rhinitis, cause unspecified 477.9 Active 81449703 Problem Restless legs syndrome [RLS] 333.94 Active 99567997 Problem Esophageal reflux 530.81 Active 901287557 Problem DDD (degenerative disc disease), 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 Active 14104560 Problem Asthma, unspecified, unspecified status 493.90 Active 42407192 Problem Reactive depression F32.9 Active 97430001 ALLERGIES Substance Reaction Event Type Date Status Wellbutrin XL headache Drug Allergy Jun, Active Prozac incd anger Drug Allergy Jun, Active Iodine anaphylaxis Drug Allergy Jun, Active Gabapentin nausea Drug Allergy Jun, Active Fioricet hallucinations Drug Allergy Jun, Active ENCOUNTERS Encounter Location Date Diagnosis [facility] [id number] [address] Jul, [facility] [id number] [place] [address] Jul, Psychosis, unspecified psychosis type F29 [facility] [id number] [place] [address] Jul, [facility] [id number] [place] [address] Jun, [facility] [id number] [place] [address] Jun, [facility] [id number] [place] [address] Jun, [facility] [id number] [place] [address] Jun, Psychosis, unspecified psychosis type F29 ; Methamphetamine use disorder, 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 and Cannabis use disorder, moderate, dependence F12.20 [facility] [id number] [place] [address] May, Encounter for immunization Z23 [facility] [id number] [place] [address] May, [facility] [id number] [place] [address] May, [facility] [id number] [place] [address] Feb, [facility] [id number] [place] [address] Jan, [facility] [id number] [place] [address] Jan, Psychosis, unspecified psychosis type F29 [facility] [address] [address] Jan, Psychosis, unspecified psychosis type F29 ; Methamphetamine use disorder, 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 and Cannabis use disorder, moderate, dependence F12.20 [facility] [id number] [place] [address] Jan, Schizoaffective disorder, unspecified condition F25.9 [facility] [id number] [place] [id number] December, [facility] [address] [address] December, Psychosis, unspecified psychosis type F29 ; Methamphetamine use disorder, 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 and Cannabis use disorder, moderate, dependence F12.20 [place] [id number] [place] [address] December, Schizoaffective disorder, unspecified condition F25.9 [facility] [id number] [place] [address] [phone] December, [facility] [address] [id number] Nov, Bipolar 2 disorder F31.81 and Schizophrenia, unspecified type F20.9 [place] [id number] [place] [address] Nov, [facility] [id number] [place] [address] [phone] December, [facility] [id number] [place] [address] [id number] December, DDD (degenerative disc disease), lumbar M51.36 and Reactive depression F32.9 [facility] [id number] [place] [address] [id number] December, DDD (degenerative disc disease), cervical M50.30 and DDD (degenerative disc disease), lumbar M51.36 [facility] [id number] [place] [address] [id number] Nov, [facility] [id number] [place] [address] [id number] Nov, DDD (degenerative disc disease), lumbar M51.36 [facility] [id number] [place] [address] [id number] Nov, DDD (degenerative disc disease), lumbar M51.36 [facility] [id number] [place] [address] [id number] Oct, DDD (degenerative disc disease), lumbar M51.36 ; Reactive depression F32.9 and DDD (degenerative disc disease), cervical M50.30 [facility] [address] [id number] Aug, DDD (degenerative disc disease), lumbar M51.36 and Reactive depression F32.9 [facility] [id number] [place] [address] [id number] Jul, [facility] [address] [id number] Jul, DDD (degenerative disc disease), cervical M50.30 ; DDD (degenerative disc disease), 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 ; DDD (degenerative disc disease), lumbar M51.36 and Reactive depression F32.9 [facility] [address] [id number] Jun, Encounter for immunization Z23 [facility] [address] [id number] Mar, [facility] [address] [id number] Oct, [facility] [id number] [place] [address] [id number] Sep, [facility] [address] [id number] Sep, Physical exam Z00.00 and Allergic rhinitis J30.9 [facility] [id number] [place] [address] [id number] Jul, [facility] [address] [id number] Jun, Diarrhea, unspecified R19.7 [facility] [id number] [place] [address] [id number] Feb, [facility] [address] [id number] Feb, Frequent headaches 784.0 and 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 [facility] [id number] [phone] Feb, Positive serology for Erlichiosis 082.40 [facility] [id number] [place] [address] [id number] Feb, Positive serology for Erlichiosis 082.40 [facility] [id number] [place] [address] [id number] Feb, [facility] [id number] [place] [phone] Nov, [facility] [id number] [place] [address] Nov, [facility] [id number] [place] [address] Aug, [facility] [id number] [place] [address] [id number] Aug, [facility] [id number] [place] [address] [id number] Jul, [facility] [id number] [place] [address] Jul, [facility] [id number] [place] [address] Apr, [facility] [id number] [place] [id number] Apr, [facility] [id number] [place] [address] Apr, [facility] [id number] [place] [address] Apr, [facility] [id number] [place] [phone] Apr, [facility] [address] [id number] [phone] Feb, [facility] [id number] [place] [address] [id number] Feb, [facility] [place] [facility] [address] [id number] [place] [address] Feb, [facility] [place] [facility] [address] [facility] [id number] [place] [address] Feb, [facility] [address] [id number] [place] [id number] Feb, [facility] [place] [facility] [address] [facility] [id number] [place] [address] Feb, [facility] [address] [id number] [place] [id number] Oct, [facility] [place] [facility] [address] [facility] [id number] [place] [address] Oct, [facility] [address] [facility] [id number] [place] [id number] Oct, [facility] [place] [facility] [address] [address] Oct, [facility] [address] [facility] [id number] [place] [id number] Sep, [facility] [place] [facility] [id number] [address] Sep, [facility] [address] [facility] [id number] [place] [id number] Sep, [facility] [place] [facility] [id number] [address] Sep, [facility] [place] [facility] [address] [facility] [id number], [place] [address] Jul, [facility] [address] [id number] [place] [id number] Jul, [facility] [address] [facility] [id number] [place] [id number] Jul, [facility] [place] [facility] [id number] [place] [address] Jul, [facility] [place] [facility] [address], [place] [address] Jun, [facility] [address] [facility] [id number][place] [address] Jun, [facility] [address] [id number] [id number] Jun, [facility] [address], [place] [address] Jun, [facility] [place] [facility] [address], [place] [address] Jun, [facility] [place] [facility] [address], [place] [address] Jun, [facility] [place] [facility] [address], [place] [address] Jun, [facility] [id number] [place] [id number] May, [facility] [place] [facility] [address], [place] [address] May, [facility] [address], [place] [address] May, [facility] [place] [facility] [address], [place] [address] May, [facility] [address] [id number] [id number] Apr, [facility] [address] [facility] [id number] [place] [id number] Apr, [facility] [address] [facility] [id number] [place] [id number] Apr, [facility] [place] [facility] [address], [place] [address] Apr, [facility] [place] [facility] [address] [facility] [id number], [place] [address] Mar, [facility] [id number] [place] [id number] Mar, [facility] [address] [id number] [place] [id number] Mar, [facility] [address] [id number] [place] [id number] Mar, [facility] [address] [id number] [place] [id number] Mar, [facility] [address] [facility] [id number], [place] [address] Jan, [facility] [address] [id number] [place] [id number] December, [facility] [address] [facility] [id number], [place] [address] Oct, [facility] [place] [facility] [address] [facility] [id number], [place] [address] Aug, [facility] [address] [id number] [place] [id number] Jun, [facility] [address] [facility] [id number], [place] [address] Jun, [facility] [address] [id number] [place] [id number] May, [facility] [address] [facility] [id number], [place] [address] May, [facility] [address] [id number] [place] [id number] May, [facility] [address] [facility] [id number], [place] [address] Apr, [facility] [address] [id number] [place] [id number] Apr, [facility] [address] [id number] [place] [id number] Mar, [facility] [address] [id number] [place] [id number] Mar, [facility] [address] [id number] [place] [id number] Mar, [facility] [address] [id number] [place] [id number] Feb, [facility] [address] [facility] [id number] [place] [address] Feb, [facility] [address] [facility] [id number] [place] [id number] Feb, [facility] [address] [facility] [id number] [place] [id number] Feb, [facility] [address] [facility] [id number] [place] [id number] Oct, [facility] [address] [facility] [id number] [place] [id number] Sep, IMMUNIZATIONS No Known Immunizations SOCIAL HISTORY Never Assessed REASON FOR VISIT f/u [facility] Emilie PLAN OF CARE VITAL SIGNS Height 70 in 2018-07-03 Weight 248.5 lbs 2018-07-03 Heart Rate 96 bpm 2018-07-03 Respiratory Rate 20 2018-07-03 BMI 35.65 kg/m2 2018-07-03 Blood pressure systolic 138 mmHg 2018-07-03 Blood pressure diastolic 92 mmHg 2018-07-03 MEDICATIONS Unknown Medications RESULTS No Results PROCEDURES [...] repair x 2--inguinal 2012 Hospitalization History Via [facility] x 4 days due to Tick fever 02/2015 Hospitalization History chest pain, headache, syncope, hallucination-[facility] 11/25/17 Hospitalization History [facility], depression, ptsd 11/2017 Hospitalization History via [facility] [place] for chest pain 11/2017
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
--- NOTE | 2019-03-06 13:32 | ED Chest Pain ---
General Chief Complaint: Chest Pain Stated Complaint: CHEST PAIN Source: patient Exam Limitations: no limitations History of Present Illness Date Seen by Provider: Mar 06, 2019 Time Seen by Provider: 13:28 Initial Comments To ER with a squeezing pain in the center of his chest that began about 30 minutes to one hour ago. Pain is rated a 3 out of 10. He has had associated nausea and shortness of breath with it. He also has associated tunnel vision with it and the pain at the base of his skull. He initially presented to [facility] for this, was referred here. Psychiatric history including hallucinations and was admitted to ICU for this in addition to his chest pain.. Several negative workups for chest pain. In describing the tunnel vision he states "the sides go black and I still have vision in the middle" Timing/Duration: intermittent Severity/Quality: moderate Location: central Radiation: no radiation Activities at Onset: none ASA po FISHER TRAMMEL NET: No NTG SL FISHER TRAMMEL NET: No Associated Symptoms: shortness of breath Allergies and Home Medications Allergies Coded Allergies: Shellfish (Unverified Allergy, Unknown, 03/28/12) Home Medications Alprazolam 0.5 Mg Tablet, 0.5 MG PO BID PRN for ANXIETY Prescribed by: LORRIE KING on 03/06/19 1437 Escitalopram Oxalate 10 Mg Tablet, 10 MG PO DAILY Prescribed by: LORRIE KING on 03/06/19 1437 Patient Home Medication List Home Medication List Reviewed: Yes Review of Systems Review of Systems Constitutional: see HPI EENTM: No Symptoms Reported Respiratory: No Symptoms Reported Cardiovascular: See HPI, Chest Pain Gastrointestinal: See HPI Genitourinary: See HPI Past Tnvikic-Lsxnos-Oylvfu Hx Patient Social History Alcohol Beverage of Choice: Beer Drug of Choice: marijuana Type Used: Cigarettes Recent Hopitalizations: No Immunizations Up To Date Tetanus Booster (TDap): Unknown PED Vaccines UTD: No Date of Pneumonia Vaccine: Aug 06, 2007 Date of Influenza Vaccine: May 05, 2015 Seasonal Allergies Seasonal Allergies: No Past Medical History Surgeries: Yes Abdominal, Gallbladder, Orthopedic Respiratory: Yes (SEASONAL ASTHMA) Asthma Cardiac: No Neurological: No Reproductive Disorders: No Genitourinary: No Gastrointestinal: Yes Gastroesophageal Reflux, Irritable Bowel Musculoskeletal: Yes Arthritis, Chronic Back Pain, Fractures Endocrine: No HEENT: No Cancer: No Psychosocial: Yes (ANTISOCIAL) Sleep Difficulties, Anxiety, PTSD, Bipolar, Personality Disorder, Schizophrenia, Depression Integumentary: No Blood Disorders: No Family Medical History Patient reports no known family medical history. Physical Exam Vital Signs Vital Signs - First Documented 03/06/19 13:21 Temp 96.0 Pulse 80 Resp 18 B/P (MAP) 139/99 (112) Pulse Ox 99 O2 Delivery Room Air Capillary Refill : Height, Weight, BMI Height: 5'11.00" Weight: 241lbs. 6.0oz. 109.187183km; 32.3 BMI Method:Stated General Appearance: No Apparent Distress, WD/WN, Other (cooperative pleasant) HEENT: PERRL/EOMI, TMs Normal Respiratory: Lungs Clear, Normal Breath Sounds, No Accessory Muscle Use, No Respiratory Distress Cardiovascular: Regular Rate, Rhythm, Normal Peripheral Pulses Gastrointestinal: Normal Bowel Sounds, Non Tender, Soft Extremity: Normal Capillary Refill, Normal Inspection Neurologic/Psychiatric: Alert, Oriented x3 Skin: Normal Color, Warm/Dry Progress/Results/Core Measures Results/Orders Lab Results Laboratory Tests Test 03/06/19 13:29 03/06/19 15:10 Range/Units White Blood Count 9.0 4.3-11.0 10^3/uL Red Blood Count 5.42 4.35-5.85 10^6/uL Hemoglobin 15.6 13.3-17.7 G/DL Hematocrit 46 40-54 % Mean Corpuscular Volume 85 80-99 FL Mean Corpuscular Hemoglobin 29 25-34 PG Mean Corpuscular Hemoglobin Concent 34 32-36 G/DL Red Cell Distribution Width 13.0 10.0-14.5 % Platelet Count 287 130-400 10^3/uL Mean Platelet Volume 9.2 7.4-10.4 FL Neutrophils (%) (Auto) 65 42-75 % Lymphocytes (%) (Auto) 25 12-44 % Monocytes (%) (Auto) 8 0-12 % Eosinophils (%) (Auto) 2 0-10 % Basophils (%) (Auto) 0 0-10 % Neutrophils # (Auto) 5.8 1.8-7.8 X 10^3 Lymphocytes # (Auto) 2.3 1.0-4.0 X 10^3 Monocytes # (Auto) 0.7 0.0-1.0 X 10^3 Eosinophils # (Auto) 0.2 0.0-0.3 10^3/uL Basophils # (Auto) 0.0 0.0-0.1 10^3/uL Prothrombin Time 13.3 12.2-14.7 SEC INR Comment 1.0 0.8-1.4 Activated Partial Thromboplast Time 27 24-35 SEC D-Dimer 0.29 0.00-0.49 UG/ML Sodium Level 139 135-145 MMOL/L Potassium Level 4.3 3.6-5.0 MMOL/L Chloride Level 103 98-107 MMOL/L Carbon Dioxide Level 23 21-32 MMOL/L Anion Gap 13 5-14 MMOL/L Blood Urea Nitrogen 14 7-18 MG/DL Creatinine 1.35 H 0.60-1.30 MG/DL Estimat Glomerular Filtration Rate 58 BUN/Creatinine Ratio 10 Glucose Level 134 H 70-105 MG/DL Calcium Level 9.6 8.5-10.1 MG/DL Corrected Calcium 9.4 8.5-10.1 MG/DL Magnesium Level 2.1 1.8-2.4 MG/DL Total Bilirubin 0.4 0.1-1.0 MG/DL Aspartate Amino Transf (AST/SGOT) 18 5-34 U/L Alanine Aminotransferase (ALT/SGPT) 31 0-55 U/L Alkaline Phosphatase 54 40-136 U/L Myoglobin 41.8 10.0-92.0 NG/ML Troponin I < 0.028 < 0.028 <0.028 NG/ML B-Type Natriuretic Peptide < 10.0 <100.0 PG/ML Total Protein 7.0 6.4-8.2 GM/DL Albumin 4.2 3.2-4.5 GM/DL My Orders Orders - LORRIE KING SOFTWARE APPLICATIONS ENGINEER Cbc With Automated Diff (03/06/19 13:26) Magnesium (03/06/19 13:26) Chest 1 View, Ap/Pa Only (03/06/19 13:26) Ekg Tracing (03/06/19 13:26) Cardiac Profile 1 (03/06/19 13:26) Comprehensive Metabolic Panel (03/06/19 13:26) Myoglobin Serum (03/06/19 13:26) Protime With Inr (03/06/19 13:26) Partial Thromboplastin Time (03/06/19 13:26) O2 (03/06/19 13:26) Monitor-Rhythm Ecg Trace Only (03/06/19 13:26) Ed Iv/Invasive Line Start (03/06/19 13:26) BNP (03/06/19 13:26) Fibrin Degradation Products (03/06/19 13:26) Aspirin Chewable Tablet (Baby Aspirin Ch (03/06/19 13:30) Alprazolam Tablet (Xanax Tablet) (03/06/19 13:30) Ct Head Wo (03/06/19 13:40) Ns Iv 1000 Ml (Sodium Chloride 0.9%) (03/06/19 14:00) Ketorolac Injection (Toradol Injection) (03/06/19 14:30) Troponin I (03/06/19 15:30) Iv Push Surgical Scrub Technician Ed (03/06/19 ) Medications Given in ED Vital Signs/I&O 03/06/19 03/06/19 03/06/19 03/06/19 13:21 14:21 15:03 15:56 Temp 96.0 Pulse 80 73 72 69 Resp 18 18 18 18 B/P (MAP) 139/99 (112) 130/80 (97) 130/76 (94) 139/90 (106) Pulse Ox 99 97 97 99 O2 Delivery Room Air Room Air Room Air 03/07/19 00:00 Intake Total 1000 ml Balance 1000 ml Diagnostic Imaging Diagonstic Imaging: CT Plain Films/CT/US/NM/MRI: head Comments NAME: LELAND FERNANDES MED REC#: [id number] PT STATUS: REG ER : 1975 PHYSICIAN: LORRIE KING SOFTWARE APPLICATIONS ENGINEER ADMIT DATE: 03/06/19/ER Draft Date of Exam:03/06/19 CT HEAD WO PROCEDURE: CT head without contrast. TECHNIQUE: Multiple contiguous axial images were obtained through the brain without the use of intravenous contrast. Auto Exposure Controls were utilized during the CT exam to meet ALARA standards for radiation dose reduction. INDICATION: Chest pain, dizziness, and blurred vision. COMPARISON: Comparison is made with prior head CT from 11/25/2017. FINDINGS: Ventricles and sulci are within normal limits. No sulcal effacement or midline shift is identified. No acute intra-axial or extra-axial hemorrhage is detected. Cisterns are patent. Visualized paranasal sinuses are clear. IMPRESSION: No acute intracranial process is detected. Dictated on workstation # [id number] Dict: 03/06/19 1402 Trans: 03/06/19 1406 [phone] Interpreted by: MARIANA MARROQUIN MD Electronically signed by: Departure Communication (Admissions) [id number]-is the diagnosis of anxiety likely with the patient and his . is very much in agreement with this, she suspects that he has been having panic attacks. Patient reports to me that he has a history of bipolar 2, schizophrenia, PTSD and depression, is not for it. Discussed with him my plan to discharge home after repeat troponin, we will discharge home on Lexapro and Xanax when necessary. Both are in agreement with this. Impression Primary Impression: Anxiety Disposition: HOME, SELF-CARE Condition: Improved Departure-Patient Inst. Decision time for Depature: 14:35 Referrals: SHIRA SALINAS DO (PCP) Primary Care Physician IRVING FARRAR (Family) Primary Care Physician Patient Instructions: Anxiety, Adult (DC), Chest Pain That Is Not Caused by the Heart (DC) Add. Discharge Instructions: 1. Take Lexapro daily 2. Take the alprazolam on an as-needed basis when you want these episodes coming on. Follow-up with your regular doctor later this week. All discharge instructions reviewed with patient and/or family. Voiced understanding. Scripts Escitalopram Oxalate (Lexapro) 10 Mg Tablet 10 MG PO DAILY, #30 TAB 1 Refill Prov: LORRIE KING SOFTWARE APPLICATIONS ENGINEER 03/06/19 Alprazolam (Alprazolam) 0.5 Mg Tablet 0.5 MG PO BID PRN for ANXIETY for 7 Days, #14 TAB Prov: LORRIE KING SOFTWARE APPLICATIONS ENGINEER 03/06/19 LORRIE KING SOFTWARE APPLICATIONS ENGINEER Mar 06, 2019 13:32
--- OUTSIDE RECORDS SUMMARY | 2019-03-06 13:32 | XMS REPORT ---
Author Author MARITO SAMUELS Organization [facility] Address [address] [place] [address] Care Team Providers Care Chemistry Lecturer Name Role Phone ANATOLYSHEREE MARITO Unavailable PROBLEMS Type Condition ICD9-CM Code TGF04-NA Code Onset Dates Condition Status SNOMED Code Problem DDD (degenerative disc disease), lumbar M51.36 Active 67140507 Problem Bipolar 2 disorder F31.81 Active 59800461 Problem DDD (degenerative disc disease), cervical M50.30 Active 16336633 Problem Psychosis, unspecified psychosis type F29 Active 88895949 Problem Cannabis use disorder, moderate, dependence F12.20 Active 55000562 Problem Schizophrenia, unspecified type F20.9 Active 02659959 Problem Bipolar 1 disorder F31.9 Active 324404588 Problem Methamphetamine use disorder, 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 Active 818089492 Problem Schizoaffective disorder, unspecified condition F25.9 Active 67071217 Problem Diverticulitis of colon (without mention of hemorrhage) 562.11 Active 845629695 Problem Inguinal hernia without mention of obstruction or gangrene, unilateral or unspecified, (not specified as recurrent) 550.90 Active 448587761 Problem Allergic rhinitis, cause unspecified 477.9 Active 33934143 Problem Restless legs syndrome [RLS] 333.94 Active 14103833 Problem Esophageal reflux 530.81 Active 687396257 Problem DDD (degenerative disc disease), 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 Active 42635303 Problem Asthma, unspecified, unspecified status 493.90 Active 65109541 Problem Reactive depression F32.9 Active 50089417 ALLERGIES No Information ENCOUNTERS Encounter Location Date Diagnosis [facility] [address] 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 and Cannabis use disorder, moderate, dependence F12.20 [place] [address] [address] Jan, Schizoaffective disorder, unspecified condition F25.9 [place] [id number] [place] [phone] December, [place] [id number] [place] [address] December, Psychosis, unspecified psychosis type F29 ; Methamphetamine use disorder, 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 and Cannabis use disorder, moderate, dependence F12.20 [place] [id number] [place] [address] December, Schizoaffective disorder, unspecified condition F25.9 [facility] [id number] [place] [address] [id number] December, [facility] [id number] [place] [address] [id number] Nov, Bipolar 2 disorder F31.81 and Schizophrenia, unspecified type F20.9 [place] [id number] [place] [address] Nov, [facility] [id number] [place] [address] [id number] December, [facility] [id number] [place] [address] [id number] December, DDD (degenerative disc disease), lumbar M51.36 and Reactive depression F32.9 [facility] [id number] [place] [address] [id number] December, DDD (degenerative disc disease), cervical M50.30 and DDD (degenerative disc disease), lumbar M51.36 [place] [id number] [place] [address] [id number] Nov, [facility] [id number] [place] [address] [id number] Nov, DDD (degenerative disc disease), lumbar M51.36 [facility] [id number] [place] [address] [id number] Nov, DDD (degenerative disc disease), lumbar M51.36 [facility] [id number] [place] [address] [id number] Oct, DDD (degenerative disc disease), lumbar M51.36 ; Reactive depression F32.9 and DDD (degenerative disc disease), cervical M50.30 [facility] [id number] [place] [address] [id number] Aug, DDD (degenerative disc disease), lumbar M51.36 and Reactive depression F32.9 [facility] [id number] [place] [address] [id number] Jul, [facility] [address] [id number] Jul, DDD (degenerative disc disease), cervical M50.30 ; DDD (degenerative disc disease), 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 ; DDD (degenerative disc disease), lumbar M51.36 and Reactive depression F32.9 [facility] [id number] [place] [address] [id number] Jun, Encounter for immunization Z23 [facility] [id number] [place] [address] [id number] Mar, [facility] [id number] [place] [address] [id number] Oct, [facility] [id number] [place] [address] [id number] Sep, [facility] [id number] [place] [address] [id number] Sep, Physical exam Z00.00 and Allergic rhinitis J30.9 [facility] [id number] [place] [address] [id number] Jul, [facility] [address] [place] [phone] Jun, Diarrhea, unspecified R19.7 [facility] [id number] [place] [address] [id number] Feb, [facility] [id number] [place] [address] [id number] Feb, Frequent headaches 784.0 and 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 [facility] [id number] [place] [address] [id number] Feb, Positive serology for Erlichiosis 082.40 [facility] [id number] [place] [address] [id number] Feb, Positive serology for Erlichiosis 082.40 [facility] [id number] [place] [address] [id number] Feb, [facility] [id number] [place] [phone] Nov, [facility] [id number] [place] [phone] Nov, [facility] [id number] [place] [phone] Aug, [facility] [id number] [place] [address] [id number] Aug, [facility] [id number] [place] [address] [id number] Jul, [facility] [id number] [place] [phone] Jul, [facility] [id number] [place] [address] Apr, [facility] [id number] [place] [address] [id number] Apr, [facility] [id number] [place] [phone] Apr, [facility] [id number] [place] [phone] Apr, [facility] [place] [facility] [address] [facility] [id number] [place] [address] Apr, [facility] [place] [address] [facility] [id number] [place] [phone] Feb, [facility] [place] [address] [facility] [id number] [place] [phone] Feb, [facility] [place] [facility] [address] [facility] [id number] [place] [address] Feb, [facility] [place] [facility] [address] [facility] [id number] [place] [address] Feb, [facility] [place] [address] [facility] [id number] [place] [phone] Feb, [facility] [place] [facility] [address] [facility] [id number] [place] [address] Feb, [facility] [place] [address] [id number] [place] [phone] Oct, [facility] [place] [facility] [address] [facility] [id number], [place] [address] Oct, [facility] [place] [address] [facility] [id number] [place] [phone] Oct, [facility] [place] [facility] [address], [place] [address] Oct, [facility] [place] [address] [id number] [phone] Sep, [facility] [place] [facility] [address] [facility] [id number], [place] [address] Sep, [facility] [place] [address] [facility] [id number] [place] [phone] Sep, [facility] [place] [facility] [address] [facility] [id number], [place] [address] Sep, [facility] [place] [facility] [address] [facility] [id number], [place] [address] Jul, [facility] [place] [address] [facility] [id number] [phone] Jul, [facility] [address] [id number] [phone] Jul, [facility] [address] [facility] [id number], [place] [address] Jul, [facility] [place] [facility] [address] [facility] [id number], [place] [address] Jun, [facility] [place] [facility] [address] [facility] [id number], [place] [address] Jun, [facility] [address] [id number][place] [id number] Jun, [facility] [place] [facility] [address] [facility] [id number], [place] [address] Jun, [facility] [place] [facility] [address] [id number], [place] [address] Jun, [facility] [place] [facility] [address] [id number], [place] [address] Jun, [facility] [place] [facility] [address] [facility] [id number], [place] [address] Jun, [facility] [place] [address] [id number][place] [phone] May, [facility] [place] [facility] [address] [id number], [place] [address] May, [facility] [place] [facility] [address] [facility] [id number], [place] [address] May, [facility] [place] [facility] [address] [facility] [id number], [place] [address] May, [facility] [place] [address] [id number][place] [phone] Apr, [facility] [place] [address] [id number][place] [id number] Apr, [facility] [place] [address] [id number][place] [id number] Apr, [facility] [place] [facility] [address] [facility] [id number], [place] [address] Apr, [facility] [address] [facility] [id number], [place] [address] Mar, [facility] [place] [address] [id number] [place] [id number] Mar, [facility] [place] [address] [id number] [place] [id number] Mar, [facility] [place] [address] [id number] [place] [id number] Mar, [facility] [place] [address] [id number] [place] [id number] Mar, [facility] [place] [facility] [address], [place] [address] Jan, [facility] [place] [address] [id number][place] [phone] December, [facility] [id number] [place] [address] Oct, [facility] [place] [facility] [address]65[address], [place] [address] Aug, [facility] [place] [id number][place] [id number] Jun, [facility] [place] [facility] [address], [place] [address] Jun, [facility] [place] [address] [facility] [id number][place] [phone] May, [facility] [place] [facility] [address] [facility] [id number], [place] [address] May, [facility] [place] [address] [facility] [id number][place] [phone] May, [facility] [place] [facility] [address] [facility] [id number], [place] [address] Apr, [facility] [place] [address] [id number][place] [id number] Apr, [facility] [place] [address] [id number][place] [id number] Mar, [facility] [address] [id number] [id number] Mar, [facility] [address] [id number], [place] [id number] Mar, [facility] [address] [id number], [place] [id number] Feb, [facility] [address] [id number], [place] [address] Feb, [facility] [address] [id number][place] [id number] Feb, [facility] [address] [id number], [place] [id number] Feb, [facility] [address] [id number], [place] [id number] Oct, [facility] [address] [id number], [place] [id number] Sep, IMMUNIZATIONS No Known Immunizations SOCIAL HISTORY Never Assessed REASON FOR VISIT PALS IN-[employer] PLAN OF CARE VITAL SIGNS MEDICATIONS Unknown [...] repair x 2--inguinal 2012 Hospitalization History Via [facility] x 4 days due to Tick fever 02/2015 Hospitalization History chest pain, headache, syncope, hallucination-[facility] 11/25/17 Hospitalization History [facility], depression, ptsd 11/2017 Hospitalization History via [facility] for chest pain 11/2017
--- OUTSIDE RECORDS SUMMARY | 2019-03-06 13:32 | XMS REPORT ---
Author Author MARITO SAMUELS Organization [facility] Address [address] [place] [address] Care Team Providers Care Social Insurance Specialist Name Role Phone ANATOLYSHEREE MARITO Unavailable PROBLEMS Type Condition ICD9-CM Code [id number] Code Onset Dates Condition Status SNOMED Code Problem DDD (degenerative disc disease), lumbar M51.36 Active 40781313 Problem Bipolar 2 disorder F31.81 Active 40235913 Problem DDD (degenerative disc disease), cervical M50.30 Active 01796467 Problem Psychosis, unspecified psychosis type F29 Active 10677319 Problem Cannabis use disorder, moderate, dependence F12.20 Active 31357598 Problem Schizophrenia, unspecified type F20.9 Active 91464289 Problem Bipolar 1 disorder F31.9 Active 810662118 Problem Methamphetamine use disorder, 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 Active 572265518 Problem Schizoaffective disorder, unspecified condition F25.9 Active 36537120 Problem Diverticulitis of colon (without mention of hemorrhage) 562.11 Active 612337475 Problem Inguinal hernia without mention of obstruction or gangrene, unilateral or unspecified, (not specified as recurrent) 550.90 Active 221044488 Problem Allergic rhinitis, cause unspecified 477.9 Active 32549749 Problem Restless legs syndrome [RLS] 333.94 Active 76478850 Problem Esophageal reflux 530.81 Active 402416343 Problem DDD (degenerative disc disease), 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 Active 38438664 Problem Asthma, unspecified, unspecified status 493.90 Active 70426488 Problem Reactive depression F32.9 Active 65569929 ALLERGIES No Information ENCOUNTERS Encounter Location Date Diagnosis [facility] [address] [facility] [id number], [place] [address] Feb, [facility] [address] [id number], [place] [address] Jan, [facility] [id number] [place] [address] Jan, Psychosis, unspecified psychosis type F29 [place] [address] [address] Jan, Psychosis, unspecified psychosis type F29 ; Methamphetamine use disorder, 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 and Cannabis use disorder, moderate, dependence F12.20 [place] [address] [address] Jan, Schizoaffective disorder, unspecified condition F25.9 [place] [id number] [place] [id number] December, [place] [id number] [place] [address] December, Psychosis, unspecified psychosis type F29 ; Methamphetamine use disorder, 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 and Cannabis use disorder, moderate, dependence F12.20 [place] [id number] [place] [address] December, Schizoaffective disorder, unspecified condition F25.9 [facility] [id number] [place] [address] [id number] December, [facility] [id number] [place] [address] [id number] Nov, Bipolar 2 disorder F31.81 and Schizophrenia, unspecified type F20.9 [place] [id number] [place] [address] Nov, [facility] [id number] [place] [address] [id number] December, [facility] [id number] [place] [address] [id number] December, DDD (degenerative disc disease), lumbar M51.36 and Reactive depression F32.9 [facility] [id number] [place] [address] [id number] December, DDD (degenerative disc disease), cervical M50.30 and DDD (degenerative disc disease), lumbar M51.36 [place] [id number] [place] [address] [id number] Nov, [facility] [id number] [place] [address] [id number] Nov, DDD (degenerative disc disease), lumbar M51.36 [facility] [id number] [place] [address] [id number] Nov, DDD (degenerative disc disease), lumbar M51.36 [facility] [id number] [place] [address] [id number] Oct, DDD (degenerative disc disease), lumbar M51.36 ; Reactive depression F32.9 and DDD (degenerative disc disease), cervical M50.30 [facility] [id number] [place] [address] [id number] Aug, DDD (degenerative disc disease), lumbar M51.36 and Reactive depression F32.9 [facility] [id number] [place] [address] [id number] Jul, [facility] [address] [id number] Jul, DDD (degenerative disc disease), cervical M50.30 ; DDD (degenerative disc disease), 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 ; DDD (degenerative disc disease), lumbar M51.36 and Reactive depression F32.9 [facility] [id number] [place] [address] [id number] Jun, Encounter for immunization Z23 [facility] [id number] [place] [address] [id number] Mar, [facility] [id number] [place] [address] [id number] Oct, [facility] [id number] [place] [address] [id number] Sep, [facility] [id number] [place] [address] [id number] Sep, Physical exam Z00.00 and Allergic rhinitis J30.9 [facility] [id number] [place] [address] [id number] Jul, [facility] [address] [place] [phone] Jun, Diarrhea, unspecified R19.7 [facility] [place] [id number] [place] [address] [id number] Feb, [facility] [id number] [place] [address] [id number] Feb, Frequent headaches 784.0 and 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 [facility] [id number] [place] [address] [id number] Feb, Positive serology for Erlichiosis 082.40 [facility] [id number] [place] [address] [id number] Feb, Positive serology for Erlichiosis 082.40 [facility] [place] [id number] [place] [address] [id number] Feb, [facility] [id number] [place] [address] Nov, [facility] [id number] [place] [phone] Nov, [facility] [id number] [place] [address] Aug, [facility] [id number] [place] [address] [id number] Aug, [facility] [id number] [place] [address] [id number] Jul, [facility] [id number] [place] [phone] Jul, [facility] [address] [place] [address] Apr, [facility] [id number] [place] [address] [id number] Apr, [facility] [id number] [place] [address] Apr, [facility] [id number] [place] [address] Apr, [facility] [place] [facility] [address] [facility] [id number] [place] [address] Apr, [facility] [place] [address] [facility] [id number] [place] [id number] Feb, [facility] [place] [address] [facility] [id number] [place] [id number] Feb, [facility] [place] [facility] [address] [facility] [id number] [place] [address] Feb, [facility] [place] [facility] [address] [facility] [id number] [place] [address] Feb, [facility] [place] [address] [facility] [id number] [place] [phone] Feb, [facility] [place] [facility] [address] [facility] [id number] [place] [address] Feb, [facility] [place] [address] [id number] [place] [id number] Oct, [facility] [place] [facility] [address] [facility] [id number], [place] [address] Oct, [facility] [place] [address] [facility] [id number] [place] [id number] Oct, [facility] [place] [facility] [address], [place] [address] Oct, [facility] [place] [address] [id number] [id number] Sep, [facility] [place] [facility] [address] [facility] [id number], [place] [address] Sep, [facility] [place] [address] [facility] [id number] [place] [id number] Sep, [facility] [place] [facility] [address] [facility] [id number], [place] [address] Sep, [facility] [place] [facility] [address] [facility] [id number], [place] [address] Jul, [facility] [place] [address] [facility] [id number][place] [id number] Jul, [facility] [place] [address] [id number] [id number] Jul, [facility] [address] [facility] [id number], [place] [address] Jul, [facility] [place] [facility] [address] [facility] [id number], [place] [address] Jun, [facility] [place] [facility] [address] [facility] [id number], [place] [address] Jun, [facility] [address] [id number][place] [id number] Jun, [facility] [place] [facility] [address] [facility] [id number], [place] [address] Jun, [facility] [place] [facility] [address] [id number], [place] [address] Jun, [facility] [place] [facility] [address] [id number], [place] [address] Jun, [facility] [place] [facility] [address] [facility] [id number], [place] [address] Jun, [facility] [place] [address] [id number][place] [id number] May, [facility] [place] [facility] [address] [id number], [place] [address] May, [facility] [place] [facility] [address] [facility] [id number], [place] [address] May, [facility] [place] [facility] [address] [facility] [id number], [place] [address] May, [facility] [place] [address] [id number][place] [id number] Apr, [facility] [place] [address] [id number][place] [id number] Apr, [facility] [place] [address] [id number][place] [id number] Apr, [facility] [place] [facility] [address] [facility] [id number], [place] [address] Apr, [facility] [address] [facility] [id number], [place] [address] Mar, [facility] [place] [address] [id number] [place] [id number] Mar, [facility] [place] [address] [id number] [place] [id number] Mar, [facility] [place] [address] [id number] [place] [id number] Mar, [facility] [place] [address] [id number] [place] [id number] Mar, [facility] [place] [facility] [address], [place] [address] Jan, [facility] [place] [address] [id number][place] [id number] December, [facility] [id number] [place] [address] Oct, [facility] [place] [facility] [address], [place] [address] Aug, [facility] [place] [id number], [place] [id number] Jun, [facility] [place] [facility] [address], [place] [address] Jun, [facility] [place] [address] [facility] [id number][place] [id number] May, [facility] [place] [facility] [address] [facility] [id number], [place] [address] May, [facility] [place] [address] [facility] [id number][place] [id number] May, [facility] [place] [facility] [address] [facility] [id number], [place] [address] Apr, [facility] [place] [address] [id number][place] [id number] Apr, [facility] [place] [address] [id number][place] [id number] Mar, [facility] [address] [id number] [id number] Mar, [facility] [address] [id number] [id number] Mar, [facility] [address] [id number] [id number] Feb, [facility] [address], [place] [address] Feb, [facility] [address] [id number] [id number] Feb, [facility] [address] [id number] [id number] Feb, [facility] [address] [id number] [id number] Oct, [facility] [address] [id number][place] [id number] Sep, IMMUNIZATIONS No Known Immunizations SOCIAL HISTORY Never Assessed REASON FOR VISIT Requests return call PLAN OF CARE VITAL SIGNS MEDICATIONS [...] repair x 2--inguinal 2012 Hospitalization History Via [facility] x 4 days due to Tick fever 02/2015 Hospitalization History chest pain, headache, syncope, hallucination-[facility] 11/25/17 Hospitalization [facility], depression, ptsd 11/2017 Hospitalization History via [facility] for chest pain 11/2017
--- OUTSIDE RECORDS SUMMARY | 2019-03-06 13:32 | XMS REPORT ---
Author Author MARITO SAMUELS Organization [facility] Address [address] [place] [address] Care Team Providers Care Box Lining Machine Operator Name Role Phone ANATOLYSHEREE MARITO Unavailable PROBLEMS Type Condition ICD9-CM Code RSZ07-WS Code Onset Dates Condition Status SNOMED Code Problem DDD (degenerative disc disease), lumbar M51.36 Active 20407828 Problem Bipolar 2 disorder F31.81 Active 99787761 Problem DDD (degenerative disc disease), cervical M50.30 Active 72962304 Problem Psychosis, unspecified psychosis type F29 Active 18458692 Problem Cannabis use disorder, moderate, dependence F12.20 Active 27756376 Problem Schizophrenia, unspecified type F20.9 Active 78794569 Problem Bipolar 1 disorder F31.9 Active 474665315 Problem Methamphetamine use disorder, 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 Active 149674630 Problem Schizoaffective disorder, unspecified condition F25.9 Active 04014097 Problem Diverticulitis of colon (without mention of hemorrhage) 562.11 Active 909047699 Problem Inguinal hernia without mention of obstruction or gangrene, unilateral or unspecified, (not specified as recurrent) 550.90 Active 943778864 Problem Allergic rhinitis, cause unspecified 477.9 Active 30582185 Problem Restless legs syndrome [RLS] 333.94 Active 48001423 Problem Esophageal reflux 530.81 Active 767033604 Problem DDD (degenerative disc disease), 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 Active 78920479 Problem Asthma, unspecified, unspecified status 493.90 Active 84977958 Problem Reactive depression F32.9 Active 73866953 ALLERGIES No Information ENCOUNTERS Encounter Location Date Diagnosis [facility] [address] [facility] [id number] [address] Jun, [facility] [address] [id number] [address] May, [facility] [address] [id number] [address] Feb, [place] [id number] [place] [address] Jan, [place] [id number] [place] [address] Jan, Psychosis, unspecified psychosis type F29 [place] [id number] [place] [address] Jan, Psychosis, unspecified psychosis type F29 ; Methamphetamine use disorder, 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 and Cannabis use disorder, moderate, dependence F12.20 [place] [id number] [place] [address] Jan, Schizoaffective disorder, unspecified condition F25.9 [id number] [place] [address] [id number] December, [place] [id number] [place] [address] December, Psychosis, unspecified psychosis type F29 ; Methamphetamine use disorder, 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 and Cannabis use disorder, moderate, dependence F12.20 [place] [id number] [place] [address] December, Schizoaffective disorder, unspecified condition F25.9 [id number] [place] [address] [id number] December, [place] [id number] [place] [address] [id number] Nov, Bipolar 2 disorder F31.81 and Schizophrenia, unspecified type F20.9 [place] [id number] [place] [address] Nov, [facility] [id number] [place] [address] [id number] December, [address] [id number] [place] [address] [id number] December, DDD (degenerative disc disease), lumbar M51.36 and Reactive depression F32.9 [facility] [place] [address] [id number] [place] [address] [id number] December, DDD (degenerative disc disease), cervical M50.30 and DDD (degenerative disc disease), lumbar M51.36 [facility] [place] [address] [id number] [place] [address] [id number] Nov, [facility] [place] [address] [id number] [place] [id number] Nov, DDD (degenerative disc disease), lumbar M51.36 [facility] [place] [address] [id number] [place] [id number] Nov, DDD (degenerative disc disease), lumbar M51.36 [facility] [place] [id number] [place] [address] [id number] Oct, DDD (degenerative disc disease), lumbar M51.36 ; Reactive depression F32.9 and DDD (degenerative disc disease), cervical M50.30 [facility] [place] [id number] [place] [address] [id number] Aug, DDD (degenerative disc disease), lumbar M51.36 and Reactive depression F32.9 [facility] [place] [address] [id number] [place] [address] [id number] Jul, [facility] [place] [id number] [place] [address] [id number] Jul, DDD (degenerative disc disease), cervical M50.30 ; DDD (degenerative disc disease), 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 ; DDD (degenerative disc disease), lumbar M51.36 and Reactive depression F32.9 [facility] [place] [address] [id number] [place] [address] [id number] Jun, Encounter for immunization Z23 [facility] [place] [address] [id number] [place] [address] [id number] Mar, [facility] [place] [address] [id number] [place] [address] [id number] Oct, [facility] [place] [address] [id number] [place] [address] [id number] Sep, [facility] [place] [address] [id number] [place] [address] [id number] Sep, Physical exam Z00.00 and Allergic rhinitis J30.9 [facility] [id number] [place] [address] [id number] Jul, [facility] [id number] [place] [address] [id number] Jun, Diarrhea, unspecified R19.7 [id number] [place] [address] [id number] Feb, [facility] [id number] [place] [address] [id number] Feb, Frequent headaches 784.0 and 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 [place] [id number] [place] [address] [id number] Feb, Positive serology for Erlichiosis 082.40 [facility] [id number] [place] [address] [id number] Feb, Positive serology for Erlichiosis 082.40 [facility] [id number] [place] [address] [id number] Feb, [facility] [id number] [place] [address] Nov, [facility] [id number] [place] [phone] Nov, [facility] [id number] [place] [address] Aug, [facility] [id number] [place] [address] [id number] Aug, [facility] [id number] [place] [address] [id number] Jul, [facility] [address] [address] Jul, [facility] [id number] [place] [address] Apr, [facility] [id number] [place] [address] [id number] Apr, [facility] [place] [facility] [address] [facility] [id number] [place] [address] Apr, [facility] [place] [facility] [address] [facility] [id number] [place] [address] Apr, [facility] [place] [facility] [address] [facility] [id number] [place] [address] Apr, [facility] [address] [id number] [place] [id number] Feb, [facility] [address] [id number] [place] [id number] Feb, [facility] [place] [facility] [address] [facility] [id number] [place] [address] Feb, [facility] [place] [facility] [address] [facility] [id number] [place] [address] Feb, [facility] [address] [facility] [id number] [place] [id number] Feb, [facility] [place] [facility] [address] [facility] [id number] [place] [address] Feb, [facility] [address] [facility] [id number] [place] [id number] Oct, [facility] [place] [facility] [address] [facility] [id number] [place] [address] Oct, [facility] [address] [facility] [id number][place] [id number] Oct, [facility] [place] [facility] [address] [facility] [id number] [place] [address] Oct, [facility] [address] [facility] [id number] [place] [id number] Sep, [facility] [place] [facility] [address] [facility] [id number] [place] [address] Sep, [facility] [address] [facility] [id number] [place] [id number] Sep, [facility] [place] [facility] [address] [facility] [id number], [place] [address] Sep, [facility] [address] [facility] [id number], [place] [address] Jul, [facility] [place] [address] [id number][place] [id number] Jul, [facility] [place] [address] [facility] [id number] [place] [id number] Jul, [facility] [address] [facility] [id number], [place] [address] Jul, [facility] [address] [facility] [id number], [place] [address] Jun, [facility] [address] [facility] [id number], [place] [address] Jun, [facility] [place] [address] [facility] [id number][place] [id number] Jun, [facility] [address] [facility] [id number], [place] [address] Jun, [facility] [address] [facility] [id number], [place] [address] Jun, [facility] [address] [facility] [id number], [place] [address] Jun, [facility] [address] [facility] [id number], [place] [address] Jun, [facility] [place] [address] [facility] [id number][place] [id number] May, [facility] [place] [facility] [address] [id number], [place] [address] May, [facility] [place] [facility] [address] [facility] [id number], [place] [address] May, [facility] [place] [facility] [address] [facility] [id number], [place] [address] May, [facility] [place] [address] [facility] [id number][place] [id number] Apr, [facility] [address] [id number] [place] [id number] Apr, [facility] [address] [id number] [place] [id number] Apr, [facility] [place] [facility] [address] [facility] [id number] [place] [address] Apr, [facility] [place] [facility] [address], [place] [address] Mar, [facility] [address] [id number] [place] [id number] Mar, [facility] [address] [id number] [place] [id number] Mar, [facility] [address] [id number] [place] [id number] Mar, [facility] [address] [facility] [id number] [place] [id number] Mar, [facility] [place] [facility] [address] [address] Jan, [facility] [address] [facility] [id number] [place] [id number] December, [facility] [place] [facility] [address], [place] [address] Oct, [facility] [place] [facility] [address], [place] [address] Aug, [facility] [id number][place] [id number] Jun, [facility] [place] [facility] [address] [facility] [id number], [place] [address] Jun, [facility] [address] [facility] [id number][place] [id number] May, [facility] [place] [facility] [address] [id number] [address] May, [facility] [address] [facility] [id number][place] [id number] May, [facility] [place] [facility] [address] [id number] [address] Apr, [facility] [address] [facility] [id number][place] [id number] Apr, [facility] [address] [facility] [id number], [place] [id number] Mar, [facility] [address] [facility] [id number][place] [id number] Mar, [facility] [address] [facility] [id number][place] [id number] Mar, [facility] [address] [facility] [id number] [place] [id number] Feb, [facility] [address] [facility] [id number], [place] [address] Feb, [facility] [id number], [place] [id number] Feb, [facility] [id number], [place] [id number] Feb, [facility] [id number], [place] [id number] Oct, [facility] [id number], [place] [id number] Sep, IMMUNIZATIONS No Known Immunizations SOCIAL HISTORY Never Assessed REASON FOR VISIT PALS IN [place] [facility] PLAN OF CARE VITAL SIGNS MEDICATIONS Unknown [...] repair x 2--inguinal 2013 Hospitalization History Via [facility] x 4 days due to Tick fever 02/2015 Hospitalization History chest pain, headache, syncope, hallucination-[facility] 11/25/17 Hospitalization [facility], depression, ptsd 11/2017 Hospitalization History via [facility] for chest pain 11/2017
--- OUTSIDE RECORDS SUMMARY | 2019-03-06 13:33 | XMS REPORT ---
Author Author MARITO SAMUELS Organization [facility] Address [address] [place] [address] Care Team Providers Care Graphic Designer Name Role Phone ANATOLYSHEREE MARITO Unavailable PROBLEMS Type Condition ICD9-CM Code SKF36-TQ Code Onset Dates Condition Status SNOMED Code Problem DDD (degenerative disc disease), lumbar M51.36 Active 94497769 Problem Bipolar 2 disorder F31.81 Active 77912826 Problem DDD (degenerative disc disease), cervical M50.30 Active 16116373 Problem Psychosis, unspecified psychosis type F29 Active 38099762 Problem Cannabis use disorder, moderate, dependence F12.20 Active 47234426 Problem Schizophrenia, unspecified type F20.9 Active 31935548 Problem Bipolar 1 disorder F31.9 Active 272089296 Problem Methamphetamine use disorder, 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 Active 503219220 Problem Schizoaffective disorder, unspecified condition F25.9 Active 15211863 Problem Diverticulitis of colon (without mention of hemorrhage) 562.11 Active 377181343 Problem Inguinal hernia without mention of obstruction or gangrene, unilateral or unspecified, (not specified as recurrent) 550.90 Active 243564150 Problem Allergic rhinitis, cause unspecified 477.9 Active 32326854 Problem Restless legs syndrome [RLS] 333.94 Active 35643333 Problem Esophageal reflux 530.81 Active 858005383 Problem DDD (degenerative disc disease), 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 Active 82167304 Problem Asthma, unspecified, unspecified status 493.90 Active 04346227 Problem Reactive depression F32.9 Active 85350099 ALLERGIES No Information ENCOUNTERS Encounter Location Date Diagnosis [facility] [address] [facility] [id number] [address] Feb, [facility] [id number] [address] Jan, [facility] [id number] [place] [address] Jan, Psychosis, unspecified psychosis type F29 [place] [address] [address] Jan, Psychosis, unspecified psychosis type F29 ; Methamphetamine use disorder, 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 and Cannabis use disorder, moderate, dependence F12.20 [place] [address] [address] Jan, Schizoaffective disorder, unspecified condition F25.9 [place] [id number] [place] [address] [phone] December, [place] [id number] [place] [address] December, Psychosis, unspecified psychosis type F29 ; Methamphetamine use disorder, 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 and Cannabis use disorder, moderate, dependence F12.20 [place] [id number] [place] [address] December, Schizoaffective disorder, unspecified condition F25.9 [facility] [id number] [place] [address] [phone] December, [facility] [id number] [place] [address] [id number] Nov, Bipolar 2 disorder F31.81 and Schizophrenia, unspecified type F20.9 [place] [id number] [place] [address] Nov, [facility] [id number] [place] [address] [id number] December, [facility] [id number] [place] [address] [id number] December, DDD (degenerative disc disease), lumbar M51.36 and Reactive depression F32.9 [facility] [id number] [place] [address] [id number] December, DDD (degenerative disc disease), cervical M50.30 and DDD (degenerative disc disease), lumbar M51.36 [place] [id number] [place] [address] [id number] Nov, [facility] [id number] [place] [address] [id number] Nov, DDD (degenerative disc disease), lumbar M51.36 [facility] [id number] [place] [address] [id number] Nov, DDD (degenerative disc disease), lumbar M51.36 [facility] [id number] [place] [address] [id number] Oct, DDD (degenerative disc disease), lumbar M51.36 ; Reactive depression F32.9 and DDD (degenerative disc disease), cervical M50.30 [facility] [id number] [place] [address] [id number] Aug, DDD (degenerative disc disease), lumbar M51.36 and Reactive depression F32.9 [facility] [id number] [place] [address] [id number] Jul, [facility] [address] [id number] Jul, DDD (degenerative disc disease), cervical M50.30 ; DDD (degenerative disc disease), 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 ; DDD (degenerative disc disease), lumbar M51.36 and Reactive depression F32.9 [facility] [id number] [place] [address] [id number] Jun, Encounter for immunization Z23 [facility] [id number] [place] [address] [id number] Mar, [facility] [id number] [place] [address] [id number] Oct, [facility] [id number] [place] [address] [id number] Sep, [facility] [id number] [place] [address] [id number] Sep, Physical exam Z00.00 and Allergic rhinitis J30.9 [facility] [id number] [place] [address] [id number] Jul, [facility] [address] [place] [id number] Jun, Diarrhea, unspecified R19.7 [facility] [id number] [place] [address] [id number] Feb, [facility] [id number] [place] [address] [id number] Feb, Frequent headaches 784.0 and 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 [facility] [id number] [place] [address] [id number] Feb, Positive serology for Erlichiosis 082.40 [facility] [id number] [place] [address] [id number] Feb, Positive serology for Erlichiosis 082.40 [facility] [id number] [place] [address] [id number] Feb, [facility] [id number] [place] [phone] Nov, [facility] [id number] [place] [phone] Nov, [facility] [id number] [place] [phone] Aug, [facility] [id number] [place] [address] [id number] Aug, [facility] [id number] [place] [address] [id number] Jul, [facility] [id number] [place] [phone] Jul, [facility] [id number] [place] [phone] Apr, [facility] [id number] [place] [address] [id number] Apr, [facility] [id number] [place] [phone] Apr, [facility] [id number] [place] [phone] Apr, [facility] [place] [facility] [address] [facility] [id number] [place] [address] Apr, [facility] [place] [address] [facility] [id number] [place] [phone] Feb, [facility] [place] [address] [facility] [id number] [place] [phone] Feb, [facility] [place] [facility] [address] [facility] [id number] [place] [address] Feb, [facility] [place] [facility] [address] [facility] [id number] [place] [address] Feb, [facility] [place] [address] [facility] [id number] [place] [id number] Feb, [facility] [place] [facility] [address] [facility] [id number] [place] [address] Feb, [facility] [place] [address] [id number] [place] [id number] Oct, [facility] [place] [facility] [address] [facility] [id number] [place] [address] Oct, [facility] [place] [address] [facility] [id number] [place] [id number] Oct, [facility] [place] [facility] [address] [address] Oct, [facility] [place] [address] [address] [id number] [id number] Sep, [facility] [place] [facility] [address] [facility] [id number] [place] [address] Sep, [facility] [place] [address] [facility] [id number] [place] [id number] Sep, [facility] [place] [facility] [address] [facility] [id number] [place] [address] Sep, [facility] [place] [facility] [address] [facility] [id number] [place] [address] Jul, [facility] [place] [address] [facility] [id number][place] [id number] Jul, [facility] [address] [id number][place] [id number] Jul, [facility] [address] [facility] [id number] [place] [address] Jul, [facility] [place] [facility] [address] [facility] [id number] [place] [address] Jun, [facility] [place] [facility] [address] [facility] [id number] [place] [address] Jun, [facility] [address] [id number][place] [id number] Jun, [facility] [place] [facility] [address] [facility] [id number] [place] [address] Jun, [facility] [place] [facility] [id number] [address] Jun, [facility] [place] [facility] [id number] [address] Jun, [facility] [place] [facility] [address] [facility] [id number] [place] [address] Jun, [facility] [place] [address] [id number][place] [phone] May, [facility] [place] [facility] [id number] [address] May, [facility] [place] [facility] [address] [facility] [id number] [place] [address] May, [facility] [place] [facility] [address] [facility] [id number] [place] [address] May, [facility] [place] [address] [id number][place] [id number] Apr, [facility] [place] [address] [id number][place] [id number] Apr, [facility] [place] [address] [id number][place] [id number] Apr, [facility] [place] [facility] [address] [facility] [id number] [place] [address] Apr, [facility] [address] [facility] [id number] [place] [address] Mar, [facility] [place] [address] [id number] [place] [id number] Mar, [facility] [place] [address] [id number] [place] [id number] Mar, [facility] [place] [address] [id number] [place] [id number] Mar, [facility] [place] [address] [id number] [place] [id number] Mar, [facility] [address] [address] Jan, [facility] [place] [address] [id number][place] [id number] December, [facility] [id number] [place] [address] Oct, [facility] [place] [facility] [address] [address] Aug, [facility] [place] [id number][place] [id number] Jun, [facility] [place] [facility] [address] [address] Jun, [facility] [place] [address] [facility] [id number][place] [id number] May, [facility] [place] [facility] [address] [facility] [id number] [place] [address] May, [facility] [place] [address] [facility] [id number][place] [id number] May, [facility] [place] [facility] [address] [facility] [id number] [place] [address] Apr, [facility] [place] [address] [id number], [place] [id number] Apr, [facility] [place] [address] [id number][place] [id number] Mar, [facility] [address] [facility] [id number][place] [id number] Mar, [facility] [address] [id number] [id number] Mar, [facility] [address] [id number] [id number] Feb, [facility] [address] [id number] [address] Feb, [facility] [address] [id number] [id number] Feb, [facility] [address] [id number] [id number] Feb, [facility] [address] [id number][place] [id number] Oct, [facility] [address] [id number] [id number] Sep, IMMUNIZATIONS No Known Immunizations SOCIAL HISTORY Never Assessed REASON FOR VISIT PALS-rexulti PLAN OF CARE VITAL SIGNS MEDICATIONS Medication Instructions Dosage Frequency Start Date End Date Duration Status Rexulti 4 MG Orally Once a day 1 tablet 24h December, 90 days Active RESULTS No Results PROCEDURES No Known [...] repair x 2--inguinal 2013 Hospitalization History Via [facility] x 4 days due to Tick fever 02/2015 Hospitalization History chest pain, headache, syncope, hallucination-[facility] 11/25/17 Hospitalization [facility], depression, ptsd 11/2017 Hospitalization History via [facility] for chest pain 11/2017
--- OUTSIDE RECORDS SUMMARY | 2019-03-06 13:33 | XMS REPORT ---
Author Author MARITO SAMUELS Organization [facility] Address [address] [place] [address] Care Team Providers Care Business Process Manager Name Role Phone ANATOLYSHEREE MARITO Unavailable PROBLEMS Type Condition ICD9-CM Code EJY62-CK Code Onset Dates Condition Status SNOMED Code Problem DDD (degenerative disc disease), lumbar M51.36 Active 92001574 Problem Bipolar 2 disorder F31.81 Active 81560086 Problem DDD (degenerative disc disease), cervical M50.30 Active 63208610 Problem Psychosis, unspecified psychosis type F29 Active 77665564 Problem Cannabis use disorder, moderate, dependence F12.20 Active 60937117 Problem Schizophrenia, unspecified type F20.9 Active 23244446 Problem Bipolar 1 disorder F31.9 Active 133377789 Problem Methamphetamine use disorder, 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 Active 889755815 Problem Schizoaffective disorder, unspecified condition F25.9 Active 18089842 Problem Diverticulitis of colon (without mention of hemorrhage) 562.11 Active 830219639 Problem Inguinal hernia without mention of obstruction or gangrene, unilateral or unspecified, (not specified as recurrent) 550.90 Active 398714399 Problem Allergic rhinitis, cause unspecified 477.9 Active 22947849 Problem Restless legs syndrome [RLS] 333.94 Active 35911306 Problem Esophageal reflux 530.81 Active 940586811 Problem DDD (degenerative disc disease), 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 Active 61451776 Problem Asthma, unspecified, unspecified status 493.90 Active 81900340 Problem Reactive depression F32.9 Active 26832336 ALLERGIES No Information ENCOUNTERS Encounter Location Date Diagnosis [facility] [address] [facility] [id number] [address] Feb, [facility] [address] [id number] [address] Jan, [facility] [id number] [place] [address] Jan, Psychosis, unspecified psychosis type F29 [place] [address] [address] Jan, Psychosis, unspecified psychosis type F29 ; Methamphetamine use disorder, 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 and Cannabis use disorder, moderate, dependence F12.20 [place] [address] [address] Jan, Schizoaffective disorder, unspecified condition F25.[address] [place] [id number] [place] [address] [id number] December, [place] [id number] [place] [phone] December, Psychosis, unspecified psychosis type F29 ; Methamphetamine use disorder, 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 and Cannabis use disorder, moderate, dependence F12.20 [place] [id number] [place] [address] December, Schizoaffective disorder, unspecified condition F25.9 [facility] [id number] [place] [address] [id number] December, [facility] [id number] [place] [address] [id number] Nov, Bipolar 2 disorder F31.81 and Schizophrenia, unspecified type F20.9 [place] [id number] [place] [phone] Nov, [facility] [id number] [place] [address] [id number] December, [facility] [id number] [place] [address] [id number] December, DDD (degenerative disc disease), lumbar M51.36 and Reactive depression F32.9 [facility] [id number] [place] [address] [id number] December, DDD (degenerative disc disease), cervical M50.30 and DDD (degenerative disc disease), lumbar M51.36 [place] [id number] [place] [address] [id number] Nov, [facility] [id number] [place] [address] [id number] Nov, DDD (degenerative disc disease), lumbar M51.36 [facility] [id number] [place] [address] [id number] Nov, DDD (degenerative disc disease), lumbar M51.36 [facility] [id number] [place] [address] [id number] Oct, DDD (degenerative disc disease), lumbar M51.36 ; Reactive depression F32.9 and DDD (degenerative disc disease), cervical M50.30 [facility] [id number] [place] [address] [id number] Aug, DDD (degenerative disc disease), lumbar M51.36 and Reactive depression F32.9 [facility] [id number] [place] [address] [id number] Jul, [facility] [address] [id number] Jul, DDD (degenerative disc disease), cervical M50.30 ; DDD (degenerative disc disease), 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 ; DDD (degenerative disc disease), lumbar M51.36 and Reactive depression F32.9 [facility] [id number] [place] [address] [id number] Jun, Encounter for immunization Z23 [facility] [id number] [place] [address] [id number] Mar, [facility] [id number] [place] [address] [id number] Oct, [facility] [id number] [place] [address] [id number] Sep, [facility] [id number] [place] [address] [id number] Sep, Physical exam Z00.00 and Allergic rhinitis J30.9 [facility] [id number] [place] [address] [id number] Jul, [facility] [address] [place] [phone] Jun, Diarrhea, unspecified R19.7 [facility] [id number] [place] [address] [id number] Feb, [facility] [id number] [place] [address] [id number] Feb, Frequent headaches 784.0 and 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 [facility] [id number] [place] [address] [id number] Feb, Positive serology for Erlichiosis 082.40 [facility] [id number] [place] [address] [id number] Feb, Positive serology for Erlichiosis 082.40 [facility] [id number] [place] [address] [id number] Feb, [facility] [id number] [place] [phone] Nov, [facility] [id number] [place] [address] Nov, [facility] [id number] [place] [address] Aug, [facility] [id number] [place] [address] [id number] Aug, [facility] [id number] [place] [address] [id number] Jul, [facility] [id number] [place] [phone] Jul, [facility] [id number] [place] [address] Apr, [facility] [id number] [place] [address] [id number] Apr, [facility] [id number] [place] [phone] Apr, [facility] [id number] [place] [phone] Apr, [facility] [place] [facility] [address] [facility] [id number] [place] [address] Apr, [facility] [place] [address] [facility] [id number] [place] [phone] Feb, [facility] [place] [address] [facility] [id number] [place] [id number] Feb, [facility] [place] [facility] [address] [facility] [id number] [place] [address] Feb, [facility] [place] [facility] [address] [facility] [id number] [place] [address] Feb, [facility] [place] [address] [facility] [id number] [place] [id number] Feb, [facility] [place] [facility] [address] [facility] [id number] [place] [address] Feb, [facility] [place] [address] [id number] [place] [id number] Oct, [facility] [place] [facility] [address] [facility] [id number], [place] [address] Oct, [facility] [place] [address] [facility] [id number] [place] [id number] Oct, [facility] [place] [facility] [address], [place] [address] Oct, [facility] [place] [address] [id number] [id number] Sep, [facility] [place] [facility] [address] [facility] [id number], [place] [address] Sep, [facility] [place] [address] [facility] [id number] [place] [id number] Sep, [facility] [place] [facility] [address] [facility] [id number], [place] [address] Sep, [facility] [place] [facility] [address] [facility] [id number], [place] [address] Jul, [facility] [place] [address] [facility] [id number][place] [id number] Jul, [facility] [address] [id number][place] [id number] Jul, [facility] [address] [facility] [id number], [place] [address] Jul, [facility] [place] [facility] [address] [facility] [id number], [place] [address] Jun, [facility] [place] [facility] [address] [facility] [id number], [place] [address] Jun, [facility] [address] [id number][place] [id number] Jun, [facility] [place] [facility] [address] [facility] [id number], [place] [address] Jun, [facility] [place] [facility] [address] [id number], [place] [address] Jun, [facility] [place] [facility] [id number], [place] [address] Jun, [facility] [place] [facility] [address] [facility] [id number], [place] [address] Jun, [facility] [place] [address] [id number][place] [id number] May, [facility] [place] [facility] [address] [id number], [place] [address] May, [facility] [place] [facility] [address] [facility] [id number], [place] [address] May, [facility] [place] [facility] [address] [facility] [id number], [place] [address] May, [facility] [place] [address] [id number][place] [id number] Apr, [facility] [place] [address] [id number][place] [id number] Apr, [facility] [place] [address] [id number], [place] [id number] Apr, [facility] [place] [facility] [address] [facility] [id number], [place] [address] Apr, [facility] [address] [facility] [id number], [place] [address] Mar, [facility] [place] [address] [id number] [place] [id number] Mar, [facility] [place] [address] [id number] [place] [id number] Mar, [facility] [place] [address] [id number] [place] [id number] Mar, [facility] [place] [address] [id number] [place] [id number] Mar, [facility] [place] [facility] [address], [place] [address] Jan, [facility] [place] [address] [id number], [place] [id number] December, [facility] [id number] [place] [address] Oct, [facility] [place] [facility] [address], [place] [address] Aug, [facility] [place] [id number], [place] [id number] Jun, [facility] [place] [facility] [address], [place] [address] Jun, [facility] [place] [address] [facility] [id number], [place] [id number] May, [facility] [place] [facility] [address] [facility] [id number], [place] [address] May, [facility] [place] [address] [facility] [id number], [place] [id number] May, [facility] [place] [facility] [address] [facility] [id number], [place] [address] Apr, [facility] [place] [address] [id number], [place] [id number] Apr, [facility] [place] [address] [id number], [place] [id number] Mar, [facility] [address] [id number], [place] [id number] Mar, [facility] [address] [id number], [place] [id number] Mar, [facility] [address] [id number], [place] [id number] Feb, [facility] [address], [place] [address] Feb, [facility] [address] [id number], [place] [id number] Feb, [facility] [address] [id number], [place] [id number] Feb, [facility] [address] [id number], [place] [id number] Oct, [facility] [address] [id number], [place] [id number] Sep, IMMUNIZATIONS No Known Immunizations SOCIAL HISTORY Never Assessed REASON FOR VISIT davis/tammy Shultz MA PLAN OF CARE Activity Details Follow Up 4 Weeks Reason: VITAL SIGNS Height 70 in 2018-01-15 Weight 249.0 lbs 2018-01-15 Heart Rate 78 bpm 2018-01-15 Respiratory Rate 20 2018-01-15 BMI 35.72 kg/m2 2018-01-15 Blood pressure systolic 144 mmHg 2018-01-15 Blood pressure diastolic 92 mmHg 2018-01-15 MEDICATIONS Medication Instructions Dosage Frequency Start Date End Date Duration Status Atorvastatin Calcium 40 MG Orally Once a day 1 tablet 24h Not-Taking Propranolol HCl 10 MG Orally Twice a day 1 tablet 12h Jan, 30 day(s) Active Trazodone HCl 100 MG Orally at night as needed for sleep 1 tablet December, 30 days Active Venlafaxine HCl 100 mg Orally twice a day .5 tablet with food 12h Nov, Not-Taking Sucralfate 1 GM Orally 4 times a day 1 tablet on an empty stomach 6h 05 Jun, 2015 Not-Taking ProAir HFA 90 mcg/actuation Inhalation 4 times a day inhale 2 puffs 6h Aug, Not-Taking Shari-D 12 Hour 60-120 MG Orally Twice a day 1 tablet as needed 12h Not-Taking Rexulti 0.5 MG Orally Once a day 1 tablet 24h December, 7 days Not-Taking Rexulti 1 MG Orally Once a day 1 tablet 24h December, 7 days Not-Taking Hydrocodone-Acetaminophen 5-325 MG Orally 3 times a day must lst 1 m 1 tablet as needed Jul, Not-Taking Rexulti 4 MG Orally Once a day 1 tablet 24h December, Active Valium 5 mg Orally Twice a day as needed must last 1 m 1 tablet as needed Jul, Not-Taking Omeprazole 20 MG Orally 2 times a day take 1 capsule by Oral route before a meal 2 times per day 12h Apr, Not-Taking RESULTS No Results PROCEDURES No Known procedures [...] repair x 2--inguinal 2012 Hospitalization History Via [facility] x 4 days due to Tick fever 02/2015 Hospitalization History chest pain, headache, syncope, hallucination-[facility] 11/25/17 [facility], depression, ptsd 11/2017 Hospitalization History via [facility] emergency department for chest pain 11/2017
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
[2019-03-06 13:34] LABS: BASOPHILS % (AUTO) 0 % (0-10); EOSINOPHILS # (AUTO) 0.2 10^3/uL (0.0-0.3); EOSINOPHILS % (AUTO) 2 % (0-10); HEMATOCRIT 46 % (40-54); HEMOGLOBIN 15.6 G/DL (13.3-17.7); LYMPHOCYTES # (AUTO) 2.3 X 10^3 (1.0-4.0); LYMPHOCYTES % (AUTO) 25 % (12-44); MEAN CORPUSCULAR HEMOGLOBIN 29 PG (25-34); MEAN CORPUSCULAR HGB CONC 34 G/DL (32-36); MEAN CORPUSCULAR VOLUME 85 FL (80-99); MEAN PLATELET VOLUME 9.2 FL (7.4-10.4); MONOCYTES # (AUTO) 0.7 X 10^3 (0.0-1.0); MONOCYTES % (AUTO) 8 % (0-12); NEUTROPHILS # (AUTO) 5.8 X 10^3 (1.8-7.8); NEUTROPHILS % (AUTO) 65 % (42-75); PLATELET COUNT 287 10^3/uL (130-400)
--- OUTSIDE RECORDS SUMMARY | 2019-03-06 13:34 | XMS REPORT ---
Author Author MARITO SAMUELS Organization [facility] Address [address] [place] [address] Care Team Providers Care Automation And Controls Supervisor Name Role Phone ANATOLYLALA BENTLEYYLA Unavailable PROBLEMS Type Condition ICD9-CM Code [id number] Code Onset Dates Condition Status SNOMED Code Problem DDD (degenerative disc disease), lumbar M51.36 Active 56340635 Problem Bipolar 2 disorder F31.81 Active 78719114 Problem DDD (degenerative disc disease), cervical M50.30 Active 52248794 Problem Psychosis, unspecified psychosis type F29 Active 64871664 Problem Cannabis use disorder, moderate, dependence F12.20 Active 97626441 Problem Schizophrenia, unspecified type F20.9 Active 34294937 Problem Bipolar 1 disorder F31.9 Active 230607593 Problem Methamphetamine use disorder, 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 Active 842283189 Problem Schizoaffective disorder, unspecified condition F25.9 Active 65936553 Problem Diverticulitis of colon (without mention of hemorrhage) 562.11 Active 937725702 Problem Inguinal hernia without mention of obstruction or gangrene, unilateral or unspecified, (not specified as recurrent) 550.90 Active 288111589 Problem Allergic rhinitis, cause unspecified 477.9 Active 21656410 Problem Restless legs syndrome [RLS] 333.94 Active 97610961 Problem Esophageal reflux 530.81 Active 576999513 Problem DDD (degenerative disc disease), 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 Active 72958826 Problem Asthma, unspecified, unspecified status 493.90 Active 72273187 Problem Reactive depression F32.9 Active 67494158 ALLERGIES Substance Reaction Event Type Date Status Wellbutrin XL headache Drug Allergy December, Active Prozac incd anger Drug Allergy December, Active Iodine anaphylaxis Drug Allergy December, Active Gabapentin nausea Drug Allergy December, Active Fioricet hallucinations Drug Allergy December, Active ENCOUNTERS Encounter Location Date Diagnosis [facility] [id number] [place] [address] Feb, [facility] [id number] [place] [address] Jan, 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 and Cannabis use disorder, moderate, dependence F12.20 [place] [address] [address] Jan, Schizoaffective disorder, unspecified condition F25.9 [place] [id number] [place] [id number] December, [place] [id number] [place] [address] December, Psychosis, unspecified psychosis type F29 ; Methamphetamine use disorder, 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 and Cannabis use disorder, moderate, dependence F12.20 [place] [id number] [place] [address] December, Schizoaffective disorder, unspecified condition F25.9 [place] [id number] [place] [address] [id number] December, [place] [id number] [place] [address] [id number] Nov, Bipolar 2 disorder F31.81 and Schizophrenia, unspecified type F20.9 [place] [id number] [place] [address] Nov, [place] [id number] [place] [address] [id number] December, [facility] [id number] [place] [address] [id number] December, DDD (degenerative disc disease), lumbar M51.36 and Reactive depression F32.9 [facility] [address] [id number] [id number] December, DDD (degenerative disc disease), cervical M50.30 and DDD (degenerative disc disease), lumbar M51.36 [facility] [place] [address] [id number] [place] [id number] Nov, [facility] [place] [address] [id number] [place] [id number] Nov, DDD (degenerative disc disease), lumbar M51.36 [facility] [place] [address] [id number] [place] [id number] Nov, DDD (degenerative disc disease), lumbar M51.36 [facility] [place] [id number] [place] [address], [place] [id number] Oct, DDD (degenerative disc disease), lumbar M51.36 ; Reactive depression F32.9 and DDD (degenerative disc disease), cervical M50.30 [facility] [place] [address] [id number] [place] [id number] Aug, DDD (degenerative disc disease), lumbar M51.36 and Reactive depression F32.9 [facility] [id number] [place] [address] [id number] Jul, [facility] [id number] [place] [address] [id number] Jul, DDD (degenerative disc disease), cervical M50.30 ; DDD (degenerative disc disease), 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 ; DDD (degenerative disc disease), lumbar M51.36 and Reactive depression F32.9 [facility] [id number] [place] [address] [phone] Jun, Encounter for immunization Z23 [facility] [address] [id number] [place] [id number] Mar, [facility] [address] [id number] [place] [address] [id number] Oct, [facility] [address] [id number] [place] [address] [id number] Sep, [facility] [address] [place] [id number] [place] [address] [id number] Sep, Physical exam Z00.00 and Allergic rhinitis J30.9 [facility] [id number] [place] [address] [id number] Jul, [place] [id number] [place] [address] [id number] Jun, Diarrhea, unspecified R19.7 [facility] [id number] [place] [address] [id number] Feb, [place] [id number] [place] [address] [phone] Feb, Frequent headaches 784.0 and 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 [place] [id number] [place] [address] [phone] Feb, Positive serology for Erlichiosis 082.[address] [place] [id number] [place] [address] [id number] Feb, Positive serology for Erlichiosis 082.[address] [place] [id number] [place] [address] [id number] Feb, [facility] [id number] [place] [address] Nov, [facility] [id number] [place] [phone] Nov, [facility] [id number] [place] [address] Aug, [place] [id number] [place] [address] [id number] Aug, [facility] [id number] [place] [address] [id number] Jul, [facility] [address] [address] Jul, [facility] [id number] [place] [address] Apr, [facility] [id number] [place] [address] [id number] Apr, [facility] [place] [facility] [address] [id number] [address] Apr, [facility] [place] [facility] [address] [facility] [id number] [place] [address] Apr, [facility] [place] [facility] [address] [facility] [id number] [place] [address] Apr, [facility] [address] [id number] [place] [id number] Feb, [facility] [address] [facility] [id number] [place] [id number] Feb, [facility] [place] [facility] [address] [facility] [id number] [place] [address] Feb, [facility] [place] [facility] [address] [facility] [id number] [place] [address] Feb, [facility] [address] [facility] [id number] [place] [id number] Feb, [facility] [place] [facility] [address] [facility] [id number] [address] Feb, [facility] [address] [facility] [id number] [place] [id number] Oct, [facility] [place] [facility] [address] [facility] [id number] [place] [address] Oct, [facility] [address] [facility] [id number] [place] [id number] Oct, [facility] [place] [facility] [address] [facility] [id number] [place] [address] Oct, [facility] [address] [facility] [id number] [place] [id number] Sep, [facility] [place] [facility] [address] [facility] [id number] [place] [address] Sep, [facility] [address] [facility] [id number] [place] [id number] Sep, [facility] [place] [facility] [address] [facility] [id number] [place] [address] Sep, [facility] [address] [facility] [id number] [place] [address] Jul, [facility] [address] [id number] [place] [id number] Jul, [facility] [address] [id number] [place] [id number] Jul, [facility] [address] [facility] [id number] [place] [address] Jul, [facility] [place] [facility] [address] [facility] [id number] [place] [address] Jun, [facility] [place] [facility] [address] [facility] [id number] [place] [address] Jun, [facility] [address] [id number] [place] [id number] Jun, [facility] [place] [facility] [address]00565100[place] [address] Jun, [facility] [address] [facility] [id number] [place] [address] Jun, [facility] [place] [facility] [address]00565100[place] [address] Jun, [facility] [address] [facility] [id number] [place] [address] Jun, [facility] [address] [id number] [place]LEY[place] [id number] May, [facility] [place] [facility] [address] [facility] [id number] [place] [address] May, [facility] [place] [facility] [address] [facility] [id number] [place] [address] May, [facility] [place] [facility] [address] [facility] [id number] [place] [address] May, [facility] [address] [id number] [place] [id number] Apr, [facility] [address] [id number] [place] [id number] Apr, [facility] [address] [id number] [place] [id number] Apr, [facility] [place] [facility] [address] [facility] [id number] [place] [address] Apr, [facility] [place] [facility] [address] [facility] [id number] [place] [address] Mar, [facility] [address] [id number] [place] [id number] Mar, [facility] [address] [id number] [place] [id number] Mar, [facility] [address] [id number] [place] [id number] Mar, [facility] [address] [id number] [place] [id number] Mar, [facility] [place] [facility] [address]00565100[place] [address] Jan, [facility] [address] [id number] [place] [id number] December, [facility] [place] [facility] [address]00565100[place] [address] Oct, [facility] [place] [facility] [address]00565100[place] [address] Aug, [facility] [address] [facility] [id number] [place]LEY[place] [id number] Jun, [facility] [place] [facility] [address] [facility] [id number] [place] [address] Jun, [facility] [address] [facility] [id number] [place]LEY[place] [id number] May, [facility] [place] [facility] [address] [facility] [id number] [place] [address] May, [facility] [address] [facility] [id number] [place] [id number] May, [facility] [place] [facility] [address]00565100[place] [address] Apr, [facility] [address] [facility] [id number] [place] [id number] Apr, [facility] [address] [facility] [id number] [place] [id number] Mar, [facility] [address] [facility] [id number] [place] [id number] Mar, [facility] [address] [id number] [id number] Mar, [facility] [address] [facility] [id number] [place] [id number] Feb, [facility] [address] [facility] [id number] [place] [address] Feb, [facility] [place] [id number] [place] [id number] Feb, [facility] [id number] [place] [id number] Feb, [facility] [id number] [place] [id number] Oct, [facility] [id number] [place] [id number] Sep, IMMUNIZATIONS No Known Immunizations SOCIAL HISTORY Never Assessed REASON FOR VISIT maría-Carrington [facility] PLAN OF CARE Activity Details Follow Up 4 Weeks, prn Reason: VITAL SIGNS Height 70 in 2017-12-18 Weight 242.0 lbs 2017-12-18 Heart Rate 86 bpm 2017-12-18 Respiratory Rate 19 2017-12-18 BMI 34.72 kg/m2 2017-12-18 Blood pressure systolic 124 mmHg 2017-12-18 Blood pressure diastolic 86 mmHg 2017-12-18 MEDICATIONS Medication Instructions Dosage Frequency Start Date End Date Duration Status ProAir HFA 90 mcg/actuation Inhalation 4 times a day inhale 2 puffs 6h Aug, Not-Taking Omeprazole 20 MG Orally 2 times a day take 1 capsule by Oral route before a meal 2 times per day 12h 04 Apr, 2014 Not-Taking Shari-D 12 Hour 60-120 MG Orally Twice a day 1 tablet as needed 12h Not-Taking Venlafaxine HCl 100 mg Orally twice a day .5 tablet with food 12h 30 Nov, 2017 Not-Taking Rexulti 1 MG Orally Once a day 1 tablet 24h December, 7 days Active Atorvastatin Calcium 40 MG Orally Once a day 1 tablet 24h Not-Taking Sucralfate 1 GM Orally 4 times a day 1 tablet on an empty stomach 6h 05 Jun, 2015 Not-Taking Hydrocodone-Acetaminophen 5-325 MG Orally 3 times a day must lst 1 m 1 tablet as needed Jul, Not-Taking Rexulti 2 MG Orally Once a day 1 tablet 24h December, 30 days Active Valium 5 mg Orally Twice a day as needed must last 1 m 1 tablet as needed Jul, Not-Taking Trazodone HCl 50 MG Orally at night as needed for sleep 1-2 tablets December, 30 day(s) Active Rexulti 0.5 MG Orally Once a day 1 tablet 24h December, 7 days Active RESULTS No Results PROCEDURES No [...] Hospitalization History chest pain, headache, syncope, hallucination-[facility] 11/25/17 Hospitalization [facility], depression, ptsd 11/2017 Hospitalization History via [facility] emergency department for chest pain 11/2017
--- OUTSIDE RECORDS SUMMARY | 2019-03-06 13:34 | XMS REPORT ---
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 Name Role Phone IRVING FARRAR Unavailable PROBLEMS Type Condition ICD9-CM Code UJE25-ET Code Onset Dates Condition Status SNOMED Code Problem DDD (degenerative disc disease), lumbar M51.36 Active 33826616 Problem Bipolar 2 disorder F31.81 Active 22022718 Problem DDD (degenerative disc disease), cervical M50.30 Active 10583519 Problem Psychosis, unspecified psychosis type F29 Active 01084924 Problem Cannabis use disorder, moderate, dependence F12.20 Active 21801353 Problem Schizophrenia, unspecified type F20.9 Active 10757926 Problem Bipolar 1 disorder F31.9 Active 050005987 Problem Methamphetamine use disorder, 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 Active 569651863 Problem Schizoaffective disorder, unspecified condition F25.9 Active 68102209 Problem Diverticulitis of colon (without mention of hemorrhage) 562.11 Active 675666965 Problem Inguinal hernia without mention of obstruction or gangrene, unilateral or unspecified, (not specified as recurrent) 550.90 Active 499221558 Problem Allergic rhinitis, cause unspecified 477.9 Active 27453446 Problem Restless legs syndrome [RLS] 333.94 Active 07055169 Problem Esophageal reflux 530.81 Active 523607552 Problem DDD (degenerative disc disease), 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 Active 24123234 Problem Asthma, unspecified, unspecified status 493.90 Active 75176125 Problem Reactive depression F32.9 Active 09262675 ALLERGIES No Information ENCOUNTERS Encounter Location Date Diagnosis [facility] [id number], [place] [address] Feb, [facility] [id number], [place] [address] Jan, [facility] [address], [place] [address] Jan, Psychosis, unspecified psychosis type F29 [facility] [id number] [place] [address] Jan, Psychosis, unspecified psychosis type F29 ; Methamphetamine use disorder, 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 and Cannabis use disorder, moderate, dependence F12.20 [id number] [place] [address] Jan, Schizoaffective disorder, unspecified condition F25.9 [id number] [place] [address] [id number] December, [facility] [id number] [place] [address] December, Psychosis, unspecified psychosis type F29 ; Methamphetamine use disorder, 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 and Cannabis use disorder, moderate, dependence F12.20 [facility] [id number] [place] [address] December, Schizoaffective disorder, unspecified condition F25.9 [facility] [id number] [place] [address] [id number] December, [facility] [id number] [place] [address] [id number] Nov, Bipolar 2 disorder F31.81 and Schizophrenia, unspecified type F20.9 [id number] [place] [address] Nov, [facility] [id number] [place] [address] [id number] December, [facility] [id number] [place] [address] [id number] December, DDD (degenerative disc disease), lumbar M51.36 and Reactive depression F32.9 [facility] [id number] [place] [address] [id number] December, DDD (degenerative disc disease), cervical M50.30 and DDD (degenerative disc disease), lumbar M51.36 [facility] [id number] [place] [address] [id number] Nov, [facility] [id number] [place] [address] [id number] Nov, DDD (degenerative disc disease), lumbar M51.36 [facility] [id number] [place] [address] [id number] Nov, DDD (degenerative disc disease), lumbar M51.36 [facility] [id number] [place] [address] [id number] Oct, DDD (degenerative disc disease), lumbar M51.36 ; Reactive depression F32.9 and DDD (degenerative disc disease), cervical M50.30 [facility] [id number] [place] [address] [id number] Aug, DDD (degenerative disc disease), lumbar M51.36 and Reactive depression F32.9 [facility] [id number] [place] [address] [id number] Jul, [facility] [address] [id number] Jul, DDD (degenerative disc disease), cervical M50.30 ; DDD (degenerative disc disease), 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 ; DDD (degenerative disc disease), lumbar M51.36 and Reactive depression F32.9 [facility] [id number] [place] [address] [id number] Jun, Encounter for immunization Z23 [facility] [id number] [place] [address] [id number] Mar, [facility] [id number] [place] [address] [id number] Oct, [facility] [id number] [place] [address] [id number] Sep, [facility] [address] [id number] Sep, Physical exam Z00.00 and Allergic rhinitis J30.9 [facility] [id number] [place] [address] [id number] Jul, [facility] [address] [id number] Jun, Diarrhea, unspecified R19.7 [facility] [id number] [id number] Feb, [facility] [id number] [place] [address] [id number] Feb, Frequent headaches 784.0 and 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 [facility] [id number] [place] [address] [id number] Feb, Positive serology for Erlichiosis 082.40 [facility] [id number] [place] [address] [id number] Feb, Positive serology for Erlichiosis 082.40 [facility] [id number] [place] [address] [id number] Feb, [facility] [id number] [place] [address] Nov, [facility] [id number] [place] [phone] Nov, [facility] [id number] [place] [phone] Aug, [facility] [id number] [place] [address] [id number] Aug, [facility] [id number] [place] [address] [id number] Jul, [facility] [id number] [place] [phone] Jul, [facility] [id number] [place] [phone] Apr, [facility] [id number] [place] [address] [id number] Apr, [facility] [id number] [place] [phone] Apr, [facility] [id number] [place] [phone] Apr, [facility] [place] [facility] [address] [facility] [id number] [place] [address] Apr, [facility] [address] [id number] [place] [id number] Feb, [facility] [address] [facility] [id number] [place] [id number] Feb, [facility] [place] [facility] [address] [facility] [id number] [place] [address] Feb, [facility] [place] [facility] [address] [facility] [id number] [place] [address] Feb, [facility] [address] [id number] [place] [id number] Feb, [facility] [place] [facility] [address] [facility] [id number] [place] [address] Feb, [facility] [address] [facility] [id number] [place] [id number] Oct, [facility] [place] [facility] [address] [facility] [id number], [place] [address] Oct, [facility] [address] [facility] [id number] [place] [id number] Oct, [facility] [place] [facility] [address] [facility] [id number], [place] [address] Oct, [facility] [address] [facility] [id number] [place] [id number] Sep, [facility] [place] [facility] [address] [facility] [id number], [place] [address] Sep, [facility] [address] [facility] [id number] [place] [id number] Sep, [facility] [place] [facility] [address] [facility] [id number] [place] [address] Sep, [facility] [place] [facility] [address] [facility] [id number] [place] [address] Jul, [facility] [address] [facility] [id number] [place] [id number] Jul, [facility] [address] [id number][place] [id number] Jul, [facility] [address] [facility] [id number], [place] [address] Jul, [facility] [place] [facility] [address] [facility] [id number], [place] [address] Jun, [facility] [place] [facility] [address] [facility] [id number], [place] [address] Jun, [facility] [address] [id number][place] [id number] Jun, [facility] [place] [facility] [address] [facility] [id number] [place] [address] Jun, [facility] [place] [facility] [id number], [place] [address] Jun, [facility] [place] [facility] [address], [place] [address] Jun, [facility] [place] [facility] [address], [place] [address] Jun, [facility] [address] [facility] [id number][place] [id number] May, [facility] [place] [facility] [address], [place] [address] May, [facility] [place] [facility] [address], [place] [address] May, [facility] [place] [facility] [address] [facility] [id number], [place] [address] May, [facility] [address] [id number], [place] [id number] Apr, [facility] [address] [facility] [id number], [place] [id number] Apr, [facility] [address] [facility] [id number][place] [id number] Apr, [facility] [place] [facility] [address] [facility] [id number], [place] [address] Apr, [facility] [address] [facility] [id number], [place] [address] Mar, [facility] [address] [id number] [place] [id number] Mar, [facility] [address] [id number] [place] [id number] Mar, [facility] [address] [id number] [place] [id number] Mar, [facility] [address] [id number] [place] [id number] Mar, [facility] [place] [facility] [address], [place] [address] Jan, [facility] [address] [id number][place] [id number] December, [facility] [address], [place] [address] Oct, [facility] [place] [facility] [address], [place] [address] Aug, [facility] [address] [facility] [id number][place] [id number] Jun, [facility] [place] [facility] [address], [place] [address] Jun, [facility] [address] [id number][place] [id number] May, [facility] [place] [facility] [address] [facility] [id number], [place] [address] May, [facility] [address] [id number], [place] [id number] May, [facility] [place] [facility] [address] [facility] [id number], [place] [address] Apr, [facility] [address] [id number] [place] [id number] 07 Apr, 2012 [facility] [address] [id number], [place] [id number] Mar, [facility] [address] [facility] [id number][place] [id number] Mar, [facility] [address] [id number] [id number] Mar, [facility] [address] [id number] [id number] Feb, [facility] [id number], [place] [address] Feb, [facility] [address] [id number] [id number] Feb, [facility] [address] [id number] [id number] Feb, [facility] [id number], [place] [id number] Oct, [facility] [address] [id number] [id number] Sep, IMMUNIZATIONS No Known Immunizations SOCIAL HISTORY Never Assessed REASON FOR VISIT Medical Advice PLAN OF CARE VITAL SIGNS MEDICATIONS Unknown [...] repair x 2--inguinal 2012 Hospitalization History Via [facility] x 4 days due to Tick fever 02/2015 Hospitalization History chest pain, headache, syncope, hallucination-[facility] 11/25/17 Hospitalization [facility], depression, ptsd 11/2017 Hospitalization History via [facility] for chest pain 11/2017
--- OUTSIDE RECORDS SUMMARY | 2019-03-06 13:34 | XMS REPORT ---
Author Author IRVING FARRAR [facility] Address [address] [place] [address] Care Team Providers Care Pick Remover Name Role Phone IRVING FARRAR Unavailable PROBLEMS Type Condition ICD9-CM Code EOX24-LB Code Onset Dates Condition Status SNOMED Code Problem DDD (degenerative disc disease), lumbar M51.36 Active 88779083 Problem Bipolar 2 disorder F31.81 Active 27569828 Problem DDD (degenerative disc disease), cervical M50.30 Active 58460196 Problem Psychosis, unspecified psychosis type F29 Active 77395777 Problem Cannabis use disorder, moderate, dependence F12.20 Active 88162300 Problem Schizophrenia, unspecified type F20.9 Active 53090030 Problem Bipolar 1 disorder F31.9 Active 146695682 Problem Methamphetamine use disorder, 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 Active 008478151 Problem Schizoaffective disorder, unspecified condition F25.9 Active 41902705 Problem Diverticulitis of colon (without mention of hemorrhage) 562.11 Active 038508411 Problem Inguinal hernia without mention of obstruction or gangrene, unilateral or unspecified, (not specified as recurrent) 550.90 Active 972880845 Problem Allergic rhinitis, cause unspecified 477.9 Active 33668943 Problem Restless legs syndrome [RLS] 333.94 Active 28516573 Problem Esophageal reflux 530.81 Active 718550001 Problem DDD (degenerative disc disease), 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 Active 06965740 Problem Asthma, unspecified, unspecified status 493.90 Active 80706246 Problem Reactive depression F32.9 Active 56433156 ALLERGIES Substance Reaction Event Type Date Status Wellbutrin XL headache Drug Allergy Nov, Active Prozac incd anger Drug Allergy Nov, Active Iodine anaphylaxis Drug Allergy Nov, Active Gabapentin nausea Drug Allergy Nov, Active Fioricet hallucinations Drug Allergy Nov, Active ENCOUNTERS Encounter Location Date Diagnosis [facility] [address] [facility] [id number] [place] [id number] Feb, [facility] [id number] [place] [address] Jan, [facility] [id number] [place], [place] [address] Jan, Psychosis, unspecified psychosis type F29 [place] [id number] [place] [address] Jan, Psychosis, unspecified psychosis type F29 ; Methamphetamine use disorder, 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 and Cannabis use disorder, moderate, dependence F12.20 [place] [id number] [place] [address] Jan, Schizoaffective disorder, unspecified condition F25.[id number] [place] [address] [id number] December, [place] [id number] [place] [address] December, Psychosis, unspecified psychosis type F29 ; Methamphetamine use disorder, 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 and Cannabis use disorder, moderate, dependence F12.20 [place] [id number] [place] [address] December, Schizoaffective disorder, unspecified condition F25.[id number] [place] [address] [id number] December, [facility] [id number] [place] [address] [id number] Nov, Bipolar 2 disorder F31.81 and Schizophrenia, unspecified type F20.9 [place] [id number] [place] [address] Nov, [facility] [id number] [place] [address] [id number] December, [facility] [id number] [place] [address] [id number] December, DDD (degenerative disc disease), lumbar M51.36 and Reactive depression F32.9 [facility] [id number] [place] [phone] December, DDD (degenerative disc disease), cervical M50.30 and DDD (degenerative disc disease), lumbar M51.36 [facility] [id number] [place] [address] [id number] Nov, [facility] [id number] [place] [address] [id number] Nov, DDD (degenerative disc disease), lumbar M51.36 [facility] [id number] [place] [address] [id number] Nov, DDD (degenerative disc disease), lumbar M51.36 [facility] [id number] [place] [address] [id number] Oct, DDD (degenerative disc disease), lumbar M51.36 ; Reactive depression F32.9 and DDD (degenerative disc disease), cervical M50.30 [facility] [id number] [place] [address] [id number] Aug, DDD (degenerative disc disease), lumbar M51.36 and Reactive depression F32.9 [facility] [id number] [place] [address] [id number] Jul, [facility] [id number] [place] [address] [phone] Jul, DDD (degenerative disc disease), cervical M50.30 ; DDD (degenerative disc disease), 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 ; DDD (degenerative disc disease), lumbar M51.36 and Reactive depression F32.9 [facility] [id number] [place] [address] [phone] Jun, Encounter for immunization Z23 [facility] [id number] [place] [address] [id number] Mar, [facility] [id number] [place] [address] [id number] Oct, [facility] [id number] [place] [address] [id number] Sep, [facility] [id number] [place] [address] [id number] Sep, Physical exam Z00.00 and Allergic rhinitis J30.9 [facility] [id number] [place] [address] [id number] Jul, [facility] [id number] [place] [address] [phone] Jun, Diarrhea, unspecified R19.7 [facility] [id number] [place] [address] [id number] Feb, [facility] [id number] [place] [address] [phone] Feb, Frequent headaches 784.0 and 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 [place] [id number] [place] [address] [phone] Feb, Positive serology for Erlichiosis 082.40 [facility] [id number] [place] [address] [phone] Feb, Positive serology for Erlichiosis 082.40 [facility] [id number] [place] [address] [phone] Feb, [facility] [id number] [place] [address] Nov, [facility] [id number] [place] [address] Nov, [facility] [id number] [place] [phone] Aug, [facility] [id number] [place] [address] [id number] Aug, [facility] [id number] [place] [address] [id number] Jul, [facility] [id number] [place] [phone] Jul, [facility] [id number] [place] [address] Apr, [facility] [id number] [place] [address] [phone] Apr, [facility] [address] [place] [address] Apr, [facility] [place] [facility] [address] [facility] [id number], [place] [address] Apr, [facility] [place] [facility] [address] [facility] [id number], [place] [address] Apr, [facility] [address] [facility] [id number] [place] [id number] Feb, [facility] [address] [facility] [id number][place] [id number] Feb, [facility] [place] [facility] [address] [facility] [id number] [place] [address] Feb, [facility] [place] [facility] [address] [facility] [id number][place] [address] Feb, [facility] [address] [id number][place] [id number] Feb, [facility] [place] [facility] [address] [id number], [place] [address] Feb, [facility] [address] [facility] [id number][place] [id number] Oct, [facility] [place] [facility] [address] [address] Oct, [facility] [address] [facility] [id number][place] [id number] Oct, [facility] [place] [facility] [address] [facility] [id number], [place] [address] Oct, [facility] [address] [facility] [id number][place] [id number] Sep, [facility] [place] [facility] [address] [facility] [id number][place] [address] Sep, [facility] [address] [facility] [id number][place] [id number] Sep, [facility] [place] [facility] [address] [facility] [id number], [place] [address] Sep, [facility] [place] [facility] [address] [id number], [place] [address] Jul, [facility] [address] [id number][place] [id number] Jul, [facility] [address] [facility] [id number][place] [id number] Jul, [facility] [address] [facility] [id number], [place] [address] Jul, [facility] [address] [facility] [id number], [place] [address] Jun, [facility] [address] [facility] [id number][place] [address] Jun, [facility] [address] [facility] [id number][place] [id number] Jun, [facility] [address] [address] Jun, [facility] [address] [facility] [id number], [place] [address] Jun, [facility] [address] [facility] [id number], [place] [address] Jun, [facility] [address] [facility] [id number], [place] [address] Jun, [facility] [address] [facility] [id number][place] [id number] May, [facility] [address] [facility] [id number][place] [address] May, [facility] [place] [facility] [address] [facility] [id number][place] [address] May, [facility] [place] [facility] [address] [facility] [id number], [place] [address] May, [facility] [address] [facility] [id number][place] [id number] Apr, [facility] [address] [id number] [place] [id number] Apr, [facility] [address] [id number] [place] [id number] Apr, [facility] [place] [facility] [address] [facility] [id number][place] [address] Apr, [facility] [place] [facility] [address] [facility] [id number][place] [address] Mar, [facility] [address] [id number] [place] [id number] Mar, [facility] [address] [id number] [place] [id number] Mar, [facility] [address] [id number] [place] [id number] Mar, [facility] [address] [id number] [place] [id number] Mar, [facility] [place] [facility] [address] [address] Jan, [facility] [address] [id number][place] [id number] December, [facility] [place] [facility] [address] [address] Oct, [facility] [place] [facility] [address] [address] Aug, [facility] [address] [facility] [id number][place] [id number] Jun, [facility] [place] [facility] [address] [facility] [id number], [place] [address] Jun, [facility] [address] [facility] [id number][place] [id number] May, [facility] [place] [facility] [address] [address] May, [facility] [address] [facility] [id number][place] [id number] May, [facility] [place] [facility] [address]65[address] [address] Apr, [facility] [address] [id number][place] [id number] Apr, [facility] [address] [facility] [id number][place] [id number] Mar, [facility] [address] [id number][place] [id number] Mar, [facility] [id number][place] [id number] Mar, [facility] [id number][place] [id number] Feb, [facility] [address] [address] Feb, [facility] [id number][place] [id number] Feb, [facility] [id number], [place] [id number] Feb, [facility] [id number], [place] [id number] Oct, [facility] [address] [id number][place] [id number] Sep, IMMUNIZATIONS No Known Immunizations SOCIAL HISTORY Never Assessed REASON FOR VISIT [facility]-has been hearing voices, does not feel suicidial, was smoking marjuiana has not smoked lately. Would like to get some help. Was in [facility] [place]. 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 PLAN OF CARE Activity Details Follow Up 2 Weeks Reason:depression VITAL SIGNS Height 70 in 2017-12-03 Weight 244.5 lbs 2017-12-03 Temperature 98.1 degrees Fahrenheit 2017-12-03 Heart Rate 88 bpm 2017-12-03 Respiratory Rate 18 2017-12-03 BMI 35.08 kg/m2 2017-12-03 Blood pressure systolic 130 mmHg 2017-12-03 Blood pressure diastolic 80 mmHg 2017-12-03 MEDICATIONS Medication Instructions Dosage Frequency Start Date End Date Duration Status Omeprazole 20 MG Orally 2 times a day take 1 capsule by Oral route before a meal 2 times per day 12h Apr, Not-Taking Shari-D 12 Hour 60-120 MG Orally Twice a day 1 tablet as needed 12h Not-Taking Venlafaxine HCl 100 mg Orally twice a day .5 tablet with food 12h Nov, Active Hydrocodone-Acetaminophen 5-325 MG Orally 3 times a day must lst 1 m 1 tablet as needed Jul, Not-Taking ProAir HFA 90 mcg/actuation Inhalation 4 times a day inhale 2 puffs 6h Aug, Not-Taking Sucralfate 1 GM Orally 4 times a day 1 tablet on an empty stomach 6h Jun, Not-Taking Valium 5 mg Orally Twice a day as needed must last 1 m 1 tablet as needed Jul, Not-Taking Atorvastatin Calcium 40 MG Orally Once a day 1 tablet 24h Active RESULTS No Results PROCEDURES No Known [...] repair x 2--inguinal 2012 Hospitalization History Via [facility] x 4 days due to Tick fever 02/2015 Hospitalization History chest pain, headache, syncope, hallucination-[facility] 11/25/17 Hospitalization [facility], depression, ptsd 11/2017 Hospitalization History via [facility] for chest pain 11/2017
--- OUTSIDE RECORDS SUMMARY | 2019-03-06 13:34 | XMS REPORT ---
Author Author IRVING FARRAR [facility] Address [address] [place] [address] Care Team Providers Care Elderly Caregiver Name Role Phone IRVING FARRAR Unavailable PROBLEMS Type Condition ICD9-CM Code TXQ72-DQ Code Onset Dates Condition Status SNOMED Code Problem DDD (degenerative disc disease), lumbar M51.36 Active 45752311 Problem Bipolar 2 disorder F31.81 Active 96749212 Problem DDD (degenerative disc disease), cervical M50.30 Active 51251999 Problem Psychosis, unspecified psychosis type F29 Active 23251557 Problem Cannabis use disorder, moderate, dependence F12.20 Active 67501141 Problem Schizophrenia, unspecified type F20.9 Active 23352940 Problem Bipolar 1 disorder F31.9 Active 526970138 Problem Methamphetamine use disorder, 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 Active 911080554 Problem Schizoaffective disorder, unspecified condition F25.9 Active 82891641 Problem Diverticulitis of colon (without mention of hemorrhage) 562.11 Active 390186395 Problem Inguinal hernia without mention of obstruction or gangrene, unilateral or unspecified, (not specified as recurrent) 550.90 Active 459597693 Problem Allergic rhinitis, cause unspecified 477.9 Active 65196656 Problem Restless legs syndrome [RLS] 333.94 Active 44715109 Problem Esophageal reflux 530.81 Active 634364369 Problem DDD (degenerative disc disease), 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 Active 81958669 Problem Asthma, unspecified, unspecified status 493.90 Active 78940693 Problem Reactive depression F32.9 Active 62426437 ALLERGIES No Information ENCOUNTERS Encounter Location Date Diagnosis [facility] [id number] [address] Feb, [facility] [id number], [place] [address] Jan, [facility] [id number], [place] [address] Jan, Psychosis, unspecified psychosis type F29 [facility] [id number] [place] [address] Jan, Psychosis, unspecified psychosis type F29 ; Methamphetamine use disorder, 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 and Cannabis use disorder, moderate, dependence F12.20 [id number] [place] [address] Jan, Schizoaffective disorder, unspecified condition F25.9 [id number] [place] [address] [id number] December, [facility] [id number] [place] [address] December, Psychosis, unspecified psychosis type F29 ; Methamphetamine use disorder, 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 and Cannabis use disorder, moderate, dependence F12.20 [facility] [id number] [place] [address] December, Schizoaffective disorder, unspecified condition F25.9 [facility] [id number] [place] [address] [id number] December, [facility] [id number] [place] [address] [phone] Nov, Bipolar 2 disorder F31.81 and Schizophrenia, unspecified type F20.9 [id number] [place] [address] Nov, [facility] [id number] [place] [address] [id number] December, [facility] [id number] [place] [address] [id number] December, DDD (degenerative disc disease), lumbar M51.36 and Reactive depression F32.9 [facility] [id number] [place] [address] [id number] December, DDD (degenerative disc disease), cervical M50.30 and DDD (degenerative disc disease), lumbar M51.36 [facility] [id number] [place] [address] [phone] Nov, [facility] [id number] [place] [address] [id number] Nov, DDD (degenerative disc disease), lumbar M51.36 [facility] [id number] [place] [address] [id number] Nov, DDD (degenerative disc disease), lumbar M51.36 [facility] [id number] [place] [address] [id number] Oct, DDD (degenerative disc disease), lumbar M51.36 ; Reactive depression F32.9 and DDD (degenerative disc disease), cervical M50.30 [facility] [id number] [place] [address] [id number] Aug, DDD (degenerative disc disease), lumbar M51.36 and Reactive depression F32.9 [facility] [id number] [place] [address] [id number] Jul, [facility] [address] [id number] Jul, DDD (degenerative disc disease), cervical M50.30 ; DDD (degenerative disc disease), 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 ; DDD (degenerative disc disease), lumbar M51.36 and Reactive depression F32.9 [facility] [id number] [place] [address] [id number] Jun, Encounter for immunization Z23 [facility] [id number] [place] [address] [id number] Mar, [facility] [id number] [place] [address] [id number] Oct, [facility] [id number] [place] [address] [id number] Sep, [facility] [address] [id number] Sep, Physical exam Z00.00 and Allergic rhinitis J30.9 [facility] [id number] [place] [address] [id number] Jul, [facility] [address] [id number] Jun, Diarrhea, unspecified R19.7 [facility] [id number] [id number] Feb, [facility] [id number] [place] [address] [phone] Feb, Frequent headaches 784.0 and 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 [facility] [id number] [place] [address] [id number] Feb, Positive serology for Erlichiosis 082.40 [facility] [id number] [place] [address] [id number] Feb, Positive serology for Erlichiosis 082.40 [facility] [id number] [place] [address] [id number] Feb, [facility] [id number] [place] [address] Nov, [facility] [id number] [place] [address] Nov, [facility] [id number] [place] [address] Aug, [facility] [id number] [place] [address] [id number] Aug, [facility] [id number] [place] [address] [id number] Jul, [facility] [id number] [place] [address] Jul, [facility] [id number] [place] [address] Apr, [facility] [id number] [place] [address] [id number] Apr, [facility] [id number] [place] [address] Apr, [facility] [id number] [place] [address] Apr, [facility] [place] [facility] [address] [facility] [id number] [place] [address] Apr, [facility] [address] [id number] [place] [id number] Feb, [facility] [address] [facility] [id number] [place] [id number] Feb, [facility] [place] [facility] [address] [facility] [id number] [place] [address] Feb, [facility] [place] [facility] [address] [facility] [id number] [place] [address] Feb, [facility] [address] [id number] [place] [id number] Feb, [facility] [place] [facility] [address] [facility] [id number] [place] [address] Feb, [facility] [address] [facility] [id number] [place] [id number] Oct, [facility] [place] [facility] [address] [facility] [id number], [place] [address] Oct, [facility] [address] [facility] [id number] [place] [id number] Oct, [facility] [place] [facility] [address] [facility] [id number], [place] [address] Oct, [facility] [address] [facility] [id number] [place] [id number] Sep, [facility] [place] [facility] [address] [facility] [id number] [address] Sep, [facility] [address] [facility] [id number] [place] [id number] Sep, [facility] [place] [facility] [address] [facility] [id number] [place] [address] Sep, [facility] [place] [facility] [address] [facility] [id number] [place] [address] Jul, [facility] [address] [facility] [id number] [place] [id number] Jul, [facility] [address] [id number] [id number] Jul, [facility] [address] [facility] [id number] [address] Jul, [facility] [place] [facility] [address] [facility] [id number] [address] Jun, [facility] [place] [facility] [address] [facility] [id number], [place] [address] Jun, [facility] [address] [id number] [id number] Jun, [facility] [place] [facility] [address] [facility] [id number] [place] [address] Jun, [facility] [place] [facility] [id number] [address] Jun, [facility] [place] [facility] [address], [place] [address] Jun, [facility] [place] [facility] [address], [place] [address] Jun, [facility] [address] [facility] [id number][place] [id number] May, [facility] [place] [facility] [address], [place] [address] May, [facility] [place] [facility] [id number], [place] [address] May, [facility] [place] [facility] [address] [facility] [id number], [place] [address] May, [facility] [address] [id number] [id number] Apr, [facility] [address] [facility] [id number][place] [id number] Apr, [facility] [address] [facility] [id number][place] [id number] Apr, [facility] [place] [facility] [address] [facility] [id number] [address] Apr, [facility] [address] [facility] [id number], [place] [address] Mar, [facility] [address] [id number] [place] [id number] Mar, [facility] [address] [id number] [place] [id number] Mar, [facility] [address] [id number] [place] [id number] Mar, [facility] [address] [id number] [place] [id number] Mar, [facility] [place] [facility] [address], [place] [address] Jan, [facility] [address] [id number][place] [id number] December, [facility] [address], [place] [address] Oct, [facility] [place] [facility] [address], [place] [address] Aug, [facility] [address] [facility] [id number][place] [id number] Jun, [facility] [place] [facility] [address], [place] [address] Jun, [facility] [address] [id number][place] [id number] May, [facility] [place] [facility] [address] [facility] [id number], [place] [address] May, [facility] [address] [id number][place] [id number] May, [facility] [place] [facility] [address] [facility] [id number], [place] [address] Apr, [facility] [address] [id number] [place] [id number] 07 Apr, 2012 [facility] [address] [id number][place] [id number] Mar, [facility] [address] [facility] [id number] [place] [id number] Mar, [facility] [address] [id number] [id number] Mar, [facility] [address] [id number] [id number] Feb, [facility] [id number], [place] [address] Feb, [facility] [address] [id number] [id number] Feb, [facility] [address] [id number][place] [id number] Feb, [facility] [address] [id number] [id number] Oct, [facility] [address] [id number] [id number] Sep, IMMUNIZATIONS No Known Immunizations SOCIAL HISTORY Never Assessed REASON FOR VISIT medication PLAN OF CARE VITAL SIGNS MEDICATIONS Medication Instructions Dosage Frequency Start Date End Date Duration Status Albenza 200 mg Orally with food one dose now and repeat in 2 weeks 2 tablets December, December, 0 days Active RESULTS No Results PROCEDURES No [...] repair x 2--inguinal 2012 Hospitalization History Via [facility] x 4 days due to Tick fever 02/2015 Hospitalization History chest pain, headache, syncope, hallucination-[facility] 11/25/17 [facility]ization [facility], depression, ptsd 11/2017 Hospitalization History via [facility] department for chest pain 11/2017
--- OUTSIDE RECORDS SUMMARY | 2019-03-06 13:35 | XMS REPORT ---
Author Author ZELALEM BLAS [facility] Address [address] [place] [address] Care Team Providers Care Drop Wirer Name Role Phone ROOPA ZELALEM Unavailable PROBLEMS Type Condition ICD9-CM Code TKE81-MR Code Onset Dates Condition Status SNOMED Code Problem DDD (degenerative disc disease), lumbar M51.36 Active 66128105 Problem Bipolar 2 disorder F31.81 Active 14909106 Problem DDD (degenerative disc disease), cervical M50.30 Active 26660220 Problem Psychosis, unspecified psychosis type F29 Active 96155850 Problem Cannabis use disorder, moderate, dependence F12.20 Active 04624678 Problem Schizophrenia, unspecified type F20.9 Active 18042187 Problem Bipolar 1 disorder F31.9 Active 816301717 Problem Methamphetamine use disorder, 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 Active 150981749 Problem Schizoaffective disorder, unspecified condition F25.9 Active 05908739 Problem Diverticulitis of colon (without mention of hemorrhage) 562.11 Active 609035975 Problem Inguinal hernia without mention of obstruction or gangrene, unilateral or unspecified, (not specified as recurrent) 550.90 Active 037406606 Problem Allergic rhinitis, cause unspecified 477.9 Active 42879385 Problem Restless legs syndrome [RLS] 333.94 Active 81820535 Problem Esophageal reflux 530.81 Active 979628326 Problem DDD (degenerative disc disease), 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 Active 90391798 Problem Asthma, unspecified, unspecified status 493.90 Active 98699237 Problem Reactive depression F32.9 Active 23344122 ALLERGIES No Information ENCOUNTERS Encounter Location Date Diagnosis [facility] [address] [facility] [id number] [address] Feb, [facility] [address] [facility] [id number] [place] [address] Jan, [place] [id number] [place] [address] Jan, Psychosis, unspecified psychosis type F29 [place] [address] [place] [id number] [place] [address] Jan, Psychosis, unspecified psychosis type F29 ; Methamphetamine use disorder, 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 and Cannabis use disorder, moderate, dependence F12.20 [place] [address] [place] [id number] [place] [address] Jan, Schizoaffective disorder, unspecified condition F25.9 [place] [id number] [place] [address] [id number] December, [place] [address] [place] [id number] [place] [address] December, Psychosis, unspecified psychosis type F29 ; Methamphetamine use disorder, 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 and Cannabis use disorder, moderate, dependence F12.20 [place] [address] [place] [id number] [place] [address] December, Schizoaffective disorder, unspecified condition F25.9 [facility] [id number] [place] [address] [id number] December, [facility] [address] [id number] [place] [address] [id number] Nov, Bipolar 2 disorder F31.81 and Schizophrenia, unspecified type F20.9 [place] [id number] [place] [address] Nov, [facility] [id number] [place] [address] [id number] December, [facility] [address] [place] [id number] [place] [address] [id number] December, DDD (degenerative disc disease), lumbar M51.36 and Reactive depression F32.9 [facility] [address] [address] [id number] [place] [address] [id number] December, DDD (degenerative disc disease), cervical M50.30 and DDD (degenerative disc disease), lumbar M51.36 [facility] [id number] [place] [address] [id number] Nov, [facility] [address] [id number] Nov, DDD (degenerative disc disease), lumbar M51.36 [facility] [address] [id number] [place] [address] [id number] Nov, DDD (degenerative disc disease), lumbar M51.36 [facility] [address] [address] [id number] [place] [address] [id number] Oct, DDD (degenerative disc disease), lumbar M51.36 ; Reactive depression F32.9 and DDD (degenerative disc disease), cervical M50.30 [facility] [address] [address] [id number] [place] [address] [id number] Aug, DDD (degenerative disc disease), lumbar M51.36 and Reactive depression F32.9 [place] [address] [address] [id number] [place] [address] [id number] Jul, [facility] [address] [id number] Jul, DDD (degenerative disc disease), cervical M50.30 ; DDD (degenerative disc disease), 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 ; DDD (degenerative disc disease), lumbar M51.36 and Reactive depression F32.9 [facility] [address] [address] [id number] [place] [address] [id number] Jun, Encounter for immunization Z23 [facility] [address] [address] [id number] [place] [address] [id number] Mar, [facility] [address] [address] [id number] [place] [address] [id number] Oct, [facility] [address] [id number] [place] [address] [id number] Sep, [place] [address] [id number] [place] [address] [id number] Sep, Physical exam Z00.00 and Allergic rhinitis J30.9 [place] [id number] [place] [address] [id number] Jul, [facility] [id number] [id number] Jun, Diarrhea, unspecified R19.7 [facility] [id number] [place] [address] [id number] Feb, [facility] [address] [address] [id number] [place] [address] [id number] Feb, Frequent headaches 784.0 and 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 [facility] [address] [place] [id number] [place] [address] [id number] Feb, Positive serology for Erlichiosis 082.40 [facility] [id number] [place] [address] [id number] Feb, Positive serology for Erlichiosis 082.40 [facility] [address] [place] [address] [id number] [place] [address] [id number] Feb, [facility] [address] [place] [id number] [place] [address] Nov, [facility] [address] [place] [id number] [place] [address] Nov, [facility] [address] [place] [id number] [place] [address] Aug, [facility] [id number] [place] [address] [id number] Aug, [facility] [id number] [place] [address] [id number] Jul, [facility] [address] [place] [id number] [place] [address] Jul, [facility] [id number] [place] [address] Apr, [facility] [id number] [place] [address] [id number] Apr, [facility] [address] [place] [id number] [place] [address] Apr, [facility] [address] [place] [id number] [place] [address] Apr, [facility] [place] [facility] [address] [facility] [id number] [place] [address] Apr, [facility] [address] [id number] [place] [id number] Feb, [facility] [address] [id number] [place] [id number] Feb, [facility] [place] [facility] [address] [facility] [id number] [place] [address] Feb, [facility] [place] [facility] [address] [facility] [id number] [place] [address] Feb, [facility] [address] [facility] [id number] [place] [id number] Feb, [facility] [place] [facility] [address] [facility] [id number] [place] [address] Feb, [facility] [address] [facility] [id number] [place] [id number] Oct, [facility] [place] [facility] [address] [facility] [id number] [place] [address] Oct, [facility] [address] [facility] [id number] [place] [id number] Oct, [facility] [place] [facility] [address] [facility] [id number] [place] [address] Oct, [facility] [address] [facility] [id number][place] [id number] Sep, [facility] [place] [facility] [address] [facility] [id number] [place] [address] Sep, [facility] [address] [facility] [id number] [place] [id number] Sep, [facility] [place] [facility] [address] [facility] [id number] [place] [address] Sep, [facility] [place] [facility] [address] [facility] [id number] [place] [address] Jul, [facility] [address] [facility] [id number] [id number] Jul, [facility] [address] [id number][place] [id number] Jul, [facility] [address] [facility] [id number] [place] [address] Jul, [facility] [place] [facility] [address] [facility] [id number] [place] [address] Jun, [facility] [place] [facility] [address] [facility] [id number] [place] [address] Jun, [facility] [address] [facility] [id number][place] [id number] Jun, [facility] [place] [facility] [address] [facility] [id number] [place] [address] Jun, [facility] [place] [facility] [address] [place] [id number] [place] [address] Jun, [facility] [place] [facility] [address] [place] [id number] [place] [address] Jun, [facility] [place] [facility] [address] [facility] [id number] [place] [address] Jun, [facility] [address] [facility] [id number][place] [id number] May, [facility] [place] [facility] [address] [facility] [id number] [place] [address] May, [facility] [place] [facility] [address] [facility] [id number] [place] [address] May, [facility] [place] [facility] [address] [facility] [id number] [place] [address] May, [facility] [address] [id number][place] [id number] Apr, [facility] [address] [id number][place] [id number] Apr, [facility] [address] [id number][place] [id number] Apr, [facility] [place] [facility] [address] [id number] [place] [address] Apr, [facility] [place] [facility] [address] [facility] [id number] [place] [address] Mar, [facility] [address] [id number] [place] [id number] Mar, [facility] [address] [id number] [place] [id number] Mar, [facility] [address] [id number] [place] [id number] Mar, [facility] [address] [id number] [place] [id number] Mar, [facility] [place] [facility] [address] [facility] [id number] [place] [address] Jan, [facility] [address] [id number][place] [id number] December, [facility] [place] [facility] [address] [facility] [id number] [place] [address] Oct, [facility] [place] [facility] [address] [facility] [id number] [place] [address] Aug, [facility] [address] [facility] [id number][place] [id number] Jun, [facility] [place] [facility] [address] [facility] [id number] [place] [address] Jun, [facility] [address] [id number][place] [id number] May, [facility] [place] [facility] [address] [facility] [id number] [place] [address] May, [facility] [address] [id number][place] [id number] May, [facility] [place] [facility] [address] [facility] [id number] [place] [address] Apr, [facility] [address] [id number][place] [id number] Apr, [facility] [address] [id number][place] [id number] Mar, [facility] [address] [place] [id number] [id number] Mar, [facility] [address] [place] [id number][place] [id number] Mar, [facility] [address] [place] [id number][place] [id number] Feb, [facility] [address] [address] Feb, [facility] [address] [place] [id number][place] [id number] Feb, [facility] [id number], [place] [id number] Feb, [facility] [id number], [place] [id number] Oct, [facility] [id number], [place] [id number] Sep, IMMUNIZATIONS No Known Immunizations SOCIAL HISTORY Never Assessed REASON FOR VISIT Hospital admit/DC PLAN OF CARE VITAL SIGNS MEDICATIONS Medication Instructions Dosage Frequency Start Date End Date Duration Status Valium 5 mg Orally Twice a day as needed must last 1 m 1 tablet as needed Jul, Not-Taking Sucralfate 1 GM Orally 4 times a day 1 tablet on an empty stomach 6h Jun, Not-Taking Hydrocodone-Acetaminophen 5-325 MG Orally 3 times a day must lst 1 m 1 tablet as needed Jul, Not-Taking Fluoxetine 20 MG Orally Once a day 1 capsule in the morning 24h Active ProAir HFA 90 mcg/actuation Inhalation 4 times a day inhale 2 puffs 6h Aug, Not-Taking Omeprazole 20 MG Orally 2 times a day take 1 capsule by Oral route before a meal 2 times per day 12h Apr, Not-Taking Shari-D 12 Hour 60-120 MG Orally Twice a day 1 tablet as needed 12h Not-Taking Atorvastatin Calcium 40 MG Orally Once [...] repair x 2--inguinal 2012 Hospitalization History Via [facility] x 4 days due to Tick fever 02/2015 Hospitalization History chest pain, headache, syncope, hallucination-[facility] 11/25/17 Hospitalization [facility], depression, ptsd 11/2017 Hospitalization History via [facility] for chest pain 11/2017
--- OUTSIDE RECORDS SUMMARY | 2019-03-06 13:37 | XMS REPORT | Continuity of Care Document ---
Author Organization Unknown Address Unknown Phone Unavailable Allergies Active Description Code Type Severity Reaction Onset Reported/Identified Relationship to Patient Clinical Status Yes Iodine Drug Allergy N/A N/A 09/27/2011 Yes Iodine Drug Allergy 09/27/2011 Yes Shellfish [id number] Drug Allergy Unknown N/A 03/28/2012 Yes Wellbutrin SR 150 mg tablet extended release Drug Allergy N/A N/A 03/12/2013 Yes gabapentin 300 mg capsule Drug Allergy N/A N/A 04/22/2013 Yes Prozac Drug Allergy N/A N/A 09/30/2013 Yes iodine [id number] Drug Allergy Severe ANAPHYLAXIS 02/09/2014 Medications There [...] SALINAS DO 724.2 BACK PAIN, LOWER 09/27/2011 SALINAS DO, SHIRA K 477.9 RHINITIS 09/27/2011 SALINAS DO, SHIRA K 493.90 ASTHMA UNSPECIFIED 09/27/2011 SALINAS DO, SHIRA K 724.2 BACK PAIN, LOWER 09/27/2011 SALINAS DO, SHIRA K 477.9 RHINITIS 09/27/2011 SALINAS DO, SHIRA K 493.90 ASTHMA UNSPECIFIED 09/27/2011 SALINAS DO, SHIRA K 724.2 BACK PAIN, LOWER 09/27/2011 FARRAR RECOOPERER, IRVING R 477.9 RHINITIS 09/27/2011 FARRAR RECOOPERER, IRVING R 493.90 ASTHMA UNSPECIFIED 09/27/2011 FARRAR RECOOPERER, IRVING R 724.2 BACK PAIN, LOWER 09/27/2011 FARRAR RECOOPERER, IRVING R 477.9 RHINITIS 09/27/2011 FARRAR RECOOPERER, IRVING R 493.90 ASTHMA UNSPECIFIED 09/27/2011 FARRAR RECOOPERER, IRVING R 724.2 BACK PAIN, LOWER 09/27/2011 SALINAS DO, SHIRA K 477.9 RHINITIS 09/27/2011 SALINAS DO, SHIRA K 493.90 ASTHMA UNSPECIFIED 09/27/2011 SALINAS DO, SHIRA K 724.2 BACK PAIN, LOWER 09/27/2011 RAND RECOOPERER, KAMINI R 477.9 RHINITIS 09/27/2011 GIORGI RECOOPERER, KAMINI R 493.90 ASTHMA UNSPECIFIED 09/27/2011 GIORGI RECOOPERER, KAMINI R 724.2 BACK PAIN, LOWER 09/27/2011 GIORGI RECOOPERER, KAMINI R 477.9 RHINITIS 09/27/2011 GIORGI RECOOPERER, KAMINI R 493.90 ASTHMA UNSPECIFIED 09/27/2011 RAND RECOOPERER, KAMINI R 724.2 BACK PAIN, LOWER 09/27/2011 [...] ABDOMINAL PAIN RIGHT LOWER QUADRANT 02/26/2012 SALINAS DO SHIRA K 789.03 ABDOMINAL PAIN RIGHT LOWER QUADRANT 02/26/2012 SALINAS DO, SHIRA K 789.03 ABDOMINAL PAIN RIGHT LOWER QUADRANT 02/26/2012 SALINAS DO, SHIRA K 789.03 ABDOMINAL PAIN RIGHT LOWER QUADRANT 02/26/2012 SALINAS DO, SHIRA K 789.03 ABDOMINAL PAIN RIGHT LOWER QUADRANT 02/26/2012 FARRARIRVING RILEY APRN 789.03 ABDOMINAL PAIN RIGHT LOWER QUADRANT 02/26/2012 IRVING FARRAR APRN 789.03 ABDOMINAL PAIN RIGHT LOWER QUADRANT 02/26/2012 SALINAS DO SHIRA K 789.03 ABDOMINAL PAIN RIGHT LOWER QUADRANT 02/26/2012 KAMINI RAND APRN R 789.03 ABDOMINAL PAIN RIGHT LOWER QUADRANT 02/26/2012 KAMINI RAND APRN R 789.03 ABDOMINAL PAIN RIGHT LOWER QUADRANT 02/26/2012 SALINAS DO SHIRA K 789.03 ABDOMINAL PAIN RIGHT LOWER QUADRANT 02/26/2012 SALINAS DO SHIRA K 789.03 ABDOMINAL PAIN RIGHT LOWER [...] SALINAS DOA K 530.81 ESOPHAGEAL REFLUX 03/08/2012 SALINAS DO SHIRA K 562.11 DIVERTICULITIS OF COLON (WITHOUT HEMORRHAGE) 03/08/2012 LORENA SALINAS DOA K 530.81 ESOPHAGEAL REFLUX 03/08/2012 BRAD HERNANDEZ SHIRA K 562.11 DIVERTICULITIS OF COLON (WITHOUT HEMORRHAGE) 03/08/2012 BRAD HERNANDEZ SHIRA K 530.81 ESOPHAGEAL REFLUX 03/08/2012 BRAD HERNANDEZ SHIRA K 562.11 DIVERTICULITIS OF COLON (WITHOUT HEMORRHAGE) 03/08/2012 SALINAS DO SHIRA K 530.81 ESOPHAGEAL REFLUX 03/08/2012 SALINAS DO SHIRA K 562.11 DIVERTICULITIS OF COLON (WITHOUT HEMORRHAGE) 03/08/2012 IRVING FARRAR APRN R 530.81 ESOPHAGEAL REFLUX 03/08/2012 FARRAR RECOOPERERIRVING R 562.11 DIVERTICULITIS OF COLON (WITHOUT HEMORRHAGE) 03/08/2012 FARRAR RECOOPERERIRVING R 530.81 ESOPHAGEAL REFLUX 03/08/2012 FARRAR RECOOPERERIRVING Bates R 562.11 DIVERTICULITIS OF COLON (WITHOUT HEMORRHAGE) 03/08/2012 LORENA SALINAS DOA K 530.81 ESOPHAGEAL REFLUX 03/08/2012 LORENA SALINAS DOA K 562.11 DIVERTICULITIS OF COLON (WITHOUT HEMORRHAGE) 03/08/2012 GIORGI RECOOPERER KAMINI R 530.81 ESOPHAGEAL REFLUX 03/08/2012 GIORGI RECOOPERER KAMINI R 562.11 DIVERTICULITIS OF COLON (WITHOUT HEMORRHAGE) 03/08/2012 GIORGI RECOOPERER KAMINI R 530.81 ESOPHAGEAL REFLUX 03/08/2012 GIORGI BILL KAMINI R 562.11 DIVERTICULITIS OF COLON (WITHOUT HEMORRHAGE) 03/08/2012 LORENA SALINAS DOA K 530.81 ESOPHAGEAL REFLUX 03/08/2012 LORENA SALINAS DOA K 562.11 DIVERTICULITIS OF COLON (WITHOUT HEMORRHAGE) 03/08/2012 LORENA SALINAS DOA K 530.81 ESOPHAGEAL REFLUX 03/08/2012 BRAD HERNANDEZ SHIRA K 562.11 DIVERTICULITIS OF COLON (WITHOUT HEMORRHAGE) 03/28/2012 Ot 211.3 BENIGN NEOPLASM LG BOWEL 03/28/2012 Ot 787.99 OTHER GI SYSTEM SYMPTOMS 04/12/2012 553.9 HERNIA UNSPECIFIED SITE 04/12/2012 553.9 HERNIA UNSPECIFIED SITE 04/12/2012 553.9 HERNIA UNSPECIFIED SITE 04/12/2012 553.9 HERNIA UNSPECIFIED SITE 04/12/2012 553.9 HERNIA UNSPECIFIED SITE 04/12/2012 SHIRA SALINAS DO 553.9 HERNIA UNSPECIFIED SITE 04/12/2012 SALINAS DO, SHIRA K 553.9 HERNIA UNSPECIFIED SITE 04/12/2012 SALINAS DO, SHIRA K 553.9 HERNIA UNSPECIFIED SITE 04/12/2012 SALINAS DO, SHIRA K 553.9 HERNIA UNSPECIFIED SITE 04/12/2012 IRVING FARRAR APRN 553.9 HERNIA UNSPECIFIED SITE 04/12/2012 IRVING FARRAR APRN 553.9 HERNIA UNSPECIFIED SITE 04/12/2012 SALINAS [...] 06/17/2012 553.21 INCISIONAL HERNIA POSTOPERATIVE 06/17/2012 SALINAS DO [...] RAND APRN 553.21 INCISIONAL HERNIA POSTOPERATIVE 06/17/2012 BRAD HERNANDEZ SHIRA K 553.21 INCISIONAL HERNIA POSTOPERATIVE 06/17/2012 BRAD HERNANDEZ SHIRA K 553.21 INCISIONAL HERNIA POSTOPERATIVE 08/12/2012 550.90 HERNIA INGUINAL 08/12/2012 550.90 HERNIA INGUINAL 08/12/2012 550.90 HERNIA INGUINAL 08/12/2012 550.90 HERNIA INGUINAL 08/12/2012 SALINAS DO SHIRA K 550.90 HERNIA INGUINAL 08/12/2012 SALINAS DO SHIRA K 550.90 HERNIA INGUINAL 08/12/2012 SALINAS DO, SHIRA K 550.90 HERNIA INGUINAL 08/12/2012 SALINAS DO, SHIRA K 550.90 HERNIA INGUINAL 08/12/2012 IRVING FARRAR APRN 550.90 HERNIA INGUINAL 08/12/2012 IRVING FARRAR APRN 550.90 HERNIA INGUINAL 08/12/2012 BRAD HERNANDEZ SHIRA K 550.90 HERNIA INGUINAL 08/12/2012 KAMINI RAND APRN 550.90 HERNIA INGUINAL 08/12/2012 KAMINI RAND APRN 550.90 HERNIA INGUINAL 08/12/2012 SALINAS DO, SHIRA [...] DO, SHIRA K 466.0 ACUTE BRONCHITIS 10/22/2012 FARRARIRVING RILEY APRN R 461.9 SINUSITIS ACUTE 10/22/2012 FARRARROSEMARY BILL IRVING R 466.0 ACUTE BRONCHITIS 10/22/2012 FARRARROSEMARY BILL IRVING R 461.9 SINUSITIS ACUTE 10/22/2012 FARRARROSEMARY BILL IRVING R 466.0 ACUTE BRONCHITIS 10/22/2012 SALINAS DO, SHIRA K 461.9 SINUSITIS ACUTE 10/22/2012 SALINAS DO, SHIRA K 466.0 ACUTE BRONCHITIS 10/22/2012 GIORGI RECOOPERER KAMINI R 461.9 SINUSITIS ACUTE 10/22/2012 RAND RECOOPERER, KAMINI R 466.0 ACUTE BRONCHITIS 10/22/2012 RAND RECOOPERER, KAMINI R 461.9 SINUSITIS ACUTE 10/22/2012 RAND RECOOPERER, KAMINI R 466.0 ACUTE BRONCHITIS 10/22/2012 SALINAS [...] SHIRA K 296.90 MOOD DISORDER 12/12/2012 FARRAR RECOOPERERIRVING 296.90 MOOD DISORDER 12/12/2012 FARRAR RECOOPERERIRVING Bates 296.90 MOOD DISORDER 12/12/2012 SALINAS DO, SHIRA K 296.90 MOOD DISORDER 12/12/2012 RAND RECOOPERER, KAMINI R 296.90 MOOD DISORDER 12/12/2012 RAND RECOOPERER, KAMINI R 296.90 MOOD DISORDER 12/12/2012 SALINAS DO, SHIRA K 296.90 MOOD DISORDER 12/12/2012 SALINAS DO, SHIRA K 296.90 MOOD DISORDER 03/12/2013 724.4 BACK PAIN WITH RADIATION 03/12/2013 729.4 PLANTAR FASCIITIS 03/12/2013 787.91 DIARRHEA 03/12/2013 SALINAS DO, SHIRA K 724.4 BACK PAIN WITH RADIATION 03/12/2013 SLAINAS DO, SHIRA K 729.4 PLANTAR FASCIITIS 03/12/2013 [...] DO, SHIRA K 787.91 DIARRHEA 03/12/2013 FARRAR RECOOPERERIRVING R 724.4 BACK PAIN WITH RADIATION 03/12/2013 FARRAR IRVING BILL 729.4 PLANTAR FASCIITIS 03/12/2013 FARRAR IRVING BILL 787.91 DIARRHEA 03/12/2013 IRVING FARRAR APRN R 724.4 BACK PAIN WITH RADIATION 03/12/2013 FARRAR RECOOPERERIRVING Bates R 729.4 PLANTAR FASCIITIS 03/12/2013 FARRARIRVING RILEY APRN R 787.91 DIARRHEA 03/12/2013 SALINAS DO, SHIRA K 724.4 BACK PAIN WITH RADIATION 03/12/2013 SALINAS DO, SHIRA K 729.4 PLANTAR FASCIITIS 03/12/2013 SALINAS DO, SHIRA K 787.91 DIARRHEA 03/12/2013 RAND RECOOPERERBULLIA R 724.4 BACK PAIN WITH RADIATION 03/12/2013 RAND RECOOPERER, KAMINI R 729.4 PLANTAR FASCIITIS 03/12/2013 RAND RECOOPERER KAMNII R 787.91 DIARRHEA 03/12/2013 RAND RECOOPERER, KAMINI R 724.4 BACK PAIN WITH RADIATION 03/12/2013 RAND RECOOPERER, KAMINI R 729.4 PLANTAR FASCIITIS 03/12/2013 RAND RECOOPERER KAMINI R 787.91 DIARRHEA 03/12/2013 SALINAS DO, [...] 729.5 PAIN- ARM 04/22/2013 IRVING FARRAR APRN 719.47 PAIN- FOOT 04/22/2013 IRVING FARRAR APRN 729.5 PAIN- ARM 04/22/2013 FARRARIRVING RILEY APRN R 719.47 PAIN- FOOT 04/22/2013 FARRARIRVING RILEY APRN R 729.5 PAIN- ARM 04/22/2013 SALINAS [...] SALINAS DO, SHIRA K 729.2 NEURITIS 06/06/2013 IRVING FARRAR APRN R 729.2 NEURITIS 06/06/2013 FARRARIRVING RILEY APRN R 729.2 NEURITIS 06/06/2013 SALINAS DO, SHIRA K 729.2 NEURITIS 06/06/2013 KAMINI RAND APRN R 729.2 NEURITIS 06/06/2013 KAMINI RAND APRN R 729.2 NEURITIS 06/06/2013 SALINAS DO, SHIRA K 729.2 NEURITIS 06/06/2013 SALINAS DO, SHIRA K 729.2 NEURITIS 07/21/2013 SALINAS DO, SHIRA K 486 PNEUMONIA UNSPECIFIED 07/21/2013 IRVING FARRAR APRN R 486 PNEUMONIA UNSPECIFIED 07/21/2013 IRVING FARRAR APRN R 486 PNEUMONIA UNSPECIFIED 07/21/2013 SALINAS DO, SHIRA K 486 PNEUMONIA UNSPECIFIED 07/21/2013 KAMINI RAND APRN R 486 PNEUMONIA UNSPECIFIED 07/21/2013 KAMINI RAND APRN R 486 PNEUMONIA UNSPECIFIED 07/21/2013 SALINAS DO, SHIRA K 486 PNEUMONIA UNSPECIFIED 07/21/2013 SALINAS , SHIRA K 486 PNEUMONIA UNSPECIFIED 09/30/2013 IRVING FARRAR APRN 333.94 RESTLESS LEGS SYNDROME (RLS) 09/30/2013 IRVING FARRAR APRN 333.94 RESTLESS LEGS SYNDROME (RLS) 09/30/2013 SHIRA SALINAS DO K 333.94 RESTLESS LEGS SYNDROME (RLS) 09/30/2013 KAMINI RAND APRN R 333.94 RESTLESS LEGS SYNDROME (RLS) 09/30/2013 KAMINI RAND APRN R 333.94 RESTLESS LEGS SYNDROME (RLS) 09/30/2013 SALINAS LORENA HERNANDEZA K 333.94 RESTLESS LEGS SYNDROME (RLS) 09/30/2013 SHIRA SALINAS DO K 333.94 RESTLESS LEGS SYNDROME (RLS) 02/09/2014 ERNABRITANY Bruce DO Ot 848.8 SPRAIN NEC 02/09/2014 ERNA BRITANY HERNANDEZ Ot E928.9 ACCIDENT NOS 02/26/2014 LORENA SALINAS DOA K 788.1 DYSURIA 02/26/2014 BULL RAND APRNIA R 788.1 DYSURIA 02/26/2014 BULL RAND APRNIA R 788.1 DYSURIA 02/26/2014 LORENA SALINAS DOA K 788.1 DYSURIA 02/26/2014 SALINAS LORENA HERNANDEZA K 788.1 DYSURIA 04/09/2014 KAMINI RAND APRN R 719.46 PAIN IN JOINT INVOLVING LOWER LEG 04/09/2014 KAMINI RAND APRN R 719.46 PAIN IN JOINT INVOLVING LOWER LEG 04/09/2014 SHIRA SALINAS DO K 719.46 PAIN IN JOINT INVOLVING LOWER LEG 04/09/2014 LORENA SALINAS DOA K 719.46 PAIN IN JOINT INVOLVING LOWER LEG 05/08/2014 ROMEL FRASER MD Ot 455.0 INT HEMORRHOID W/O COMPL 05/08/2014 ROMEL FRASER MD Ot 530.11 REFLUX ESOPHAGITIS 05/08/2014 ROMEL FRASER MD Ot 535.50 UNSP GASTRITIS GASTRODUODENITIS W/O ME 05/08/2014 ROMEL FRASER MD, Ot 553.3 DIAPHRAGMATIC HERNIA 05/08/2014 ROMEL FRASER MD, Ot V12.72 PERSONAL HISTORY OF COLONIC POLYPS 07/17/2014 SIHRA SALINAS DO 461.0 ACUTE MAXILLARY SINUSITIS 08/04/2014 [...] DO Ot 300.00 ANXIETY STATE NOS 02/16/2015 ERNA HERNANDEZ, BRITANY Martin Ot 784.0 HEADACHE 02/16/2015 BRITANY UMANZOR DO [...] RIGHT LOWER QUADRANT 07/12/2016 Ot V72.84 EXAM PRE-OPERATIVE NOS 07/12/2016 Ot 571.8 CHRONIC LIVER DIS NEC 07/12/2016 Ot 789.01 ABDOMINAL PAIN, RIGHT UPPER QUADRANT 07/12/2016 Ot 789.01 ABDOMINAL PAIN, RIGHT UPPER QUADRANT 07/12/2016 Ot 550.92 BILAT INGUINAL HERNIA 07/12/2016 Ot 575.8 DIS OF GALLBLADDER NEC 07/12/2016 Ot V72.63 PRE-PROCEDURAL LABORATORY EXAMINATION 07/12/2016 Ot V74.8 SCREEN-BACTERIAL DIS NEC 07/12/2016 BRIA TERRY, ROMEL Ot V72.84 EXAM PRE-OPERATIVE NOS 07/12/2016 BRIA TERRY, ROMEL Ot K60.3 ANAL FISTULA 07/12/2016 ROMEL FRASER MD Ot Z01.818 ENCOUNTER FOR OTHER PREPROCEDURAL EXAMIN 07/12/2016 SHAUN TERRY, NIYAH T Ot M54.16 RADICULOPATHY, LUMBAR REGION 07/12/2016 NIYAH DUNN MD Ot M54.5 LOW BACK PAIN 07/12/2016 NIYAH DUNN MD T Ot R07.89 OTHER CHEST PAIN 07/12/2016 NIYAH DUNN MD T Ot Z79.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 SCHOOL DIRECTOR (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 07/12/2016 NIYAH DUNN MD T Ot Z91.14 PATIENT'S OTHER NONCOMPLIANCE WITH MEDIC 07/13/2016 NIYAH DUNN MD T Ot M54.16 RADICULOPATHY, LUMBAR REGION 07/13/2016 NIYAH DUNN MD Ot M54.5 LOW BACK PAIN 07/13/2016 NIYAH DUNN MD T Ot R07.89 OTHER CHEST PAIN 07/13/2016 NIYAH DUNN MD T Ot Z79.899 OTHER RESIDENTIAL (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 07/13/2016 NIYAH DUNN MD T Ot Z91.14 PATIENT'S OTHER NONCOMPLIANCE WITH MEDIC 08/25/2016 Ot 789.03 ABDOMINAL PAIN, RIGHT LOWER QUADRANT 08/25/2016 Ot 789.03 ABDOMINAL PAIN, RIGHT LOWER QUADRANT 08/25/2016 Ot V72.84 EXAM PRE-OPERATIVE NOS 08/25/2016 Ot 571.8 CHRONIC LIVER DIS NEC 08/25/2016 Ot 789.01 ABDOMINAL PAIN, RIGHT UPPER QUADRANT 08/25/2016 Ot 789.01 ABDOMINAL PAIN, RIGHT UPPER QUADRANT 08/25/2016 Ot 550.92 BILAT INGUINAL HERNIA 08/25/2016 Ot 575.8 DIS OF GALLBLADDER NEC 08/25/2016 Ot V72.63 PRE-PROCEDURAL LABORATORY EXAMINATION 08/25/2016 Ot V74.8 SCREEN-BACTERIAL DIS NEC 08/25/2016 ROMEL FRASER MD Ot V72.84 EXAM PRE-OPERATIVE NOS 08/25/2016 ROMEL FRASER MD Ot K60.3 ANAL FISTULA 08/25/2016 ROMEL FRASER MD Ot Z01.818 ENCOUNTER FOR OTHER PREPROCEDURAL EXAMIN 08/25/2016 ELVIS CRAFT MD Ot M47.816 SPONDYLOSIS W/O MYELOPATHY OR RADICULOPA 09/12/2016 ELVIS CRAFT MD, Ot M47.816 SPONDYLOSIS W/O MYELOPATHY OR RADICULOPA 10/20/2016 Ot 789.03 ABDOMINAL PAIN, RIGHT LOWER QUADRANT 10/20/2016 Ot 789.03 ABDOMINAL PAIN, RIGHT LOWER QUADRANT 10/20/2016 Ot V72.84 EXAM PRE-OPERATIVE NOS 10/20/2016 Ot 571.8 CHRONIC LIVER DIS NEC 10/20/2016 Ot 789.01 ABDOMINAL PAIN, RIGHT UPPER QUADRANT 10/20/2016 Ot 789.01 ABDOMINAL PAIN, RIGHT UPPER QUADRANT 10/20/2016 Ot 550.92 BILAT INGUINAL HERNIA 10/20/2016 Ot 575.8 DIS OF GALLBLADDER NEC 10/20/2016 Ot V72.63 PRE-PROCEDURAL LABORATORY EXAMINATION 10/20/2016 Ot V74.8 SCREEN-BACTERIAL DIS NEC 10/20/2016 ROMEL FRASER MD Ot V72.84 EXAM PRE-OPERATIVE NOS 10/20/2016 ROMEL FRASER MD Ot K60.3 ANAL FISTULA 10/20/2016 ROMEL FRASER MD, Ot Z01.818 ENCOUNTER FOR OTHER PREPROCEDURAL EXAMIN 10/20/2016 ELVIS CRAFT MD Ot M47.816 SPONDYLOSIS W/O MYELOPATHY OR RADICULOPA 10/25/2016 ELVIS CRAFT MD Ot M47.816 SPONDYLOSIS W/O MYELOPATHY OR RADICULOPA 11/24/2016 ELVIS CRAFT MD, Ot M47.816 SPONDYLOSIS W/O MYELOPATHY OR RADICULOPA 11/24/2016 ELVIS CRAFT MD Ot Z79.899 OTHER RESIDENTIAL (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 12/01/2016 ELVIS CRAFT MD, Ot M47.816 SPONDYLOSIS W/O MYELOPATHY OR RADICULOPA 12/01/2016 ELVIS CRAFT MD Ot Z79.899 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 SCHOOL DIRECTOR (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 12/07/2016 ELVIS CRAFT MD Ot M47.816 SPONDYLOSIS W/O MYELOPATHY OR RADICULOPA 12/07/2016 ELVIS CRAFT MD Ot Z79.899 OTHER RESIDENTIAL (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 12/11/2016 FARRAR, IRVING R CFNP Ot M50.30 OTHER CERVICAL DISC DEGENERATION, UNSP C 12/11/2016 FARRAR, IRVING R CFNP Ot M54.5 LOW BACK PAIN 12/12/2016 FARRAR, IRVING R CFNP Ot M50.30 OTHER CERVICAL DISC DEGENERATION, UNS C 12/12/2016 FARRAR, IRVING R CFNP Ot M54.5 LOW BACK PAIN 12/26/2016 FARRAR, IRVING R CFNP Ot M50.30 OTHER CERVICAL DISC DEGENERATION, [facility] C 12/26/2016 FARRAR, IRVING R CFNP Ot M54.5 LOW BACK PAIN 11/26/2017 MASOOD CARABALLO MD Ot F12.10 CANNABIS ABUSE, UNCOMPLICATED 11/26/2017 RASHMI TERRY MASOOD N Ot F17.210 NICOTINE DEPENDENCE, CIGARETTES, UNCOMPL 11/26/2017 MASOOD CARABALLO MD N Ot R07.9 CHEST PAIN, UNSPECIFIED 11/26/2017 MASOOD CARABALLO MD N Ot R51 HEADACHE 11/26/2017 MASOOD CARABALLO MD N Ot R55 SYNCOPE AND COLLAPSE 11/26/2017 MASOOD CARABALLO MD N Ot F12.10 CANNABIS ABUSE, UNCOMPLICATED 11/26/2017 MASOOD CARABALLO MD N Ot F17.210 NICOTINE DEPENDENCE, CIGARETTES, UNCOMPL 11/26/2017 MASOOD CARABALLO MD N Ot R07.9 CHEST PAIN, UNSPECIFIED 11/26/2017 MASOOD CARABALLO MD N Ot R51 HEADACHE 11/26/2017 MASOOD CARABALLO MD Ot R55 SYNCOPE AND COLLAPSE 11/27/2017 ROMEL FRASER MD Ot V72.84 EXAM PRE-OPERATIVE NOS 11/27/2017 ROMEL FRASER MD Ot K60.3 ANAL FISTULA 11/27/2017 ROMEL FRASER MD Ot Z01.818 ENCOUNTER FOR OTHER PREPROCEDURAL EXAMIN 11/27/2017 FARRAR, IRVING R CFNP Ot M50.30 OTHER CERVICAL DISC DEGENERATION, UNSP C 11/27/2017 IRVING FARRAR CFNP Ot M54.5 LOW BACK PAIN 01/11/2018 RENETTA TERRY, Jefferson PINK Ot R07.9 CHEST PAIN, UNSPECIFIED 01/12/2018 ERNA DO, BRITANY K Ot F12.90 CANNABIS USE, UNSPECIFIED, UNCOMPLICATED 01/12/2018 ERNA DO, BRITANY K Ot F17.210 NICOTINE DEPENDENCE, CIGARETTES, UNCOMPL 01/12/2018 ERNA DO, BRITANY K Ot F31.9 BIPOLAR DISORDER, UNSPECIFIED 01/12/2018 ERNA DO, BRITANY K Ot F41.9 ANXIETY DISORDER, UNSPECIFIED 01/12/2018 ERNA DO, BRITANY K Ot G47.9 SLEEP DISORDER, UNSPECIFIED 01/12/2018 ERNA DO, BRITANY K Ot J45.909 UNSPECIFIED ASTHMA, UNCOMPLICATED 01/12/2018 ERAN DO, BRITANY K Ot K21.9 GASTRO-ESOPHAGEAL REFLUX DISEASE WITHOUT 01/12/2018 ERNA DO, BRITANY K Ot R07.9 CHEST PAIN, UNSPECIFIED 01/12/2018 ERNA DO, BRITANY K Ot Z87.81 PERSONAL HISTORY OF (HEALED) TRAUMATIC F 01/12/2018 RENETTA TERRY, Jefferson PINK Ot R07.9 CHEST PAIN, UNSPECIFIED 01/14/2018 ERNA DO, BRITANY K Ot F12.90 CANNABIS USE, UNSPECIFIED, UNCOMPLICATED 01/14/2018 ERNA DO, BRITANY K Ot F17.210 NICOTINE DEPENDENCE, CIGARETTES, UNCOMPL 01/14/2018 ERNA DO, BRITANY K Ot F31.9 BIPOLAR DISORDER, UNSPECIFIED 01/14/2018 ERNA DO, BRITANY K Ot F41.9 ANXIETY DISORDER, UNSPECIFIED 01/14/2018 ERNA DO, BRITANY K Ot G47.9 SLEEP DISORDER, UNSPECIFIED 01/14/2018 ERNA DO, BRITANY K Ot J45.909 UNSPECIFIED ASTHMA, UNCOMPLICATED 01/14/2018 ERNA DO, BRITANY K Ot K21.9 GASTRO-ESOPHAGEAL REFLUX DISEASE WITHOUT 01/14/2018 ERNA DO, BRITANY K Ot R07.9 CHEST PAIN, UNSPECIFIED 01/14/2018 ERNA DO, BRITANY K Ot Z87.81 PERSONAL HISTORY OF (HEALED) TRAUMATIC F 01/31/2018 EAMON ABRAMS MD J Ot F12.90 CANNABIS USE, UNSPECIFIED, UNCOMPLICATED 01/31/2018 EAMON ABRAMS MD J Ot F17.210 NICOTINE DEPENDENCE, CIGARETTES, UNCOMPL 01/31/2018 EAMON ABRAMS MD J Ot F20.9 SCHIZOPHRENIA, UNSPECIFIED 01/31/2018 EAMON ABRAMS MD J Ot F31.9 BIPOLAR DISORDER, UNSPECIFIED 01/31/2018 EAMON ABRAMS MD J Ot F41.9 ANXIETY DISORDER, UNSPECIFIED 01/31/2018 EAMON ABRAMS MD J Ot F43.10 POST-TRAUMATIC STRESS DISORDER, UNSPECIF 01/31/2018 EAMON ABRAMS MD J Ot G47.9 SLEEP DISORDER, UNSPECIFIED 01/31/2018 DONOVAN ABRAMS MDUS J Ot J45.909 UNSPECIFIED ASTHMA, UNCOMPLICATED 01/31/2018 DONOVAN ABRAMS MDUS J Ot K21.9 GASTRO-ESOPHAGEAL REFLUX DISEASE WITHOUT 01/31/2018 EAMON ABRAMS MD J Ot M79.671 PAIN IN RIGHT FOOT 01/31/2018 EAMON ABRAMS MD J Ot Z87.81 PERSONAL HISTORY OF (HEALED) TRAUMATIC F 01/31/2018 EAMON ABRAMS MD J Ot Z98.890 OTHER SPECIFIED POSTPROCEDURAL STATES 02/04/2018 EAMON ABRAMS MD J Ot F12.90 CANNABIS USE, UNSPECIFIED, UNCOMPLICATED 02/04/2018 EAMON ABRAMS MD J Ot F17.210 NICOTINE DEPENDENCE, CIGARETTES, UNCOMPL 02/04/2018 EAMON ABRAMS MD J Ot F20.9 SCHIZOPHRENIA, UNSPECIFIED 02/04/2018 EAMON ABRAMS MD J Ot F31.9 BIPOLAR DISORDER, UNSPECIFIED 02/04/2018 EAMON ABRAMS MD J Ot F41.9 ANXIETY DISORDER, UNSPECIFIED 02/04/2018 EAMON ABRAMS MD J Ot F43.10 POST-TRAUMATIC STRESS DISORDER, UNSPECIF 02/04/2018 EAMON ABRAMS MD J Ot G47.9 SLEEP DISORDER, UNSPECIFIED 02/04/2018 DONOVAN ABRAMS MDUS J Ot J45.909 UNSPECIFIED ASTHMA, UNCOMPLICATED 02/04/2018 EAMON ABRAMS MD J Ot K21.9 GASTRO-ESOPHAGEAL REFLUX DISEASE WITHOUT 02/04/2018 DONOVAN ABRAMS MDUS J Ot M79.671 PAIN IN RIGHT FOOT 02/04/2018 EAMON ABRAMS MD Ot Z87.81 PERSONAL HISTORY OF (HEALED) TRAUMATIC F 02/04/2018 EAMON ABRAMS MD Ot Z98.890 OTHER SPECIFIED POSTPROCEDURAL STATES 02/06/2018 DONOVAN ABRAMS MDUS J Ot F12.90 CANNABIS USE, UNSPECIFIED, UNCOMPLICATED 02/06/2018 DONOVAN ABRAMS MDUS J Ot F17.210 NICOTINE DEPENDENCE, CIGARETTES, UNCOMPL 02/06/2018 DONOVAN ABRAMS MDUS J Ot F20.9 SCHIZOPHRENIA, UNSPECIFIED 02/06/2018 DONOVAN ABRAMS MDUS J Ot F31.9 BIPOLAR DISORDER, UNSPECIFIED 02/06/2018 DONOVAN ABRAMS MDUS J Ot F41.9 ANXIETY DISORDER, UNSPECIFIED 02/06/2018 DONOVAN ABRAMS MDUS J Ot F43.10 POST-TRAUMATIC STRESS DISORDER, UNSPECIF 02/06/2018 DONOVAN ABRAMS MDUS J Ot G47.9 SLEEP DISORDER, UNSPECIFIED 02/06/2018 DONOVAN ABRAMS MDUS J Ot J45.909 UNSPECIFIED ASTHMA, UNCOMPLICATED 02/06/2018 DONOVAN ABRAMS MDUS J Ot K21.9 GASTRO-ESOPHAGEAL REFLUX DISEASE WITHOUT 02/06/2018 DONOVAN ABRAMS MDUS J Ot M79.671 PAIN IN RIGHT FOOT 02/06/2018 DONOVAN ABRAMS MDUS Fabian Ot Z87.81 PERSONAL HISTORY OF (HEALED) TRAUMATIC F 02/06/2018 EAMON ABRAMS MD Ot Z98.890 OTHER SPECIFIED POSTPROCEDURAL STATES 02/25/2018 Jefferson JACKSON MD Ot R07.9 CHEST PAIN, UNSPECIFIED 02/26/2018 ROMEL FRASER MD Ot V72.84 EXAM PRE-OPERATIVE NOS 02/26/2018 ROMEL FRASER MD Ot K60.3 ANAL FISTULA 02/26/2018 ROMEL FRASER MD Ot Z01.818 ENCOUNTER FOR OTHER PREPROCEDURAL EXAMIN 02/26/2018 IRVING FARRAR Ot M50.30 OTHER CERVICAL DISC DEGENERATION, UNSP C 02/26/2018 IRVING FARRAR Ot M54.5 LOW BACK PAIN 02/26/2018 Jefferson JACKSON MD Ot R07.9 CHEST PAIN, UNSPECIFIED 02/26/2018 Jefferson JACKSON MD Ot R07.9 CHEST PAIN, UNSPECIFIED Procedures Code Description Performed By Performed On General S [facility] 06/17/2012 96238 H PYLORI (IN-HOUSE) 06/17/2012 36010 UA LONG DIP 06/17/2012 00367 MRI SPINE (THORACIC) W/O CONTRAST 03/12/2013 63196 MRI SPINE (LUMBAR) W/O CONTRAST 03/12/2013 56366 XRAY LUMBAR SPINE 2 OR 3 VIEWS 04/22/2013 31750 XRAY SI JOINTS LESS THAN 3 VIEWS 04/22/2013 93345 XRAY FEET, TERENCE 04/22/2013 Physical Physical Therapy 04/30/2013 Podiatry Anneliese Lombardo 04/30/2013 Orthopedi Trever Greene 06/10/2013 91973 THERAPUTIC INJ SQ/IM 07/21/2013 J0696 ROCEPHIN INJ 1 g 07/21/2013 J2930 SOLUMEDROL INJ 07/21/2013 71563 XRAY CHEST 2 VIEW 07/22/2013 37008 UA LONG DIP 02/26/2014 56586 XRAY KNEE LEFT 3 VIEWS 04/09/2014 Results [...] Automated erythrocyte mean corpuscular hemoglobin concentration measurement (mass/volume) 34 g/dL 32-36 Automated erythrocyte distribution width ratio 13.0 % 10.0- 14.5 Automated blood platelet count (count/volume) 261 10*3/uL [...] Blood monocytes automated count (number/volume) 1.0 10*3 0.0- 1.0 Automated eosinophil count 0.3 10*3/uL 0.0-0.3 Automated [...] measurement in platelet poor plasma (mass/volume) - 07/12/16 15:07 Fibrin D-dimer FEU measurement in platelet poor plasma (mass/volume) < ug/mL 0.00-0.49 Serum or plasma troponin i.cardiac measurement (mass/volume) - 07/12/16 15:07 Serum or plasma troponin i.cardiac measurement (mass/volume) < ng/mL <0.30 Urine drug screening test - 11/25/17 [...] Automated erythrocyte mean corpuscular hemoglobin concentration measurement (mass/volume) 34 g/dL 32-36 Automated erythrocyte distribution width ratio 13.5 % 10.0- 14.5 Automated blood platelet count (count/volume) 249 10*3/uL [...] Blood monocytes automated count (number/volume) 0.8 10*3 0.0- 1.0 Automated eosinophil count 0.2 10*3/uL 0.0-0.3 Automated [...] Serum or plasma aspartate aminotransferase measurement (enzymatic activity/volume) 18 U/L 5-34 Serum or plasma alanine aminotransferase measurement (enzymatic activity/volume) 28 U/L 0-55 Serum or plasma protein measurement (mass/volume) 6.2 g/dL 6.4-8.2 Serum or plasma albumin measurement (mass/volume) 4.1 g/dL 3.2-4.5 Magnesium - 11/25/17 01:29 Magnesium 2.5 mg/dL 1.8-2.4 Serum or plasma thyrotropin measurement by detection limit <=0.05 miu/l (units/volume) - 11/25/17 01:29 Serum or plasma thyrotropin measurement by detection limit <=0.05 miu/l (units/volume) 2.31 u[iU]/mL 0.35-4.94 Serum or plasma troponin i.cardiac measurement (mass/volume) - 11/25/17 01:29 Serum or plasma troponin i.cardiac measurement (mass/volume) < ng/mL <0.30 Myoglobin, serum - 11/25/17 01:29 Myoglobin, serum 41.9 ng/mL 10.0-92.0 Serum or plasma ethanol measurement (mass/volume) - 11/25/17 01:29 Serum or plasma ethanol measurement (mass/volume) < mg/dL <10 Serum or plasma troponin i.cardiac measurement (mass/volume) - 11/25/17 06:51 Serum or plasma troponin i.cardiac measurement (mass/volume) < ng/mL <0.30 Lipid 1996 panel - 11/26/17 03:25 Serum or plasma triglyceride measurement (mass/volume) 143 mg/dL <150 Serum or plasma cholesterol measurement (mass/volume) 235 mg/dL < 200 Serum or plasma cholesterol in HDL measurement (mass/volume) 39 mg/dL 40-60 Cholesterol in LDL [mass/volume] in serum or plasma by direct assay 173 mg/dL 1-129 Serum or plasma cholesterol in VLDL measurement (mass/volume) 29 mg/dL 5-40 Complete blood count (CBC) with automated white blood cell (WBC) differential - 01/11/18 23:35 Blood leukocytes automated count (number/volume) 9.4 10*3/uL 4.3-11.0 Blood erythrocytes automated count (number/volume) 4.63 10*6/uL 4.35-5.85 Venous blood hemoglobin measurement (mass/volume) 14.2 g/dL 13.3-17.7 Blood hematocrit (volume fraction) 41 % 40-54 Automated erythrocyte mean corpuscular volume 89 [foz_us] 80-99 Automated erythrocyte mean corpuscular hemoglobin (mass per erythrocyte) 31 pg 25-34 Automated erythrocyte mean corpuscular hemoglobin concentration measurement (mass/volume) 35 g/dL 32-36 Automated erythrocyte distribution width ratio 13.4 % 10.0- 14.5 Automated blood platelet count (count/volume) 261 10*3/uL 130-400 Automated blood platelet mean volume measurement 9.4 [foz_us] 7.4-10.4 Automated blood neutrophils/100 leukocytes 56 % 42-75 Automated blood lymphocytes/100 leukocytes 32 % 12-44 Blood monocytes/100 leukocytes 10 % 0-12 Automated blood eosinophils/100 leukocytes 2 % 0-10 Automated blood basophils/100 leukocytes 0 % 0-10 Blood neutrophils automated count (number/volume) 5.2 10*3 1.8-7.8 Blood lymphocytes automated count (number/volume) 3.0 10*3 1.0-4.0 Blood monocytes automated count (number/volume) 0.9 10*3 0.0- 1.0 Automated eosinophil count 0.2 10*3/uL 0.0-0.3 Automated blood basophil count (count/volume) 0.0 10*3/uL 0.0-0.1 PT panel in platelet poor plasma by coagulation assay - 01/11/18 23:35 Prothrombin time (PT) in platelet poor plasma by coagulation assay 14.2 s 12.2-14.7 INR in platelet poor plasma or blood by coagulation assay 1.1 0.8-1.4 Activated partial thromboplastin time (aPTT) in platelet poor plasma bycoagulation assay - 01/11/18 23:35 Activated partial thromboplastin time (aPTT) in platelet poor plasma bycoagulation assay 26 s 24-35 Comprehensive metabolic panel - 01/11/18 23:35 Serum or plasma sodium measurement (moles/volume) 139 mmol/L 135-145 Serum or plasma potassium measurement (moles/volume) 4.0 mmol/L 3.6-5.0 Serum or plasma chloride measurement (moles/volume) 107 mmol/L 98-107 Carbon dioxide 20 mmol/L 21-32 Serum or plasma anion gap determination (moles/volume) 12 mmol/L 5-14 Serum or plasma urea nitrogen measurement (mass/volume) 24 mg/dL 7-18 Serum or plasma creatinine measurement (mass/volume) 1.18 mg/dL 0.60-1.30 Serum or plasma urea nitrogen/creatinine mass ratio 20 NRG Serum or plasma creatinine measurement with calculation of estimated glomerular filtration rate > NRG Serum or plasma glucose measurement (mass/volume) 100 mg/dL 70-105 Serum or plasma calcium measurement (mass/volume) 9.3 mg/dL 8.5-10.1 Serum or plasma total bilirubin measurement (mass/volume) 0.4 mg/dL 0.1-1.0 Serum or plasma alkaline phosphatase measurement (enzymatic activity/volume) 49 U/L 40-136 Serum or plasma aspartate aminotransferase measurement (enzymatic activity/volume) 17 U/L 5-34 Serum or plasma alanine aminotransferase measurement (enzymatic activity/volume) 25 U/L 0-55 Serum or plasma protein measurement (mass/volume) 6.5 g/dL 6.4-8.2 Serum or plasma albumin measurement (mass/volume) 4.2 g/dL 3.2-4.5 Magnesium - 01/11/18 23:35 Magnesium 2.3 mg/dL 1.8-2.4 Serum or plasma creatine kinase measurement (enzymatic activity/volume) - 01/11/18 23:35 Serum or plasma creatine kinase measurement (enzymatic activity/volume) 243 U/L 30-200 Serum or plasma creatine kinase MB measurement (enzymatic activity/volume) - 01/11/18 23:35 Serum or plasma creatine kinase MB measurement (enzymatic activity/volume) 2.2 ng/mL <6.6 Serum or plasma troponin i.cardiac measurement (mass/volume) - 01/11/18 23:35 Serum or plasma troponin i.cardiac measurement (mass/volume) < ng/mL <0.30 Serum or plasma ethanol measurement (mass/volume) - 01/11/18 23:35 Serum or plasma ethanol measurement (mass/volume) < mg/dL <10 Serum or plasma lithium measurement (moles/volume) - 01/11/18 23:35 BNP level < pg/mL <100.0 Serum or plasma amylase measurement (enzymatic activity/volume) - 01/11/18 23:35 Serum or plasma amylase measurement (enzymatic activity/volume) 26 U/L 25-125 Lipase - 01/11/18 23:35 Lipase 5 U/L 8-78 Serum or plasma thyrotropin measurement by detection limit <=0.05 miu/l (units/volume) - 01/11/18 23:35 Serum or plasma thyrotropin measurement by detection limit <=0.05 miu/l (units/volume) 1.43 u[iU]/mL 0.35-4.94 Complete urinalysis with reflex to culture - 01/12/18 01:30 Urine color determination YELLOW NRG Urine clarity determination CLEAR NRG Urine pH measurement by test strip 5 5-9 Specific gravity of urine by test strip 1.030 1.016-1.022 Urine protein assay by test strip, semi-quantitative NEGATIVE NEGATIVE Urine glucose detection by automated test strip NEGATIVE NEGATIVE Erythrocytes detection in urine sediment by light microscopy NEGATIVE NEGATIVE Urine ketones detection by automated test strip NEGATIVE NEGATIVE Urine nitrite detection by test strip NEGATIVE NEGATIVE Urine total bilirubin detection by test strip NEGATIVE NEGATIVE Urine urobilinogen measurement by automated test strip (mass/volume) NORMAL NORMAL Urine leukocyte esterase detection by dipstick NEGATIVE NEGATIVE Automated urine sediment erythrocyte count by microscopy (number/high power field) NONE NRG Automated urine sediment leukocyte count by microscopy (number/high power field) NONE NRG Bacteria detection in urine sediment by light microscopy TRACE NRG Squamous epithelial cells detection in urine sediment by light microscopy RARE NRG Crystals detection in urine sediment by light microscopy NONE NRG Casts detection in urine sediment by light microscopy PRESENT NRG Mucus detection in urine sediment by light microscopy MODERATE NRG Complete urinalysis with reflex to culture NO NRG Hyaline casts detection in urine sediment by light microscopy 0-2 NRG Urine drug screening test - 01/12/18 01:30 Urine phencyclidine detection by screening method NEGATIVE NEGATIVE Urine benzodiazepines detection by screening method NEGATIVE NEGATIVE Urine cocaine detection NEGATIVE NEGATIVE Urine amphetamines detection by screening method POSITIVE NEGATIVE Urine methamphetamine detection by screening method POSITIVE NEGATIVE Urine cannabinoids detection by screening method POSITIVE NEGATIVE Urine opiates detection by screening method NEGATIVE NEGATIVE Urine barbiturates detection NEGATIVE NEGATIVE Screening urine tricyclic antidepressants detection NEGATIVE NEGATIVE Urine methadone detection by screening method NEGATIVE NEGATIVE Urine oxycodone detection NEGATIVE NEGATIVE Urine propoxyphene detection NEGATIVE NEGATIVE Encounters ACCT No. Visit Date/Time Discharge Status Pt. Type Provider Facility Loc./Unit Complaint [id number] 07/17/2014 11:16:00 07/17/2014 23:59:59 CLS Outpatient SHIRA SALINAS DO [id number] 04/23/2014 09:50:00 04/23/2014 23:59:59 CLS Outpatient SHIRA SALINAS DO [id number] 04/09/2014 12:55:00 04/09/2014 23:59:59 CLS Outpatient KAMINI RAND APRN [id number] 04/09/2014 12:55:00 04/09/2014 23:59:59 CLS Outpatient KAMINI RAND APRN [id number] 02/26/2014 11:14:00 02/26/2014 23:59:59 CLS Outpatient SHIRA SALINAS DO [id number] 02/12/2014 14:43:00 02/12/2014 23:59:59 CLS Outpatient IRVING FARRAR APRN [id number] 09/30/2013 09:38:00 09/30/2013 23:59:59 CLS Outpatient IRVING FARRAR APRN [id number] 07/21/2013 08:27:00 07/21/2013 23:59:59 CLS Outpatient SHIRA SALINAS DO [id number] 06/06/2013 09:17:00 06/06/2013 23:59:59 CLS Outpatient SHIRA SALINAS DO [id number] 04/30/2013 09:54:00 04/30/2013 23:59:59 CLS Outpatient SHIRA SALINAS DO [id number] 04/22/2013 09:23:00 04/22/2013 23:59:59 CLS Outpatient SHIRA SALINAS DO [id number] 10/22/2012 10:33:00 10/22/2012 23:59:59 CLS Outpatient [id number] 08/12/2012 13:35:00 08/12/2012 23:59:59 CLS Outpatient [id number] 06/17/2012 12:48:00 06/17/2012 23:59:59 CLS Outpatient [id number] 03/12/2013 13:38:00 Document Registration [id number] 12/12/2012 13:42:00 Document Registration [id number] 02/26/2018 08:00:00 02/26/2018 23:59:59 CLS Preadmit Jefferson JACKSON MD [facility] CARD CHEST PAIN [id number] 12/21/2017 08:30:00 02/25/2018 00:01:00 DIS Outpatient Jefferson JACKSON MD [facility] CARD CHEST PAIN [id number] 01/31/2018 23:02:00 01/31/2018 23:47:00 DIS Outpatient EAMON ABRAMS MD [facility] ER R FOOT INJ [id number] 01/11/2018 23:15:00 01/12/2018 02:20:00 DIS Emergency BRITANY UMANZOR DO [facility] ER CP,LEFT HAND NUMB,BACK PAIN,ANDERS [id number] 11/24/2017 23:59:00 11/26/2017 15:35:00 DIS Outpatient MASOOD CARABALLO MD [facility] ICU CHEST PAIN, SYNCOPE, HEADACHE, HALLUCINATIONS [id number] 12/09/2016 09:31:00 12/09/2016 23:59:59 CLS Outpatient IRVING FARRAR Yanet CFGARY [facility] RAD DDD M50.30 [id number] 12/06/2016 11:54:00 12/06/2016 23:59:59 CLS Preadmit CHARAN IRVING Holt CFGARY [facility] RAD M50.30 [id number] 12/01/2016 08:59:00 12/01/2016 10:10:00 DIS Outpatient ELVIS CRAFT MD [facility] CARD SPONDYLOSIS [id number] 11/24/2016 09:11:00 11/24/2016 10:22:00 DIS Outpatient ELVIS CRAFT MD [facility] CARD SPONDYLOSIS [id number] 10/20/2016 10:29:00 10/20/2016 11:40:00 DIS Outpatient ELVIS CRAFT MD [facility] CARD SPONDYLOSIS [id number] 08/25/2016 11:49:00 08/25/2016 13:11:00 DIS Outpatient ELVIS CRAFT MD [facility] CARD SPONDYLOSIS [id number] 07/12/2016 12:52:00 07/12/2016 17:57:00 DIS Emergency NIYAH DUNN MD [facility] ER BACK/LEG PAIN [id number] 07/05/2016 14:11:00 07/05/2016 23:59:59 CLS Outpatient CHICA APARICIO [facility] QUICK [id number] 06/21/2015 11:02:00 06/21/2015 16:25:00 DIS Outpatient ROMEL FRASER MD [facility] SDC FISTULA [id number] 06/17/2015 15:30:00 06/17/2015 23:59:59 CLS Outpatient ROMEL FRASER MD [facility] PREOP FISTULA [id number] 02/16/2015 18:51:00 02/16/2015 20:52:00 DIS Emergency BRITANY UMANZOR DO [facility] ER HEADACHE,LETHARGY,BLURRED VISION [id number] 02/05/2015 11:00:00 02/08/2015 11:20:00 DIS Inpatient LEONIDES MCCORMICK MD [facility] 4TH FEVER [id number] 05/08/2014 07:43:00 05/08/2014 12:10:00 DIS Outpatient ROMEL FRASER MD [facility] SDC POSITIVE BLOOD IN STOOLS; ABD PAIN [id number] 05/07/2014 07:21:00 05/07/2014 23:59:59 CLS Outpatient ROMEL FRASER MD [facility] PREOP POSITIVE BLOOD IN STOOLS; ABD PAIN [id number] 02/09/2014 20:28:00 02/09/2014 22:42:00 DIS Emergency ERNA HERNANDEZBRITANY [facility] ER HERNIA [id number] 02/04/2015 12:38:00 Document Registration [id number] 02/04/2015 12:38:00 Document Registration [id number] 05/02/2012 05:39:00 Document Registration [id number] 04/29/2012 11:38:00 Document Registration [id number] 04/11/2012 07:46:00 Document Registration [id number] 04/05/2012 07:09:00 Document Registration [id number] 03/28/2012 12:41:00 Document Registration [id number] 03/27/2012 07:18:00 Document Registration [id number] 03/04/2012 09:16:00 Document Registration [id number] 02/24/2019 13:40:00 02/24/2019 23:59:59 CLS [facility]
--- NOTE | 2019-03-06 13:46 | NUR ---
TO CT PER W/C
[2019-03-06 13:48] LABS: PROTHROMBIN TIME PATIENT 13.3 SEC (12.2-14.7)
[2019-03-06 13:54] LABS: ALANINE AMINOTRANSFERASE 31 U/L (0-55); ALBUMIN 4.2 GM/DL (3.2-4.5); ALKALINE PHOSPHATASE 54 U/L (40-136); BILIRUBIN,TOTAL 0.4 MG/DL (0.1-1.0); BUN/CREATININE RATIO 10; CALCIUM 9.6 MG/DL (8.5-10.1); CARBON DIOXIDE 23 MMOL/L (21-32); CHLORIDE 103 MMOL/L (98-107); CREATININE SERUM 1.35 MG/DL (0.60-1.30); GFR ESTIMATED 58; GLUCOSE 134 MG/DL (70-105); MAGNESIUM 2.1 MG/DL (1.8-2.4); POTASSIUM 4.3 MMOL/L (3.6-5.0); SODIUM 139 MMOL/L (135-145)
[2019-03-06] MEDS ORDERED: NS IV 1000 ML 1,000 ML IV SCH (14:00)
--- NOTE | 2019-03-06 14:02 | NUR ---
BACK FROM CT PER W/C AT BEDSIDE.
--- NOTE | 2019-03-06 14:07 | Diagnostic Imaging Report ---
PROCEDURE: CT head without contrast. TECHNIQUE: Multiple contiguous axial images were obtained through the brain without the use of intravenous contrast. Auto Exposure Controls were utilized during the CT exam to meet ALARA standards for radiation dose reduction. INDICATION: Chest pain, dizziness, and blurred vision. COMPARISON: Comparison is made with prior head CT from 11/25/2017. FINDINGS: Ventricles and sulci are within normal limits. No sulcal effacement or midline shift is identified. No acute intra-axial or extra-axial hemorrhage is detected. Cisterns are patent. Visualized paranasal sinuses are clear. IMPRESSION: No acute intracranial process is detected. Dictated by: Dictated on workstation # [id number]
--- NOTE | 2019-03-06 14:16 | Diagnostic Imaging Report ---
INDICATION: Dizziness and blurred vision as well as chest pain. TIME OF EXAM: 02:02 p.m. COMPARISON: Comparison is made with prior chest from 01/11/2018. FINDINGS: The heart size is normal. The pulmonary vascularity is unremarkable. The lungs are clear. No infiltrate, effusion or pneumothorax is detected. IMPRESSION: No acute cardiopulmonary process is detected. Dictated by: Dictated on workstation # [id number]
[2019-03-06 14:21] VITALS: BP 130/80
[2019-03-06] MEDS ORDERED: KETOROLAC 30 MG/ML VIAL IVP ONE (14:30)
[2019-03-06] MEDS ORDERED: ALPR0.5T7 PO (14:37)
[2019-03-06] MEDS ORDERED: ESCI10TA PO (14:37)
[2019-03-06 15:03] VITALS: BP 130/76
--- NOTE | 2019-03-06 15:19 | NUR ---
2ND TROPONIN DRAWN. REPORTS HEADACHE BETTER.
[2019-03-06 15:56] VITALS: BP 139/90
== END 2019-03-06 15:56 | disposition home or self-care (01) ==
LOC: EDUNIT# 13:21 → ER 13:23
DX: F41.9 Anxiety disorder, unspecified (principal); J45.909 Unspecified asthma, uncomplicated; K21.9 Gastro-esophageal reflux disease without esophagitis; K58.9 Irritable bowel syndrome, unspecified; F43.10 Post-traumatic stress disorder, unspecified; F31.9 Bipolar disorder, unspecified; F60.9 Personality disorder, unspecified; F20.9 Schizophrenia, unspecified
CPT/HCPCS: 36415; 70450; 71045; 80053; 83735; 83874; 83880; 84484; 85025; 85379; 85610; 85730; 93005; 93041; 96361; 96374

== ENCOUNTER 2019-04-07 13:08 | Emergency (ER) | payer SELFPAY ==
[~2019-04-07] VITALS: Ht 210.8 cm; Wt 113.6 kg
[~2019-04-07 13:08] MED LIST changes: +ALPR0.5T7 PO; +ESCI10TA PO
--- NOTE | 2019-04-07 13:31 | ED Psychosocial ---
General Chief Complaint: Psych/Social Disorder Stated Complaint: DX W/ PANIC ATTACKS/SUICIDAL THOUGHTS Source: patient Exam Limitations: no limitations History of Present Illness Date Seen by Provider: Apr 07, 2019 Time Seen by Provider: 13:26 Initial Comments To ER with C/o depression and suicidal thoughts. The suicidal thoughts are a daily thing for him he states, "the only thing keeping me alive is my girls and I dont want to go to hell". No specific plan as to how he would go about suicide. States that he's been inpatient at [facility] before and doesn't feel that it's very helpful. he was seen here a month ago for panic and anxiety, prescribed him a short course of Xanax and a one-month supply of Lexapro. He took this for just a few days he states before he quit taking. Not sure why he quit taking it. He takes no other medications for mental health. Timing/Duration: constant Severity: moderate Associated Symptoms: anxiety, suicidal ideation Allergies and Home Medications Allergies Coded Allergies: Shellfish (Unverified Allergy, Unknown, 03/28/12) Home Medications Alprazolam 0.5 Mg Tablet, 0.5 MG PO BID PRN for ANXIETY Prescribed by: LORRIE KING on 03/06/19 1437 Escitalopram Oxalate 10 Mg Tablet, 10 MG PO DAILY Prescribed by: LORRIE KING on 03/06/19 1437 Patient Home Medication List Home Medication List Reviewed: Yes Review of Systems Constitutional: see HPI EENTM: see HPI Respiratory: no symptoms reported Cardiovascular: no symptoms reported Genitourinary: no symptoms reported Musculoskeletal: no symptoms reported Skin: no symptoms reported Psychiatric/Neurological: No Symptoms Reported Past Rmuzvhn-Wigssp-Heafgf Hx Patient Social History Alcohol Beverage of Choice: Beer Drug of Choice: marijuana Type Used: Cigarettes Recent Foreign Travel: No Contact w/Someone Who Travel: No Recent Hopitalizations: No Immunizations Up To Date Tetanus Booster (TDap): Unknown PED Vaccines UTD: No Date of Pneumonia Vaccine: Aug 06, 2007 Date of Influenza Vaccine: May 05, 2015 Seasonal Allergies Seasonal Allergies: No Past Medical History Surgeries: Yes Abdominal, Gallbladder, Orthopedic Respiratory: Yes (SEASONAL ASTHMA) Asthma Cardiac: No Neurological: No Reproductive Disorders: No Genitourinary: No Gastrointestinal: Yes Gastroesophageal Reflux, Irritable Bowel Musculoskeletal: Yes Arthritis, Chronic Back Pain, Fractures Endocrine: No HEENT: No Cancer: No Psychosocial: Yes (ANTISOCIAL) Sleep Difficulties, Anxiety, PTSD, Bipolar, Personality Disorder, Schizophrenia, Depression Integumentary: No Blood Disorders: No Family Medical History Patient reports no known family medical history. Physical Exam Vital Signs - First Documented 04/07/19 13:10 Temp 98.8 Pulse 78 Resp 18 B/P (MAP) 140/100 (113) Pulse Ox 98 O2 Delivery Room Air Capillary Refill : Height, Weight, BMI Height: 6'11.00" Weight: 250lbs. 6.0oz. 113.184714zo; 32.3 BMI Method:Stated General Appearance: WD/WN, no apparent distress HEENT: PERRL/EOMI, normal ENT inspection Respiratory: no respiratory distress, no accessory muscle use Gastrointestinal: normal bowel sounds, soft Neurologic/Psychiatric: alert, normal mood/affect, oriented x 3 Appearance/Memory: appropriate insight, disheveled Behavior/Eye Contact: cooperative, good eye contact, normal speech Thoughts/Hallucinations: normal thought pattern, no apparent hallucination Skin: normal color, warm/dry Progress/Results/Core Measures Results/Orders Lab Results Laboratory Tests Test 04/07/19 15:05 04/07/19 15:56 Range/Units White Blood Count 6.6 4.3-11.0 10^3/uL Red Blood Count 5.35 4.35-5.85 10^6/uL Hemoglobin 15.3 13.3-17.7 G/DL Hematocrit 46 40-54 % Mean Corpuscular Volume 85 80-99 FL Mean Corpuscular Hemoglobin 29 25-34 PG Mean Corpuscular Hemoglobin Concent 34 32-36 G/DL Red Cell Distribution Width 13.2 10.0-14.5 % Platelet Count 268 130-400 10^3/uL Mean Platelet Volume 9.3 7.4-10.4 FL Neutrophils (%) (Auto) 54 42-75 % Lymphocytes (%) (Auto) 35 12-44 % Monocytes (%) (Auto) 8 0-12 % Eosinophils (%) (Auto) 2 0-10 % Basophils (%) (Auto) 1 0-10 % Neutrophils # (Auto) 3.5 1.8-7.8 X 10^3 Lymphocytes # (Auto) 2.3 1.0-4.0 X 10^3 Monocytes # (Auto) 0.6 0.0-1.0 X 10^3 Eosinophils # (Auto) 0.1 0.0-0.3 10^3/uL Basophils # (Auto) 0.0 0.0-0.1 10^3/uL Sodium Level 141 135-145 MMOL/L Potassium Level 4.5 3.6-5.0 MMOL/L Chloride Level 105 98-107 MMOL/L Carbon Dioxide Level 29 21-32 MMOL/L Anion Gap 7 5-14 MMOL/L Blood Urea Nitrogen 9 7-18 MG/DL Creatinine 0.87 0.60-1.30 MG/DL Estimat Glomerular Filtration Rate > 60 BUN/Creatinine Ratio 10 Glucose Level 86 70-105 MG/DL Calcium Level 9.2 8.5-10.1 MG/DL Corrected Calcium 9.0 8.5-10.1 MG/DL Total Bilirubin 0.4 0.1-1.0 MG/DL Aspartate Amino Transf (AST/SGOT) 19 5-34 U/L Alanine Aminotransferase (ALT/SGPT) 29 0-55 U/L Alkaline Phosphatase 59 40-136 U/L Total Protein 7.0 6.4-8.2 GM/DL Albumin 4.2 3.2-4.5 GM/DL Salicylates Level < 5.0 L 5.0-20.0 MG/DL Acetaminophen Level < 10 L 10-30 UG/ML Serum Alcohol < 10 <10 MG/DL Urine Color YELLOW Urine Clarity CLEAR Urine pH 6.5 5-9 Urine Specific [place] 1.010 L 1.016-1.022 Urine Protein NEGATIVE NEGATIVE Urine Glucose (UA) NEGATIVE NEGATIVE Urine Ketones NEGATIVE NEGATIVE Urine Nitrite NEGATIVE NEGATIVE Urine Bilirubin NEGATIVE NEGATIVE Urine Urobilinogen NORMAL NORMAL MG/DL Urine Leukocyte Esterase NEGATIVE NEGATIVE Urine RBC (Auto) NEGATIVE NEGATIVE Urine RBC NONE /HPF Urine WBC NONE /HPF Urine Squamous Epithelial Cells RARE /HPF Urine Crystals NONE /LPF Urine Bacteria NEGATIVE /HPF Urine Casts NONE /LPF Urine Mucus NEGATIVE /LPF Urine Culture Indicated NO Urine Opiates Screen NEGATIVE NEGATIVE Urine Oxycodone Screen NEGATIVE NEGATIVE Urine Methadone Screen NEGATIVE NEGATIVE Urine Propoxyphene Screen NEGATIVE NEGATIVE Urine Barbiturates Screen NEGATIVE NEGATIVE Ur Tricyclic Antidepressants Screen NEGATIVE NEGATIVE Urine Phencyclidine Screen NEGATIVE NEGATIVE Urine Amphetamines Screen NEGATIVE NEGATIVE Urine Methamphetamines Screen NEGATIVE NEGATIVE Urine Benzodiazepines Screen NEGATIVE NEGATIVE Urine Cocaine Screen NEGATIVE NEGATIVE Urine Cannabinoids Screen POSITIVE H NEGATIVE My Orders Orders - LORRIE KING APRN Olanzapine Orally Dissolve Tab (Zyprexa (04/07/19 13:45) Cbc With Automated Diff (04/07/19 14:54) Comprehensive Metabolic Panel (04/07/19 14:54) Alcohol (04/07/19 14:54) Salicylate (04/07/19 14:54) Acetaminophen (04/07/19 14:54) Ua Culture If Indicated (04/07/19 14:54) Drug Screen Stat (Urine) (04/07/19 14:54) General/Regular (04/07/19 Lunch) Ekg Tracing (04/07/19 15:14) Medications Given in ED Current Medications Medications Dose Ordered Sig/Mary Route Start Time Stop Time Status Last Admin Dose Admin Olanzapine 5 mg ONCE ONCE PO 04/07/19 13:45 04/07/19 13:46 DC 04/07/19 13:54 5 MG Vital Signs/I&O 04/07/19 13:10 Temp 98.8 Pulse 78 Resp 18 B/P (MAP) 140/100 (113) Pulse Ox 98 O2 Delivery Room Air Departure Communication (Admissions) 1354-spoke with Subha from [facility], she agrees with outpatient follow-up as soon as possible. He can go to the [facility] to talk to be homeless coordinator about placement tomorrow as there are funds available for housing for these individuals. Once that is achieved and they can start work on the mental health side of things. She states that medications are not typically helpful given his stressors including recent separation from and job loss. 1455- discussed possible outpatient treatment with the patient. He would prefer that method however he states "I think I'm just prolonging everything, if I go home theyre just going to find me somewhere eventually" referring to killing himself and being found . He is agreeable to going inpatient if necessary. 1641-discussed with [facility] in [place] they do not have a bed, [facility] does not have a bed, [facility] does not have a bed. [facility] in [place] does have a bed but the patient states he doesn't want to get up they're not have a way home and essentially be trapped. He states he like to go home and stay with a friend tonight and return tomorrow for possible placement. He assures me that he will not harm himself. He will return to ER before he does that. He has a motorcycle in the way here. Impression Primary Impression: Depression Qualified Codes: F32.9 - Major depressive disorder, single episode, unspecified Disposition: 01 HOME, SELF-CARE Condition: Stable Departure-Patient Inst. Decision time for Depature: 16:44 Referrals: NO,LOCAL PHYSICIAN (PCP/Family) Primary Care Physician Patient Instructions: Depression Add. Discharge Instructions: 1. Call [phone] which is the phone number to [facility]. They will answer any time day or night. Return to ER for any concerns. Follow-up with your mental health provider at [facility]. Call tomorrow morning to make an appointment to be seen as soon as possible. All discharge instructions reviewed with patient and/or family. Voiced understanding. LORRIE KING APRN Apr 07, 2019 13:31
[2019-04-07] MEDS ORDERED: OLANZapine 5 MG ODT (ZyPREXA ZYDIS) PO ONE (13:45)
[2019-04-07 15:13] LABS: BASOPHILS % (AUTO) 1 % (0-10); EOSINOPHILS # (AUTO) 0.1 10^3/uL (0.0-0.3); EOSINOPHILS % (AUTO) 2 % (0-10); HEMATOCRIT 46 % (40-54); HEMOGLOBIN 15.3 G/DL (13.3-17.7); LYMPHOCYTES # (AUTO) 2.3 X 10^3 (1.0-4.0); LYMPHOCYTES % (AUTO) 35 % (12-44); MEAN CORPUSCULAR HEMOGLOBIN 29 PG (25-34); MEAN CORPUSCULAR HGB CONC 34 G/DL (32-36); MEAN CORPUSCULAR VOLUME 85 FL (80-99); MEAN PLATELET VOLUME 9.3 FL (7.4-10.4); MONOCYTES # (AUTO) 0.6 X 10^3 (0.0-1.0); MONOCYTES % (AUTO) 8 % (0-12); NEUTROPHILS # (AUTO) 3.5 X 10^3 (1.8-7.8); NEUTROPHILS % (AUTO) 54 % (42-75); PLATELET COUNT 268 10^3/uL (130-400); RED CELL DISTRIBUTION WIDTH 13.2 % (10.0-14.5); WHITE BLOOD COUNT 6.6 10^3/uL (4.3-11.0)
[2019-04-07 15:34] LABS: ALANINE AMINOTRANSFERASE 29 U/L (0-55); ALBUMIN 4.2 GM/DL (3.2-4.5); ALKALINE PHOSPHATASE 59 U/L (40-136); BILIRUBIN,TOTAL 0.4 MG/DL (0.1-1.0); BUN/CREATININE RATIO 10; CALCIUM 9.2 MG/DL (8.5-10.1); CARBON DIOXIDE 29 MMOL/L (21-32); CHLORIDE 105 MMOL/L (98-107); CREATININE SERUM 0.87 MG/DL (0.60-1.30); GFR ESTIMATED > 60; GLUCOSE 86 MG/DL (70-105); POTASSIUM 4.5 MMOL/L (3.6-5.0); SALICYLATE < 5.0 MG/DL (5.0-20.0); SODIUM 141 MMOL/L (135-145)
[2019-04-07 15:47] LABS: ACETAMINOPHEN < 10 UG/ML (10-30)
--- NOTE | 2019-04-07 15:55 | NUR ---
PATIENT REMAINS IN ROOM 9 DUE TO PATIENT IN ROOM 8 DOOR LEFT OPEN.
[2019-04-07 16:05] LABS: BILIRUBIN,URINE NEGATIVE (NEGATIVE); CLARITY,URINE CLEAR; COLOR,URINE YELLOW; GLUCOSE, URINE (UA) NEGATIVE (NEGATIVE); KETONES,URINE NEGATIVE (NEGATIVE); LEUKOCYTE ESTERASE ,URINE NEGATIVE (NEGATIVE); NITRITE,URINE NEGATIVE (NEGATIVE); PH,URINE 6.5 (5-9); PROTEIN,URINE NEGATIVE (NEGATIVE); UROBILINOGEN,URINE NORMAL (NORMAL)
[2019-04-07 16:10] LABS: BACTERIA,URINE NEGATIVE /HPF; SQUAMOUS EPITHELIAL CELL,UR RARE /HPF
[2019-04-07 16:22] LABS: AMPHETAMINE SCREEN, URINE NEGATIVE (NEGATIVE); BARBITURATE SCREEN URINE NEGATIVE (NEGATIVE); BENZODIAZEPINES SCREEN URINE NEGATIVE (NEGATIVE); CANNABINOID SCREEN, URINE POSITIVE (NEGATIVE); COCAINE SCREEN URINE NEGATIVE (NEGATIVE); METHADONE STAT NEGATIVE (NEGATIVE); METHAMPHETAMINE SCREEN URINE S NEGATIVE (NEGATIVE); OPIATE SCREEN URINE NEGATIVE (NEGATIVE); OXYCODONE STAT NEGATIVE (NEGATIVE); PROPOXYPHENE STAT NEGATIVE (NEGATIVE); TRICYCLIC ANTIDEPRESSANTS SCRE NEGATIVE (NEGATIVE)
--- NOTE | 2019-04-07 16:27 | NUR ---
REMAINS IN ROOM 9 LYING ON BED.
--- NOTE | 2019-04-07 16:46 | NUR ---
Allen KING APRN TALKED TO PATIENT AND INFORMED THAT THEY HAVE A BED AT [facility] IN [place], [place] PATIENT STATES HE DID NOT WANT TO GO THERE WILL JUST GO HOME AND COME BACK TOMORROW
[2019-04-07] MEDS ORDERED: RX-LORAZEPAM (ATIVAN) 0.5 MG TAB PPK#4 PO STA (17:00)
[2019-04-07 17:10] VITALS: BP 126/87
== END 2019-04-07 17:10 | disposition home or self-care (01) ==
LOC: EDUNIT# 13:08 → ER 13:09
DX: F32.9 Major depressive disorder, single episode, unspecified (principal); J45.909 Unspecified asthma, uncomplicated; K21.9 Gastro-esophageal reflux disease without esophagitis; K58.9 Irritable bowel syndrome, unspecified; F41.9 Anxiety disorder, unspecified; F43.10 Post-traumatic stress disorder, unspecified; F20.9 Schizophrenia, unspecified; F60.9 Personality disorder, unspecified; Z91.018 Allergy to other foods
CPT/HCPCS: 36415; 80053; 80306; 80320; 80329; 81000; 85025; 93005

== ENCOUNTER 2021-10-07 10:54 | Emergency (ER) | payer SELFPAY ==
[~2021-10-07] VITALS: Ht 180.3 cm; Wt 113.3 kg
[~2021-10-07 10:54] MED LIST changes: -FLUO20CA25 PO; +FLUO20CA48 PO
--- NOTE | 2021-10-07 11:13 | ED Chest Pain ---
General Stated Complaint: CHEST PAIN Source: patient Exam Limitations: no limitations History of Present Illness Date Seen by Provider: Oct 07, 2021 Time Seen by Provider: 10:57 Initial Comments Patient presents the ER by private conveyance from home with chief complaint of some substernal chest pain feeling like somebody is standing on his back in the middle of his chest. Started this morning when he woke up around 6 AM. Smokes half pack a day. Says yesterday evening he was having some diarrhea and feeling of nausea but never vomited. No fevers chills sweats cough shortness of air. He has a history of asthma but does not use any medicines for it. Does not feel wheezy. He did receive 2 doses of COVID-19 vaccination and influenza vaccination. Echocardiogram [address] Carranza demonstrating EF of 55 to 65% with no diastolic dysfunction. He had a negative stress test in 2018. He does have a family history of premature coronary artery disease. Pertinent psychiatric history of bipolar type II, schizophrenia, PTSD and depression. Denies history of hypertension, hyperlipidemia, diabetes. Allergies and Home Medications Allergies Coded Allergies: Shellfish (Unverified Allergy, Unknown, 03/28/12) Patient Home Medication List Home Medication List Reviewed: Yes Alprazolam (Alprazolam) 0.5 Mg Tablet, 0.5 MG PO BID PRN for ANXIETY Prescribed by: LORRIE KING on 03/06/19 1437 Escitalopram Oxalate (Lexapro) 10 Mg Tablet, 10 MG PO DAILY Prescribed by: LORRIE KING on 03/06/19 1437 Ondansetron (Ondansetron Odt) 4 Mg Tab.rapdis, 4 MG PO Q6H PRN for NAUSEA/VOMITING Prescribed by: EAMON ABRAMS on 10/07/21 1231 Review of Systems Review of Systems Constitutional: No chills, No diaphoresis EENTM: No Blurred Vision, No Double Vision Respiratory: Denies Cough, Denies Shortness of Air Cardiovascular: Chest Pain; Denies Lightheadedness Gastrointestinal: Denies Constipated; Diarrhea, Nausea; Denies Vomiting Genitourinary: Denies Discharge, Denies Drainage, Denies Frequency Musculoskeletal: No back pain, No joint pain Psychiatric/Neurological: See HPI, Depressed All Other Systems Reviewed Negative Unless Noted: Yes Past Zeltllc-Gdlmjt-Lrwsbk Hx Patient Social History Tobacco Use?: Yes Tobacco type used: Cigarettes (Half pack a day) Smoking Status: Current Everyday Smoker Use of E-Cig and/or Vaping dev: No Substance use?: Yes Substance type: Marijuana Alcohol Use?: No Immunizations Up To Date Tetanus Booster (TDap): Unknown PED Vaccines UTD: No Seasonal Allergies Seasonal Allergies: No Past Medical History Surgeries: Yes Abdominal, Gallbladder, Orthopedic Respiratory: Yes (SEASONAL ASTHMA) Asthma Cardiac: No Neurological: No Reproductive Disorders: No Genitourinary: No Gastrointestinal: Yes Gastroesophageal Reflux, Irritable Bowel Musculoskeletal: Yes Arthritis, Chronic Back Pain, Fractures Endocrine: No HEENT: No Cancer: No Psychosocial: Yes (ANTISOCIAL) Sleep Difficulties, Anxiety, PTSD, Bipolar, Personality Disorder, Schizophrenia, Depression Integumentary: No Blood Disorders: No Family Medical History Patient reports no known family medical history. Physical Exam Vital Signs Vital Signs - First Documented 10/07/21 11:02 Temp 36.9 Pulse 110 Resp 24 B/P (MAP) 137/97 (110) Pulse Ox 96 O2 Delivery Room Air Capillary Refill : Height, Weight, BMI Height: 6'11.00" Weight: 250lbs. 6.0oz. [id number]; 32.3 BMI Method:Stated General Appearance: WD/WN, Mild Distress HEENT: PERRL/EOMI, Normal ENT Inspection, Pharynx Normal; No Moist Mucous Membranes (Dry oral mucosa) Neck: Full Range of Motion, Normal Inspection Respiratory: Chest Non Tender, Lungs Clear, Normal Breath Sounds, No Accessory Muscle Use, No Respiratory Distress Cardiovascular: Regular Rate, Rhythm, No Edema, Normal Peripheral Pulses Gastrointestinal: Normal Bowel Sounds, Non Tender, Soft Extremity: Normal Capillary Refill, Normal Inspection, No Pedal Edema Neurologic/Psychiatric: Alert, Oriented x3 Skin: Normal Color, Warm/Dry Focused Exam Lactate Level 10/07/21 11:15: Lactic Acid Level 1.21 Lactic Acid Level Laboratory Tests Test 10/07/21 11:15 Lactic Acid Level 1.21 MMOL/L (0.50-2.00) Progress/Results/Core Measures Results/Orders Lab Results Laboratory Tests Test 10/07/21 11:15 10/07/21 13:13 Range/Units White Blood Count 10.1 4.3-11.0 10^3/uL Red Blood Count 5.90 H 4.30-5.52 10^6/uL Hemoglobin 17.3 13.3-17.7 g/dL Hematocrit 51 40-54 % Mean Corpuscular Volume 87 80-99 fL Mean Corpuscular Hemoglobin 29 25-34 pg Mean Corpuscular Hemoglobin Concent 34 32-36 g/dL Red Cell Distribution Width 12.5 10.0-14.5 % Platelet Count 244 130-400 10^3/uL Mean Platelet Volume 9.3 9.0-12.2 fL Immature Granulocyte % (Auto) 0 % Neutrophils (%) (Auto) 86 H 42-75 % Lymphocytes (%) (Auto) 8 L 12-44 % Monocytes (%) (Auto) 5 0-12 % Eosinophils (%) (Auto) 1 0-10 % Basophils (%) (Auto) 0 0-10 % Neutrophils # (Auto) 8.7 H 1.8-7.8 10^3/uL Lymphocytes # (Auto) 0.8 L 1.0-4.0 10^3/uL Monocytes # (Auto) 0.5 0.0-1.0 10^3/uL Eosinophils # (Auto) 0.1 0.0-0.3 10^3/uL Basophils # (Auto) 0.0 0.0-0.1 10^3/uL Immature Granulocyte # (Auto) 0.0 0.0-0.1 10^3/uL Neutrophils % (Manual) 82 % Lymphocytes % (Manual) 11 % Monocytes % (Manual) 4 % Eosinophils % (Manual) 0 % Basophils % (Manual) 0 % Band Neutrophils 3 % Blood Morphology Comment NORMAL Prothrombin Time 13.3 12.2-14.7 SEC INR Comment 1.0 0.8-1.4 Activated Partial Thromboplast Time 29 24-35 SEC Sodium Level 137 135-145 MMOL/L Potassium Level 3.7 3.6-5.0 MMOL/L Chloride Level 104 98-107 MMOL/L Carbon Dioxide Level 22 21-32 MMOL/L Anion Gap 11 5-14 MMOL/L Blood Urea Nitrogen 16 7-18 MG/DL Creatinine 1.01 0.60-1.30 MG/DL Estimat Glomerular Filtration Rate 94 BUN/Creatinine Ratio 16 Glucose Level 124 H 70-105 MG/DL Lactic Acid Level 1.21 0.50-2.00 MMOL/L Calcium Level 9.2 8.5-10.1 MG/DL Corrected Calcium 9.0 8.5-10.1 MG/DL Magnesium Level 2.1 1.6-2.4 MG/DL Total Bilirubin 1.3 H 0.1-1.0 MG/DL Aspartate Amino Transf (AST/SGOT) 18 5-34 U/L Alanine Aminotransferase (ALT/SGPT) 37 0-55 U/L Alkaline Phosphatase 63 40-136 U/L Myoglobin 69.9 10.0-92.0 NG/ML Troponin I < 0.028 < 0.028 <0.028 NG/ML C-Reactive Protein High Sensitivity 2.43 H 0.00-0.50 MG/DL B-Type Natriuretic Peptide < 10.0 <100.0 PG/ML Total Protein 7.3 6.4-8.2 GM/DL Albumin 4.3 3.2-4.5 GM/DL Lipase 4 L 8-78 U/L Influenza Type A (RT-PCR) Not Detected Not Detecte Influenza Type B (RT-PCR) Not Detected Not Detecte SARS-CoV-2 RNA (RT-PCR) Not Detected Not Detecte My Orders Orders - EAMON ABRAMS Continuous Ekg Monitoring (10/07/21 10:58) Ekg Tracing (10/07/21 10:58) Cbc With Automated Diff (10/07/21 11:05) Magnesium (10/07/21 11:05) Chest 1 View, Ap/Pa Only (10/07/21 11:05) Comprehensive Metabolic Panel (10/07/21 11:05) Myoglobin Serum (10/07/21 11:05) Protime With Inr (10/07/21 11:05) Partial Thromboplastin Time (10/07/21 11:05) O2 (10/07/21 11:05) Ed Iv/Invasive Line Start (10/07/21 11:05) Lipase (10/07/21 11:05) Bnp Beckham (10/07/21 11:05) Nitroglycerin 0.4 Mg Btl 25's (Nitrostat (10/07/21 11:15) Aspirin Chewable Tablet (Baby Aspirin Ch (10/07/21 11:15) Blood Culture (10/07/21 11:05) Ed Iv/Invasive Line Start (10/07/21 11:05) Ed Iv/Invasive Line Start (10/07/21 11:05) Vital Signs Adult Sepsis Patie Q15M (10/07/21 11:05) O2 (10/07/21 11:05) Remove Rings In Anticipation O (10/07/21 11:05) Lactic Acid Analyzer (10/07/21 11:05) Lactated Ringers (Lr 1000 Ml Iv Solution (10/07/21 11:15) Lactated Ringers (Lr 1000 Ml Iv Solution (10/07/21 11:15) Covid 19 Inhouse Test (10/07/21 11:05) Influenza A And B By Pcr (10/07/21 11:05) Hs C Reactive Protein (10/07/21 11:15) Troponin I Beckham (10/07/21 11:15) Manual Differential (10/07/21 11:15) Troponin I Roger (10/07/21 13:15) Medications Given in ED Current Medications Medications Dose Ordered Sig/Mary Route Start Time Stop Time Status Last Admin Dose Admin Aspirin 324 mg ONCE ONCE PO 10/07/21 11:15 10/07/21 11:16 DC 10/07/21 11:29 324 MG Lactated Ringer's 1,000 ml @ 0 mls/hr Q0M ONCE IV 10/07/21 11:15 10/07/21 12:27 DC 10/07/21 11:28 1,000 MLS/HR Vital Signs/I&O 10/07/21 11:02 Temp 36.9 Pulse 110 Resp 24 B/P (MAP) 137/97 (110) Pulse Ox 96 O2 Delivery Room Air Progress Progress Note #1: Time: 11:19 Progress Note Patient has a persistent tachycardia. He may resume aspirin and trial some nitroglycerin. Because of the diarrhea could also be a GI bug or syndrome so will consider a GI cocktail. Swab for COVID and influenza. We will start him on a septic work-up with some fluid since he looks dry 2 L is 20 mL/kg. We will not initiate antibiotics at this time as a viral gastroenteritis is most likely source of his diarrhea. Progress Note #2: Time: 12:27 Progress Note Patient had multiple negative work-ups for chest pain. He has not had any chest pain since arrival and did not receive any nitroglycerin. He received most of the first liter of fluids and his heart rate is already down to 90. Oxygenating well, no complaints no increased work of breathing. Plan to do a delta troponin at 1315. No further fluids. Cancel some of the septic work-up as his other lab work is largely unremarkable. Likely he had a viral gut bug. Heart score is 1-2 depending on how to score it out and is low risk. Initial ECG Impression Date: Oct 07, 2021 Initial ECG Impression Time: 11:01 Initial ECG Rate: 104 Initial ECG Rhythm: S.Tach Initial ECG Intervals: Normal Initial ECG Impression: Normal Comment Sinus tachycardia with no clinically relevant ST changes. Diagnostic Imaging Diagonstic Imaging: Xray Plain Films/CT/US/NM/MRI: chest Comments [facility] [place] [place] NAME: LELAND FERNANDES [facility] REC#: [id number] PT STATUS: REG ER : 1975 PHYSICIAN: EAMON ABRAMS MD ADMIT DATE: 10/07/21/ER Draft Date of Exam:10/07/21 CHEST 1 VIEW, AP/PA ONLY INDICATION: Chest pain with nausea. EXAMINATION: Chest 10/07/2021. COMPARISON: 03/06/2019 FINDINGS: The cardiomediastinal silhouette is unremarkable. The pulmonary vasculature is within normal limits. The lungs and pleural spaces are clear. IMPRESSION: No evidence of an acute cardiopulmonary process. Dictated on workstation # [id number] Dict: 10/07/21 1227 Trans: 10/07/21 1228 [id number] Interpreted by: RENEE MARCUS MD Electronically signed by: Reviewed: Reviewed by Me Departure Impression Primary Impression: Gastroenteritis and colitis, viral Additional Impression: Chest pain Qualified Codes: R07.9 - Chest pain, unspecified Disposition: HOME, SELF-CARE Condition: Stable Departure-Patient Inst. Decision time for Depature: 14:15 Referrals: NO,LOCAL PHYSICIAN (PCP/Family) Primary Care Physician Patient Instructions: Chest Pain That Is Not Caused by the Heart (DC), Viral Gastroenteritis, Adult (DC) Add. Discharge Instructions: Drink plenty of fluids. If you continue to have diarrhea and cannot keep up with your fluid intake then take 2 tablets of Imodium followed by 1 tablet every 4 hours afterwards that you are still having loose, watery stools. Zofran 1 tablet every 6 hours as necessary for nausea or vomiting. Return to your primary doctor or the ER if you are having worsening symptoms. Scripts Ondansetron (Ondansetron Odt) 4 Mg Tab.rapdis 4 MG PO Q6H PRN for NAUSEA/VOMITING, #8 TAB 0 Refills Prov: EAMON ABRAMS 10/07/21 EAMON ABRAMS Oct 07, 2021 11:13
[2021-10-07] MEDS ORDERED: NITROGLYCERIN 0.4 MG SL TABS BTL 25'S SL PRN (11:15)
[2021-10-07] MEDS ORDERED: ASPIRIN 81 MG CHEW (CHILDREN'S ASA) PO ONE (11:15)
[2021-10-07] MEDS ORDERED: LACTATED RINGERS 1,000 ML IV ONE ×2 (11:15)
[2021-10-07 11:26] LABS: BASOPHILS % (AUTO) 0 % (0-10); EOSINOPHILS # (AUTO) 0.1 10^3/uL (0.0-0.3); EOSINOPHILS % (AUTO) 1 % (0-10); HEMATOCRIT 51 % (40-54); HEMOGLOBIN 17.3 g/dL (13.3-17.7); LYMPHOCYTES # (AUTO) 0.8 10^3/uL (1.0-4.0); LYMPHOCYTES % (AUTO) 8 % (12-44); MEAN CORPUSCULAR HEMOGLOBIN 29 pg (25-34); MEAN CORPUSCULAR HGB CONC 34 g/dL (32-36); MEAN CORPUSCULAR VOLUME 87 fL (80-99); MEAN PLATELET VOLUME 9.3 fL (9.0-12.2); MONOCYTES # (AUTO) 0.5 10^3/uL (0.0-1.0); MONOCYTES % (AUTO) 5 % (0-12); NEUTROPHILS # (AUTO) 8.7 10^3/uL (1.8-7.8); NEUTROPHILS % (AUTO) 86 % (42-75); PLATELET COUNT 244 10^3/uL (130-400); WHITE BLOOD COUNT 10.1 10^3/uL (4.3-11.0)
[2021-10-07 11:40] LABS: ALBUMIN 4.3 GM/DL (3.2-4.5); CHLORIDE 104 MMOL/L (98-107); POTASSIUM 3.7 MMOL/L (3.6-5.0); SODIUM 137 MMOL/L (135-145)
[2021-10-07 11:41] LABS: CALCIUM 9.2 MG/DL (8.5-10.1)
[2021-10-07 11:43] LABS: GLUCOSE 124 MG/DL (70-105); PROTHROMBIN TIME PATIENT 13.3 SEC (12.2-14.7); TOTAL PROTEIN 7.3 GM/DL (6.4-8.2)
[2021-10-07 11:44] LABS: BILIRUBIN,TOTAL 1.3 MG/DL (0.1-1.0); CARBON DIOXIDE 22 MMOL/L (21-32)
[2021-10-07 11:46] LABS: ALKALINE PHOSPHATASE 63 U/L (40-136); CREATININE SERUM 1.01 MG/DL (0.60-1.30); GFR ESTIMATED 94
[2021-10-07 11:47] LABS: BUN/CREATININE RATIO 16
[2021-10-07 11:49] LABS: ALANINE AMINOTRANSFERASE 37 U/L (0-55); MAGNESIUM 2.1 MG/DL (1.6-2.4)
[2021-10-07 11:50] LABS: LIPASE 4 U/L (8-78)
[2021-10-07 12:05] LABS: BAND NEUTROPHILS 3 %; BASOPHILS % (MANUAL) 0 %; EOSINOPHILS % (MANUAL) 0 %; LYMPHOCYTES % (MANUAL) 11 %; MONOCYTES % (MANUAL) 4 %; NEUTROPHILS % (MANUAL) 82 %; RBC MORPH NORMAL
--- NOTE | 2021-10-07 12:28 | Diagnostic Imaging Report ---
INDICATION: Chest pain with nausea. EXAMINATION: Chest 10/07/2021. COMPARISON: 03/06/2019 FINDINGS: The cardiomediastinal silhouette is unremarkable. The pulmonary vasculature is within normal limits. The lungs and pleural spaces are clear. IMPRESSION: No evidence of an acute cardiopulmonary process. Dictated by: Dictated on workstation # [email or web address]
[2021-10-07] MEDS ORDERED: ONDA4TAB11 PO (12:31)
[2021-10-07 14:30] VITALS: BP 121/83
== END 2021-10-07 14:27 | disposition home or self-care (01) ==
LOC: EDUNIT# 10:54 → ER 10:55
DX: A08.4 Viral intestinal infection, unspecified (principal); R07.9 Chest pain, unspecified; F17.210 Nicotine dependence, cigarettes, uncomplicated; Z20.822 Contact with and (suspected) exposure to COVID-19
CPT/HCPCS: 36415; 71045; 80053; 83605; 83690; 83735; 83874; 83880; 84484; 85007; 85027; 85610; 85730; 86141; 87040; 87636; 93005